=== PATIENT | female | born 1950 | race Caucasian/White ===

== ENCOUNTER → 2019-07-20 16:40 | Outpatient (CLI) | payer MEDICARE, SELFPAY ==
[2019-07-20 11:42] VITALS: BMI 35.4
[2019-07-20 17:29] LABS: Mucous, Urine 0 SEEN /hpf (<or=2+)
[2019-07-20 18:01] LABS: Color, Urine Yellow (Yellow); Glucose, Dipstick Normal (Normal); Ketone-Dipstick Negative (Negative); Leukocyte Esterase-Dipstick 500 /ul (Negative); Nitrite-Dipstick Negative (Negative); Occult Blood-Urine 250 /ul (Negative); Protein-Dipstick 30 mg/dl (Negative); Specific Gravity, Urine 1.015 (1.002-1.030); Urine Bilirubin Dipstick Negative (Negative); Urine Clarity Cloudy (Clear); Urine Urobilinogen 4 mg/dl (Normal)
[2019-07-20 18:08] LABS: Red Blood Cells-Urine 10-25 SEEN /hpf (0-5)
[2019-07-20 18:09] LABS: Bacteria 3+ /hpf (None Seen); Squamous Epithelial Cells - UA 0-5 SEEN /hpf (5-10); White Blood Cells 5-10 SEEN /hpf (0-5)
== END ==
PROVIDERS: Referring Provider Physician Assistant Surgical; Visit Provider Physician Assistant Surgical
DX: R35.0 Frequency of micturition (principal)
CPT/HCPCS: 81001; 87077; 87086; 87088; 87186

== ENCOUNTER → 2020-06-25 07:51 | Outpatient (CLI) | payer MEDICARE, SELFPAY ==
[2019-07-20 11:42] VITALS: BMI 35.4
[2020-06-25] VITALS (9 sets, daily range): BP systolic 101–170; BP diastolic 39–64; PULSE 47–70; RESP 13–25; TEMP 37.2; O2SAT 94–100; BMI 32.5
--- NOTE | 2020-06-25 | BMB_PTH ---
PATIENT: GIGI RDZ LOC: CT U#:[id number] AGE/SX: 74/F ROOM: RE06/25/[address]: Dr. Rock Sims DO : 1950 BED: DIS: SPEC #: [id number] RECD: 06/25/20 10:21 STATUS: TAHMINA NEEMA #: [id number] MYLES: 06/25/20 00:[address]: Rock Sims DEPT: BONE MARROW RECD BY: Loco Dunbar ENTERED: 06/25/20 10:22 SP TYPE: BMB OTHR DR: Dr. Santino Mcneill MD Tissues: A - Bone marrow, NOS B - Bone marrow, NOS C - Bone marrow, NOS Procedures: Bone Marrow Aspiration Bone Marrow Core Biopsy Iron Stain Bone Marrow HEADER OPERATION: Bone marrow biopsy and aspiration PRE-OP DIAGNOSIS: Pancytopenia TISSUE SUBMITTED: A - Core, B - Clot, C - Smears, and send outs (flow, cytogenetics and MDS FISH) BONE MARROW DIAGNOSIS Bone marrow clot and aspiration: Normocellular bone marrow with no evidence of myeloproliferative, lymphoproliferative of plasma cell dyscrasia. Peripheral smear with normocytic anemia and moderate thrombocytopenia. See comment. AM:linda 06/30/2020 COMMENT Flow cytometry analysis of aspirate material does not reveal evidence of acute leukemia or increased blasts. There is no evidence of abnormal myeloid maturation, B-cell or T-cell lymphoproliferative disorder or atypical monocytic proliferation. Cytogenetic studies are pending and will be reported as an addendum. The specimen labeled bone marrow core biopsy consists of fibrofatty tissue only. No bone/marrow elements are present. Clinical correlation is suggested. Immunohistochemistry ([id number]) supports the above diagnosis. Case has been reviewed in consultation with Dr. Reich who concurs with the above diagnosis. IDC:RENETTA BONE MARROW STUDY Slides are reviewed. CBC DATE: 06/25/20 WBC 1.6; RBC 3.65; HGB 10.3; HCT 34.8; MCV 95.3; RDW 29.6; PLTS 82,000 SEGS 54.1%; LYMPHS 32.9%; MONOS 8.1%; EOS 4.3%; BASOS 0.6% PERIPHERAL SMEAR: Submitted. RBC: Normocytic anemia WBC: Normomorphic PLTS: Moderate thrombocytopenia BONE MARROW ASPIRATE DIFFERENTIAL: 200 cell count. Markedly hemodilute with progressive trilineage hematopoiesis. ASPIRATE FINDINGS: Site: Not stated Paucispicular Hypocellular Markedly hemodilute and hypocellular. CORE BIOPSY FINDINGS: Site: Not stated Adequacy: Not adequate Cellularity %: Not applicable M/E ratio: Not applicable Benign fibrofatty tissue. No bone marrow present. ASPIRATE CLOT FINDINGS: Site: Not stated Marrow Particles: Few Cellularity %: 25-30% M/E ratio: Within normal limits Megakaryocytes: Adequate Granuloma(s): 0 Lymphoid aggregate(s): 0 Atypical infiltrate(s): 0 SPECIAL STAINS (with matched controls): Iron: Increased (2/4) without ring sideroblasts Reticulin: Within normal limits PAS: Highlights myeloid elements and megakaryocytes. BONE MARROW GROSS A - Received is a container labeled with the patient's name and designated bone marrow. The specimen consists of fragments of fibroadipose tissue measuring 2 x 2 x 0.1 cm. No obvious bone core is identified. The entire specimen is submitted in one cassette. B - Received labeled with the patient's name and designated bone marrow is a specimen that consists of approximately 8 cc of bloody fluid that on filtration yields multiple minute fragments of blood clots measuring in aggregate 3 x 2.5 x 0.3 cm. The specimen is totally submitted in one cassette. C - Also received are 29 unstained and 1 peripheral stained slides. The unstained slides are submitted for appropriate staining. Also received are two green top tubes which are sent to our reference lab for flow, cytogenetics and MDS FISH. / RENETTA:linda 06/25/20 TC:5 CPT: 58078, 77535, 86695 x2, 99449 x3 ADDENDUM ADDENDUM ADDENDUM ADDENDUM ADDENDUM ADDENDUM ADDENDUM ADDENDUM ADDENDUM ADDENDUM ADDENDUM ADDENDUM ADDENDUM ADDENDUM ADDENDUM 07/09/2020 10:43 ADDENDUM 07/09/2020 10:43 ADDENDUM 07/09/2020 10:43 ADDENDUM 07/09/2020 10:43 ADDENDUM 07/09/2020 10:43 FLUORESCENCE IN-SITU HYBRIDIZATION (FISH) MDS-RELATED DISEASE FROM [facility] INTERPRETATION: 1. No evidence of deletion of 5q or monosomy 5. 2. No evidence of monosomy 7 or deletion of 7q. 3. No evidence of trisomy 8 (+8). 4. No evidence of deletion of 20q12. CYTOGENETICS REPORT FROM [facility] INTERPRETATION: A normal female karyotype was observed in twenty metaphases analyzed. Karyotype: 46,XX[20] Please see complete report in e-chart or EMR
--- NOTE | 2020-06-25 | IMM_PTH ---
PATIENT: GIGI RDZ LOC: CT U#:[id number] AGE/SX: 74/F ROOM: RE06/25/[address]: Dr. Rock Sims DO : 1950 BED: DIS: SPEC #: [id number] RECD: 06/27/20 13:44 STATUS: SOURubi REQ #: [id number] MYLES: 06/25/20 00:[address]: Rock Sims DEPT: IMMUNOHISTOCHEMISTRY RECD BY: Astrid Fishman ENTERED: 06/27/20 13:47 SP TYPE: IMMUNO OTHR DR: Dr. Santino Mcneill MD Tissues: B - Bone marrow of iliac crest Procedures: BCL-2 (add) BCL-6 (add) CD10 (add) CD138 (add) CD15 (add) CD20 (add) CD23 (add) CD3 (add) CD30 (add) CD43 (add) CD45 (add) CD5 (add) CD79A (add) CYCLIN (add) KAPPA (add) KI-67 (add) LAMBDA (add) MPO (add) Vimentin (add) MUM1 (add) C-MYC (add) Pankeratin (initial) PHYSICIAN & INSTITUTION [place] [id number] SPECIMEN INFORMATION: Tissue Source: B - Bone marrow biopsy, clot Clinical Info: Pancytopenia Specimen Number: [id number] CPT code: 51835, 45657 x20 METHODOLOGY: Deparaffinized sections of prefer/formalin-fixed tissue or PAP/DQ stained slides are incubated with monoclonal/polyclonal antibodies/oligonucleotide probes. Localization is made via biotin free immunoperoxidase method. Appropriate controls are performed and reacted as expected. Results on target cell population are indicated in the following table: RESULTS: ANTIBODY / CLONE RESULT Block B AE1-3 (AE1/AE3/PCK26) negative CD3 (PS1) negative CD5 (SP10) negative CD10 (56C6) negative CD15 (MMA) negative CD20 (L26) negative CD23 (1B12) negative CD30 (Luis Manuel-H2) negative CD43 (L60) positive CD45 (RP2/18) negative CD79a (11E3) negative CD138 (B-A38) negative BCL-2 (bcl-2/100/D5) negative BCL-6 (CR237F/A8) negative Cyclin D1/BCL-1 (SP4) negative Weidman (polyclonal) negative Lambda (polyclonal) negative MUM1 (MRQ-43) negative C-MYC (Y69) negative MPO (polyclonal) positive Ki-67 (30-9) positive These tests were developed and their performance characteristics determined by [facility]. They may not have been cleared or approved by the U.S. Food and Drug Administration. The FDA has determined that such clearance or approval is not necessary. The above immunohistochemical/dualISH markers are ordered and reviewed by the Pathologist. INTERPRETATION: B. Bone marrow biopsy, clot: No evidence of lymphoproliferative disorder, plasma cell dyscrasia or increased blasts. AM:linda 06/30/2020 Comment: Clinical correlation necessary.
--- NOTE | 2020-06-25 08:15 | CT_ITS ---
PROCEDURE: CT GUIDED BONE marrow biopsy and aspirate of the left iliac bone. DATE: 06/25/2020. INDICATION: Female, 69 years old. Pancytopenia. PHYSICIAN: Jose Curtis M.D. RADIATION DOSAGE (If Supplied By Facility): CTDIvol = ( 18 ) mGy, DLP = ( 625.43 ) mGycm. Individualized dose optimization techniques were utilized. PROCEDURE: The risks, benefits, and alternatives to the procedure were explained to the patient. The specific risk of hemorrhage requiring further treatment or intervention was detailed and accepted. Follow-up instructions were discussed with the patient as well. Written informed consent was obtained. The patient was brought into the CT suite and placed in the prone position. . An appropriate entry site was identified. The overlying skin was prepped and draped in the usual sterile fashion. 1% lidocaine was administered subcutaneously for local anesthesia. Conscious sedation was performed. The patient received 3 mg of VERSED and 50 mcg of FENTANYL intravenously. Conscious sedation was started at 9:10 AM and terminated at 925. The patient was monitored independently by the department nurse. Under CT guidance, a bone marrow biopsy and bone marrow aspirates of the posterior aspect of the left iliac bone were performed utilizing an 11-gauge bone marrow core biopsy needle system. The specimens were then placed in the appropriate fluid and transported to the laboratory for analysis. Hemostasis was obtained. The patient tolerated the procedure well without immediate complications. CT/Biopsy/Inj or Needle Placement IMPRESSION: Successful CT guided bone marrow biopsy and aspirate of the posterior aspect of the left iliac bone, as described above. Conscious sedation protocol was followed. Electronically Signed: Jose Curtis MD at 9:49 EDT , Service support ,
[2020-06-25 08:18] LABS: Absolute Lymphocyte Count 0.53 X10^3/uL (0.83-4.51); Absolute Neutrophil Count 0.9 X10^3/uL (2.0-7.7); Basophil# 0.01 X10^3/uL; Basophil% 0.6 % (0-1); Eosinophil# 0.07 X10^3/uL; Eosinophils% 4.3 % (0-5); Hematocrit 34.8 % (37-47); Hemoglobin 10.3 g/dL (12.0-15.0); Lymphocyte # 0.53 X10^3/ul (4.0); Lymphocyte % 32.9 % (19-41); Mean Corp Hgb Conc 29.6 g/dL (32-36); Mean Corpuscular Hgb 28.2 pg (27.0-32.0); Mean Corpuscular Volume 95.3 fL (81-99); Mean Platelet Vol. 10.9 fl (6.2-12.0); Monocyte# 0.13 X10^3/uL; Monocyte% 8.1 % (0-10); NRBC Flagged by Analyzer 0 % (0-5); Neutrophil # 0.87 X10^3/uL (2.7-7.7); Neutrophil % 54.1 % (47-70); POSITIVE COUNT YES; POSITIVE DIFFERENTIAL YES; Platelet Count 82 K/mm3 (150-450); RBC Distribution Width CV 15.9 % (11.6-14.6); RBC Distribution Width SD 56.3 fl (35.1-43.9); Red Blood Count 3.65 M/mm3 (4.2-5.4); White Blood Count 1.6 K/mm3 (4.4-11.0)
[2020-06-25 08:24] LABS: Differential Indicated SCAN CRITERIA MET
[2020-06-25 08:48] LABS: Differential Comment SCANNED; Pathologist Review May foll
[2020-06-25] MEDS: fentaNYL 100 MCG/2 ML Ampul IV (09:10)
[2020-06-25] MEDS: Midazolam 2 MG/2 ML Syringe IV ×2 (09:10→09:25)
[2020-06-25] MEDS: Lidocaine 2% (20 ml mdv) 20 ML Vial INFILT (09:15)
== END ==
PROVIDERS: PCP Family Medicine; Referring Provider Internal Medicine Hematology & Oncology; Visit Provider Internal Medicine Hematology & Oncology
DX: D61.818 Other pancytopenia (principal)
CPT/HCPCS: 38221; 36415; 77012; 85025; 88305; 88311; 88313; 88341; 88342; 99155; 99156; J7040; A4216

== ENCOUNTER 2020-07-10 11:26 | Emergency (ER) | payer MEDICARE, SELFPAY ==
[2020-06-25 08:33] VITALS: BMI 32.5
[2020-07-10 11:27] VITALS: BP 144/59; PULSE 59; RESP 18; TEMP 36.6; O2SAT 98; BMI 36.4
--- NOTE | 2020-07-10 13:29 | EDS_ITS ---
HPI History of Present Illness Chief Complaint: Back Detail of Chief Complaint: Back pain and fatigue for 5 days Informant: patient Onset/Context/Timing Worsened by: Movement Narrative Narrative: Patient presents to the emergency department with complaint of not feeling well for the last 5 days. Patient states that she has had some lower back discomfort as well as fatigue and just no energy. Patient's had some intermittent abdominal discomfort and states that she has a gallbladder that is full of fluid and stones and also is scheduled to have a colonoscopy next week. Patient complains of dysuria and frequency. She denies fevers. She is had no nausea or vomiting. Patient does have history of coronary artery disease, diabetes, and hypertension. 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 Patient also tells me she had Covid in April and has been vaccinated as well. Patient has had recent Covid test that was negative. Prior similar symptoms: No PFSH [facility] Medical History (Updated 07/10/20 @ 15:[address] Erik Tang, ) Diabetes HTN (hypertension) Home Medications aspirin 81 mg tablet,delayed release 81 mg PO DAILY 07/20/19 [History Last Taken 06/18/20] citalopram 10 mg tablet 10 tab PO DAILY 07/20/19 [History Last Taken Unknown] ergocalciferol (vitamin D2) 1,250 mcg (50,000 unit) capsule 50,000 units PO QWEEK 07/20/19 [History Last Taken Unknown] lorazepam 1 mg tablet 1 mg PO DAILY tab 07/20/19 [History Last Taken Unknown] losartan 50 mg tablet 50 mg PO DAILY 07/20/19 [History Last Taken Unknown] lovastatin 40 mg tablet 40 mg PO DAILY 07/20/19 [History Last Taken Unknown] metformin 1,000 mg tablet 1,000 mg PO BID 07/20/19 [History Last Taken Unknown] pioglitazone 30 mg tablet 30 mg PO DAILY 07/20/19 [History Last Taken Unknown] cephalexin 500 mg PO TID 7 Days #21 cap 07/10/20 [Rx Last Taken Unknown] metoprolol succinate [Toprol XL] 25 mg PO DAILY 07/10/20 [History Last Taken Unknown] Allergy/AdvReac Type Severity Reaction Status Date / Time No Known Allergies Allergy Unverified 06/25/20 08:27 Surgical History H/O heart surgery Social History (Updated 07/20/19 @ 12:13 by Ulysses LR, PA) Smoking Status: Former smoker alcohol intake: never ROS ROS ED Constitutional Constitutional ED: Reports systems reviewed and no addt'l complaints, except as documented; Denies body ache(s), change in weight or chills Eyes Eyes: Denies acute decrease in peripheral vision, change in vision, double vision or loss of vision ENT ENT ED: Reports none; Denies ear pain, lip swelling, loss taste/smell, neck pain, otalgia or sore throat Cardiovascular Cardiovascular: Reports none; Denies abdominal pain, chest pain with activity, leg edema, lightheadedness, palpitations, rapid heart rate or syncope Respiratory/Chest Respiratory/Chest: Reports none; Denies change in mental status, dry cough, dyspnea, hemoptysis, shortness of breath at rest or shortness of breath with exertion Gastrointestinal Gastrointestinal: Reports none, abdominal pain and nausea; Denies change in stool character, constipation, diarrhea, hematemesis, hematochezia, melena, rectal bleeding or vomiting Genitourinary Genitourinary ED: Reports none, dysuria and urinary frequency; Denies abdominal discomfort, anuria, genital pain or polyuria Musculoskeletal Musculoskeletal: Reports none and back pain; Denies arthralgias, difficulty walking, extremity pain, muscle weakness or myalgias Integumentary Reports none; Denies abscess or rash Neurologic Neurologic: Reports none; Denies abnormal gait, confusion, focal weakness, frequent falls, headache(s), loss of vision, numbness, paresthesias, radicular pain, vertigo or weakness Psychiatric Psychiatric: Reports systems reviewed and no addt'l complaints, except as documented and none; Denies behavioral changes, confusion, difficulty concentrating, hallucinations, suicidal ideation, tactile hallucinations or visual hallucinations Endocrine Endocrinology: Denies none, cold intolerance, excessive sweating, fatigue or heat intolerance Hematologic/Lymphatic Hematologic/Lymphatic: Reports none; Denies anemia, easy bleeding or easy bruising Allergic/Immunologic Allergic/Immunologic ED: Denies as per HPI, none, lip swelling, mouth swelling, throat swelling, tongue swelling or hives EXAM Physical Exam Const Vital Signs: 07/10/20 11:27 07/10/20 14:25 Temperature 97.8 F Temperature Source Temporal Pulse Rate 59 L 78 Respiratory Rate 18 Blood Pressure 144/59 H 136/52 H Blood Pressure Mean 87 80 Pulse Ox 98 Oxygen Delivery Method Room Air Positive well nourished and well developed General Appearance ED: well developed and NAD HEENT Reports TM's clear and moist mucous membranes normocephalic and atraumatic; Negative for trauma or tenderness Tympanic Membrane ED: Yes TM's clear Eyes PERRL and EOMs intact bilaterally General Eye ED: Negative for pale conjunctiva or scleral icterus Neck no lymphadenopathy, supple and no JVD General: Negative for tenderness Chest Wall inspection of chest normal and palpation of chest normal Chest: Negative for tenderness Resp normal respiratory effort and clear to auscultation bilaterally Effort and Inspection: Negative for respiratory distress or pain with movement Auscultation: Negative for rhonchi, wheezes or diminished lung sounds Cardio regular rate, regular rhythm, S1 normal heart sound, S2 normal heart sound and no murmurs Peripheral Pulses: pulses 2+ throughout GI normal to inspection, nondistended, normoactive bowel sounds, soft to palpation, non-tender, non-distended and no masses Palpation: soft Back/Spine no CVA tenderness and no thoracic nor lumbar tenderness Back/Spine Narrative: Patient has some mild diffuse tenderness over lumbar paraspinal musculature that seems to reproduce some of her pain. Negative straight leg raises. Deep tendon reflexes are plus 2 out of 4 bilaterally at the patella Achilles. Patient has normal L5 extension bilaterally. General Back: other Extremity normal to inspection General Extremety ED: Negative for edema General Extremity: Negative for edema Neuro oriented x3, CN's II-XII intact bilaterally, no sensory deficits noted and gait normal Sensorium / Orientation: awake, alert, oriented to person, oriented to place and oriented to time Motor Exam: strength 5/5 throughout and strength abnormal Psych mental status grossly normal Skin no rashes or lesions noted and no wounds MDM MDM MDM Narrative Medical decision making narrative: Patient with evidence of UTI. She will receive Rocephin 1 g IV and will be written for prescription for Keflex. Patient to follow-up with primary care physician in 3 to 5 days. Urine culture was sent. Lab Data Attestation: I reviewed the patient's lab results. Labs: Laboratory Results - last 24 hr 07/10/20 07/10/20 07/10/20 13:10 13:10 13:10 WBC 1.7 L RBC 3.89 L Hgb 10.6 L Hct 36.6 L MCV 94.1 MCH 27.2 MCHC 29.0 L RDW Std Deviation 55.5 H RDW Coeff of Codey 16.0 H Plt Count 79 L MPV 10.7 Immature Gran % (Auto) 0.000 Neut % (Auto) 57.1 Lymph % (Auto) 29.4 Bacon % (Auto) 10.0 Eos % (Auto) 2.9 Baso % (Auto) 0.6 Absolute Neuts (auto) 1.0 L Absolute Lymphs (auto) 0.50 L Nucleated RBC % 0 Differential Comment SCANNED Diff Path Review May foll Platelet Estimate MKD DEC Hypochromasia 1+ Ovalocytes 1+ Sodium 144 Potassium 3.8 Chloride 110 H Carbon Dioxide 30.0 Anion Gap 4 L BUN 33 H Creatinine 1.00 Estim Creat Clear Calc 43.30 Est GFR (MDRD) Af Amer 70 Est GFR (MDRD) Non-Af 58 L BUN/Creatinine Ratio 33.0 H Glucose 89 Lactic Acid Calcium 9.7 Total Bilirubin 0.50 Direct Bilirubin 0.14 AST 22 ALT 24 Alkaline Phosphatase 80 Total Protein 7.1 Albumin 3.5 Globulin 3.6 Urine Color Yellow Urine Clarity Sl. Cloudy Urine pH 6.0 Ur Specific [place] 1.015 Urine Protein 30 H Urine Glucose (UA) Normal Urine Ketones Negative Urine Occult Blood 25 H Urine Nitrite Negative Urine Bilirubin Negative Urine Urobilinogen 4 H Ur Leukocyte Esterase 500 H Urine RBC 0 SEEN Urine WBC >100 SEEN Ur Squamous Epith Cells 0 SEEN Ur Transition Epith Cell 5-10 SEEN Urine Bacteria RARE Urine Mucus 0 SEEN 07/10/20 13:45 WBC RBC Hgb Hct MCV MCH MCHC RDW Std Deviation RDW Coeff of Codey Plt Count MPV Immature Gran % (Auto) Neut % (Auto) Lymph % (Auto) Bacon % (Auto) Eos % (Auto) Baso % (Auto) Absolute Neuts (auto) Absolute Lymphs (auto) Nucleated RBC % Differential Comment Diff Path Review Platelet Estimate Hypochromasia Ovalocytes Sodium Potassium Chloride Carbon Dioxide Anion Gap BUN Creatinine Estim Creat Clear Calc Est GFR (MDRD) Af Amer Est GFR (MDRD) Non-Af BUN/Creatinine Ratio Glucose Lactic Acid 2.0 Calcium Total Bilirubin Direct Bilirubin AST ALT Alkaline Phosphatase Total Protein Albumin Globulin Urine Color Urine Clarity Urine pH Ur Specific [place] Urine Protein Urine Glucose (UA) Urine Ketones Urine Occult Blood Urine Nitrite Urine Bilirubin Urine Urobilinogen Ur Leukocyte Esterase Urine RBC Urine WBC Ur Squamous Epith Cells Ur Transition Epith Cell Urine Bacteria Urine Mucus Discharge Plan Triage Chief Complaint: Back Other Complaint: Fatigue ED Provider: Erik Tang Dx/Rx/DC Orders Clinical Impression: Cystitis Instructions: ED Bladder Infection, Female (Adult) Prescriptions: New cephalexin 500 mg capsule 500 mg PO TID 7 Days Qty: 21 RF: 0 No Action citalopram 10 mg tablet 10 tab PO DAILY RF: 0 aspirin [Adult Low Dose Aspirin] 81 mg tablet,delayed release (DR/EC) 81 mg PO DAILY RF: 0 ergocalciferol (vitamin D2) 1,250 mcg (50,000 unit) capsule 50,000 units PO QWEEK RF: 0 lorazepam 1 mg tablet 1 mg PO DAILY RF: 0 losartan 50 mg tablet 50 mg PO DAILY RF: 0 lovastatin 40 mg tablet 40 mg PO DAILY RF: 0 metformin 1,000 mg tablet 1,000 mg PO BID RF: 0 pioglitazone 30 mg tablet 30 mg PO DAILY RF: 0 metoprolol succinate [Toprol XL] 25 mg tablet extended release 24 hr 25 mg PO DAILY RF: 0 Primary Care Provider: Santino Mcneill Referrals: Santino Mcneill MD [Primary Care Provider] - 3-5 Days Disposition Disposition: Home, self care
[2020-07-10 13:54] LABS: Basophil# 0.01 X10^3/uL; Basophil% 0.6 % (0-1); Eosinophil# 0.05 X10^3/uL; Eosinophils% 2.9 % (0-5); Hematocrit 36.6 % (37-47); Hemoglobin 10.6 g/dL (12.0-15.0); Lymphocyte % 29.4 % (19-41); Mean Corpuscular Hgb 27.2 pg (27.0-32.0); Mean Corpuscular Volume 94.1 fL (81-99); Mean Platelet Vol. 10.7 fl (6.2-12.0); Monocyte# 0.17 X10^3/uL; NRBC Flagged by Analyzer 0 % (0-5); Neutrophil # 0.97 X10^3/uL (2.7-7.7); Neutrophil % 57.1 % (47-70); POSITIVE COUNT YES; POSITIVE DIFFERENTIAL YES; Platelet Count 79 K/mm3 (150-450); RBC Distribution Width SD 55.5 fl (35.1-43.9); Red Blood Count 3.89 M/mm3 (4.2-5.4); White Blood Count 1.7 K/mm3 (4.4-11.0)
[2020-07-10 13:55] LABS: Differential Indicated SCAN CRITERIA MET
[2020-07-10 14:01] LABS: AST(SGOT) 22 U/L (15-37); Alanine Aminotransfer ALT/SGPT 24 U/L (13-56); Albumin, Serum 3.5 g/dL (3.2-5.0); Alkaline Phosphatase 80 U/L (45-117); Anion Gap 4 (5-15); BUN 33 mg/dL (7-18); Bilirubin, Direct 0.14 mg/dL (0.00-0.30); Calcium,Total 9.7 mg/dL (8.5-10.1); Chloride 110 mmol/L (98-107); EST Glomerular Filtration Rate 58 mL/min (>60); Est Glom Filt Rate - Afr Amer 70 mL/min (>60); Globulin 3.6 g/dL (2.2-4.2); Glucose 89 mg/dL (74-106); Potassium 3.8 mmol/L (3.5-5.1); Protein, Total 7.1 g/dL (6.4-8.2); Sodium Level 144 mmol/L (136-145)
[2020-07-10 14:12] LABS: Mucous, Urine 0 SEEN /hpf (<or=2+); Red Blood Cells-Urine 0 SEEN /hpf (0-5); Squamous Epithelial Cells - UA 0 SEEN /hpf (5-10)
[2020-07-10 14:13] LABS: Color, Urine Yellow (Yellow); Glucose, Dipstick Normal (Normal); Ketone-Dipstick Negative (Negative); Leukocyte Esterase-Dipstick 500 /ul (Negative); Nitrite-Dipstick Negative (Negative); Occult Blood-Urine 25 /ul (Negative); Protein-Dipstick 30 mg/dl (Negative); Specific Gravity, Urine 1.015 (1.002-1.030); Urine Bilirubin Dipstick Negative (Negative); Urine Clarity Sl. Cloudy (Clear); Urine Urobilinogen 4 mg/dl (Normal)
[2020-07-10 14:14] LABS: Differential Comment SCANNED; Hypochromasia 1+; Platelet Estimate MKD DEC (ADEQ)
[2020-07-10 14:15] LABS: Ovalocyte 1+
[2020-07-10 14:19] LABS: Bacteria RARE /hpf (None Seen); Transitional Epithelial - Ur 5-10 SEEN /hpf (0-5); White Blood Cells >100 SEEN /hpf (0-5)
[2020-07-10 14:25] VITALS: BP 136/52; PULSE 78
[2020-07-10] MEDS: Ceftriaxone 1 GM/50 ML BAG IV (15:13)
[2020-07-10] MEDS: 0.9% Normal Saline 1,000 ML 150 ML IV (15:13)
[2020-07-10 17:48] LABS: Reflex Lactate? Y
[2020-07-11 12:01] LABS: Pathologist Review Reviewed
== END 2020-07-10 15:56 | disposition home or self-care (01) ==
PROVIDERS: Emergency Provider Emergency Medicine; PCP Family Medicine
DX: N30.90 Cystitis, unspecified without hematuria (principal); Z87.891 Personal history of nicotine dependence; E11.9 Type 2 diabetes mellitus without complications; I10 Essential (primary) hypertension; I25.10 Atherosclerotic heart disease of native coronary artery without angina pectoris; Z95.1 Presence of aortocoronary bypass graft; Z79.82 Long term (current) use of aspirin; Z79.84 Long term (current) use of oral hypoglycemic drugs; Z79.899 Other long term (current) drug therapy
CPT/HCPCS: 80048; 80076; 81001; 83605; 85025; 87077; 87086; 87088; 87186; 99281; 99282; J7030; A4216

== ENCOUNTER → 2020-09-22 15:34 | Outpatient (CLI) | payer MEDICARE, SELFPAY ==
[2020-09-22 11:37] VITALS: BMI 36.4
[2020-09-22 16:07] LABS: Mucous, Urine 0 SEEN /hpf (<or=2+)
[2020-09-22 16:17] LABS: Color, Urine Yellow (Yellow); Glucose, Dipstick Normal (Normal); Ketone-Dipstick Negative (Negative); Leukocyte Esterase-Dipstick 500 /ul (Negative); Nitrite-Dipstick Positive (Negative); Occult Blood-Urine 250 /ul (Negative); Protein-Dipstick 30 mg/dl (Negative); Urine Clarity Clear (Clear); Urine Urobilinogen 1 mg/dl (Normal)
[2020-09-22 16:19] LABS: Urine Bilirubin Dipstick 1 mg/dL (Negative)
[2020-09-22 16:22] LABS: White Blood Cells 10-25 SEEN /hpf (0-5)
[2020-09-22 16:23] LABS: Bacteria RARE /hpf (None Seen); Red Blood Cells-Urine 5-10 SEEN /hpf (0-5); Squamous Epithelial Cells - UA 5-10 SEEN /hpf (5-10)
== END ==
PROVIDERS: PCP Family Medicine; Visit Provider Physician Assistant
DX: N39.0 Urinary tract infection, site not specified (principal); N30.90 Cystitis, unspecified without hematuria
CPT/HCPCS: 81001; 87077; 87086; 87088; 87186

== ENCOUNTER 2020-10-06 10:53 | Inpatient (IN) | payer MEDICARE, SELFPAY ==
[2020-09-22 11:37] VITALS: BMI 36.4
[2020-10-06] VITALS (10 sets, daily range): BP systolic 137–164; BP diastolic 58–88; PULSE 50–65; RESP 15–20; TEMP 36.5–37.1; O2SAT 94–98; BMI 35.7; BMI 35.6
--- NOTE | 2020-10-06 11:30 | RAD_ITS ---
STUDY: X-RAY CHEST REASON FOR EXAM: Female, 70 years old. Cough TECHNIQUE: Single AP portable view of the chest. COMPARISON: None. FINDINGS: EKG electrodes are seen. The lungs are clear and expanded. There is no demonstrated pleural abnormality. Sternal cerclage wires and vascular clips are present from a prior sternotomy and coronary artery bypass graft procedure (CABG). Moderate cardiomegaly. Normal mediastinum and farnaz. Normal visualized pulmonary arteries. There is atherosclerotic calcification of the aortic arch with tortuosity. Normal visualized thoracic spine. Normal visualized ribs, clavicles, and shoulders. There is no demonstrated abnormality of the visualized soft tissue structures of the upper abdomen. RAD/Chest 1 View (Portable) IMPRESSION: Prior CABG. Moderate cardiomegaly. Electronically Signed: Jose Curtis MD at 12:54 EDT , Service support ,
--- NOTE | 2020-10-06 11:30 | CT_ITS ---
STUDY: CT ABDOMEN AND PELVIS WITH CONTRAST REASON FOR EXAM: Female, 70 years old. Abd pain -- IV PO Contrast RADIATION DOSAGE (If Supplied By Facility): CTDIvol = ( 16.43 ) mGy, DLP = ( 1263.74 ) mGycm TECHNIQUE: Transaxial images were obtained from the dome of the diaphragm to the symphysis pubis with oral contrast. Oral and amp;amp; IV Gastrografin and amp;amp; 100mL Isovue-370 was administered. Sagittal and coronal images were reconstructed. Individualized dose optimization techniques were used for this CT. COMPARISON: None. FINDINGS: Mild degree of the right basilar scarring. Coronary artery calcification. Prior CABG. There is evidence of a thrombus within the main portal venous system extending into branches of the right lobe of the liver. Thrombus is also seen in the superior mesenteric vein. Normal gallbladder and extrahepatic biliary system. Normal spleen. Normal pancreas. There is evidence of perihepatic and perisplenic fluid in keeping with the ascites. There is evidence of increased markings in the peritoneal fat. There is evidence of a bilateral perinephric stranding. Normal bilateral adrenal glands. Normal right kidney. Normal left kidney. Normal visualized stomach. Normal small intestine. There is thickening of the right hemicolon suggestive of a edematous changes within the right hemicolon. There are surgical clips in the region of the appendix consistent with a prior appendectomy. There is diffuse atherosclerotic calcification of the abdominal aorta, without a demonstrated aneurysm. Normal inferior vena cava. Normal retroperitoneum. Normal urinary bladder. There is evidence of fluid congestion throughout the subcutaneous fat. There are degenerative changes of the visualized lumbar spine. CT/Abdomen/Pelvis WITH Contrast IMPRESSION: Portal venous thrombosis with the intraluminal thrombus in the main portal vein extending to the right portal branch. Thrombus within the superior mesenteric vein. Small amount of ascites. Increased markings in the peritoneal fat. Thickening of the right hemicolon. N.B. : The above Results were Read Back by Jose Curtis MD to Shaniqua Rose MD, and understanding confirmed on 10/06/2020 13:41:44 (ET). Electronically Signed: Jose Curtis MD at 13:42 EDT , Service support ,
--- NOTE | 2020-10-06 11:30 | EKG12_ITS ---
Test Reason : EDEMA Blood Pressure : / mmHG Vent. Rate : 060 BPM Atrial Rate : 060 BPM P-R Int : 178 ms QRS Dur : 152 ms QT Int : 508 ms P-R-T Axes : 145 -41 -02 degrees QTc Int : 508 ms Unusual P axis, possible ectopic atrial rhythm with frequent Premature ventricular complexes Left axis deviation Right bundle branch block Abnormal ECG Confirmed by NARDA REDDY, MAHNAZ ([id number]), editor producer JUNE MURRY ([id number]) on 10/09/2020 10:03:01 AM Referred By: FELISHA Confirmed By:MAHNAZ LABOY MD
--- NOTE | 2020-10-06 11:31 | EDS_ITS ---
HPI History of Present Illness Chief Complaint: Edema Informant: patient and family Onset/Context/Timing Onset: Days Current Severity: Mild Maximum Severity: Mild Narrative Narrative: Patient presents secondary to multiple complaints. She has had chronic fatigue for quite some time. She has been followed by Dr. Sims and been getting iron transfusions for anemia. She complains of abdominal pain that has been ongoing for quite some time, worsened over the last half hour or so. She states it is diffuse in nature. She has poor appetite but no vomiting or diarrhea. She has frequent UTIs and recently saw a urologist. She finished her last antibiotic approximate 1 week ago. Yesterday her feet were quite swollen. This improved with elevation and today she only has minimal edema. Patient was scheduled to have testing and CT scan performed at the [facility] this afternoon but because family was quite concerned about her oncologist recommended she come to the emergency room. [facility] Medical History (Updated 10/06/20 @ 14:[address] Shaniqua Rose MD) Anemia Diabetes History of recurrent UTIs HTN (hypertension) Home Medications aspirin 81 mg tablet,delayed release 81 mg PO DAILY 07/20/19 [History Last Taken 06/18/20] citalopram 10 mg tablet 10 tab PO DAILY 07/20/19 [History Last Taken Unknown] ergocalciferol (vitamin D2) 1,250 mcg (50,000 unit) capsule 50,000 units PO METZ 07/20/19 [History Last Taken Unknown] lorazepam 1 mg tablet 1 mg PO DAILY tab 07/20/19 [History Last Taken Unknown] losartan 50 mg tablet 50 mg PO DAILY 07/20/19 [History Last Taken Unknown] lovastatin 40 mg tablet 40 mg PO DAILY 07/20/19 [History Last Taken Unknown] metformin 1,000 mg tablet 1,000 mg PO BID 07/20/19 [History Last Taken Unknown] pioglitazone 30 mg tablet 30 mg PO DAILY 07/20/19 [History Last Taken Unknown] metoprolol succinate [Toprol XL] 25 mg PO DAILY 07/10/20 [History Last Taken Unknown] ascorbic acid (vitamin C) [Vitamin C] 500 mg PO DAILY 10/06/20 [History Last Taken Unknown] Allergy/AdvReac Type Severity Reaction Status Date / Time No Known Allergies Allergy Unverified 10/06/20 10:55 Surgical History (Updated 10/06/20 @ 12:14 by Glory Quintero) H/O heart surgery H/O hernia repair Hx of CABG Social History Smoking Status: Former smoker alcohol intake: never ROS ROS ED Constitutional Constitutional ED: Denies chills or fever(s) Eyes Eyes: Denies change in vision ENT ENT ED: Denies sore throat Cardiovascular Cardiovascular: Denies chest pain Respiratory/Chest Respiratory/Chest: Reports cough; Denies dyspnea Gastrointestinal Gastrointestinal: Reports abdominal pain; Denies diarrhea, nausea or vomiting Genitourinary Genitourinary ED: Denies dysuria Musculoskeletal Musculoskeletal: Denies back pain Integumentary Denies rash Neurologic Neurologic: Denies headache(s) or weakness Psychiatric Psychiatric: Denies anxiety or depression Endocrine Endocrinology: Denies polydipsia or polyuria Allergic/Immunologic Allergic/Immunologic ED: Denies urticaria EXAM Physical Exam Const Vital Signs: 10/06/20 10:54 10/06/20 12:11 10/06/20 12:12 Temperature 98.8 F Temperature Source Temporal Pulse Rate 60 59 L Respiratory Rate 15 20 H Respiratory Effort Normal Non-Labored Respiratory Pattern Normal Blood Pressure 164/68 H 137/88 H Blood Pressure Mean 100 104 Pulse Ox 94 95 Oxygen Delivery Method Room Air Room Air 10/06/20 14:20 Temperature 98.1 F Temperature Source Temporal Pulse Rate 50 L Respiratory Rate 16 Respiratory Effort Respiratory Pattern Blood Pressure 152/60 H Blood Pressure Mean 90 Pulse Ox 96 Oxygen Delivery Method Room Air Positive well nourished and well developed General Appearance ED: well developed HEENT Reports normocephalic and head/scalp atraumatic Eyes PERRL and EOMs intact bilaterally Neck supple Chest Wall inspection of chest normal and palpation of chest normal Resp normal respiratory effort and clear to auscultation bilaterally Cardio regular rhythm Rate: bradycardia Heart Sounds: murmur GI normal to inspection, nondistended, normoactive bowel sounds and non-tender Palpation: soft Extremity normal to inspection Extremity Narrative: 1+ bilateral lower extremity edema, symmetric. Strong pulses. No skin changes. Neuro oriented x3 Sensorium / Orientation: alert Psych mental status grossly normal Skin no rashes or lesions noted MDM MDM MDM Narrative Medical decision making narrative: Labs, EKG, CT scan abdomen pelvis, urinalysis obtained. Lab Data Attestation: I reviewed the patient's lab results. Labs: Laboratory Results - last 24 hr 10/06/20 10/06/20 10/06/20 11:40 11:40 12:43 WBC 1.9 L RBC 3.53 L Hgb 10.8 L Hct 35.5 L MCV 100.6 H MCH 30.6 MCHC 30.4 L RDW Std Deviation 69.8 H RDW Coeff of Codey 18.8 H Plt Count 69 L MPV 11.3 Immature Gran % (Auto) 0.500 Neut % (Auto) 64.0 Lymph % (Auto) 21.4 [place] % (Auto) 8.9 Eos % (Auto) 4.7 Baso % (Auto) 0.5 Absolute Neuts (auto) 1.2 L Absolute Lymphs (auto) 0.41 L Nucleated RBC % 0 Differential Comment SCANNED Diff Path Review July Sodium 144 Potassium 4.7 Chloride 113 H Carbon Dioxide 27.0 Anion Gap 4 L BUN 24 H Creatinine 0.81 Estim Creat Clear Calc 55.01 Est GFR (MDRD) Af Amer 89 Est GFR (MDRD) Non-Af 74 BUN/Creatinine Ratio 29.5 H Glucose 83 Calcium 9.3 Total Bilirubin 0.80 Direct Bilirubin 0.20 AST 31 ALT 27 Alkaline Phosphatase 106 Total Protein 6.5 Albumin 3.1 L Globulin 3.4 Urine Color Yellow Urine Clarity Sl. Cloudy Urine pH 5.0 Ur Specific [place] 1.020 Urine Protein Negative Urine Glucose (UA) Normal Urine Ketones Negative Urine Occult Blood 10 H Urine Nitrite Negative Urine Bilirubin Negative Urine Urobilinogen 1 H Ur Leukocyte Esterase 100 H Urine RBC 0-5 SEEN Urine WBC 10-25 SEEN Ur Squamous Epith Cells 0-5 SEEN Urine Bacteria 1+ Urine Mucus 0 SEEN Radiography Diagnostic Testing: Radiology Impression Abdomen/Pelvis CT 10/06/20 11:30 IMPRESSION: Portal venous thrombosis with the intraluminal thrombus in the main portal vein extending to the right portal branch. Thrombus within the superior mesenteric vein. Small amount of ascites. Increased markings in the peritoneal fat. Thickening of the right hemicolon. N.B. : The above Results were Read Back by Jose Curtis MD to Shaniqua Rose MD, and understanding confirmed on 10/06/2020 13:41:44 (ET). Electronically Signed: Jose Curtis MD at 13:42 EDT , Service support , ADDENDUM: 10/06/20 1349 IMPRESSION: Portal venous thrombosis with the intraluminal thrombus in the main portal vein extending to the right portal branch. Thrombus within the superior mesenteric vein. Small amount of ascites. Increased markings in the peritoneal fat. Thickening of the right hemicolon. N.B. : The above Results were Read Back by Jose Curtis MD to Shaniqua Rose MD, and understanding confirmed on 10/06/2020 13:41:44 (ET). Electronically Signed: Jose Curtis MD at 13:42 EDT , Service support , Chest X-Ray 10/06/20 11:30 IMPRESSION: Prior CABG. Moderate cardiomegaly. Electronically Signed: Jose Curtis MD at 12:54 EDT , Service support , EKG Initial EKG: Attestation: I personally reviewed and interpreted this EKG as follows: Interpretation: Sinus Rhythm (Sinus at 60 with frequent PVCs. No obvious ST change.) Treatment and Re-Evaluation Comments:: Test results reviewed with the patient. She does have evidence of UTI. Urine culture will be sent to be given a dose of Rocephin. I spoke with Dr. Sims, her oncologist. He would prefer the patient be started on a heparin drip for the first 24 hours and observed in treatment of her portal vein thrombosis. I spoke with Dr. Sanchez and patient be admitted to the PCU unit. Discharge Plan Triage Chief Complaint: Edema ED Provider: Shaniqua Rose Dx/Rx/DC Orders Clinical Impression: Portal vein thrombosis, Acute UTI Prescriptions: No Action citalopram 10 mg tablet 10 tab PO DAILY RF: 0 aspirin [Adult Low Dose Aspirin] 81 mg tablet,delayed release (DR/EC) 81 mg PO DAILY RF: 0 ergocalciferol (vitamin D2) 1,250 mcg (50,000 unit) capsule 50,000 units PO METZ RF: 0 lorazepam 1 mg tablet 1 mg PO DAILY RF: 0 losartan 50 mg tablet 50 mg PO DAILY RF: 0 lovastatin 40 mg tablet 40 mg PO DAILY RF: 0 metformin 1,000 mg tablet 1,000 mg PO BID RF: 0 pioglitazone 30 mg tablet 30 mg PO DAILY RF: 0 metoprolol succinate [Toprol XL] 25 mg tablet extended release 24 hr 25 mg PO DAILY RF: 0 Vitamin C 500 mg Wafer 500 mg PO DAILY RF: 0 Primary Care Provider: Santino Mcneill Referrals: Santino Mcneill MD [Primary Care Provider] - Disposition Disposition: Acute Care Hospital [facility]
--- NOTE | 2020-10-06 11:33 | NURSING ---
NO OLD EKGS
[2020-10-06 11:51] LABS: Absolute Lymphocyte Count 0.41 X10^3/uL (0.83-4.51); Absolute Neutrophil Count 1.2 X10^3/uL (2.0-7.7); Basophil# 0.01 X10^3/uL; Basophil% 0.5 % (0-1); Eosinophil# 0.09 X10^3/uL; Eosinophils% 4.7 % (0-5); Hematocrit 35.5 % (37-47); Hemoglobin 10.8 g/dL (12.0-15.0); Lymphocyte # 0.41 X10^3/ul (0.83-4.51); Lymphocyte % 21.4 % (19-41); Mean Corp Hgb Conc 30.4 g/dL (32-36); Mean Corpuscular Hgb 30.6 pg (27.0-32.0); Mean Corpuscular Volume 100.6 fL (81-99); Mean Platelet Vol. 11.3 fl (6.2-12.0); Monocyte# 0.17 X10^3/uL; Monocyte% 8.9 % (0-10); NRBC Flagged by Analyzer 0 % (0-5); Neutrophil # 1.23 X10^3/uL (2.7-7.7); POSITIVE COUNT YES; POSITIVE DIFFERENTIAL YES; POSITIVE MORPHOLOGY YES; Platelet Count 69 K/mm3 (150-450); RBC Distribution Width CV 18.8 % (11.6-14.6); RBC Distribution Width SD 69.8 fl (35.1-43.9); Red Blood Count 3.53 M/mm3 (4.2-5.4); White Blood Count 1.9 K/mm3 (4.4-11.0)
[2020-10-06 11:54] LABS: Differential Indicated SCAN CRITERIA MET
[2020-10-06 12:03] LABS: AST(SGOT) 31 U/L (15-37); Alanine Aminotransfer ALT/SGPT 27 U/L (13-56); Albumin, Serum 3.1 g/dL (3.2-5.0); Alkaline Phosphatase 106 U/L (45-117); Anion Gap 4 (5-15); BUN 24 mg/dL (7-18); BUN/Creat Ratio 29.5 RATIO (10-20); Calcium,Total 9.3 mg/dL (8.5-10.1); Chloride 113 mmol/L (98-107); Creatinine, Serum 0.81 mg/dL (0.55-1.02); EST Glomerular Filtration Rate 74 mL/min (>60); Est Glom Filt Rate - Afr Amer 89 mL/min (>60); Estimated Creatinine Clearance 55.01 ml/min; Globulin 3.4 g/dL (2.2-4.2); Glucose 83 mg/dL (74-106); Potassium 4.7 mmol/L (3.5-5.1); Protein, Total 6.5 g/dL (6.4-8.2); Sodium Level 144 mmol/L (136-145)
[2020-10-06 12:13] LABS: Differential Comment SCANNED
[2020-10-06 12:56] LABS: Mucous, Urine 0 SEEN /hpf (<or=2+)
[2020-10-06 12:59] LABS: Color, Urine Yellow (Yellow); Glucose, Dipstick Normal (Normal); Ketone-Dipstick Negative (Negative); Leukocyte Esterase-Dipstick 100 /ul (Negative); Nitrite-Dipstick Negative (Negative); Occult Blood-Urine 10 /ul (Negative); Protein-Dipstick Negative (Negative); Urine Bilirubin Dipstick Negative (Negative); Urine Clarity Sl. Cloudy (Clear); Urine Urobilinogen 1 mg/dl (Normal)
[2020-10-06 13:06] LABS: Bacteria 1+ /hpf (None Seen); Red Blood Cells-Urine 0-5 SEEN /hpf (0-5); Squamous Epithelial Cells - UA 0-5 SEEN /hpf (5-10); White Blood Cells 10-25 SEEN /hpf (0-5)
--- NOTE | 2020-10-06 14:21 | NURSING ---
DR MARK FOR DR VIDALES
[2020-10-06] MEDS: Heparin Injection (Vial) 5,000 UNIT/ML VIAL 7500 UNIT IV (14:29)
[2020-10-06] MEDS: HEPARIN/D5w 25,000 UNITS 25,000 UNITS/250 ML IV.SOLN. 14 UNITS IV (14:30)
--- NOTE | 2020-10-06 14:34 | NURSING ---
PCU TERELETSKY PORTAL VEIN THROMBOSIS
[2020-10-06 14:42] LABS: International Normalized Ratio 1.3; Partial Thromboplast Time 29.2 Seconds (24.1-36.2); Prothrombin Time (Protime)PT. 15.1 SECONDS (11.7-14.9)
[2020-10-06] MEDS: Ceftriaxone 1 GM/50 ML BAG IV (15:06)
--- NOTE | 2020-10-06 16:34 | CON.PCM.SX_ITS ---
Assessment & Plan Assessment/Plan (1) Mass of cecum: (2) Portal vein thrombosis: PLAN: My plan is to perform both an upper and lower endoscopy on the patient. In addition she will need to have platelets prior to her procedure. She will be off of her heparin approximately 6 hours prior to her procedure.We reviewed the pre-operative plans with the patient. Risks and benefits of the procedure were fully explained, including but not limited to infection, neurovascular injury, continued pain, arthritis, stiffness, need for further surgery, re-injury, DVT, PE, general risks of anesthesia, and loss of the limb or life. The patient understands all the risks and does wish to proceed with written consent. HPI Consult Data Date of Consult: 10/06/20 HPI Narrative HPI Narrative: GIGI RDZ, is a 70 F who presents secondary to multiple complaints. She has had chronic fatigue for quite some time. She has been followed by Dr. Sims and been getting iron transfusions for anemia. She complains of abdominal pain that has been ongoing for quite some time, worsened over the last half hour or so. She states it is diffuse in nature. She has poor appetite but no vomiting or diarrhea. She has frequent UTIs and recently saw a urologist. She finished her last antibiotic approximate 1 week ago. Yesterday her feet were quite swollen. This improved with elevation and today she only has minimal edema. Patient was scheduled to have testing and CT scan performed at the [facility] this afternoon but because family was quite concerned about her oncologist recommended she come to the emergency room. CT scan of the abdomen performed at [facility] showed portal vein thrombosis with a questionable mass located within the cecum itself. In ad dition it showed significant amount of ascites which was not present on the CT scan at the [facility]. I been in contact with Dr. Stanley who would like to have both an upper and lower endoscopy on the patient to rule out malignancy. Patient this past April did have an upper and lower endoscopy in [place] which showed some questionable findings in the cecum but biopsies at that time did not show any signs of malignancy. It is clear that the CAT scan has changed significantly from the one that was done at the [facility]. [facility] Medical History Anemia Diabetes History of recurrent UTIs HTN (hypertension) Home Medications aspirin 81 mg tablet,delayed release 81 mg PO DAILY 05/08/20 [History Last Taken 10/06/20] citalopram 10 mg tablet 10 tab PO DAILY 07/20/19 [History Last Taken 10/06/20] ergocalciferol (vitamin D2) 1,250 mcg (50,000 unit) capsule 50,000 units PO METZ 07/20/19 [History Last Taken 10/05/20] lorazepam 1 mg tablet 1 mg PO DAILY tab 07/20/19 [History Last Taken 10/05/20] losartan 50 mg tablet 50 mg PO DAILY 07/20/19 [History Last Taken 10/06/20] lovastatin 40 mg tablet 40 mg PO DAILY 07/20/19 [History Last Taken 10/05/20] metformin 1,000 mg tablet 1,000 mg PO BID 07/20/19 [History Last Taken 10/06/20] pioglitazone 30 mg tablet 30 mg PO DAILY 07/20/19 [History Last Taken 10/06/20] metoprolol succinate [Toprol XL] 25 mg PO DAILY 07/10/20 [History Last Taken 10/06/20] ascorbic acid (vitamin C) 500 mg PO DAILY 10/06/20 [History Last Taken 10/05/20] cranberry fruit concentrate [Azo Cranberry] 500 mg PO DAILY 10/06/20 [History Last Taken 10/05/20] Allergy/AdvReac Type Severity Reaction Status Date / Time No Known Allergies Allergy Unverified 10/06/20 10:55 Surgical History H/O heart surgery H/O hernia repair Hx of CABG Social History Smoking Status: Former smoker alcohol intake: never ROS Constitutional Constitutional: Denies chills or fever(s) Eyes Eyes: Denies blurry vision ENT HEENT: Denies dysphagia Cardiovascular Cardiovascular: Denies chest pain Respiratory/Chest Respiratory/Chest: Reports cough Gastrointestinal Gastrointestinal: Reports abdominal pain; Denies diarrhea, nausea or vomiting Genitourinary Genitourinary: Denies difficulty urinating Musculoskeletal Musculoskeletal: Denies back pain Integumentary Integumentary: Denies rash Neurologic Neurologic: Denies weakness Physical Exam Const alert and oriented x3 General Appearance: cooperative HEENT normocephalic and head/scalp atraumatic Eyes PERRL and EOMs intact bilaterally Neck no JVD Lymph Lymphatic: Negative for lymphadenopathy Resp clear to auscultation bilaterally Cardio Rate: regular rate Rhythm: regular rhythm GI soft to palpation Inspection: abdominal distention Palpation: ascites; Negative for guarding Lab / Micro Data Result Diagrams: 10/06/20 11:40 10/06/20 11:40 Labs: Laboratory Results - last 24 hr 10/06/20 11:40: WBC 1.9 L, RBC 3.53 L, Hgb 10.8 L, Hct 35.5 L, MCV 100.6 H, MCH 30.6, MCHC 30.4 L, RDW Std Deviation 69.8 H, RDW Coeff of Codey 18.8 H, Plt Count 69 L, MPV 11.3, Immature Gran % (Auto) 0.500, Neut % (Auto) 64.0, Lymph % (Auto) 21.4, [place] % (Auto) 8.9, Eos % (Auto) 4.7, Baso % (Auto) 0.5, Absolute Neuts (a uto) 1.2 L, Absolute Lymphs (auto) 0.41 L, Nucleated RBC % 0, Differential Comment SCANNED, Diff Path Review July10/06/20 11:40: Sodium 144, Potassium 4.7, Chloride 113 H, Carbon Dioxide 27.0, Anion Gap 4 L, BUN 24 H, Creatinine 0.81, Estim Creat Clear Calc 55.01, Est GFR (MDRD) Af Amer 89, Est GFR (MDRD) Non-Af 74, BUN/Creatinine Ratio 29.5 H, Glucose 83, Calcium 9.3, Total Bilirubin 0.80, Direct Bilirubin 0.20, AST 31, ALT 27, Alkaline Phosphatase 106, Total Protein 6.5, Albumin 3.1 L, Globulin 3.4 10/06/20 12:43: Urine Color Yellow, Urine Clarity Sl. Cloudy, Urine pH 5.0, Ur Specific [place] 1.020, Urine Protein Negative, Urine Glucose (UA) Normal, Urine Ketones Negative, Urine Occult Blood 10 H, Urine Nitrite Negative, Urine Bilirubin Negative, Urine Urobilinogen 1 H, Ur Leukocyte Esterase 100 H, Urine RBC 0-5 SEEN, Urine WBC 10-25 SEEN, Ur Squamous Epith Cells 0-5 SEEN, Urine Bacteria 1+, Urine Mucus 0 SEEN 10/06/20 14:25: PT 15.1 H, INR 1.3, APTT 29.2 Radiology Impression Abdomen/Pelvis CT 10/06/20 11:30 IMPRESSION: Portal venous thrombosis with the intraluminal thrombus in the main portal vein extending to the right portal branch. Thrombus within the superior mesenteric vein. Small amount of ascites. Increased markings in the peritoneal fat. Thickening of the right hemicolon. N.B. : The above Results were Read Back by Jose Curtis MD to Shaniqua Rose MD, and understanding confirmed on 10/06/2020 13:41:44 (ET). Electronically Signed: Jose Curtis MD at 13:42 EDT , Service support , ADDENDUM: 10/06/20 1349 IMPRESSION: Portal venous thrombosis with the intraluminal thrombus in the main portal vein extending to the right portal branch. Thrombus within the superior mesenteric vein. Small amount of ascites. Increased markings in the peritoneal fat. Thickening of the right hemicolon. N.B. : The above Results were Read Back by Jose Curtis MD to Shaniqua Rose MD, and understanding confirmed on 10/06/2020 13:41:44 (ET). Electronically Signed: Jose Curtis MD at 13:42 EDT , Service support , Chest X-Ray 10/06/20 11:30 IMPRESSION: Prior CABG. Moderate cardiomegaly. Electronically Signed: Jose Curtis MD at 12:54 EDT , Service support ,
[2020-10-06 16:36] LABS: Bedside Glucose 72 mg/dL (70-110)
[2020-10-06 19:01] LABS: Bedside Glucose 72 mg/dL (70-110)
--- NOTE | 2020-10-06 20:01 | PCM.HP.STD ---
HPI - General General Date of Admission: 10/06/20 Date of Service: 10/06/20 Chief Complaint: Generalized edema HPI Narrative GIGI RDZ, is a 70 F who presents to the emergency room at [facility] for evaluation of generalized edema and abdominal distention. Patient was due to have a work-up as an outpatient but decided to come to the emergency room today for a more expedited work-up. Work-up in the ER included a CT of the abdomen and pelvis which showed portal venous thrombosis with intraluminal thrombus in the main portal vein extending into the right pleural branch, there was also noted to be a thrombus within the superior mesenteric vein. In addition a small amount of ascites was noted to be present with also thickening of the right hemicolon. Patient's labs were remarkable for a white blood cell count of 1.9, hemoglobin was 10.8, platelet count was 69. Patient has a history of pancytopenia and has been worked up as an outpatient without an adequate explanation for her pancytopenia. Patient will be admitted for portal vein thrombosis and recurrent urinary tract infection, she was given IV Rocephin and placed on IV heparin. Patient was admitted to PCU, she was placed on a heparin drip, her oncologist was contacted and concurred with this treatment, her oncologist recommended general surgery consultation for endoscopy. Dr. Wyatt was contacted regarding this. [facility] Medical History (Updated 10/06/20 @ 20:[address] Yaya Sanchez, ) Anemia Diabetes History of recurrent UTIs HTN (hypertension) Pancytopenia Home Medications aspirin 81 mg tablet,delayed release 81 mg PO DAILY 07/20/19 [History Last Taken 10/06/20] citalopram 10 mg tablet 10 tab PO DAILY 07/20/19 [History Last Taken 10/06/20] ergocalciferol (vitamin D2) 1,250 mcg (50,000 unit) capsule 50,000 units PO METZ 07/20/19 [History Last Taken 10/05/20] lorazepam 1 mg tablet 1 mg PO DAILY tab 07/20/19 [History Last Taken 10/05/20] losartan 50 mg tablet 50 mg PO DAILY 07/20/19 [History Last Taken 10/06/20] lovastatin 40 mg tablet 40 mg PO DAILY 07/20/19 [History Last Taken 10/05/20] metformin 1,000 mg tablet 1,000 mg PO BID 07/20/19 [History Last Taken 10/06/20] pioglitazone 30 mg tablet 30 mg PO DAILY 07/20/19 [History Last Taken 10/06/20] metoprolol succinate [Toprol XL] 25 mg PO DAILY 07/10/20 [History Last Taken 10/06/20] ascorbic acid (vitamin C) 500 mg PO DAILY 10/06/20 [History Last Taken 10/05/20] cranberry fruit concentrate [Azo Cranberry] 500 mg PO DAILY 10/06/20 [History Last Taken 10/05/20] Allergy/AdvReac Type Severity Reaction Status Date / Time No Known Allergies Allergy Unverified 10/06/20 10:55 Surgical History H/O heart surgery H/O hernia repair Hx of CABG Social History Smoking Status: Former smoker alcohol intake: never ROS Constitutional Constitutional: Reports fatigue and weakness; Denies anorexia, change in weight, chills or night sweats Eyes Eyes: Denies blurry vision, eye pain or loss of vision ENT HEENT: Denies abnormal hearing, dysphagia, ear pain, headache(s) or hearing loss Cardiovascular Cardiovascular: Reports edema; Denies chest pain, claudication, dyspnea on exertion, lightheadedness or orthopnea Respiratory/Chest Respiratory/Chest: Denies cough, dyspnea, excessive phlegm production, hemoptysis, productive cough or shortness of breath at rest Gastrointestinal Gastrointestinal: Denies abdominal pain, coffee ground emesis, diarrhea, dyspepsia, hematemesis or vomiting Genitourinary Genitourinary: Denies burning urination, difficulty urinating, dysuria, hematuria, nocturia or urinary frequency Neurologic Neurologic: Denies abnormal gait, abnormal speech, confusion or disequilibrium Psychiatric Psychiatric: Denies anxiety or depression Endocrine Endocrinology: Denies cold intolerance, excessive sweating, heat intolerance or polydipsia Hematologic/Lymphatic Hematologic/Lymphatic: Denies anemia, easy bleeding or easy bruising Allergic/Immunologic Allergic/Immunologic: Denies hives, eczemia or asthma Vital Signs Vital Signs Vital Signs: 10/06/20 10:54 10/06/20 12:11 10/06/20 12:12 Temperature 98.8 F Temperature Source Temporal Pulse Rate 60 59 L Respiratory Rate 15 20 H Respiratory Effort Normal Non-Labored Respiratory Pattern Normal Blood Pressure 164/68 H 137/88 H Blood Pressure Mean 100 104 Blood Pressure Source Blood Pressure Position Blood Pressure Location Pulse Ox 94 95 Oxygen Delivery Method Room Air Room Air 10/06/20 14:20 10/06/20 15:06 10/06/20 15:22 Temperature 98.1 F 98.1 F Temperature Source Temporal Temporal Pulse Rate 50 L 50 L 50 L Respiratory Rate 16 16 Respiratory Effort Respiratory Pattern Blood Pressure 152/60 H 152/60 H Blood Pressure Mean 90 90 Blood Pressure Source Blood Pressure Position Blood Pressure Location Pulse Ox 96 96 Oxygen Delivery Method Room Air Room Air 10/06/20 15:44 10/06/20 16:04 10/06/20 19:00 Temperature 98.3 F Temperature Source Oral Pulse Rate 60 50 L 53 L Respiratory Rate 18 18 Respiratory Effort Normal Non-Labored Respiratory Pattern Blood Pressure 150/70 H Blood Pressure Mean 96 Blood Pressure Source Monitor Blood Pressure Position Semi-Fowlers Blood Pressure Location Right Arm Pulse Ox 98 Oxygen Delivery Method Room Air Weight Weight: 94.1 kg Body Mass Index (BMI) 35.6 Physical Exam Const alert, oriented x3, no apparent distress and healthy appearing General Appearance: cooperative, well kempt and well developed Orientation / Consciousness: awake, oriented to person, oriented to place and oriented to time HEENT normocephalic, head/scalp atraumatic, hearing grossly normal bilaterally and moist oral mucous membranes Eyes PERRL, EOMs intact bilaterally and conjunctivae normal Neck nuchal rigidity, supple, no JVD, thyroid normal and no carotid bruits General: trachea midline Resp normal respiratory effort, no retractions, no use of accessory muscles and clear to auscultation bilaterally Auscultation: Negative for rales, rhonchi or wheezes Cardio regular rate, regular rhythm, S1 normal heart sound, S2 normal heart sound, no murmurs, no rub and no gallops GI soft to palpation and non-tender GI Narrative: There is moderate abdominal distention noted on physical exam Extremity Extremity Narrative: +1 to +2 mm pitting edema is noted in the lower legs bilaterally Skin no rashes or lesions noted General Skin Exam: no breakdown Neuro oriented x3, CN's II-XII intact bilaterally, no focal motor deficits and no sensory deficits noted Sensorium / Orientation: awake and alert Speech: speech normal Psych thought process normal and affect normal Results Medical Records Data Medical Nutrition Assessment Dietitian: Nutrition Therapy Diagnosis Start: 10/06/20 16:44 Freq: Status: Active Protocol: Document 10/06/20 16:45 RMA (Rec: 10/06/20 16:46 RMA [id number]) Nutrition Malnutrition Evidence of Malnutrition Exists No Intake Problem Inadequate Oral Intake Etiology r/t acute illness and decreased appetite Signs/Symptoms as evidenced by pt report of consuming ~50% of meals x1 week and unintentional weight loss of 10#/5% x1 year. Status Active Problem Recommendation Dietitian Recommendations/Changes Continue clear liquid diet as ordered. Recommend advanced diet as tolerated to 1800kcal consistent carbohydrate cardiac diet as medically able . Will add ensure clear 120mL PO TID with meals only while on clear liquid diet. Provide nutrition education as needed prior to discharge. Lab / Micro Data Result Diagrams: 10/06/20 11:40 10/06/20 11:40 Labs: Laboratory Results - last 24 hr 10/06/20 11:40: WBC 1.9 L, RBC 3.53 L, Hgb 10.8 L, Hct 35.5 L, MCV 100.6 H, MCH 30.6, MCHC 30.4 L, RDW Std Deviation 69.8 H, RDW Coeff of [place] 18.8 H, Plt Count 69 L, MPV 11.3, Immature Gran % (Auto) 0.500, Neut % (Auto) 64.0, Lymph % (Auto) 21.4, [place] % (Auto) 8.9, Eos % (Auto) 4.7, Baso % (Auto) 0.5, Absolute Neuts (auto) 1.2 L, Absolute Lymphs (auto) 0.41 L, Nucleated RBC % 0, Differential Comment SCANNED, Diff Path Review July10/06/20 11:40: Sodium 144, Potassium 4.7, Chloride 113 H, Carbon Dioxide 27.0, Anion Gap 4 L, BUN 24 H, Creatinine 0.81, Estim Creat Clear Calc 55.01, Est GFR (MDRD) Af Amer 89, Est GFR (MDRD) Non-Af 74, BUN/Creatinine Ratio 29.5 H, Glucose 83, Calcium 9.3, Total Bilirubin 0.80, Direct Bilirubin 0.20, AST 31, ALT 27, Alkaline Phosphatase 106, Total Protein 6.5, Albumin 3.1 L, Globulin 3.4 10/06/20 12:43: Urine Color Yellow, Urine Clarity Sl. Cloudy, Urine pH 5.0, Ur Specific [place] 1.020, Urine Protein Negative, Urine Glucose (UA) Normal, Urine Ketones Negative, Urine Occult Blood 10 H, Urine Nitrite Negative, Urine Bilirubin Negative, Urine Urobilinogen 1 H, Ur Leukocyte Esterase 100 H, Urine RBC 0-5 SEEN, Urine WBC 10-25 SEEN, Ur Squamous Epith Cells 0-5 SEEN, Urine Bacteria 1+, Urine Mucus 0 SEEN 10/06/20 14:25: PT 15.1 H, INR 1.3, APTT 29.2 10/06/20 16:30: POC Glucose 72 10/06/20 18:57: POC Glucose 72 Radiology Impression Abdomen/Pelvis CT 10/06/20 11:30 IMPRESSION: Portal venous thrombosis with the intraluminal thrombus in the main portal vein extending to the right portal branch. Thrombus within the superior mesenteric vein. Small amount of ascites. Increased markings in the peritoneal fat. Thickening of the right hemicolon. N.B. : The above Results were Read Back by Jose Curtis MD to Shaniqua Rose MD, and understanding confirmed on 10/06/2020 13:41:44 (ET). Electronically Signed: Jose Curtis MD at 13:42 EDT , Service support , ADDENDUM: 10/06/20 1349 IMPRESSION: Portal venous thrombosis with the intraluminal thrombus in the main portal vein extending to the right portal branch. Thrombus within the superior mesenteric vein. Small amount of ascites. Increased markings in the peritoneal fat. Thickening of the right hemicolon. N.B. : The above Results were Read Back by Jose Curtis MD to Shaniqua Rose MD, and understanding confirmed on 10/06/2020 13:41:44 (ET). Electronically Signed: Jose Curtis MD at 13:42 EDT , Service support , Chest X-Ray 10/06/20 11:30 IMPRESSION: Prior CABG. Moderate cardiomegaly. Electronically Signed: Jose Curtis MD at 12:54 EDT , Service support , Assessment & Plan Assessment/Plan (1) Pancytopenia: PLAN: 1. Portal vein thrombosis/mesenteric thrombosis-patient was admitted to PCU, she will be treated with IV heparin #2 recurrent urinary tract infection/cystitis-patient will be treated with Rocephin #3 anasarca probably secondary to portal vein thrombosis-I will place the patient on Aldactone for diuresis #4 abnormality of the right hemicolon on her abdominal and pelvic CT-General surgery will carry out endoscopy #5 chronic pancytopenia-etiology unclear Charges/Coding Visit Charges Inpatient E&M: 82649 Init Hosp L3
[2020-10-06 21:29] LABS: Partial Thromboplast Time 246.6 Seconds (24.1-36.2)
[2020-10-06] MEDS: Spironolactone 25 MG Tablet PO (22:28)
[2020-10-06] MEDS: oxyCODONE 5 MG Tablet 10 MG PO (22:28)
[2020-10-06] MEDS: Atorvastatin Calcium 10 MG Tablet PO (22:28)
[2020-10-07] VITALS (9 sets, daily range): BP systolic 134–151; BP diastolic 51–71; PULSE 49–65; RESP 14–18; TEMP 36.4–37.2; O2SAT 93–95
[2020-10-07] LABS: Bedside Glucose 87 mg/dL (70-110)
[2020-10-07 03:48] LABS: Absolute Lymphocyte Count 0.57 X10^3/uL (0.83-4.51); Absolute Neutrophil Count 1.1 X10^3/uL (2.0-7.7); Basophil# 0.01 X10^3/uL; Basophil% 0.5 % (0-1); Eosinophil# 0.11 X10^3/uL; Eosinophils% 5.6 % (0-5); Hematocrit 32.7 % (37-47); Lymphocyte # 0.57 X10^3/ul (0.83-4.51); Lymphocyte % 28.8 % (19-41); Mean Corp Hgb Conc 30.6 g/dL (32-36); Mean Corpuscular Hgb 30.6 pg (27.0-32.0); Monocyte# 0.18 X10^3/uL; Monocyte% 9.1 % (0-10); NRBC Flagged by Analyzer 0 % (0-5); Neutrophil % 55.5 % (47-70); POSITIVE COUNT YES; POSITIVE DIFFERENTIAL YES; POSITIVE MORPHOLOGY YES; Platelet Count 66 K/mm3 (150-450); RBC Distribution Width CV 18.6 % (11.6-14.6); RBC Distribution Width SD 67.5 fl (35.1-43.9); Red Blood Count 3.27 M/mm3 (4.2-5.4)
[2020-10-07 03:50] LABS: Differential Indicated SCAN CRITERIA MET
[2020-10-07 04:56] LABS: Partial Thromboplast Time 92.6 Seconds (24.1-36.2)
[2020-10-07 06:41] LABS: Bedside Glucose 81 mg/dL (70-110)
--- NOTE | 2020-10-07 08:37 | ONC.CONSULT ---
Assessment & Plan Assessment/Plan (1) Pancytopenia: Status: Acute Code(s): D61.818 - Other pancytopenia Plan: Portal vein thrombosis. Assessment: -Patient has had previous work-up for mild pancytopenia. PNH panel negative. Etiology of this thrombosis unknown. Plan: -Continue anticoagulation of with IV unfractionated heparin. -Plan for EGD and repeat colonoscopy to rule out GI bleed. -Monitor CBC daily. -Okay to transfuse platelets if needed for endoscopy. -Recommend Lovenox as ongoing anticoagulation at the time of discharge. -She will need follow-up with hepatology and vascular medicine. HPI Consult Data Date of Service:: 10/07/20 PCP / Referring Provider: Dr. Santino Mcneill MD Attending: Dr. Yaya Sanchez DO Chief Complaint Chief Complaint: Portal vein thrombosis History of Present Illness History of Present Illness: The patient is a 70 yo female with PMH Hyperlipidemia, hypertension, coronary artery disease, obstructive sleep apnea, B12 deficiency, type 2 diabetes, psoriasis, osteoporosis, iron deficiency anemia secondary to bleeding GI ulcer status post parenteral iron replacement. She has mild persistent splenomegaly and mild pancytopenia for which she has been undergoing work-up. CT scan in April at the clinic demonstrated possible gallbladder disease. Work-up for that did not suggest that as a cause of her abdominal pain. She had ultrasound and HIDA scan. She is undergone 2 bone marrow biopsies. The first was suboptimal. Second [address] guidance at [facility]. Flow cytometry on the suboptimal specimen demonstrated no evidence of a leukemia or myelodysplastic syndrome. Previous PNH panel negative. Admitted for worsening abdominal pain lower extremity swelling and UTI. CT scan significant for portal vein thrombosis extending to inferior mesenteric vein. Colonic wall thickening of the ascending colon. Advanced Directives Power of Shipping Specialist: No Living Will: No PFSH Medical History (Updated 10/06/20 @ 20:[address] Yaya Sanchez DO) Anemia Diabetes History of recurrent UTIs HTN (hypertension) Pancytopenia Home Medications aspirin 81 mg tablet,delayed release 81 mg PO DAILY 07/20/19 [History Last Taken 10/06/20] citalopram 10 mg tablet 10 tab PO DAILY 07/20/19 [History Last Taken 10/06/20] ergocalciferol (vitamin D2) 1,250 mcg (50,000 unit) capsule 50,000 units PO METZ 07/20/19 [History Last Taken 10/05/20] lorazepam 1 mg tablet 1 mg PO DAILY tab 07/20/19 [History Last Taken 10/05/20] losartan 50 mg tablet 50 mg PO DAILY 07/20/19 [History Last Taken 10/06/20] lovastatin 40 mg tablet 40 mg PO DAILY 07/20/19 [History Last Taken 10/05/20] metformin 1,000 mg tablet 1,000 mg PO BID 07/20/19 [History Last Taken 10/06/20] pioglitazone 30 mg tablet 30 mg PO DAILY 07/20/19 [History Last Taken 10/06/20] metoprolol succinate [Toprol XL] 25 mg PO DAILY 07/10/20 [History Last Taken 10/06/20] ascorbic acid (vitamin C) 500 mg PO DAILY 10/06/20 [History Last Taken 10/05/20] cranberry fruit concentrate [Azo Cranberry] 500 mg PO DAILY 10/06/20 [History Last Taken 10/05/20] Allergy/AdvReac Type Severity Reaction Status Date / Time No Known Allergies Allergy Unverified 10/06/20 10:55 Surgical History H/O heart surgery H/O hernia repair Hx of CABG Social History Smoking Status: Former smoker alcohol intake: never Vital Signs Temperature 97.5 F L 10/07/20 04:16 Temperature Source Temporal 10/07/20 04:16 Pulse Rate 49 L 10/07/20 07:00 Pulse Strength Weak (1+) 10/06/20 22:28 Respiratory Rate 18 10/07/20 04:16 Respiratory Effort Non-Labored 10/07/20 04:23 Respiratory Depth Normal 10/07/20 04:23 Respiratory Pattern Normal 10/07/20 04:23 Blood Pressure 134/51 H 10/07/20 04:16 Blood Pressure Mean 78 10/07/20 04:16 Blood Pressure Source Monitor 10/07/20 04:16 Blood Pressure Position Sitting 10/07/20 04:16 Blood Pressure Location Right Arm 10/07/20 04:16 Pulse Ox 95 10/07/20 04:16 Oxygen Delivery Method Room Air 10/07/20 04:23 Laboratory Results - last 24 hr 10/06/20 11:40: WBC 1.9 L, RBC 3.53 L, Hgb 10.8 L, Hct 35.5 L, MCV 100.6 H, MCH 30.6, MCHC 30.4 L, RDW Std Deviation 69.8 H, RDW Coeff of Codey 18.8 H, Plt Count 69 L, MPV 11.3, Immature Gran % (Auto) 0.500, Neut % (Auto) 64.0, Lymph % (Auto) 21.4, [place] % (Auto) 8.9, Eos % (Auto) 4.7, Baso % (Auto) 0.5, Absolute Neuts (auto) 1.2 L, Absolute Lymphs (auto) 0.41 L, Nucleated RBC % 0, Differential Comment SCANNED, Diff Path Review July10/06/20 11:40: Sodium 144, Potassium 4.7, Chloride 113 H, Carbon Dioxide 27.0, Anion Gap 4 L, BUN 24 H, Creatinine 0.81, Estim Creat Clear Calc 55.01, Est GFR (MDRD) Af Amer 89, Est GFR (MDRD) Non-Af 74, BUN/Creatinine Ratio 29.5 H, Glucose 83, Calcium 9.3, Total Bilirubin 0.80, Direct Bilirubin 0.20, AST 31, ALT 27, Alkaline Phosphatase 106, Total Protein 6.5, Albumin 3.1 L, Globulin 3.4 10/06/20 12:43: Urine Color Yellow, Urine Clarity Sl. Cloudy, Urine pH 5.0, Ur Specific [place] 1.020, Urine Protein Negative, Urine Glucose (UA) Normal, Urine Ketones Negative, Urine Occult Blood 10 H, Urine Nitrite Negative, Urine Bilirubin Negative, Urine Urobilinogen 1 H, Ur Leukocyte Esterase 100 H, Urine RBC 0-5 SEEN, Urine WBC 10-25 SEEN, Ur Squamous Epith Cells 0-5 SEEN, Urine Bacteria 1+, Urine Mucus 0 SEEN 10/06/20 14:25: PT 15.1 H, INR 1.3, APTT 29.2 10/06/20 16:30: POC Glucose 72 10/06/20 18:57: POC Glucose 72 10/06/20 20:35: APTT 246.6 H* 10/06/20 22:25: POC Glucose 87 10/07/20 03:35: WBC 2.0 L, RBC 3.27 L, Hgb 10.0 L, Hct 32.7 L, MCV 100.0 H, MCH 30.6, MCHC 30.6 L, RDW Std Deviation 67.5 H, RDW Coeff of Codey 18.6 H, Plt Count 66 L, MPV 11.0, Immature Gran % (Auto) 0.500, Neut % (Auto) 55.5, Lymph % (Auto) 28.8, [place] % (Auto) 9.1, Eos % (Auto) 5.6 H, Baso % (Auto) 0.5, Absolute Neuts (auto) 1.1 L, Absolute Lymphs (auto) 0.57 L, Nucleated RBC % 0, Diff Path Review July10/07/20 03:35: APTT 92.6 H* 10/07/20 06:34: POC Glucose 81 Diagnostic Data Abdomen/Pelvis CT 10/06/20 11:30 IMPRESSION: Portal venous thrombosis with the intraluminal thrombus in the main portal vein extending to the right portal branch. Thrombus within the superior mesenteric vein. Small amount of ascites. Increased markings in the peritoneal fat. Thickening of the right hemicolon. N.B. : The above Results were Read Back by Jose Curtis MD to Shaniqua Rose MD, and understanding confirmed on 10/06/2020 13:41:44 (ET). Electronically Signed: Jose Curtis MD at 13:42 EDT , Service support , ADDENDUM: 10/06/20 1345 IMPRESSION: Portal venous thrombosis with the intraluminal thrombus in the main portal vein extending to the right portal branch. Thrombus within the superior mesenteric vein. Small amount of ascites. Increased markings in the peritoneal fat. Thickening of the right hemicolon. N.B. : The above Results were Read Back by Jose Curtis MD to Shaniqua Rose MD, and understanding confirmed on 10/06/2020 13:41:44 (ET). Electronically Signed: Jose Curtis MD at 13:42 EDT , Service support , Chest X-Ray 10/06/20 11:30 IMPRESSION: Prior CABG. Moderate cardiomegaly. Electronically Signed: Jose Curtis MD at 12:54 EDT , Service support ,
[2020-10-07] MEDS: Losartan Potassium 50 MG Tablet PO (08:45)
[2020-10-07] MEDS: metFORMIN HCl 1,000 MG Tablet 1000 MG PO (08:45)
[2020-10-07] MEDS: Spironolactone 25 MG Tablet PO ×2 (08:46→21:23)
[2020-10-07] MEDS: Pioglitazone Hydrochloride 30 MG Tablet PO (08:46)
[2020-10-07] MEDS: Aspirin E.C. 81 MG Tablet PO (08:46)
[2020-10-07] MEDS: Citalopram 10 MG Tablet PO (08:46)
[2020-10-07] MEDS: Acetaminophen 325 MG Tablet 650 MG PO (08:48)
[2020-10-07] MEDS: Ceftriaxone 1 GM/50 ML BAG IV (09:01)
--- NOTE | 2020-10-07 10:35 | CASEMGMT ---
RN CM Face to Face with patient for initial transition planning/care coordination assessment. RN CM introduced self and role at [facility]. Patient sitting in chair, alert and oriented. Patient willing to participate in assessment and is able to answer all questions appropriately. Care providers, pharmacy, and demographics verified. Patient wishes to discharge home, denies need for home health at this time. Patient states she has no further needs or concerns at this time. CM to follow for discharge planning needs that may arise. PCP: Charito Specialists: Bethany small order cutter Preferred Pharmacy: [facility] Insurance: [employer] [facility] Prescription Benefit: yes Living Will/HPOA: none LNOK: son, sister Living Arrangements: Patient lives with son and sister in a 2 story home with bedroom on second floor. Patient states she is able to ambulate stairs and is independent at home. Transportation: self/sister DME/HHC: Patient states she has BSC, raised toilet, and cpap at home. Patient denies previous SNF. Has had HHC previous but cannot recall name and has been several years. Disposition Plan: Patient to discharge home with family support and follow-up plans in place. Cristina MARROQUIN, RN, CM
[2020-10-07 11:25] LABS: Bedside Glucose 90 mg/dL (70-110)
[2020-10-07 11:33] LABS: Partial Thromboplast Time 75.3 Seconds (24.1-36.2)
[2020-10-07 12:04] LABS: Pathologist Review Reviewed
[2020-10-07 12:04] LABS: Pathologist Review Reviewed
[2020-10-07] MEDS: HEPARIN/D5w 25,000 UNITS 25,000 UNITS/250 ML IV.SOLN. 10 UNITS IV (12:18)
[2020-10-07 16:35] LABS: Bedside Glucose 67 mg/dL (70-110)
[2020-10-07 17:39] LABS: Partial Thromboplast Time 79.5 Seconds (24.1-36.2)
[2020-10-07] MEDS: Electrolyte Solution/Peg's 4000 ML PO (18:12)
--- NOTE | 2020-10-07 20:40 | PCM.PN.HOSP ---
Subjective Subjective Patient was seen and examined today, she is going to go for an upper and lower endoscopy tomorrow. I talked briefly with oncology about her care today. Objective Data Objective Data Vital Signs: Vital Signs Temp Pulse Resp BP Pulse Ox 98.2 F 53 L 14 140/62 H 93 10/07/20 14:31 10/07/20 19:11 10/07/20 14:31 10/07/20 14:31 10/07/20 14:31 Oxygen Delivery Method Room Air Weight: 94.1 kg Body Mass Index (BMI) 35.6 Intake & Output: Intake and Output for Last 24 Hours 10/05/20 10/06/20 10/07/20 23:59 23:59 23:59 Intake Total 738 / 738 482.48 / 482.48 Balance 738 / 738 482.48 / 482.48 Medical Nutrition Assessment Dietitian: Nutrition Therapy Diagnosis Start: 10/06/20 16:44 Freq: Status: Active Protocol: Document 10/06/20 16:45 RMA (Rec: 10/06/20 16:46 RMA [id number]) Nutrition Malnutrition Evidence of Malnutrition Exists No Intake Problem Inadequate Oral Intake Etiology r/t acute illness and decreased appetite Signs/Symptoms as evidenced by pt report of consuming ~50% of meals x1 week and unintentional weight loss of 10#/5% x1 year. Status Active Problem Recommendation Dietitian Recommendations/Changes Continue clear liquid diet as ordered. Recommend advanced diet as tolerated to 1800kcal consistent carbohydrate cardiac diet as medically able . Will add ensure clear 120mL PO TID with meals only while on clear liquid diet. Provide nutrition education as needed prior to discharge. Lab / Micro Data Result Diagrams: 10/07/20 03:35 10/06/20 11:40 Labs: Laboratory Results - last 24 hr 10/06/20 11:40: Diff Path Review Reviewed 10/06/20 20:35: APTT 246.6 H* 10/06/20 22:25: POC Glucose 87 10/07/20 03:35: WBC 2.0 L, RBC 3.27 L, Hgb 10.0 L, Hct 32.7 L, MCV 100.0 H, MCH 30.6, MCHC 30.6 L, RDW Std Deviation 67.5 H, RDW Coeff of Codey 18.6 H, Plt Count 66 L, MPV 11.0, Immature Gran % (Auto) 0.500, Neut % (Auto) 55.5, Lymph % (Auto) 28.8, [place] % (Auto) 9.1, Eos % (Auto) 5.6 H, Baso % (Auto) 0.5, Absolute Neuts (auto) 1.1 L, Absolute Lymphs (auto) 0.57 L, Nucleated RBC % 0, Diff Path Review Reviewed 10/07/20 03:35: APTT 92.6 H* 10/07/20 06:34: POC Glucose 81 10/07/20 11:07: APTT 75.3 H 10/07/20 11:19: POC Glucose 90 10/07/20 16:31: POC Glucose 67 L 10/07/20 17:00: APTT 79.5 H Physical Exam Narrative Physical Exam Const alert, oriented x3, no apparent distress and healthy appearing General Appearance: cooperative, well kempt and well developed Orientation / Consciousness: awake, oriented to person, oriented to place and oriented to time HEENT normocephalic, head/scalp atraumatic, hearing grossly normal bilaterally and moist oral mucous membranes Eyes PERRL, EOMs intact bilaterally and conjunctivae normal Neck nuchal rigidity, supple, no JVD, thyroid normal and no carotid bruits General: trachea midline Resp normal respiratory effort, no retractions, no use of accessory muscles and clear to auscultation bilaterally Auscultation: Negative for rales, rhonchi or wheezes Cardio regular rate, regular rhythm, S1 normal heart sound, S2 normal heart sound, no murmurs, no rub and no gallops GI soft to palpation and non-tender GI Narrative: There is moderate abdominal distention noted on physical exam Extremity Extremity Narrative: +1 to +2 mm pitting edema is noted in the lower legs bilaterally Skin no rashes or lesions noted General Skin Exam: no breakdown Neuro oriented x3, CN's II-XII intact bilaterally, no focal motor deficits and no sensory deficits noted Sensorium / Orientation: awake and alert Speech: speech normal Psych thought process normal and affect normal Assessment & Plan Assessment/Plan (1) Portal vein thrombosis: PLAN: 1. Portal vein thrombosis/mesenteric thrombosis-continue IV heparin #2 recurrent urinary tract infection/cystitis-patient is on Rocephin #3 anasarca probably secondary to portal vein thrombosis-patient will remain on Aldactone #4 abnormality of the right hemicolon on her abdominal and pelvic CT-General surgery will carry out endoscopy tomorrow #5 chronic pancytopenia-etiology unclear Charges/Coding Visit Charges Inpatient E&M: 14074 Subs Hosp L2
[2020-10-07] MEDS: Atorvastatin Calcium 10 MG Tablet PO (21:23)
[2020-10-07] MEDS: LORazepam 1 MG Tablet PO (21:23)
[2020-10-07 21:35] LABS: Bedside Glucose 78 mg/dL (70-110)
[2020-10-08] VITALS (11 sets, daily range): BP systolic 104–162; BP diastolic 43–70; PULSE 38–73; RESP 16–18; TEMP 36.6–37.6; O2SAT 93–98; BMI 35.6
[2020-10-08 00:10] LABS: Partial Thromboplast Time 61.1 Seconds (24.1-36.2)
--- NOTE | 2020-10-08 00:43 | NURSING ---
Aptt came back at 61.1 normal range so per instructions keep dose the same since with in range stay on 9ml/hr.
[2020-10-08 06:36] LABS: Bedside Glucose 91 mg/dL (70-110)
[2020-10-08 06:55] LABS: Partial Thromboplast Time 60.5 Seconds (24.1-36.2)
[2020-10-08] MEDS: Ceftriaxone 1 GM/50 ML BAG IV (09:35)
[2020-10-08 11:10] LABS: Bedside Glucose 80 mg/dL (70-110)
[2020-10-08] MEDS: Lactated Ringers 1,000 ML 100 ML IV (14:05)
--- NOTE | 2020-10-08 14:46 | OP.EGD_ITS ---
Patient Name: Irina Archer Procedure Date: 10/08/2020 12:55 PM Date of : 1950 Age: 70 Procedure: Upper GI endoscopy Indications: Abnormal CT of the GI tract, d61.818, pancytopenia Providers: Kieran Wyatt MD Medicines: See the Anesthesia note for documentation of the administered medications Patient Profile: This is a 70 year old female. Refer to note in patient chart for documentation of history and physical. Complications: No immediate complications. Procedure: Pre-Anesthesia Assessment: - Prior to the procedure, a History and Physical was performed, and patient medications and allergies were reviewed. The patient's tolerance of previous anesthesia was also reviewed. The risks and benefits of the procedure and the sedation options and risks were discussed with the patient. All questions were answered, and informed consent was obtained. Prior Anticoagulants: The patient has taken heparin, last dose was day of procedure. ASA Grade Assessment: III - A patient with severe systemic disease. After reviewing the risks and benefits, the patient was deemed in satisfactory condition to undergo the procedure. After obtaining informed consent, the endoscope was passed under direct vision. Throughout the procedure, the patient's blood pressure, pulse, and oxygen saturations were monitored continuously. The gastroscope was introduced through the mouth, and advanced to the second part of duodenum. The upper GI endoscopy was accomplished without difficulty. The patient tolerated the procedure well. Scope In: 2:16:29 PM Scope Out: 2:18:31 PM Total Procedure Duration Time 0 hours 2 minutes 2 seconds Findings: The examined esophagus was normal. Localized mild inflammation characterized by erythema was found in the prepyloric region of the stomach. No biopsies or other specimens were collected for this exam. The examined duodenum was normal. No biopsies or other specimens were collected for this exam. Impression: - Normal esophagus. - Gastritis. No specimens collected. - Normal examined duodenum. No specimens collected. Recommendation: - Return patient to [facility]. - Advance diet as tolerated. - Continue present medications. - Repeat upper endoscopy PRN for screening purposes. - Return to referring physician (date not yet determined). Procedure Code(s): --- Professional --- 50067, Esophagogastroduodenoscopy, flexible, transoral; diagnostic, including collection of specimen(s) by brushing or washing, when performed (separate procedure) Diagnosis Code(s): --- Professional --- K29.70, Gastritis, unspecified, without bleeding D61.818, Other pancytopenia D64.9, Anemia, unspecified R93.3, Abnormal findings on diagnostic imaging of other parts of digestive tract CPT copyright 2017 [employer]. All rights reserved. The codes documented in this report are preliminary and upon insurance account representative review may be revised to meet current compliance requirements. MD Kieran Lo MD 10/08/2020 2:46:19 PM This report has been signed electronically. Number of Addenda: 0 Note Initiated On: 10/08/2020 12:55 PM
--- NOTE | 2020-10-08 14:47 | OP.CCLET_ITS ---
10/08/2020 Santino Mcneill MD Re : Upper GI endoscopy procedure for Irina Archer Dear Dr. Mcneill This procedure was performed on Thursday, October 08, 2020. My impressions and recommendations are as follows: Impressions : - Normal esophagus. - Gastritis. No specimens collected. - Normal examined duodenum. No specimens collected. Recommendations : - Return patient to [facility] care. - Advance diet as tolerated. - Continue present medications. - Repeat upper endoscopy PRN for screening purposes. - Return to referring physician (date not yet determined). My findings are described in the full procedure note, which is enclosed. If I can be of further assistance, please feel free to contact me at Doctor phone number(s): , Fax: [phone], Work: . Sincerely, MD Kieran Lo MD 10/08/2020 2:46:19 PM This report has been signed electronically.
--- NOTE | 2020-10-08 14:52 | OP.COLON_ITS ---
Patient Name: Irina Archer Procedure Date: 10/08/2020 2:20 PM Date of : 1950 Age: 70 Procedure: Colonoscopy Indications: Abnormal CT of the GI tract, d61.818 Providers: Kieran Wyatt MD Medicines: See the Anesthesia note for documentation of the administered medications Patient Profile: This is a 70 year old female. Refer to note in patient chart for documentation of history and physical. Last Colonoscopy: within the past 6 months. Complications: No immediate complications. Procedure: Pre-Anesthesia Assessment: - Prior to the procedure, a History and Physical was performed, and patient medications and allergies were reviewed. The patient's tolerance of previous anesthesia was also reviewed. The risks and benefits of the procedure and the sedation options and risks were discussed with the patient. All questions were answered, and informed consent was obtained. Prior Anticoagulants: The patient has taken heparin, last dose was day of procedure. ASA Grade Assessment: III - A patient with severe systemic disease. After reviewing the risks and benefits, the patient was deemed in satisfactory condition to undergo the procedure. After I obtained informed consent, the scope was passed under direct vision. Throughout the procedure, the patient's blood pressure, pulse, and oxygen saturations were monitored continuously. The adult colonoscope was introduced through the anus and advanced to the cecum, identified by appendiceal orifice and ileocecal valve. Scope In: 2:21:35 PM Scope Withdrawal Time 0 hours 11 minutes 14 seconds Scope Out: 2:39:47 PM Total Procedure Duration Time 0 hours 18 minutes 12 seconds Findings: Multiple small and large-mouthed diverticula were found in the sigmoid colon and descending colon. No biopsies or other specimens were collected for this exam. The colon (entire examined portion) appeared normal. No biopsies or other specimens were collected for this exam. The exam was otherwise without abnormality. Impression: - Diverticulosis in the sigmoid colon and in the descending colon. No specimens collected. - The entire examined colon is normal. No specimens collected. - The examination was otherwise normal. Recommendation: - Return patient to [facility] for [facility] care. - Advance diet as tolerated. - Continue present medications. - Repeat colonoscopy in 10 years for screening purposes. - Return to referring physician (date not yet determined). Procedure Code(s): --- Professional --- 07083, Colonoscopy, flexible; diagnostic, including collection of specimen(s) by brushing or washing, when performed (separate procedure) Diagnosis Code(s): --- Professional --- D61.818, Other pancytopenia D64.9, Anemia, unspecified K57.30, Diverticulosis of large intestine without perforation or abscess without bleeding R93.3, Abnormal findings on diagnostic imaging of other parts of digestive tract CPT copyright 2017 [employer]. All rights reserved. The codes documented in this report are preliminary and upon hcc coders review may be revised to meet current compliance requirements. MD Kieran Lo MD 10/08/2020 2:52:47 PM This report has been signed electronically. Number of Addenda: 0 Note Initiated On: 10/08/2020 2:20 PM
--- NOTE | 2020-10-08 14:53 | OP.CCLET_ITS ---
10/08/2020 Santino Mcneill MD Re : Colonoscopy procedure for Irina Archer Dear Dr. Mcneill This procedure was performed on Thursday, October 08, 2020. My impressions and recommendations are as follows: Impressions : - Diverticulosis in the sigmoid colon and in the descending colon. No specimens collected. - The entire examined colon is normal. No specimens collected. - The examination was otherwise normal. Recommendations : - Return patient to [facility] care. - Advance diet as tolerated. - Continue present medications. - Repeat colonoscopy in 10 years for screening purposes. - Return to referring physician (date not yet determined). My findings are described in the full procedure note, which is enclosed. If I can be of further assistance, please feel free to contact me at Doctor phone number(s): , Fax: [phone], Work: . Sincerely, MD Kieran Lo MD 10/08/2020 2:52:47 PM This report has been signed electronically.
--- NOTE | 2020-10-08 17:15 | PCM.DC ---
Discharge Instructions Diet Discharge Diet: 1800 Calorie Control Diet Activity Discharge Activity: Return to Normal Activity Weight Bearing Status: Full weight bearing Follow Up Care Test Results: Test results from this visit will be discussed in further detail at your follow-up appointment, if applicable. Discharge Plan Admission Admit Date/Time: 10/06/20 14:48 Primary Reason for Your Visit: Portal venous thrombosis Attending Provider: Yaya Sanchez Primary Care Provider: Santino Mcneill Consulting Providers: Kieran Wyatt ; Jamar Castillo ; Josefina Kingsley ; Lorena Lawson ; Zeb Chacon ; Rock Sims Discharge Orders/Prescriptions Prescriptions: New spironolactone 25 mg Tablet 25 mg PO BID Qty: 60 RF: 0 cephalexin 500 mg capsule 500 mg PO Q8H Qty: 15 RF: 0 Eliquis 5 mg tablet 5 mg PO BID Qty: 49 RF: 0 Continued citalopram 10 mg tablet 10 tab PO DAILY RF: 0 aspirin [Adult Low Dose Aspirin] 81 mg tablet,delayed release (DR/EC) 81 mg PO DAILY RF: 0 ergocalciferol (vitamin D2) 1,250 mcg (50,000 unit) capsule 50,000 units PO METZ RF: 0 lorazepam 1 mg tablet 1 mg PO DAILY RF: 0 losartan 50 mg tablet 50 mg PO DAILY RF: 0 lovastatin 40 mg tablet 40 mg PO DAILY RF: 0 metformin 1,000 mg tablet 1,000 mg PO BID RF: 0 pioglitazone 30 mg tablet 30 mg PO DAILY RF: 0 metoprolol succinate [Toprol XL] 25 mg tablet extended release 24 hr 25 mg PO DAILY RF: 0 ascorbic acid (vitamin C) 500 mg Tablet 500 mg PO DAILY RF: 0 Azo Cranberry 250 mg Tablet,Chewable 500 mg PO DAILY RF: 0 Referrals / Follow Up: Santino Mcneill MD [Primary Care Provider] - Within 1 Week Rock Sims DO [STAFF PHYSICIAN] - See Referral Note ( call the office to arrange appointment) Disposition Disposition (needs filled in before D/C Order can be placed): Home, Self Care
[2020-10-08] MEDS: Enoxaparin 100 MG/ML Syringe SC (17:52)
[2020-10-08] MEDS: Losartan Potassium 50 MG Tablet PO (17:54)
[2020-10-08] MEDS: Citalopram 10 MG Tablet PO (17:55)
[2020-10-08 18:10] LABS: Bedside Glucose 76 mg/dL (70-110)
--- NOTE | 2020-10-11 08:16 | DS.PCM_ITS ---
Providers Date of Admission: 10/06/20 Date of Discharge: 10/08/20 Primary Care Physician: Dr. Santino Mcneill MD Consultations 10/06/20 15:46 Consult: General Surgery Routine Consulting Provider: Kieran Wyatt Reason for Consult: ABNORMAL ct EMERGENT Consult: No Notified: Yes Date Notified: 10/06/20 Time Notified: 14:45 Method of Notification: Verbal 10/07/20 10:20 Consult: Oncology/Hematology Routine Consulting Provider: DEVIN Hem/[facility] Reason for Consult: patient known to you EMERGENT Consult: No Notified: Yes Date Notified: 10/06/20 Time Notified: 07:00 Method of Notification: Verbal Reason For Visit: PORTAL VEIN THROMBOSIS Diagnosis Discharge Diagnosis (1) Portal vein thrombosis: Status: Acute Code(s): I81 - Portal vein thrombosis Plan: 1. Portal vein thrombosis/mesenteric thrombosis #2 recurrent urinary tract infection/cystitis #3 anasarca probably secondary to portal vein thrombosis #4 chronic pancytopenia-etiology unclear #5 mild gastritis #6 diverticulosis of the sigmoid and descending colon Medications at Discharge Home Medications aspirin 81 mg tablet,delayed release 81 mg PO DAILY 07/20/19 citalopram 10 mg tablet 10 tab PO DAILY 07/20/19 ergocalciferol (vitamin D2) 1,250 mcg (50,000 unit) capsule 50,000 units PO METZ 07/20/19 lorazepam 1 mg tablet 1 mg PO DAILY tab 07/20/19 losartan 50 mg tablet 50 mg PO DAILY 07/20/19 lovastatin 40 mg tablet 40 mg PO DAILY 07/20/19 metformin 1,000 mg tablet 1,000 mg PO BID 07/20/19 pioglitazone 30 mg tablet 30 mg PO DAILY 07/20/19 metoprolol succinate [Toprol XL] 25 mg PO DAILY 07/10/20 Azo Cranberry 500 mg PO DAILY 10/06/20 ascorbic acid (vitamin C) 500 mg PO DAILY 10/06/20 apixaban [Eliquis] 5 mg PO BID #49 tab 10/08/20 cephalexin 500 mg PO Q8H #15 cap 10/08/20 spironolactone 25 mg PO BID #60 tab 10/08/20 Hospital Course Operations None Procedures Colonoscopy and EGD Summary of Care Provided Minutes Spent on Discharge: 33 Hospital Course: This 70-year-old white female presented to the emergency room at [facility] for evaluation generalized edema and abdominal distention, patient was did have a work-up as an outpatient but decided to come to the emergency room for an expedited work-up. Work-up in ER included a CT of the abdomen pelvis which showed pleural venous thrombosis with intraluminal thrombus in the main portal vein extending into the right pleural branch, there was also noted to be a thrombus within the superior mesenteric vein. Small amount of ascites was present and there was also some thickening of the right hemicolon. Labs were remarkable for a white blood cell count of 1.9, hemoglobin of 10.8, and platelet count of 69,000. Patient had a history of pancytopenia and was being worked up as an outpatient by oncology. Urinalysis collected indicated patient had a urinary tract infection. Patient was admitted to PCU and placed on a heparin drip, she received IV antibiotics, she was placed on Aldactone for generalized edema, she was seen in consultation by general surgery who performed an EGD and a colonoscopy, colonoscopy showed only diverticulosis, EGD showed mild gastritis. On 10/08/2020, patient was seen and examined: Physical Exam Const alert, oriented x3, no apparent distress and healthy appearing General Appearance: cooperative, well kempt and well developed Orientation / Consciousness: awake, oriented to person, oriented to place and oriented to time HEENT normocephalic, head/scalp atraumatic, hearing grossly normal bilaterally and moist oral mucous membranes Eyes PERRL, EOMs intact bilaterally and conjunctivae normal Neck nuchal rigidity, supple, no JVD, thyroid normal and no carotid bruits General: trachea midline Resp normal respiratory effort, no retractions, no use of accessory muscles and clear to auscultation bilaterally Auscultation: Negative for rales, rhonchi or wheezes Cardio regular rate, regular rhythm, S1 normal heart sound, S2 normal heart sound, no murmurs, no rub and no gallops GI soft to palpation and non-tender GI Narrative: There is moderate abdominal distention noted on physical exam Extremity Extremity Narrative: +1 to +2 mm pitting edema is noted in the lower legs bilaterally Skin no rashes or lesions noted General Skin Exam: no breakdown Neuro oriented x3, CN's II-XII intact bilaterally, no focal motor deficits and no sensory deficits noted Sensorium / Orientation: awake and alert Speech: speech normal Psych-patient does not appear anxious or depressed On 10/08/2020, patient was seen and examined and felt to be in stable condition for discharge home Weight / BMI Weight Weight: 94.1 kg Body Mass Index (BMI) 35.6 ABG / Lab / Microbiology Data Result Diagrams: 10/07/20 03:35 10/06/20 11:40 Microbiology: Microbiology 10/06/20 20:15 Urine, Midstream Urine Culture - Final Mixed Gram Pos & Gram Neg Org D/C Instructions Discharge Diet: 1800 Calorie Control Diet Weight Bearing Status: Full weight bearing Meaningful Use Info Meaningful Use Diagnoses (Choose all that apply): None applicable Discharge Plan Admission Admit Date/Time: 10/06/20 14:48 Primary Reason for Your Visit: Portal venous thrombosis Attending Provider: Yaya Sanchez Primary Care Provider: Santino Mcneill Consulting Providers: Kieran Wyatt ; Jamar Castillo ; Josefina Kingsley ; Lorena Lawson ; Zeb Chacon ; Rock Sims Discharge Orders/Prescriptions Prescriptions: New spironolactone 25 mg Tablet 25 mg PO BID Qty: 60 RF: 0 cephalexin 500 mg capsule 500 mg PO Q8H Qty: 15 RF: 0 Eliquis 5 mg tablet 5 mg PO BID Qty: 49 RF: 0 Continued citalopram 10 mg tablet 10 tab PO DAILY RF: 0 aspirin [Adult Low Dose Aspirin] 81 mg tablet,delayed release (DR/EC) 81 mg PO DAILY RF: 0 ergocalciferol (vitamin D2) 1,250 mcg (50,000 unit) capsule 50,000 units PO METZ RF: 0 lorazepam 1 mg tablet 1 mg PO DAILY RF: 0 losartan 50 mg tablet 50 mg PO DAILY RF: 0 lovastatin 40 mg tablet 40 mg PO DAILY RF: 0 metformin 1,000 mg tablet 1,000 mg PO BID RF: 0 pioglitazone 30 mg tablet 30 mg PO DAILY RF: 0 metoprolol succinate [Toprol XL] 25 mg tablet extended release 24 hr 25 mg PO DAILY RF: 0 ascorbic acid (vitamin C) 500 mg Tablet 500 mg PO DAILY RF: 0 Azo Cranberry 250 mg Tablet,Chewable 500 mg PO DAILY RF: 0 Referrals / Follow Up: Santino Mcneill MD [Primary Care Provider] - Within 1 Week Rock Sims DO [STAFF PHYSICIAN] - See Referral Note ( call the office to arrange appointment) Disposition Disposition (needs filled in before D/C Order can be placed): Home, Self Care Charges/Coding Visit Charges Inpatient E&M: 65965 Disch Hosp
[2020-10-15 13:51] LABS: Antithrombin 3 Function 65 % (75-135); Protein C Antigen 76 % (60-150); Protein C, Functional 88 % (73-180)
[2020-10-15 13:57] LABS: Anti-Cardiolipin Ab, IgG, Qn < 9 GPL U/mL (0-14); Anti-Cardiolipin Ab, IgM, Qn 9 MPL U/mL (0-12); Anti-Thrombin 3 AG, Immunol 75 % (72-124); Beta-2-Glycoprotein I IgA <9 (0-25); Beta-2-Glycoprotein I IgG <9 (0-20); Beta-2-Glycoprotein I IgM <9 (0-32)
== END 2020-10-08 18:20 | disposition home or self-care (01) | DRG 441 ==
LOC: ED 14:31 → PCU 14:51
PROVIDERS: Hospitalist; Surgery; Admitting Provider Internal Medicine; Emergency Provider Emergency Medicine; PCP Family Medicine; Visit Provider Internal Medicine
PROC: 0DJD8ZZ Inspection of Lower Intestinal Tract, Via Natural or Artificial Opening Endoscopic (ICD-10-PCS; CPT 45378; principal; 2020-10-08 14:55)
DX: I81 Portal vein thrombosis (principal); K55.069 Acute infarction of intestine, part and extent unspecified; N39.0 Urinary tract infection, site not specified; D61.818 Other pancytopenia; R18.8 Other ascites; K29.70 Gastritis, unspecified, without bleeding; K57.30 Diverticulosis of large intestine without perforation or abscess without bleeding; D64.9 Anemia, unspecified; E11.9 Type 2 diabetes mellitus without complications; I11.9 Hypertensive heart disease without heart failure; Z87.440 Personal history of urinary (tract) infections; Z95.1 Presence of aortocoronary bypass graft; Z87.891 Personal history of nicotine dependence; G47.33 Obstructive sleep apnea (adult) (pediatric); E78.5 Hyperlipidemia, unspecified; I25.10 Atherosclerotic heart disease of native coronary artery without angina pectoris; M81.0 Age-related osteoporosis without current pathological fracture; Z79.82 Long term (current) use of aspirin; Z79.84 Long term (current) use of oral hypoglycemic drugs; Z79.899 Other long term (current) drug therapy; Z87.11 Personal history of peptic ulcer disease
CPT/HCPCS: 36415; 71045; 74177; 80048; 80076; 81001; 81240; 81241; 82962; 85025; 85300; 85301; 85302; 85303; 85610; 85730; 86146; 86147; 87086; 87088; 93005; 97802; 99285; J7120; Q9967; A4216; J2405

== ENCOUNTER 2020-11-11 13:23 | Emergency (ER) | payer MEDICARE, SELFPAY ==
[2020-11-11 13:23] VITALS: BP 158/54; PULSE 47; RESP 16; TEMP 36.4; O2SAT 96; BMI 33.8
[2020-11-11 14:16] LABS: Color, Urine Brown (Yellow); Glucose, Dipstick Normal (Normal); Ketone-Dipstick 15 mg/dl (Negative); Leukocyte Esterase-Dipstick 25 /ul (Negative); Nitrite-Dipstick Negative (Negative); Occult Blood-Urine 250 /ul (Negative); Protein-Dipstick 500 mg/dl (Negative); Urine Clarity Cloudy (Clear); Urine Urobilinogen Normal (Normal); Urine pH 6.5 (5.0 - 8.0)
[2020-11-11 14:20] LABS: Urine Bilirubin Dipstick 1 mg/dL (Negative)
[2020-11-11 14:25] LABS: Red Blood Cells-Urine > 100 SEEN /hpf (0-5)
[2020-11-11 14:26] LABS: Bacteria 1+ /hpf (None Seen); Mucous, Urine RARE /hpf (<or=2+); Squamous Epithelial Cells - UA 0-5 SEEN /hpf (5-10); White Blood Cells 0-5 SEEN /hpf (0-5)
--- NOTE | 2020-11-11 14:30 | ED.VIS.FEGU ---
HPI HPI - Female History of Present Illness Chief Complaint: Complaint Informant: patient Narrative Narrative: Patient is a 70-year-old female with a past medical history of liver cirrhosis, portal vein thrombosis on Eliquis who presents to the emergency department for unable to urinate. She states that the last time she was able to urinate was 4 AM this morning. She does have a history of many UTIs before in the past. She was not having any urinary symptoms prior to this. She was having some right lower quadrant pain which has been resolving throughout the day. She did take Tylenol for this. She was able to urinate here in the emergency department and it was grossly bloody. She is never had this before. She did have nausea and dry heaves earlier today but this since resolved. She denies any change in bowel movements. No fevers or chills. [facility] Medical History (Updated 11/11/20 @ 16:[address] Clovis Younger, ) Anemia Diabetes History of recurrent UTIs HTN (hypertension) Pancytopenia Home Medications aspirin 81 mg tablet,delayed release 81 mg PO DAILY 07/20/19 [History Last Taken 10/06/20] citalopram 10 mg tablet 10 tab PO DAILY 07/20/19 [History Last Taken 10/06/20] ergocalciferol (vitamin D2) 1,250 mcg (50,000 unit) capsule 50,000 units PO METZ 07/20/19 [History Last Taken 10/05/20] lorazepam 1 mg tablet 1 mg PO DAILY tab 07/20/19 [History Last Taken 10/05/20] losartan 50 mg tablet 50 mg PO DAILY 07/20/19 [History Last Taken 10/06/20] lovastatin 40 mg tablet 40 mg PO DAILY 07/20/19 [History Last Taken 10/05/20] metformin 1,000 mg tablet 1,000 mg PO BID 07/20/19 [History Last Taken 10/06/20] pioglitazone 30 mg tablet 30 mg PO DAILY 07/20/19 [History Last Taken 10/06/20] metoprolol succinate [Toprol XL] 25 mg PO DAILY 07/10/20 [History Last Taken 10/06/20] Azo Cranberry 500 mg PO DAILY 10/06/20 [History Last Taken 10/05/20] ascorbic acid (vitamin C) 500 mg PO DAILY 10/06/20 [History Last Taken 10/05/20] apixaban [Eliquis] 5 mg PO BID #49 tab 10/08/20 [Rx Last Taken Unknown] cephalexin 500 mg PO Q8H #15 cap 10/08/20 [Rx Last Taken Unknown] spironolactone 25 mg PO BID #60 tab 10/08/20 [Rx Last Taken Unknown] cephalexin 500 mg PO BID 7 Days #14 cap 11/11/20 [Rx Last Taken Unknown] Allergy/AdvReac Type Severity Reaction Status Date / Time furosemide [From Lasix] Allergy Rash Verified 11/11/20 13:25 Surgical History H/O heart surgery H/O hernia repair Hx of CABG Social History Smoking Status: Former smoker alcohol intake: never ROS ROS ED Constitutional Constitutional ED: Denies chills or fever(s) Eyes Eyes: Denies change in vision ENT ENT ED: Denies epistaxis or rhinorrhea Cardiovascular Cardiovascular: Denies chest pain or palpitations Respiratory/Chest Respiratory/Chest: Denies cough or dyspnea Gastrointestinal Gastrointestinal: Reports abdominal pain and nausea; Denies diarrhea or vomiting Genitourinary Genitourinary ED: Reports hematuria and other Details: Inability to urinate Musculoskeletal Musculoskeletal: Denies back pain or neck pain Integumentary Denies rash Neurologic Neurologic: Denies dizziness, headache(s) or weakness EXAM Physical Exam Const Vital Signs: 11/11/20 13:23 11/11/20 16:20 Temperature 97.5 F L Temperature Source Temporal Pulse Rate 47 L 81 Respiratory Rate 16 16 Blood Pressure 158/54 H 141/76 H Blood Pressure Mean 88 97 Pulse Ox 96 97 Oxygen Delivery Method Room Air Room Air Positive well nourished and well developed General Appearance ED: well developed and NAD HEENT Reports normocephalic and head/scalp atraumatic Eyes PERRL and EOMs intact bilaterally Neck supple Chest Wall inspection of chest normal Resp normal respiratory effort and clear to auscultation bilaterally Auscultation: Negative for rales, rhonchi or wheezes Cardio regular rate, regular rhythm and no murmurs GI GI Narrative: Distended abdomen with ascites Back/Spine no CVA tenderness Extremity normal to inspection General Extremety ED: Negative for edema or tenderness General Extremity: Negative for edema Neuro Sensorium / Orientation: alert Motor Exam: strength 5/5 throughout Psych mental status grossly normal Skin no rashes or lesions noted MDM MDM MDM Narrative Medical decision making narrative: Patient presents to the emergency department for urinary urge and unable to void. She was having right lower quadrant pain but this has been improving. She currently rates the pain as a 4 out of 10. On arrival to the ED vital signs within normal limits except for asymptomatic bradycardia. She has benign physical exam except for the abdominal distention which is chronic for her with cirrhosis and ascites. Urinalysis is being obtained along with basic lab work. Patient's urine showed significant amount of blood but no obvious infection. There was 1+ bacteriuria. No white blood cells or nitrites. Given the fact she has had many UTIs before in the past. Will cover with antibiotics. Her blood work did not reveal a significant acute abnormality. She does have chronic pancytopenia which actually is appearing better on today's work-up. Her kidney function is not elevated. Patient is able to urinate without difficulty in the emergency department. She states it is clearing up significantly as well. This time I do not feel she will require bladder irrigation. I did offer CT imaging of her abdomen/pelvis to evaluate for kidney stone with the right-sided abdominal pain but she states that this has improved and is gone at this point. She is to follow-up with her urologist tomorrow. If she devlopes any repeat or worsening symptoms she needs to return back to the emergency department. Lab Data Labs: Laboratory Results - last 24 hr 11/11/20 11/11/20 11/11/20 14:01 14:13 14:13 WBC 2.6 L RBC 3.45 L Hgb 11.2 L Hct 35.6 L MCV 103.2 H MCH 32.5 H MCHC 31.5 L RDW Std Deviation 60.6 H RDW Coeff of Codey 15.9 H Plt Count 91 L MPV 11.2 Immature Gran % (Auto) 0.400 Neut % (Auto) 74.3 H Lymph % (Auto) 15.6 L Kershaw % (Auto) 6.6 Eos % (Auto) 2.3 Baso % (Auto) 0.8 Absolute Neuts (auto) 1.9 L Absolute Lymphs (auto) 0.40 L Nucleated RBC % 0 Differential Comment SCANNED Diff Path Review May foll Platelet Estimate MOD DEC Sodium 143 Potassium 4.0 Chloride 110 H Carbon Dioxide 26.0 Anion Gap 7 BUN 22 H Creatinine 0.90 Estim Creat Clear Calc 45.35 Est GFR (MDRD) Af Amer 79 Est GFR (MDRD) Non-Af 66 BUN/Creatinine Ratio 24.5 H Glucose 86 Calcium 9.4 Total Bilirubin 0.80 AST 31 ALT 28 Alkaline Phosphatase 113 Total Protein 6.7 Albumin 3.3 Globulin 3.4 Albumin/Globulin Ratio 1.0 Urine Color Brown Urine Clarity Cloudy Urine pH 6.5 Ur Specific [place] 1.020 Urine Protein 500 H Urine Glucose (UA) Normal Urine Ketones 15 H Urine Occult Blood 250 H Urine Nitrite Negative Urine Bilirubin 1 H Urine Urobilinogen Normal Ur Leukocyte Esterase 25 H Urine RBC > 100 SEEN Urine WBC 0-5 SEEN Ur Squamous Epith Cells 0-5 SEEN Urine Bacteria 1+ Urine Mucus RARE Discharge Plan Triage Chief Complaint: Complaint ED Provider: Clovis Younger Dx/Rx/DC Orders Clinical Impression: Hematuria, Urinary retention Instructions: ED Hematuria Prescriptions: New cephalexin 500 mg capsule 500 mg PO BID 7 Days Qty: 14 RF: 0 No Action citalopram 10 mg tablet 10 tab PO DAILY RF: 0 aspirin [Adult Low Dose Aspirin] 81 mg tablet,delayed release (DR/EC) 81 mg PO DAILY RF: 0 ergocalciferol (vitamin D2) 1,250 mcg (50,000 unit) capsule 50,000 units PO METZ RF: 0 lorazepam 1 mg tablet 1 mg PO DAILY RF: 0 losartan 50 mg tablet 50 mg PO DAILY RF: 0 lovastatin 40 mg tablet 40 mg PO DAILY RF: 0 metformin 1,000 mg tablet 1,000 mg PO BID RF: 0 pioglitazone 30 mg tablet 30 mg PO DAILY RF: 0 metoprolol succinate [Toprol XL] 25 mg tablet extended release 24 hr 25 mg PO DAILY RF: 0 ascorbic acid (vitamin C) 500 mg Tablet 500 mg PO DAILY RF: 0 Azo Cranberry 250 mg Tablet,Chewable 500 mg PO DAILY RF: 0 spironolactone 25 mg Tablet 25 mg PO BID Qty: 60 RF: 0 cephalexin 500 mg capsule 500 mg PO Q8H Qty: 15 RF: 0 Eliquis 5 mg tablet 5 mg PO BID Qty: 49 RF: 0 Primary Care Provider: Santino Mcneill Referrals: Yu Moreno MD [STAFF PHYSICIAN] - 1 Day Santino Mcneill MD [Primary Care Provider] - Disposition Disposition: Home, Self Care Discharge Date/Time: 11/11/20 16:30
[2020-11-11 15:00] LABS: Absolute Neutrophil Count 1.9 X10^3/uL (2.0-7.7); Basophil# 0.02 X10^3/uL; Basophil% 0.8 % (0-1); Eosinophil# 0.06 X10^3/uL; Eosinophils% 2.3 % (0-5); Hematocrit 35.6 % (37-47); Hemoglobin 11.2 g/dL (12.0-15.0); Lymphocyte % 15.6 % (19-41); Mean Corp Hgb Conc 31.5 g/dL (32-36); Mean Corpuscular Hgb 32.5 pg (27.0-32.0); Mean Corpuscular Volume 103.2 fL (81-99); Mean Platelet Vol. 11.2 fl (6.2-12.0); Monocyte# 0.17 X10^3/uL; Monocyte% 6.6 % (0-10); NRBC Flagged by Analyzer 0 % (0-5); Neutrophil # 1.91 X10^3/uL (2.7-7.7); Neutrophil % 74.3 % (47-70); POSITIVE COUNT YES; POSITIVE DIFFERENTIAL YES; Platelet Count 91 K/mm3 (150-450); RBC Distribution Width CV 15.9 % (11.6-14.6); RBC Distribution Width SD 60.6 fl (35.1-43.9); Red Blood Count 3.45 M/mm3 (4.2-5.4); White Blood Count 2.6 K/mm3 (4.4-11.0)
[2020-11-11 15:04] LABS: AST(SGOT) 31 U/L (15-37); Alanine Aminotransfer ALT/SGPT 28 U/L (13-56); Albumin, Serum 3.3 g/dL (3.2-5.0); Alkaline Phosphatase 113 U/L (45-117); Anion Gap 7 (5-15); BUN 22 mg/dL (7-18); BUN/Creat Ratio 24.5 RATIO (10-20); Calcium,Total 9.4 mg/dL (8.5-10.1); Chloride 110 mmol/L (98-107); Differential Indicated SCAN CRITERIA MET; EST Glomerular Filtration Rate 66 mL/min (>60); Est Glom Filt Rate - Afr Amer 79 mL/min (>60); Estimated Creatinine Clearance 45.35 ml/min; Globulin 3.4 g/dL (2.2-4.2); Glucose 86 mg/dL (74-106); Protein, Total 6.7 g/dL (6.4-8.2); Sodium Level 143 mmol/L (136-145)
[2020-11-11 15:32] LABS: Differential Comment SCANNED
[2020-11-11 15:33] LABS: Platelet Estimate MOD DEC (ADEQ)
[2020-11-11 16:20] VITALS: BP 141/76; PULSE 81; RESP 16; O2SAT 97
[2020-11-13 09:00] LABS: Pathologist Review Reviewed
== END 2020-11-11 16:30 | disposition home or self-care (01) ==
PROVIDERS: Emergency Provider Emergency Medicine; PCP Family Medicine
DX: R31.9 Hematuria, unspecified (principal); R33.9 Retention of urine, unspecified; R10.31 Right lower quadrant pain; Z87.891 Personal history of nicotine dependence; K74.60 Unspecified cirrhosis of liver; E11.9 Type 2 diabetes mellitus without complications; I10 Essential (primary) hypertension; Z95.1 Presence of aortocoronary bypass graft; Z87.440 Personal history of urinary (tract) infections; Z79.01 Long term (current) use of anticoagulants; Z79.82 Long term (current) use of aspirin; Z79.84 Long term (current) use of oral hypoglycemic drugs; Z79.899 Other long term (current) drug therapy
CPT/HCPCS: 80053; 81001; 85025; 87077; 87086; 87088; 87186; 99283; A4216

== ENCOUNTER → 2020-11-12 18:18 | Outpatient (CLI) | payer MEDICARE, SELFPAY ==
--- NOTE | 2020-11-12 16:00 | CYSPIN_PTH ---
PATIENT: GIGI RDZ LOC: [facility] U#:[id number] AGE/SX: 74/F ROOM: RE11/12/[address]: Dr. Yu Moreno MD : 1950 BED: DIS: SPEC #: [id number] RECD: 11/13/20 09:44 STATUS: TAHMINA NEEMA #: [id number] MYLES: 11/12/20 16:[address]: Yu Moreno DEPT: CYTOLOGY RECD BY: Loco Dunbar ENTERED: 11/13/20 09:47 SP TYPE: CYSPIN FL OTHR DR: Dr. Santino Mcneill MD Tissues: Urine Procedures: Pap Stain (control) Special Stain Group II Cytospin Fluid HEADER OPERATION: Not noted PRE-OP DIAGNOSIS: Gross hematuria TISSUE SUBMITTED: Urine for cytology DIAGNOSIS CYTOLOGY Urine for cytology (cytospin): Negative for malignant cells. Mild acute inflammation. See comment. RENETTA:linda 11/14/2020 COMMENT Numerous red blood cells are noted consistent with clinical history of gross hematuria. Fungal organisms consistent with Rosy (yeast and pseudohyphae) are also noted. Clinical correlation and appropriate follow up are necessary. CYTOLOGY STUDY Slides are reviewed. CYTOLOGY GROSS Received is 25 ml of brown cloudy fluid labeled with the patient's name and and designated per the requisition as urine. Submitted for cytology preparation. / linda 11/13/2020 TC:2 CPT: 15666
[2020-11-12 18:21] LABS: Cytology, Body Fluid / CSF SEE PATHOLOGY REPORT
== END ==
PROVIDERS: PCP Family Medicine; Visit Provider Urology
DX: R31.0 Gross hematuria (principal)
CPT/HCPCS: 88108; 88313

== ENCOUNTER → 2020-11-21 12:43 | Outpatient (CLI) | payer MEDICARE, SELFPAY ==
--- NOTE | 2020-11-21 12:55 | CT_ITS ---
STUDY: CT ABDOMEN AND PELVIS WITH AND WITHOUT CONTRAST REASON FOR EXAM: Female, 70 years old. GROSS HEMATURIA RADIATION DOSAGE (If Supplied By Facility): CTDIvol = ( 26.36 ) mGy, DLP = ( 5013.27 ) mGycm TECHNIQUE: Transaxial images were obtained from the dome of the diaphragm to the symphysis pubis without oral contrast. IV 100mL Isovue-370 was administered. Sagittal and coronal images were reconstructed. Individualized dose optimization techniques were used for this CT. COMPARISON: Comparison is made with prior examination of 10/06/2020. FINDINGS: The visualized lung bases are unremarkable. Coronary artery calcification. Prior CABG. Diffuse ascites in the abdomen and pelvis. There is decreased attenuation of the liver consistent with steatosis. The previously seen portal venous thrombus is not seen at this time. Normal gallbladder and extrahepatic biliary system. There is mild splenomegaly. There is evidence of varicosities in the region of the splenic hilum. Normal pancreas. Normal bilateral adrenal glands. Normal right kidney. Normal left kidney. Normal visualized stomach. Normal small intestine. Normal colon. There are surgical clips in the region of the appendix consistent with a prior appendectomy. There is diffuse atherosclerotic calcification of the abdominal aorta, without a demonstrated aneurysm. Normal inferior vena cava. Normal retroperitoneum. There is evidence of a cystocele. Increased markings in the subcutaneous fat suggestive of a mild degree of congestion. There are degenerative changes of the visualized lumbar spine. CT/CT Abd/Pelvis W/WO Contrast IMPRESSION: Ascites. Findings suggestive of cirrhosis of the liver. Mild splenomegaly. The previously seen thrombosis of the portal venous system is not seen at this time. Cystocele. Electronically Signed: Jose Curtis MD at 13:48 EDT , Service support ,
== END ==
PROVIDERS: PCP Family Medicine; Referring Provider Urology; Visit Provider Urology
DX: R31.0 Gross hematuria (principal)
CPT/HCPCS: 74178; Q9967

== ENCOUNTER → 2020-11-28 14:20 | Outpatient (CLI) | payer MEDICARE, SELFPAY ==
--- NOTE | 2020-11-28 14:24 | US_ITS ---
STUDY: ULTRASOUND OF THE FEMALE PELVIS - COMPLETE REASON FOR EXAM: Female, 70 years old. UTERINE BLEEDING LMP: Menopause TECHNIQUE: Transabdominal and Transvaginal TECHNICAL QUALITY: Adequate. COMPARISON: None. FINDINGS: The uterus is anteverted and is in a midline position. The uterus measures 6.2 x 3.6 x 3.2 cm cm. Normal uterine cervix. The endometrium measures 3 mm in thickness, and is hyperechoic. There is no demonstrated endometrial mass. There is no demonstrated myometrial mass. I.U.D. - The patient does not have an I.U.D. The ovaries are not visualized. There is a moderate amount of fluid in the cul-de-sac. The pre void volume of the bladder was ml. The post void volume of the bladder was ml. Polycystic ovary disease: No. US/Pelvic (Non ) IMPRESSION: Normal female pelvis. Moderate amount of ascites. Electronically Signed: Phoenix Leblanc MD at 11:30 EDT Tel , Service support ,
--- NOTE | 2020-11-28 14:45 | US_ITS ---
STUDY: ULTRASOUND OF THE FEMALE PELVIS - COMPLETE REASON FOR EXAM: Female, 70 years old. UTERINE BLEEDING LMP: Menopause TECHNIQUE: Transabdominal and Transvaginal TECHNICAL QUALITY: Adequate. COMPARISON: None. FINDINGS: The uterus is anteverted and is in a midline position. The uterus measures 6.2 x 3.6 x 3.2 cm cm. Normal uterine cervix. The endometrium measures 3 mm in thickness, and is hyperechoic. There is no demonstrated endometrial mass. There is no demonstrated myometrial mass. I.U.D. - The patient does not have an I.U.D. The ovaries are not visualized. There is a moderate amount of fluid in the cul-de-sac. The pre void volume of the bladder was ml. The post void volume of the bladder was ml. Polycystic ovary disease: No. US/Transvaginal Non- IMPRESSION: Normal female pelvis. Moderate amount of ascites. Electronically Signed: Phoenix Leblanc MD at 11:30 EDT Tel , Service support ,
== END ==
PROVIDERS: PCP Family Medicine; Referring Provider Urology; Visit Provider Urology
DX: N93.9 Abnormal uterine and vaginal bleeding, unspecified (principal)
CPT/HCPCS: 76830; 76856

== ENCOUNTER → 2020-12-05 07:54 | Outpatient (CLI) | payer MEDICARE, SELFPAY ==
--- NOTE | 2020-12-05 07:57 | US_ITS ---
STUDY: ABDOMINAL ULTRASOUND - 4 quadrants for ascites. REASON FOR VISIT: Female, 70 years old ASCITES TECHNIQUE: Ultrasound evaluation of the right upper quadrant was performed with real-time and static freedman-scale imaging. TECHNICAL QUALITY: Adequate. COMPARISON: None. FINDINGS: The 4 quadrants were examined for ascites. Only a small pocket of fluid is seen in the left lower quadrant. The paracentesis was not performed. US/Abdomen Limited IMPRESSION: Only a small pocket of fluid is seen in the left lower quadrant. A paracentesis was not performed. Electronically Signed: Jose Curtis MD at 12:46 EDT , Service support ,
[2020-12-05 08:20] VITALS: BP 139/60; PULSE 74; RESP 18; O2SAT 100
== END ==
PROVIDERS: PCP Family Medicine; Referring Provider Physician Assistant; Visit Provider Physician Assistant
DX: K74.60 Unspecified cirrhosis of liver (principal); K75.81 Nonalcoholic steatohepatitis (NASH); R18.8 Other ascites
CPT/HCPCS: 76705

== ENCOUNTER 2021-04-22 08:19 | Outpatient (CLI) | payer MEDICARE, MEDICAID, SELFPAY ==
[2021-04-22] VITALS (7 sets, daily range): BP systolic 112–140; BP diastolic 34–47; PULSE 45–81; RESP 16; TEMP 36.7–37.1; O2SAT 95–100
[2021-04-22] MEDS: 0.9% NaCl Peripheral Flush Adult/Peds IV (08:39)
== END 2021-04-22 23:59 | disposition home or self-care (01) ==
LOC: MEDOUTP 08:21
PROVIDERS: PCP Family Medicine; Referring Provider Internal Medicine Hematology & Oncology; Visit Provider Internal Medicine Hematology & Oncology
DX: D64.9 Anemia, unspecified (principal)
CPT/HCPCS: 36430; 86850; 86900; 86901; 86920; 86922; J7040; P9016; A4216

== ENCOUNTER → 2022-02-22 | Outpatient (CLI) | payer MEDICARE, MEDICAID, SELFPAY ==
--- NOTE | 2022-02-22 13:18 | US_ITS ---
STUDY: ABDOMINAL ULTRASOUND - 4 quadrants. REASON FOR VISIT: Female, 71 years old . Ascites survey. TECHNIQUE: Ultrasound evaluation of the 4 quadrants was performed with real-time and static freedman-scale imaging. TECHNICAL QUALITY: Adequate. COMPARISON: None. FINDINGS: Ascites assessment was performed. Only a small amount of right perihepatic fluid is seen. US/Abdomen Limited IMPRESSION: Small amount of fluid surrounding the liver. Not enough fluid for safe paracentesis. Electronically Signed: Jose Curtis MD at 15:46 EST ,
== END | disposition home or self-care (01) ==
PROVIDERS: PCP Family Medicine
DX: R18.8 Other ascites (principal)
CPT/HCPCS: 76705

== ENCOUNTER 2022-10-20 10:42 | Inpatient (IN) | payer MEDICARE, MEDICAID, SELFPAY ==
[2022-10-20] VITALS (7 sets, daily range): BP systolic 130–153; BP diastolic 51–72; PULSE 54–96; RESP 14–18; TEMP 36.2–36.9; O2SAT 93–99; BMI 26.4; BMI 24.7
--- NOTE | 2022-10-20 11:09 | EDS_ITS ---
HPI HPI - GI History of Present Illness Chief Complaint: Abd Pain Informant: patient and family Narrative Narrative: Presents here with sister for evaluation. Last couple days reports abdominal pain back pain dysuria. No fevers or chills. More difficulty with gait due to the pain and discomfort. Abdominal surgeries for ventral hernia repair. No nausea or vomiting. Normal bowel movement yesterday morning. History of nonalcoholic cirrhosis had a previous portal vein thrombosis not currently on anticoagulants. History of pancytopenia followed by Dr. Sims. Per sister seen GI Dr. Nicholson [facility] 2 weeks ago was put on potassium replacement. She is on a diuretic of Lasix. Reviewing her medication list on paper no current lactulose or rifaximin. Denies cough or chest pains. Sister states they called PCP office to let them know they are coming to emergency department. 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) Obstructive sleep apnea Pancytopenia Portal hypertensive gastropathy Primary insomnia Secondary esophageal varices without bleeding Home Medications citalopram 10 mg tablet 10 tab PO DAILY DEPRESSION 07/20/19 [History Last Taken 10/06/20] ergocalciferol (vitamin D2) 1,250 mcg (50,000 unit) capsule 50,000 units PO METZ SUPPLEMETNT 07/20/19 [History Last Taken 10/05/20] lorazepam 1 mg tablet 1 mg PO DAILY ANXIETY 07/20/19 [History Last Taken 10/19/22] losartan 50 mg tablet 50 mg PO DAILY BP 07/20/19 [History Last Taken 10/06/20] lovastatin 40 mg tablet 40 mg PO DAILY CHOLESTEROL 07/20/19 [History Last Taken 10/19/22] metformin 1,000 mg tablet 1,000 mg PO BID DM 07/20/19 [History Last Taken 10/20/22] pioglitazone 30 mg tablet 30 mg PO DAILY DM 07/20/19 [History Last Taken 10/20/22] metoprolol succinate 25 mg tablet,extended release 24 hr (Toprol XL) 25 mg PO DAILY HEART 07/10/20 [History Last Taken 10/20/22] allopurinol 300 mg tablet 300 mg PO DAILY Gout 10/20/22 [History Last Taken 10/20/22] folic acid 1 mg tablet 1 mg PO DAILY supplement 10/20/22 [History Last Taken 10/20/22] furosemide 20 mg tablet 20 mg PO DAILY Water pill 10/20/22 [History Last Taken 10/20/22] pantoprazole 40 mg tablet,delayed release 40 mg PO BID Stomach pill 10/20/22 [History Last Taken 10/20/22] potassium chloride 10 mEq tablet,extended release 10 meq PO DAILY supplement 10/20/22 [History Last Taken 10/20/22] spironolactone 25 mg tablet 50 mg PO DAILY Diuretic 10/20/22 [History Last Taken 10/20/22] spironolactone 50 mg tablet 50 mg PO DAILY Water Pill 10/20/22 [History Last Taken 10/20/22] sucralfate 1 gram tablet 1 g PO TID Stomach pill 10/20/22 [History Last Taken 10/20/22] Allergy/AdvReac Type Severity Reaction Status Date / Time amlodipine [From Norvasc] Allergy Unknown Swelling Verified 10/20/22 14:51 in LE nitrofurantoin Allergy Unknown Hives/Itchi Verified 10/20/22 14:51 [From Macrobid] ng codeine AdvReac Unknown Excessively Verified 10/20/22 14:51 tired Surgical History H/O heart surgery H/O hernia repair Hx of CABG Social History Smoking Status: Former smoker alcohol intake: never ROS ROS ED Constitutional Constitutional ED: Denies chills, fever(s) or sweats Eyes Eyes: Denies change in vision ENT ENT ED: Denies dysphagia or sore throat Cardiovascular Cardiovascular: Denies chest pain, leg edema, palpitations or racing heartbeat Respiratory/Chest Respiratory/Chest: Denies cough, dyspnea or dyspnea on exertion Gastrointestinal Gastrointestinal: Reports abdominal pain; Denies diarrhea, nausea or vomiting Genitourinary Genitourinary ED: Reports dysuria; Denies hematuria or urinary frequency Musculoskeletal Musculoskeletal: Reports back pain; Denies extremity pain or neck pain Integumentary Denies rash or wounds Neurologic Neurologic: Denies headache(s), paresthesias or weakness EXAM Physical Exam Const Vital Signs: 10/20/22 10:43 10/20/22 12:42 10/20/22 13:47 Temperature 97.2 F L 97.5 F L Temperature Source Temporal Temporal Pulse Rate 96 54 L Respiratory Rate 14 16 16 Blood Pressure 153/72 H 143/65 H Blood Pressure Mean 99 91 Blood Pressure Source Blood Pressure Position Blood Pressure Location Pulse Ox 97 94 Oxygen Delivery Method Room Air Room Air 10/20/22 14:33 Temperature 97.7 F L Temperature Source Oral Pulse Rate 93 Respiratory Rate 18 Blood Pressure 141/52 H Blood Pressure Mean 81 Blood Pressure Source Monitor Blood Pressure Position Semi-Fowlers Blood Pressure Location Right Arm Pulse Ox 99 Oxygen Delivery Method Room Air Positive well nourished and well developed General Appearance ED: well developed and NAD HEENT HEENT Narrative: Dry mucosal membrane normocephalic and atraumatic Eyes PERRL, EOMs intact bilaterally and conjunctivae normal General Eye ED: Yes normal appearance of both eyes Neck no lymphadenopathy and supple General: Negative for tenderness Chest Wall Chest: Negative for tenderness Resp normal respiratory effort and normal air movement Effort and Inspection: symmetric chest movement; Negative for respiratory distress Cardio regular rate, regular rhythm and no murmurs Peripheral Pulses: pulses 2+ throughout GI non-distended GI Narrative: Tenderness epigastric slight right lower quadrant no guarding or rebound. Negative Bernard's. This midline abdominal incision. Palpation: Negative for guarding or rebound tenderness present Back/Spine no CVA tenderness and no thoracic nor lumbar tenderness Extremity normal to inspection General Extremety ED: Negative for edema or tenderness General Extremity: Negative for edema Neuro oriented x3 and no sensory deficits noted Sensorium / Orientation: awake and alert Skin no rashes or lesions noted and no wounds Sepsis Attestation Sepsis Attestation: Agree w/Sepsis Date exam was performed: 10/20/22 Possible Source of Sepsis: GI tract/intra-abdominal and Genitourinary Sepsis Organ Dysfunction Criteria Present: Lactic Acid > 2 mmol/L MDM MDM MDM Narrative Medical decision making narrative: Interventions / MDM: Differential diagnosis: UTI, gastritis, colitis, electrolyte abnormalities Diagnosis considered but do not suspect: Ischemic colitis, no pain out of proportion. My EKG interpretation: N/A Imaging independently reviewed and interpreted by myself: CT scan abdomen pelvis: Thickening of ascending colon to transverse colon. External documents reviewed: N/A Test considered but not ordered:N/A ED course: Patient vital stable for nonspecific complaints of her pain epigastric right lower quadrant. Workup initiated labs urine and CT scan. Morphine Zofran fluids given due to clinical dehydration signs. Labs white count 3.6 hemoglobin 14.2 platelets of 61. She follows Dr. Sims. Urine did note positive UTI findings. Culture sent. I added lactic acid and blood cultures due to her neutropenia. Rocephin IV was started. Results of CT scan noting additional colitis concerns, Flagyl IV was added. Lactic acid returned at 3.1. Blood pressure remained stable. I spoke with hospitalist Dr. Sanchez for admission to the medical floor. No patient does meet severe sepsis, however clinically not septic. Vague pain symptoms, no pain on proportion concern for ischemic colitis. Re-evaluation: stable Disposition discussed with patient/family/significant other: patient and sister Case discussed with consulting clinician: hospitalist This note was generated with [employer] dictation software. It may contain incorrect words, spelling, and punctuation that were not noted in checking the note before signing. Lab Data Attestation: I reviewed the patient's lab results. Labs: Laboratory Results - last 24 hr 10/20/22 10/20/22 10/20/22 10:54 11:15 11:49 WBC 3.6 L RBC 4.09 L Hgb 14.2 Hct 40.7 MCV 99.5 H MCH 34.7 H MCHC 34.9 RDW Std Deviation 65.9 H RDW Coeff of Codey 18.0 H Plt Count 61 L MPV 11.1 Immature Gran % (Auto) 0.300 Neut % (Auto) 74.0 H Lymph % (Auto) 16.3 L [place] % (Auto) 8.2 Eos % (Auto) 0.6 Baso % (Auto) 0.6 Absolute Neuts (auto) 2.6 Absolute Lymphs (auto) 0.58 L Nucleated RBC % 0 Diff Path Review May foll Platelet Estimate MKD DEC Sodium 139 Potassium 3.1 L Chloride 99 Carbon Dioxide 31.0 Anion Gap 9 BUN 31 H Creatinine 1.74 H Est GFR (MDRD) Af Amer 37 L Est GFR (MDRD) Non-Af 31 L BUN/Creatinine Ratio 17.8 Glucose 122 H Lactic Acid 3.1 H* Calcium 11.9 H Total Bilirubin 2.60 H AST 29 ALT 22 Alkaline Phosphatase 82 Total Protein 6.5 Albumin 3.5 Globulin 3.0 Albumin/Globulin Ratio 1.2 Lipase 110 H Urine Color Yellow Urine Clarity Cloudy Urine pH 6.0 Ur Specific [place] 1.020 Urine Protein 30 H Urine Glucose (UA) Normal Urine Ketones 5 H Urine Occult Blood 25 H Urine Nitrite Positive H Urine Bilirubin 1 H Urine Urobilinogen 1 H Ur Leukocyte Esterase 500 H Urine RBC 0 SEEN Urine WBC 25-50 SEEN Ur Squamous Epith Cells 0-5 SEEN Calcium Oxalate Crystal 1+ Urine Bacteria 0 SEEN Urine Mucus 0 SEEN Radiography Diagnostic Testing: Clinical Impression(s) from Imaging Studies Abdomen/Pelvis CT 10/20/22 11:48 IMPRESSION: Findings suggestive of a colitis of the ascending colon and hepatic flexure. Electronically Signed: Jose Curtis MD at 12:29 EDT , Critical Care Time Critical Care Time: Yes Critical care time (excluding procedures): 30-74 minutes, Discussing w/Patient &/or Family/Felt Carbonizer, Discussing w/Consultants, Arranging Admission or Transfer, Performing Direct Patient Care at Bedside and - (35 minutes) Discharge Plan Dx/Rx/DC Orders Clinical Impression: Colitis, Pancytopenia, Severe sepsis, Thrombocytopenia, Acute UTI, Abdominal pain Disposition Disposition: Acute Care [facility] Discharge Date/Time: 10/20/22 13:54
[2022-10-20] MEDS: 0.9% Normal Saline 1,000 ML 1000 ML IV (11:16)
[2022-10-20 11:18] LABS: Bacteria 0 SEEN /hpf (None Seen); Mucous, Urine 0 SEEN /hpf (<or=2+); Red Blood Cells-Urine 0 SEEN /hpf (0-5)
[2022-10-20] MEDS: Morphine 2 MG/ML Syringe IV ×2 (11:19→13:02)
[2022-10-20] MEDS: Ondansetron 4 MG/2 ML Vial IV (11:19)
[2022-10-20 11:22] LABS: Color, Urine Yellow (Yellow); Glucose, Dipstick Normal (Normal); Ketone-Dipstick 5 mg/dl (Negative); Leukocyte Esterase-Dipstick 500 /ul (Negative); Nitrite-Dipstick Positive (Negative); Occult Blood-Urine 25 /ul (Negative); Protein-Dipstick 30 mg/dl (Negative); Urine Bilirubin Dipstick 1 mg/dL (Negative); Urine Clarity Cloudy (Clear); Urine Urobilinogen 1 mg/dl (Normal)
[2022-10-20 11:25] LABS: Absolute Lymphocyte Count 0.58 X10^3/uL (0.83-4.51); Absolute Neutrophil Count 2.6 X10^3/uL (2.0-7.7); Basophil# 0.02 X10^3/uL; Basophil% 0.6 % (0-1); Eosinophil# 0.02 X10^3/uL; Eosinophils% 0.6 % (0-5); Hematocrit 40.7 % (37-47); Hemoglobin 14.2 g/dL (12.0-15.0); Lymphocyte # 0.58 X10^3/ul (0.83-4.51); Lymphocyte % 16.3 % (19-41); Mean Corp Hgb Conc 34.9 g/dL (32-36); Mean Corpuscular Hgb 34.7 pg (27.0-32.0); Mean Corpuscular Volume 99.5 fL (81-99); Mean Platelet Vol. 11.1 fl (6.2-12.0); Monocyte# 0.29 X10^3/uL; Monocyte% 8.2 % (0-10); NRBC Flagged by Analyzer 0 % (0-5); Neutrophil # 2.63 X10^3/uL (2.7-7.7); POSITIVE COUNT YES; POSITIVE DIFFERENTIAL YES; POSITIVE MORPHOLOGY YES; Platelet Count 61 K/mm3 (150-450); RBC Distribution Width SD 65.9 fl (35.1-43.9); Red Blood Count 4.09 M/mm3 (4.2-5.4); White Blood Count 3.6 K/mm3 (4.4-11.0)
[2022-10-20 11:27] LABS: Differential Indicated SCAN CRITERIA MET
[2022-10-20 11:29] LABS: White Blood Cells 25-50 SEEN /hpf (0-5)
[2022-10-20 11:30] LABS: Calcium Oxalate Crystals Ur 1+ /hpf (<or=2+); Squamous Epithelial Cells - UA 0-5 SEEN /hpf (5-10)
[2022-10-20 11:38] LABS: ALB/GLOB Ratio 1.2 RATIO (0.9-2.4); AST(SGOT) 29 U/L (15-37); Alanine Aminotransfer ALT/SGPT 22 U/L (13-56); Albumin, Serum 3.5 g/dL (3.2-5.0); Alkaline Phosphatase 82 U/L (45-117); Anion Gap 9 (5-15); BUN 31 mg/dL (7-18); BUN/Creat Ratio 17.8 RATIO (10-20); Calcium,Total 11.9 mg/dL (8.5-10.1); Chloride 99 mmol/L (98-107); Creatinine, Serum 1.74 mg/dL (0.55-1.02); EST Glomerular Filtration Rate 31 mL/min (>60); Est Glom Filt Rate - Afr Amer 37 mL/min (>60); Glucose 122 mg/dL (74-106); Lipase 110 U/L (13-75); Potassium 3.1 mmol/L (3.5-5.1); Protein, Total 6.5 g/dL (6.4-8.2); Sodium Level 139 mmol/L (136-145)
--- NOTE | 2022-10-20 11:48 | CT_ITS ---
STUDY: CT ABDOMEN AND PELVIS WITHOUT CONTRAST REASON FOR EXAM: Female, 72 years old. Abdominal pain RADIATION DOSAGE (If Supplied By Facility): CTDIvol = ( 8.98 ) mGy, DLP = ( 433.19 ) mGycm TECHNIQUE: Transaxial images were obtained from the dome of the diaphragm to the symphysis pubis without oral contrast, and without intravenous contrast. Sagittal and coronal images were reconstructed. Individualized dose optimization techniques were used for this CT. COMPARISON: Comparison is made with prior study dated November 21, 2020. FINDINGS: The visualized lung bases are unremarkable. Coronary artery calcification. Prior CABG. Normal liver. Sludge or small gallstones are seen in the gallbladder lumen. There is moderate splenomegaly. Varicosities are seen in the splenic hilum. There is diffuse atrophy of the pancreas. Normal bilateral adrenal glands. Normal right kidney. Normal left kidney. Normal visualized stomach. Normal small intestine. Mural thickening of the descending colon up to the region of the hepatic flexure with increased markings in the surrounding peritoneal fat. Colitis should be ruled out. Surgical anastomosis seen in the rectosigmoid colon. There are surgical clips in the region of the appendix consistent with a prior appendectomy. There is diffuse atherosclerotic calcification of the abdominal aorta and its major visceral branches. Mildly dilated infrarenal abdominal aorta with a transverse dimension of 2.7 cm. Normal inferior vena cava. Normal retroperitoneum. A cystocele is once again seen. Normal abdominal wall. There are mild degenerative changes of the visualized lumbar spine. CT/Abdomen/Pelvis without Cont IMPRESSION: Findings suggestive of a colitis of the ascending colon and hepatic flexure. Electronically Signed: Jose Curtis MD at 12:29 EDT ,
[2022-10-20 11:51] LABS: Platelet Estimate MKD DEC (ADEQ)
[2022-10-20] MEDS: Ceftriaxone 1 GM/50 ML BAG IV (12:20)
[2022-10-20 12:52] LABS: Lactic Acid 3.1 mmol/L (0.4-1.9)
[2022-10-20] MEDS: 0.9% Normal Saline 1,000 ML 150 ML IV (13:01)
[2022-10-20] MEDS: metroNIDAZOLE 500 MG/100 ML BAG 100 MG IV (13:10)
--- NOTE | 2022-10-20 13:23 | NURSING ---
MED SURG TERELETSKY COLITIS, UTI
[2022-10-20 15:58] LABS: Reflex Lactate? Y
[2022-10-20] MEDS: KCL 20MEQ in 0.9% NS 20 MEQ/1,000 ML IV.SOLN. 125 MEQ IV (16:20)
[2022-10-20 17:25] LABS: Lactic Acid 3.8 mmol/L (0.4-1.9)
--- NOTE | 2022-10-20 17:31 | NURSING ---
Physician notified of lactic 3.8
[2022-10-20 17:33] LABS: Bedside Glucose 126 mg/dL (74-106)
--- NOTE | 2022-10-20 17:47 | HP.PCM.HOS_ITS ---
HPI - General General Date of Admission: 10/20/22 Date of Service: 10/20/22 Chief Complaint: Lower abdominal pain x 48 hours HPI Narrative GIGI RDZ, is a 72 F who presents to the emergency room at [facility] with complaints of lower abdominal pain, patient denies any nausea and vomiting, she also denies any karne diarrhea, she states her stools have been loose for several months. In triage, patient complained of dysuria, she denied it to this examiner however. Patient is not a good informant. Workup in the emergency room included labs which showed a decreased white blood cell count of 3.6, hemoglobin was normal, platelet count was 61,000. Patient's chemistry profile was remarkable for a potassium of 3.1, creatinine was elevated at 1.74 and BUN was 31. Patient's lactic acid was 3.1, glucose was 122. B ilirubin was elevated at 2.6, patient's urinalysis was positive for nitrites, there were 25-50 WBCs and [address] scan of the abdomen and pelvis revealed findings suggestive of colitis of the ascending colon and hepatic flexure-in the body of the report, it mentions colitis in the descending colon but this was a mistake, I verified this with radiology. The abnormal findings are in the ascending colon and hepatic flexure. Patient will be admitted to [facility] for colitis and UTI, she was placed on Unasyn by myself, she received Rocephin and Flagyl in the emergency room. Labs will be monitored. Patient has a history of pancytopenia and follows with an oncologist as an outpa tient, her hemoglobin was normal today but her white count was slightly low and her platelet count was slightly low. 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) Obstructive sleep apnea Pancytopenia Portal hypertensive gastropathy Primary insomnia Secondary esophageal varices without bleeding Home Medications citalopram 10 mg tablet 10 tab PO DAILY DEPRESSION 07/20/19 [History Last Taken 10/06/20] ergocalciferol (vitamin D2) 1,250 mcg (50,000 unit) capsule 50,000 units PO METZ SUPPLEMETNT 07/20/19 [History Last Taken 10/05/20] lorazepam 1 mg tablet 1 mg PO DAILY ANXIETY 07/20/19 [History Last Taken 10/19/22] losartan 50 mg tablet 50 mg PO DAILY BP 07/20/19 [History Last Taken 10/06/20] lovastatin 40 mg tablet 40 mg PO DAILY CHOLESTEROL 07/20/19 [History Last Taken 10/19/22] metformin 1,000 mg tablet 1,000 mg PO BID DM 07/20/19 [History Last Taken 10/20/22] pioglitazone 30 mg tablet 30 mg PO DAILY DM 07/20/19 [History Last Taken 10/20/22] metoprolol succinate 25 mg tablet,extended release 24 hr (Toprol XL) 25 mg PO DAILY HEART 07/10/20 [History Last Taken 10/20/22] allopurinol 300 mg tablet 300 mg PO DAILY Gout 10/20/22 [History Last Taken 10/20/22] folic acid 1 mg tablet 1 mg PO DAILY supplement 10/20/22 [History Last Taken 10/20/22] furosemide 20 mg tablet 20 mg PO DAILY Water pill 10/20/22 [History Last Taken 10/20/22] pantoprazole 40 mg tablet,delayed release 40 mg PO BID Stomach pill 10/20/22 [History Last Taken 10/20/22] potassium chloride 10 mEq tablet,extended release 10 meq PO DAILY supplement 10/20/22 [History Last Taken 10/20/22] spironolactone 25 mg tablet 50 mg PO DAILY Diuretic 10/20/22 [History Last Taken 10/20/22] spironolactone 50 mg tablet 50 mg PO DAILY Water Pill 10/20/22 [History Last Taken 10/20/22] sucralfate 1 gram tablet 1 g PO TID Stomach pill 10/20/22 [History Last Taken 10/20/22] Allergy/AdvReac Type Severity Reaction Status Date / Time amlodipine [From Norvasc] Allergy Unknown Swelling Verified 10/20/22 14:51 in LE nitrofurantoin Allergy Unknown Hives/Itchi Verified 10/20/22 14:51 [From Macrobid] ng codeine AdvReac Unknown Excessively Verified 10/20/22 14:51 tired Surgical History H/O heart surgery H/O hernia repair Hx of CABG Social History Smoking Status: Former smoker alcohol intake: never ROS Constitutional Constitutional: Denies anorexia, change in weight, chills, fatigue, fever(s), malaise, night sweats or weakness Eyes Eyes: Denies blurry vision, change in vision, discharge from eye(s) or eye pain Cardiovascular Cardiovascular: Denies chest pain, claudication, edema or palpitations Respiratory/Chest Respiratory/Chest: Denies cough, hemoptysis, shortness of breath at rest or shortness of breath with exertion Gastrointestinal Gastrointestinal: Reports abdominal pain; Denies constipation, diarrhea, hematemesis, hematochezia, melena, nausea or vomiting Genitourinary Genitourinary: Denies dysuria, hematuria, nocturia, urinary frequency, urinary hesitancy, urinary incontinence or urinary urgency Musculoskeletal Musculoskeletal: Denies back pain, joint pain, joint stiffness, joint swelling, myalgias or neck pain Neurologic Neurologic: Denies abnormal gait, abnormal speech, confusion, disequilibrium, dizziness, focal weakness, headache(s), loss of vision, numbness, other visual disturbances, paresthesias, syncope or tingling Psychiatric Psychiatric: Denies anxiety, cognitive impairment, depression, irritability, mood swings or suicidal ideation Endocrine Endocrinology: Denies change in body appearance, cold intolerance, excessive sweating, heat intolerance, polydipsia or polyuria Hematologic/Lymphatic Hematologic/Lymphatic: Denies none, anemia, easy bleeding, easy bruising or lymphadenopathy Allergic/Immunologic Allergic/Immunologic: Denies rhinitis, urticaria, eczemia or asthma Vital Signs Vital Signs Vital Signs: 10/20/22 10:43 10/20/22 12:42 10/20/22 13:47 Temperature 97.2 F L 97.5 F L Temperature Source Temporal Temporal Pulse Rate 96 54 L Respiratory Rate 14 16 16 Respiratory Effort Respiratory Depth Respiratory Pattern Blood Pressure 153/72 H 143/65 H Blood Pressure Mean 99 91 Blood Pressure Source Blood Pressure Position Blood Pressure Location Pulse Ox 97 94 Oxygen Delivery Method Room Air Room Air 10/20/22 14:33 10/20/22 16:20 10/20/22 14:33 Temperature 97.7 F L 97.7 F L Temperature Source Oral Oral Pulse Rate 93 93 Respiratory Rate 18 18 Respiratory Effort Normal Non-Labored Respiratory Depth Normal Respiratory Pattern Normal Blood Pressure 141/52 H 141/52 H Blood Pressure Mean 81 81 Blood Pressure Source Monitor Blood Pressure Position Semi-Fowlers Blood Pressure Location Right Arm Pulse Ox 99 99 99 Oxygen Delivery Method Room Air Room Air Room Air 10/20/22 17:15 Temperature 98.3 F Temperature Source Oral Pulse Rate 94 Respiratory Rate 16 Respiratory Effort Respiratory Depth Respiratory Pattern Blood Pressure 130/71 H Blood Pressure Mean 90 Blood Pressure Source Monitor Blood Pressure Position Semi-Fowlers Blood Pressure Location Right Arm Pulse Ox 98 Oxygen Delivery Method Room Air Weight Weight: 61.4 kg Body Mass Index (BMI) 24.7 Physical Exam Const alert, oriented x3, no apparent distress, average body habitus and healthy appearing General Appearance: cooperative, well kempt and well developed Orientation / Consciousness: awake, oriented to person, oriented to place and oriented to time HEENT normocephalic, head/scalp atraumatic, hearing grossly normal bilaterally and moist oral mucous membranes Eyes PERRL, EOMs intact bilaterally and conjunctivae normal Neck supple, no JVD, thyroid normal and no carotid bruits General: trachea midline Resp normal respiratory effort, no retractions, no use of accessory muscles and clear to auscultation bilaterally Auscultation: Negative for rales, rhonchi or wheezes Cardio regular rate, regular rhythm, S1 normal heart sound, S2 normal heart sound, no murmurs, no rub and no gallops GI normal to inspection, nondistended, normoactive bowel sounds, soft to palpation and non-distended GI Narrative: Patient has mild lower mid abdominal tenderness to palpation, no rebound abdominal tenderness was noted Extremity no clubbing, cyanosis or edema Skin no rashes or lesions noted General Skin Exam: no breakdown Neuro oriented x3, CN's II-XII intact bilaterally, moves all extremities, no focal motor deficits and no sensory deficits noted Sensorium / Orientation: awake, alert, oriented to person, oriented to place and oriented to time Speech: speech normal Psych affect normal Results Lab / Micro Data 10/20/22 11:15 10/20/22 11:15 Labs: Laboratory Results - last 24 hr 10/20/22 10:54: Urine Color Yellow, Urine Clarity Cloudy, Urine pH 6.0, Ur Specific [place] 1.020, Urine Protein 30 H, Urine Glucose (UA) Normal, Urine Ketones 5 H, Urine Occult Blood 25 H, Urine Nitrite Positive H, Urine Bilirubin 1 H, Urine Urobilinogen 1 H, Ur Leukocyte Esterase 500 H, Urine RBC 0 SEEN, Urine WBC 25-50 SEEN, Ur Squamous Epith Cells 0-5 SEEN, Calcium Oxalate Crystal 1+, Urine Bacteria 0 SEEN, Urine Mucus 0 SEEN 10/20/22 11:15: WBC 3.6 L, RBC 4.09 L, Hgb 14.2, Hct 40.7, MCV 99.5 H, MCH 34.7 H, MCHC 34.9, RDW Std Deviation 65.9 H, RDW Coeff of Codey 18.0 H, Plt Count 61 L, MPV 11.1, Immature Gran % (Auto) 0.300, Neut % (Auto) 74.0 H, Lymph % (Auto) 16.3 L, [place] % (Auto) 8.2, Eos % (Auto) 0.6, Baso % (Auto) 0.6, Absolute Neuts (auto) 2.6, Absolute Lymphs (auto) 0.58 L, Nucleated RBC % 0, Diff Path Review July, Platelet Estimate MKD DEC, Sodium 139, Potassium 3.1 L, Chloride 99, C arbon Dioxide 31.0, Anion Gap 9, BUN 31 H, Creatinine 1.74 H, Est GFR (MDRD) Af Amer 37 L, Est GFR (MDRD) Non-Af 31 L, BUN/Creatinine Ratio 17.8, Glucose 122 H, Calcium 11.9 H, Total Bilirubin 2.60 H, AST 29, ALT 22, Alkaline Phosphatase 82, Total Protein 6.5, Albumin 3.5, Globulin 3.0, Albumin/Globulin Ratio 1.2, Lipase 110 H 10/20/22 11:49: Lactic Acid 3.1 H* 10/20/22 16:22: Lactic Acid 3.8 H* 10/20/22 17:13: POC Glucose 126 H Radiology Impression Abdomen/Pelvis CT 10/20/22 11:48 IMPRESSION: Findings suggestive of a colitis of the ascending colon and hepatic flexure. Electronically Signed: Jose Curtis MD at 12:29 EDT , Assessment & Plan Assessment/Plan (1) Abdominal pain: PLAN: Plan 1. Colitis of the ascending colon-etiology unclear at this point, patient will be admitted to [facility], stool was ordered for enteric pathogens, patient will be placed on Unasyn, labs will be monitored. #2 acute cystitis-again patient was placed on Unasyn, urine will be cultured #3 thrombocytopenia/neutropenia-this appears to be chronic in nature, monitor CBC #4 chronic depression-patient is on Lexapro #5 chronic anxiety-patient is on Ativan #6 essential hypertension-patient may be taking losartan, she is not sure, her sister is bringing in her med list to verify this. #7 type 2 diabetes-patient is on pioglitazone and metformin, I will keep her off the metformin for now and keep her on pioglitazone #8 history of cirrhosis from BARAKAT-complicates care, medical course, recovery, and prognosis Total clinical time spent by myself addressing the patient's medical issues, reviewing all of her data, and collaborating with patient's care team: 55 minutes Charges/Coding Visit Charges Inpatient E&M: 19070 Init Hosp L2
[2022-10-20] MEDS: Acetaminophen 325 MG Tablet 650 MG PO (20:07)
[2022-10-20] MEDS: Pantoprazole Sodium 40 MG Tablet PO (22:43)
[2022-10-20] MEDS: 0.9% Saline Lock 10 ML Syringe IV (22:51)
[2022-10-21] VITALS (8 sets, daily range): BP systolic 111–143; BP diastolic 48–57; PULSE 62–91; RESP 16–18; TEMP 36.4–36.6; O2SAT 93–97
[2022-10-21] MEDS: KCL 20MEQ in 0.9% NS 20 MEQ/1,000 ML IV.SOLN. 125 MEQ IV ×3 (00:04→17:03)
[2022-10-21 00:35] LABS: Bedside Glucose 103 mg/dL (74-106)
[2022-10-21 06:00] LABS: Bedside Glucose 99 mg/dL (74-106)
[2022-10-21 06:06] LABS: Absolute Lymphocyte Count 0.36 X10^3/uL (0.83-4.51); Basophil# 0.01 X10^3/uL; Basophil% 0.4 % (0-1); Eosinophil# 0.08 X10^3/uL; Hematocrit 34.4 % (37-47); Hemoglobin 11.7 g/dL (12.0-15.0); Lymphocyte # 0.36 X10^3/ul (0.83-4.51); Lymphocyte % 13.3 % (19-41); Mean Corpuscular Hgb 34.4 pg (27.0-32.0); Mean Corpuscular Volume 101.2 fL (81-99); Mean Platelet Vol. 10.9 fl (6.2-12.0); Monocyte# 0.22 X10^3/uL; Monocyte% 8.1 % (0-10); NRBC Flagged by Analyzer 0 % (0-5); Neutrophil # 2.02 X10^3/uL (2.7-7.7); Neutrophil % 74.5 % (47-70); POSITIVE COUNT YES; POSITIVE DIFFERENTIAL YES; POSITIVE MORPHOLOGY YES; Platelet Count 49 K/mm3 (150-450); RBC Distribution Width CV 17.9 % (11.6-14.6); White Blood Count 2.7 K/mm3 (4.4-11.0)
[2022-10-21 06:18] LABS: Differential Indicated SCAN CRITERIA MET
[2022-10-21 06:59] LABS: Anion Gap 4 (5-15); BUN 24 mg/dL (7-18); BUN/Creat Ratio 20.3 RATIO (10-20); Calcium,Total 10.2 mg/dL (8.5-10.1); Chloride 105 mmol/L (98-107); Creatinine, Serum 1.18 mg/dL (0.55-1.02); EST Glomerular Filtration Rate 48 mL/min (>60); Est Glom Filt Rate - Afr Amer 58 mL/min (>60); Estimated Creatinine Clearance 33.58 ml/min; Glucose 102 mg/dL (74-106); Potassium 3.2 mmol/L (3.5-5.1); Sodium Level 139 mmol/L (136-145)
[2022-10-21 07:04] LABS: Anisocytosis 1+; Macrocytosis 1+; Platelet Estimate MKD DEC (ADEQ)
[2022-10-21] MEDS: Folic Acid 1 MG Tablet PO (09:04)
[2022-10-21] MEDS: Pioglitazone Hydrochloride 30 MG Tablet PO (09:04)
[2022-10-21] MEDS: Citalopram 10 MG Tablet PO (09:04)
[2022-10-21] MEDS: Metoprolol(XL)Succ 25 MG Tablet PO (09:04)
[2022-10-21] MEDS: Pantoprazole Sodium 40 MG Tablet PO ×2 (09:04→20:35)
[2022-10-21] MEDS: Spironolactone 25 MG Tablet 50 MG PO (09:05)
[2022-10-21] MEDS: Glucerna Shake 120 ML LIQUID PO ×3 (09:22→17:04)
[2022-10-21 10:23] LABS: Pathologist Review Reviewed
--- NOTE | 2022-10-21 10:52 | PCM.PN.HOSP ---
Reason for Visit Reason for Visit: Diagnoses Unspecified abdominal pain (10/20/22) Objective Data Objective Data Vital Signs: Vital Signs Temp Pulse Resp BP Pulse Ox O2 Del Method 97.9 F 88 18 138/56 H 97 Room Air 10/21/22 09:00 10/21/22 09:04 10/21/22 09:00 10/21/22 09:00 10/21/22 09:00 10/21/22 09:00 Oxygen Delivery Method Room Air Weight: 135 lb 5.821 oz Body Mass Index (BMI) 24.7 Intake & Output: Intake and Output for Last 24 Hours 10/19/22 10/20/22 10/21/22 23:59 23:59 23:59 Intake Total 2202.83 / 2202.83 1758.33 / 1758.33 Balance 2202.83 / 2202.83 1758.33 / 1758.33 Lab / Micro Data 10/21/22 05:48 10/21/22 05:48 Labs: Laboratory Results - last 24 hr 10/20/22 10:54: Urine Color Yellow, Urine Clarity Cloudy, Urine pH 6.0, Ur Specific Randall 1.020, Urine Protein 30 H, Urine Glucose (UA) Normal, Urine Ketones 5 H, Urine Occult Blood 25 H, Urine Nitrite Positive H, Urine Bilirubin 1 H, Urine Urobilinogen 1 H, Ur Leukocyte Esterase 500 H, Urine RBC 0 SEEN, Urine WBC 25-50 SEEN, Ur Squamous Epith Cells 0-5 SEEN, Calcium Oxalate Crystal 1+, Urine Bacteria 0 SEEN, Urine Mucus 0 SEEN 10/20/22 11:15: WBC 3.6 L, RBC 4.09 L, Hgb 14.2, Hct 40.7, MCV 99.5 H, MCH 34.7 H, MCHC 34.9, RDW Std Deviation 65.9 H, RDW Coeff of Codey 18.0 H, Plt Count 61 L, MPV 11.1, Immature Gran % (Auto) 0.300, Neut % (Auto) 74.0 H, Lymph % (Auto) 16.3 L, [place] % (Auto) 8.2, Eos % (Auto) 0.6, Baso % (Auto) 0.6, Absolute Neuts (auto) 2.6, Absolute Lymphs (auto) 0.58 L, Nucleated RBC % 0, Diff Path Review Reviewed, Platelet Estimate MKD DEC, Sodium 139, Potassium 3.1 L, Chloride 99, Carbon Dioxide 31.0, Anion Gap 9, BUN 31 H, Creatinine 1.74 H, Est GFR (MDRD) Af Amer 37 L, Est GFR (MDRD) Non-Af 31 L, BUN/Creatinine Ratio 17.8, Glucose 122 H, Calcium 11.9 H, Total Bilirubin 2.60 H, AST 29, ALT 22, Alkaline Phosphatase 82, Total Protein 6.5, Albumin 3.5, Globulin 3.0, Albumin/Globulin Ratio 1.2, Lipase 110 H 10/20/22 11:49: Lactic Acid 3.1 H* 10/20/22 16:22: Lactic Acid 3.8 H* 10/20/22 17:13: POC Glucose 126 H 10/21/22 00:02: POC Glucose 103 10/21/22 05:38: POC Glucose 99 10/21/22 05:48: WBC 2.7 L, RBC 3.40 L, Hgb 11.7 L, Hct 34.4 L, MCV 101.2 H, MCH 34.4 H, MCHC 34.0, RDW Std Deviation 66.0 H, RDW Coeff of Codey 17.9 H, Plt Count 49 L*, MPV 10.9, Immature Gran % (Auto) 0.700, Neut % (Auto) 74.5 H, Lymph % (Auto) 13.3 L, [place] % (Auto) 8.1, Eos % (Auto) 3.0, Baso % (Auto) 0.4, Absolute Neuts (auto) 2.0, Absolute Lymphs (auto) 0.36 L, Nucleated RBC % 0, Diff Path Review May foll, Platelet Estimate MKD DEC, Anisocytosis 1+, Macrocytosis 1+, Sodium 139, Potassium 3.2 L, Chloride 105, Carbon Dioxide 30.0, Anion Gap 4 L, BUN 24 H, Creatinine 1.18 H, Estim Creat Clear Calc 33.58, Est GFR (MDRD) Af Amer 58 L, Est GFR (MDRD) Non-Af 48 L, BUN/Creatinine Ratio 20.3 H, Glucose 102, Calcium 10.2 H Micro: Microbiology 10/20/22 23:54 Stool Enteric Bacteriology - Final Radiography Diagnostic Testing: Radiology Impression Abdomen/Pelvis CT 10/20/22 11:48 IMPRESSION: Findings suggestive of a colitis of the ascending colon and hepatic flexure. Electronically Signed: Jose Curtis MD at 12:29 EDT , Physical Exam Narrative Seen and examined. Patient denies any antibiotic intake in the last 6 months. Abdominal pain has resolved. Overall feeling good. No fever. No nausea or vomiting. On IV Unasyn for colitis Physical exam General: Alert, Oriented x3, Cooperative HEENT: Atraumatic, PERRLA, EOMI, Normocephalic Oral: Oral mucosa moist. No Gingival or Mucosal Lesions/ Ulcerations Neck: Supple, No JVD, Negative Carotid Bruits Lungs: Air entry diminished in bilateral lung bases. No crepitation/rhonchi Cardiovascular: Regular rate, Regular Rhythm, Normal S1, Normal S2, systolic murmur LLSB Abdomen: Bowel Sounds Present, Soft, Non Tender, Non-Distended : No renal angle tenderness. No suprapubic tenderness. Extremities: No edema, Capillary Refill Less than 3 Seconds Skin: No rashes, No breakdown Musculoskeletal: No Tenderness to Palpation of Joints or Extremities. ROM full. Neurological: Cranial nerves II-XII grossly intact, DTR 2+/4. No acute focal neurological deficit. Psych/Mental Status: Normal Affect, Appropriate. Assessment & Plan Assessment/Plan (1) Abdominal pain: QUALIFIERS: Abdominal location: right lower quadrant Qualified Code(s): R10.31 - Right lower quadrant pain PLAN: Plan This 72-year-old female admitted for abdominal pain back pain and dysuria with no fever or chills vomiting. Ventral hernia repair in the past. 1. Colitis of the ascending colon and hepatic flexure: Patient is being admitted in PCU. On IV Unasyn. Stool for enteric bacteriology panel negative. I have low suspicion for C. difficile as patient did not have any antibiotic intake and has diarrhea as almost resolved. #2 acute cystitis due to E. coli:-Urine culture E. coli more than 100,000 colonies. #3 thrombocytopenia/neutropenia-this appears to be chronic in nature, She has neutropenia from June 2020 from her first blood work in our system #4 chronic depression-patient is on Lexapro #5 chronic anxiety-patient is on Ativan #6 essential hypertension-BP is normal. Patient may be taking losartan, she is not sure, her sister is bringing in her med list to verify this. I do not think patient needs losartan at present but continue to monitor BP. 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 ANN: On admission creatinine was 1.74 improved to 1.18. Patient has mild hypokalemia but on IV potassium supplement. Continue to hold losartan and metformin. Patient also has lactic acidosis and improvement. Microbiology Past 72 Hours 10/20/22 23:54 Stool Enteric Bacteriology - Final Laboratory Results 10/20/22 10:54: Urine Color Yellow, Urine Clarity Cloudy, Urine pH 6.0, Ur Specific Randall 1.020, Urine Protein 30 H, Urine Glucose (UA) Normal, Urine Ketones 5 H, Urine Occult Blood 25 H, Urine Nitrite Positive H, Urine Bilirubin 1 H, Urine Urobilinogen 1 H, Ur Leukocyte Esterase 500 H, Urine RBC 0 SEEN, Urine WBC 25-50 SEEN, Ur Squamous Epith Cells 0-5 SEEN, Calcium Oxalate Crystal 1+, Urine Bacteria 0 SEEN, Urine Mucus 0 SEEN 10/20/22 11:15: WBC 3.6 L, RBC 4.09 L, Hgb 14.2, Hct 40.7, MCV 99.5 H, MCH 34.7 H, MCHC 34.9, RDW Std Deviation 65.9 H, RDW Coeff of Codey 18.0 H, Plt Count 61 L, MPV 11.1, Immature Gran % (Auto) 0.300, Neut % (Auto) 74.0 H, Lymph % (Auto) 16.3 L, [place] % (Auto) 8.2, Eos % (Auto) 0.6, Baso % (Auto) 0.6, Absolute Neuts (auto) 2.6, Absolute Lymphs (auto) 0.58 L, Nucleated RBC % 0, Diff Path Review Reviewed, Platelet Estimate MKD DEC, Sodium 139, Potassium 3.1 L, Chloride 99, Carbon Dioxide 31.0, Anion Gap 9, BUN 31 H, Creatinine 1.74 H, Est GFR (MDRD) Af Amer 37 L, Est GFR (MDRD) Non-Af 31 L, BUN/Creatinine Ratio 17.8, Glucose 122 H, Calcium 11.9 H, Total Bilirubin 2.60 H, AST 29, ALT 22, Alkaline Phosphatase 82, Total Protein 6.5, Albumin 3.5, Globulin 3.0, Albumin/Globulin Ratio 1.2, Lipase 110 H 10/20/22 11:49: Lactic Acid 3.1 H* 10/20/22 16:22: Lactic Acid 3.8 H* 10/20/22 17:13: POC Glucose 126 H 10/21/22 00:02: POC Glucose 103 10/21/22 05:38: POC Glucose 99 10/21/22 05:48: WBC 2.7 L, RBC 3.40 L, Hgb 11.7 L, Hct 34.4 L, MCV 101.2 H, MCH 34.4 H, MCHC 34.0, RDW Std Deviation 66.0 H, RDW Coeff of Codey 17.9 H, Plt Count 49 L*, MPV 10.9, Immature Gran % (Auto) 0.700, Neut % (Auto) 74.5 H, Lymph % (Auto) 13.3 L, [place] % (Auto) 8.1, Eos % (Auto) 3.0, Baso % (Auto) 0.4, Absolute Neuts (auto) 2.0, Absolute Lymphs (auto) 0.36 L, Nucleated RBC % 0, Diff Path Review May , Platelet Estimate MKD DEC, Anisocytosis 1+, Macrocytosis 1+, Sodium 139, Potassium 3.2 L, Chloride 105, Carbon Dioxide 30.0, Anion Gap 4 L, BUN 24 H, Creatinine 1.18 H, Estim Creat Clear Calc 33.58, Est GFR (MDRD) Af Amer 58 L, Est GFR (MDRD) Non-Af 48 L, BUN/Creatinine Ratio 20.3 H, Glucose 102, Calcium 10.2 H Charges/Coding Visit Charges Inpatient E&M: 69612 Subs Hosp L2
--- NOTE | 2022-10-21 11:45 | CASEMGMT ---
RN CM Face to Face with patient for initial transition planning/care coordination assessment. RN CM introduced self and role at [facility]. Patient sitting in chair, alert and oriented. Patient willing to participate in assessment and is able to answer all questions appropriately. Care providers, pharmacy, and demographics verified. Patient wishes to discharge home, denies need for home health at this time. Patient states he has no further needs or concerns at this time. CM to follow for discharge planning needs that may arise. PCP: Charito Specialists: Bethany, oncologist [facility]erred [facility]acy: [facility] Insurance: [employer] [place] Prescription Benefit: yes Living Will/HPOA: none LNOK: son, sister Living Arrangements: Patient lives with son and sister in 2 story home with bed and bath on first floor, 2 steps and railing to enter the home. Patient states she is independent at home. Transportation: self, sister DME/HHC: Patient has raised toilet and grab bars at home. No previous HHC or SNF. Patient may benefit from walker at discharge, patient prefers [employer] Disposition Plan: Patient to discharge home with family support and follow-up plans in place. Cristina MARROQUIN, RN, CM
[2022-10-21 12:41] LABS: Bedside Glucose 142 mg/dL (74-106)
[2022-10-21 12:57] LABS: Pathologist Review Reviewed
[2022-10-21] MEDS: Potassium Chloride Oral Tablet 20 MEQ 40 MEQ PO (15:58)
[2022-10-21 16:41] LABS: Bedside Glucose 165 mg/dL (74-106)
[2022-10-21] MEDS: Insulin Lispro 100 UNIT/ML INSULN.PEN SC (17:09)
[2022-10-21] MEDS: LORazepam 1 MG Tablet PO (20:35)
[2022-10-21 22:28] LABS: Bedside Glucose 95 mg/dL (74-106)
[2022-10-22 01:14] VITALS: BP 131/54; PULSE 68; RESP 16; TEMP 35.4; O2SAT 94
[2022-10-22] MEDS: KCL 20MEQ in 0.9% NS 20 MEQ/1,000 ML IV.SOLN. 125 MEQ IV ×2 (03:17→11:13)
[2022-10-22 03:54] VITALS: BP 131/54; PULSE 16; RESP 16; TEMP 35.4; O2SAT 94
[2022-10-22 06:52] LABS: Bedside Glucose 83 mg/dL (74-106)
[2022-10-22 08:52] VITALS: BP 121/67; PULSE 70; RESP 16; TEMP 36.5; O2SAT 94
[2022-10-22 09:08] VITALS: BP 121/67; PULSE 70
[2022-10-22] MEDS: Metoprolol(XL)Succ 25 MG Tablet PO (09:08)
[2022-10-22] MEDS: Glucerna Shake 120 ML LIQUID PO ×2 (09:08→13:43)
[2022-10-22] MEDS: Pantoprazole Sodium 40 MG Tablet PO ×2 (09:08→21:15)
[2022-10-22] MEDS: Folic Acid 1 MG Tablet PO (09:09)
[2022-10-22] MEDS: Citalopram 10 MG Tablet PO (09:09)
[2022-10-22] MEDS: Pioglitazone Hydrochloride 30 MG Tablet PO (09:09)
[2022-10-22] MEDS: Spironolactone 25 MG Tablet 50 MG PO (09:09)
--- NOTE | 2022-10-22 09:23 | PCM.PN.HOSP ---
Reason for Visit Reason for Visit: Diagnoses Right lower quadrant pain (10/20/22) Unspecified abdominal pain (10/20/22) Subjective Subjective Follow-up for right-sided colitis. Objective Data Objective Data Vital Signs: Vital Signs Temp Pulse Resp BP Pulse Ox O2 Del Method 97.7 F L 70 16 121/67 H 94 Room Air 10/22/22 08:52 10/22/22 09:08 10/22/22 08:52 10/22/22 09:08 10/22/22 08:52 10/22/22 08:52 Oxygen Delivery Method Room Air Weight: 135 lb 5.821 oz Body Mass Index (BMI) 24.7 Intake & Output: Intake and Output for Last 24 Hours 10/20/22 10/21/22 10/22/22 23:59 23:59 23:59 Intake Total 2202.83 / 2202.83 3102.33 / 3102.33 1000 / 1000 Balance 2202.83 / 2202.83 3102.33 / 3102.33 1000 / 1000 Lab / Micro Data 10/22/22 10:17 10/22/22 10:17 Labs: Laboratory Results - last 24 hr 10/20/22 11:15: Diff Path Review Reviewed 10/21/22 05:48: Diff Path Review Reviewed 10/21/22 12:22: POC Glucose 142 H 10/21/22 16:23: POC Glucose 165 H 10/21/22 21:45: POC Glucose 95 10/22/22 06:26: POC Glucose 83 Micro: Microbiology 10/20/22 10:54 Urine, Clean Catch Urine Culture - Final Presumptive E. coli 10/20/22 11:49 Blood Culture (Wb) - Anticubital Right Blood Culture - Preliminary No growth in 48 hours. 10/20/22 11:49 Blood Culture (Wb) - Anticubital Left Blood Culture - Preliminary No growth in 48 hours. 10/20/22 23:54 Stool Enteric Bacteriology - Final Physical Exam Narrative Seen and examined. Patient denies any antibiotic intake in the last 6 months. Abdominal pain has resolved. Overall feeling good. No fever. No nausea or vomiting. Did not had loose bowel movement today. On IV Unasyn for colitis Physical exam General: Alert, Oriented x3, Cooperative HEENT: Atraumatic, PERRLA, EOMI, Normocephalic Oral: Oral mucosa moist. No Gingival or Mucosal Lesions/ Ulcerations Neck: Supple, No JVD, Negative Carotid Bruits Lungs: Air entry diminished in bilateral lung bases. No crepitation/rhonchi Cardiovascular: Regular rate, Regular Rhythm, Normal S1, Normal S2, systolic murmur LLSB Abdomen: Bowel Sounds Present, Soft, Non Tender, Non-Distended. No palpable mass. : No renal angle tenderness. No suprapubic tenderness. Extremities: No edema, Capillary Refill Less than 3 Seconds Skin: No rashes, No breakdown Musculoskeletal: No Tenderness to Palpation of Joints or Extremities. ROM full. Neurological: Cranial nerves II-XII grossly intact, DTR 2+/4. No acute focal neurological deficit. Psych/Mental Status: Normal Affect, Appropriate. Assessment & Plan Assessment/Plan (1) Abdominal pain: QUALIFIERS: Abdominal location: right lower quadrant Qualified Code(s): R10.31 - Right lower quadrant pain PLAN: Plan This 72-year-old female admitted for abdominal pain back pain and dysuria with no fever or chills vomiting. Ventral hernia repair in the past. 1. Colitis of the ascending colon and hepatic flexure: Patient is being admitted in PCU. On IV Unasyn. Stool for enteric bacteriology panel negative. I have low suspicion for C. difficile as patient did not have any antibiotic intake and has diarrhea as almost resolved. 10/22: Patient feels fatigue and weak. Diet advanced to soft diet. Blood cultures x 2 negative for 48 hours. Hypomagnesemia, serum magnesium 1.1. Hypophosphatemia serum phosphorus 0.7. Electrolyte replacement ordered. Patient still sometimes feels abdominal discomfort but otherwise no pain or abdominal distention. Check electrolytes including magnesium and phosphorus tomorrow a.m. which is ordered. Anticipate discharge tomorrow. #2 acute cystitis due to E. coli:-Urine culture E. coli more than 100,000 colonies. 10/18: Urine culture final shows E. coli more than 100,000 colonies ESBL negative. Pansensitive. #3 thrombocytopenia/neutropenia-this appears to be chronic in nature, She has neutropenia from June 2020 from her first blood work in our system #4 chronic depression-patient is on Lexapro #5 chronic anxiety-patient is on Ativan #6 essential hypertension-BP is normal. Patient may be taking losartan, she is not sure, her sister is bringing in her med list to verify this. I do not think patient needs losartan at present but continue to monitor BP. 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 ANN: On admission creatinine was 1.74 improved to 1.18. Patient has mild hypokalemia but on IV potassium supplement. Continue to hold losartan and metformin. Patient also has lactic acidosis and impr Microbiology Past 72 Hours 10/20/22 10:54 Urine, Clean Catch Urine Culture - Final Presumptive E. coli 10/20/22 11:49 Blood Culture (Wb) - Anticubital Right Blood Culture - Preliminary No growth in 48 hours. 10/20/22 11:49 Blood Culture (Wb) - Anticubital Left Blood Culture - Preliminary No growth in 48 hours. 10/20/22 23:54 Stool Enteric Bacteriology - Final Laboratory Results 10/21/22 05:48: Diff Path Review Reviewed 10/21/22 12:22: POC Glucose 142 H 10/21/22 16:23: POC Glucose 165 H 10/21/22 21:45: POC Glucose 95 10/22/22 06:26: POC Glucose 83 10/22/22 10:17: WBC 2.6 L, RBC 3.50 L, Hgb 11.9 L, Hct 36.4 L, MCV 104.0 H, MCH 34.0 H, MCHC 32.7, RDW Std Deviation 71.6 H, RDW Coeff of Codey 18.9 H, Plt Count 50 L*, MPV 11.4, Immature Gran % (Auto) 0.400, Neut % (Auto) 75.7 H, Lymph % (Auto) 15.2 L, Carbon % (Auto) 5.3, Eos % (Auto) 3.0, Baso % (Auto) 0.4, Absolute Neuts (auto) 2.0, Absolute Lymphs (auto) 0.40 L, Nucleated RBC % 0, Diff Path Review May foll, Platelet Estimate MKD DEC, Anisocytosis 1+ Sodium 143, Potassium 3.9, Chloride 113 H, Carbon Dioxide 29.0, Anion Gap 1 L, BUN 16, Creatinine 0.97, Estim Creat Clear Calc 40.85, Est GFR (MDRD) Af Amer 72, Est GFR (MDRD) Non-Af 60, BUN/Creatinine Ratio 16.5, Glucose 109 H, Calcium 10.1, Phosphorus 0.7 L*, Magnesium 1.1 L 10/22/22 11:18: POC Glucose 95 ovement. Charges/Coding Visit Charges Inpatient E&M: 76806 Subs Hosp L2
[2022-10-22 10:31] LABS: Basophil# 0.01 X10^3/uL; Basophil% 0.4 % (0-1); Eosinophil# 0.08 X10^3/uL; Hematocrit 36.4 % (37-47); Hemoglobin 11.9 g/dL (12.0-15.0); Lymphocyte % 15.2 % (19-41); Mean Corp Hgb Conc 32.7 g/dL (32-36); Mean Platelet Vol. 11.4 fl (6.2-12.0); Monocyte# 0.14 X10^3/uL; Monocyte% 5.3 % (0-10); NRBC Flagged by Analyzer 0 % (0-5); Neutrophil % 75.7 % (47-70); POSITIVE COUNT YES; POSITIVE DIFFERENTIAL YES; POSITIVE MORPHOLOGY YES; Platelet Count 50 K/mm3 (150-450); RBC Distribution Width CV 18.9 % (11.6-14.6); RBC Distribution Width SD 71.6 fl (35.1-43.9); White Blood Count 2.6 K/mm3 (4.4-11.0)
[2022-10-22 10:34] LABS: Differential Indicated SCAN CRITERIA MET
[2022-10-22 10:52] LABS: Anion Gap 1 (5-15); BUN 16 mg/dL (7-18); BUN/Creat Ratio 16.5 RATIO (10-20); Calcium,Total 10.1 mg/dL (8.5-10.1); Chloride 113 mmol/L (98-107); Creatinine, Serum 0.97 mg/dL (0.55-1.02); EST Glomerular Filtration Rate 60 mL/min (>60); Est Glom Filt Rate - Afr Amer 72 mL/min (>60); Estimated Creatinine Clearance 40.85 ml/min; Glucose 109 mg/dL (74-106); Magnesium 1.1 mg/dL (1.6-2.6); Phosphorus 0.7 mg/dL (2.5-4.9); Potassium 3.9 mmol/L (3.5-5.1); Sodium Level 143 mmol/L (136-145)
[2022-10-22 11:16] LABS: Anisocytosis 1+; Platelet Estimate MKD DEC (ADEQ)
[2022-10-22 12:11] LABS: Bedside Glucose 95 mg/dL (74-106)
[2022-10-22] MEDS: Magnesium Sulfate 4gm/100mL 4 GM/100 ML IV.SOLN. IV (13:35)
--- NOTE | 2022-10-22 14:22 | CASEMGMT ---
RN CM in to discuss discharge needs with patient. Patient would like FWW at discharge. Script received and sent to [facility]. FWW provided from [facility]. Patient denies HHC at discharge. Patient had no further questions or concerns at this time.
[2022-10-22 15:00] VITALS: BP 113/51; PULSE 64; RESP 16; TEMP 36.6; O2SAT 94
[2022-10-22 17:51] LABS: Bedside Glucose 96 mg/dL (74-106)
[2022-10-22] MEDS: LORazepam 1 MG Tablet PO (21:15)
[2022-10-22 22:00] VITALS: BP 118/58; PULSE 73; RESP 16; TEMP 36.4; O2SAT 99
[2022-10-22 22:00] LABS: Bedside Glucose 115 mg/dL (74-106)
[2022-10-23 04:00] VITALS: BP 101/49; PULSE 60; RESP 16; TEMP 36.1; O2SAT 93
[2022-10-23 06:14] LABS: Bedside Glucose 73 mg/dL (74-106)
[2022-10-23 06:48] LABS: Absolute Lymphocyte Count 0.41 X10^3/uL (0.83-4.51); Absolute Neutrophil Count 1.5 X10^3/uL (2.0-7.7); Basophil# 0.01 X10^3/uL; Basophil% 0.5 % (0-1); Eosinophil# 0.09 X10^3/uL; Eosinophils% 4.1 % (0-5); Hematocrit 33.7 % (37-47); Hemoglobin 11.1 g/dL (12.0-15.0); Lymphocyte # 0.41 X10^3/ul (0.83-4.51); Lymphocyte % 18.6 % (19-41); Mean Corp Hgb Conc 32.9 g/dL (32-36); Mean Corpuscular Hgb 34.4 pg (27.0-32.0); Mean Corpuscular Volume 104.3 fL (81-99); Mean Platelet Vol. 10.4 fl (6.2-12.0); Monocyte# 0.17 X10^3/uL; Monocyte% 7.7 % (0-10); NRBC Flagged by Analyzer 0.9 % (0-5); Neutrophil # 1.51 X10^3/uL (2.7-7.7); Neutrophil % 68.6 % (47-70); POSITIVE COUNT YES; POSITIVE DIFFERENTIAL YES; POSITIVE MORPHOLOGY YES; RBC Distribution Width CV 18.9 % (11.6-14.6); RBC Distribution Width SD 72.4 fl (35.1-43.9); Red Blood Count 3.23 M/mm3 (4.2-5.4); White Blood Count 2.2 K/mm3 (4.4-11.0)
[2022-10-23 06:54] LABS: Differential Indicated SCAN CRITERIA MET; Platelet Count 41 K/mm3 (150-450)
[2022-10-23 07:24] LABS: Anion Gap 3 (5-15); BUN 15 mg/dL (7-18); BUN/Creat Ratio 17.4 RATIO (10-20); Calcium,Total 9.7 mg/dL (8.5-10.1); Chloride 111 mmol/L (98-107); Creatinine, Serum 0.86 mg/dL (0.55-1.02); EST Glomerular Filtration Rate 69 mL/min (>60); Est Glom Filt Rate - Afr Amer 83 mL/min (>60); Estimated Creatinine Clearance 46.08 ml/min; Glucose 85 mg/dL (74-106); Magnesium 1.9 mg/dL (1.6-2.6); Potassium 3.4 mmol/L (3.5-5.1); Sodium Level 141 mmol/L (136-145)
[2022-10-23 07:41] LABS: Phosphorus 2.8 mg/dL (2.5-4.9)
[2022-10-23 08:29] LABS: Anisocytosis 2+; Platelet Estimate MKD DEC (ADEQ)
[2022-10-23 09:50] VITALS: BP 117/56; PULSE 63; RESP 20; TEMP 36.5; O2SAT 98
[2022-10-23] MEDS: Pioglitazone Hydrochloride 30 MG Tablet PO (09:57)
[2022-10-23] MEDS: Folic Acid 1 MG Tablet PO (09:57)
[2022-10-23] MEDS: Citalopram 10 MG Tablet PO (09:58)
[2022-10-23 09:59] VITALS: BP 117/56; PULSE 63
[2022-10-23] MEDS: Pantoprazole Sodium 40 MG Tablet PO (09:59)
[2022-10-23] MEDS: Metoprolol(XL)Succ 25 MG Tablet PO (09:59)
[2022-10-23 10:00] VITALS: BP 117/56; PULSE 63; RESP 20; TEMP 36.5; O2SAT 98
[2022-10-23] MEDS: Glucerna Shake 120 ML LIQUID PO ×2 (10:06→14:14)
[2022-10-23] MEDS: 0.9% Saline Lock 10 ML Syringe IV (10:08)
--- NOTE | 2022-10-23 13:46 | PN.HOSP_ITS ---
Reason for Visit Reason for Visit: Diagnoses Right lower quadrant pain (10/20/22) Unspecified abdominal pain (10/20/22) Subjective Subjective Patient seen at bedside. Sitting comfortably in bedside chair, no acute distress. She reports significant improvement of her abdominal pain. She is having 2-3 soft but somewhat formed bowel movements daily. She has been getting up to go to the bathroom without any issues. She uses her walker for ambulation without issue. She denies any fevers or chills. She feels ready to go home. No other acute concerns. Objective Data Objective Data Vital Signs: Vital Signs Temp Pulse Resp BP Pulse Ox O2 Del Method 97.7 F L 63 20 H 117/56 L 98 Room Air 10/23/22 10:00 10/23/22 10:00 10/23/22 10:00 10/23/22 10:00 10/23/22 10:00 10/23/22 10:00 Oxygen Delivery Method Room Air Weight: 61.4 kg Body Mass Index (BMI) 24.7 Intake & Output: Intake and Output for Last 24 Hours 10/21/22 10/22/22 10/23/22 23:59 23:59 23:59 Intake Total 3102.33 / 3102.33 2887.25 / 2887.25 Balance 3102.33 / 3102.33 2887.25 / 2887.25 Lab / Micro Data Attestation: I reviewed the patient's lab results. 10/23/22 06:22 10/23/22 06:22 Labs: Laboratory Results - last 24 hr 10/22/22 17:20: POC Glucose 96 10/22/22 21:07: POC Glucose 115 H 10/23/22 05:44: POC Glucose 73 L 10/23/22 06:22: WBC 2.2 L, RBC 3.23 L, Hgb 11.1 L, Hct 33.7 L, MCV 104.3 H, MCH 34.4 H, MCHC 32.9, RDW Std Deviation 72.4 H, RDW Coeff of Codey 18.9 H, Plt Count 41 L*, MPV 10.4, Immature Gran % (Auto) 0.500, Neut % (Auto) 68.6, Lymph % (Auto) 18.6 L, [place] % (Auto) 7.7, Eos % (Auto) 4.1, Baso % (Auto) 0.5, Absolute Neuts (auto) 1.5 L, Absolute Lymphs (auto) 0.41 L, Nucleated RBC % 0.9, Differential Comment COMMENT, Diff Path Review May foll, Platelet Estimate MKD DEC, Anisocytosis 2+, Sodium 141, Potassium 3.4 L, Chloride 111 H, Carbon Dioxide 27.0, Anion Gap 3 L, BUN 15, Creatinine 0.86, Estim Creat Clear Calc 46.08, Est GFR (MDRD) Af Amer 83, Est GFR (MDRD) Non-Af 69, BUN/Creatinine Ratio 17.4, Glucose 85, Calcium 9.7, Phosphorus 2.8, Magnesium 1.9 Micro: Microbiology 10/20/22 10:54 Urine, Clean Catch Urine Culture - Final Presumptive E. coli 10/20/22 11:49 Blood Culture (Wb) - Anticubital Right Blood Culture - Preliminary No growth in 48 hours. 10/20/22 11:49 Blood Culture (Wb) - Anticubital Left Blood Culture - Preliminary No growth in 48 hours. 10/20/22 23:54 Stool Enteric Bacteriology - Final Physical Exam Const alert, oriented x3, no apparent distress and average body habitus Constitutional Narrative: Pleasant elderly female, sitting comfortably in bedside chair, conversing normally, no acute distress. General Appearance: cooperative and comfortable HEENT normocephalic, head/scalp atraumatic, hearing grossly normal bilaterally, nasal mucous membranes and turbinates normal and moist oral mucous membranes Eyes PERRL, EOMs intact bilaterally and conjunctivae normal Neck full ROM and supple Chest inspection of chest normal Resp normal respiratory effort, normal air movement, no use of accessory muscles and clear to auscultation bilaterally Cardio regular rate, regular rhythm, no murmurs and peripheral pulses 2+ throughout GI normal to inspection, nondistended, normoactive bowel sounds, soft to palpation, non-tender and non-distended Back/Spine normal ROM Extremity normal to inspection, full ROM and no pedal edema Skin no rashes or lesions noted Psych mental status grossly normal Assessment & Plan Assessment/Plan (1) Abdominal pain: QUALIFIERS: Abdominal location: right lower quadrant Qualified Code(s): R10.31 - Right lower quadrant pain PLAN: Plan Patient is a 72-year-old female with past medical history significant for BARAKAT cirrhosis, [id number] type 2 diabetes, anxiety/depression, hyper tension, thrombocytopenia, and neutropenia who presented to [facility] on 10/20 with abdominal pain. Was found to have colitis of the ascending colon and hepatic flexure, as well as a UTI and was admitted for further management. 1. Colitis of the ascending colon and hepatic flexure -CT abdomen pelvis on admit showed lightest of the ascending colon up to the hepatic flexure. Stool panel negative. C. difficile negative. Improved on IV Unasyn. Tolerating diet well and diarrhea has largely resolved. Blood cultures negative. Stable for discharge home. Will discharge on p.o. Levaquin to complete 5-day course of antibiotics, stop date 10/25. 2. Acute cystitis due to E. coli -Urine culture grew E. coli more than 100,000 colonies. Pansensitive. #2 acute cystitis due to E. coli:-Urine culture E. coli more than 100,000 colonies. 10/18: Urine culture final shows E. coli more than 100,000 colonies ESBL negative. Pansensitive. Completing 5-day course of Levaquin as noted above. 3. Thrombocytopenia/neutropenia ?Appears to be chronic in nature. Monitor. 4. Depression/anxiety ?Continue home citalopram and Ativan as needed 5. Essential hypertension ?Continue home Toprol 6. Type 2 diabetes ?Home medications: Metformin and pioglitazone. Sliding scale insulin while inpatient, okay for home medications on discharge. 7. BARAKAT cirrhosis ?Unclear on degree of cirrhosis. Notably on CT abdomen pelvis on admission, read was that her liver was normal. Recommend further outpatient follow-up for this problem. Charges/Coding Visit Charges Inpatient E&M: 83155 Subs Hosp L2
[2022-10-23 14:00] VITALS: BP 118/62; PULSE 64; RESP 20; TEMP 36.8; O2SAT 96
--- NOTE | 2022-10-23 14:06 | DCINST_ITS ---
Discharge Instructions Diet Discharge Diet: No restrictions Activity Discharge Activity: Return to Normal Activity Weight Bearing Status: Full weight bearing Follow Up Care Please Follow Up With: Santino Mcneill MD When: 1 to 2 weeks Test Results: Test results from this visit will be discussed in further detail at your follow- up appointment, if applicable. Pending Tests Upon Discharge: None Discharge Plan Admission Admit Date/Time: 10/20/22 14:38 Primary Reason for Your Visit: Abdominal pain Attending Provider: Florin Bowens Primary Care Provider: Santino Mcneill Consulting Providers: Yaya Sanchez; Yo Patton Instructions Additional Instructions / Restrictions: Please complete your course of antibiotics as instructed. Follow-up with your primary care provider in 1 to 2 weeks. Discharge Orders/Prescriptions Prescriptions: New levofloxacin 750 mg tablet 750 mg PO DAILY 2 Days Qty: 2 0RF Continued citalopram 10 mg tablet 10 tab PO DAILY ergocalciferol (vitamin D2) 1,250 mcg (50,000 unit) capsule 50,000 units PO METZ Patient Comments: TAKE 1 CAPSULE BY MOUTH ONCE A WEEK lorazepam 1 mg tablet 1 mg PO DAILY lovastatin 40 mg tablet 40 mg PO DAILY metformin 1,000 mg tablet 1,000 mg PO BID pioglitazone 30 mg tablet 30 mg PO DAILY metoprolol succinate [Toprol XL] 25 mg tablet extended release 24 hr 25 mg PO DAILY Patient Comments: TAKE 1 TABLET BY MOUTH ONCE DAILY furosemide 20 mg tablet 20 mg PO DAILY allopurinol 300 mg tablet 300 mg PO DAILY folic acid 1 mg tablet 1 mg PO DAILY Patient Comments: TAKE 1 TABLET BY MOUTH ONCE DAILY sucralfate 1 gram tablet 1 g PO TID Patient Comments: TAKE 1 TABLET BY MOUTH THREE TIMES DAILY BEFORE MEAL(S) potassium chloride 10 mEq tablet extended release 10 meq PO DAILY pantoprazole 40 mg tablet,delayed release (DR/EC) 40 mg PO BID Patient Comments: TAKE 1 TABLET BY MOUTH ONCE DAILY IN THE AFTERNOON, TAKE ONE HOUR BEFORE EVENING MEAL spironolactone 25 mg Tablet 50 mg PO DAILY Discontinued spironolactone 50 mg tablet 50 mg PO DAILY Patient Comments: TAKE 1 TABLET BY MOUTH ONCE DAILY Referrals / Follow Up: Santino Mcneill MD [Primary Care Provider] - Disposition Disposition (needs filled in before D/C Order can be placed): Home, Self Care
[2022-10-23] MEDS: Potassium Chloride Oral Tablet 20 MEQ 60 MEQ PO (14:10)
--- NOTE | 2022-10-23 14:12 | PCM.DC.SUM ---
Providers Date of Admission: 10/20/22 Date of Discharge: 10/23/22 Primary Care Physician: Dr. Santino Mcneill MD Reason For Visit: COLITIS, UTI Diagnosis Discharge Diagnosis (1) Abdominal pain: Status: Acute Code(s): R10.9 - Unspecified abdominal pain Qualifiers: Abdominal location: right lower quadrant Qualified Code(s): R10.31 - Right lower quadrant pain Plan 1. Colitis of the ascending colon and hepatic flexure -CT abdomen pelvis on admit showed lightest of the ascending colon up to the hepatic flexure. Stool panel negative. C. difficile negative. Improved on IV Unasyn. Tolerating diet well and diarrhea has largely resolved. Blood cultures negative. Stable for discharge home. Will discharge on p.o. Levaquin to complete 5-day course of antibiotics, stop date 10/25. 2. Acute cystitis due to E. coli -Urine culture grew E. coli more than 100,000 colonies. Pansensitive. #2 acute cystitis due to E. coli:-Urine culture E. coli more than 100,000 colonies. 10/18: Urine culture final shows E. coli more than 100,000 colonies ESBL negative. Pansensitive. Completing 5-day course of Levaquin as noted above. 3. Thrombocytopenia/neutropenia ?Appears to be chronic in nature. Monitor. 4. Depression/anxiety ?Continue home citalopram and Ativan as needed 5. Essential hypertension ?Continue home Toprol 6. Type 2 diabetes ?Home medications: Metformin and pioglitazone. Sliding scale insulin while inpatient, okay for home medications on discharge. 7. BARAKAT cirrhosis ?Unclear on degree of cirrhosis. Notably on CT abdomen pelvis on admission, read was that her liver was normal. Recommend further outpatient follow-up for this problem. Medications at Discharge Home Medications citalopram 10 mg tablet 10 tab PO DAILY DEPRESSION 07/20/19 ergocalciferol (vitamin D2) 1,250 mcg (50,000 unit) capsule 50,000 units PO METZ SUPPLEMETNT 07/20/19 lorazepam 1 mg tablet 1 mg PO DAILY ANXIETY 07/20/19 lovastatin 40 mg tablet 40 mg PO DAILY CHOLESTEROL 07/20/19 metformin 1,000 mg tablet 1,000 mg PO BID DM 07/20/19 pioglitazone 30 mg tablet 30 mg PO DAILY DM 07/20/19 metoprolol succinate 25 mg tablet,extended release 24 hr (Toprol XL) 25 mg PO DAILY HEART 07/10/20 allopurinol 300 mg tablet 300 mg PO DAILY Gout 10/20/22 folic acid 1 mg tablet 1 mg PO DAILY supplement 10/20/22 furosemide 20 mg tablet 20 mg PO DAILY Water pill 10/20/22 pantoprazole 40 mg tablet,delayed release 40 mg PO BID Stomach pill 10/20/22 potassium chloride 10 mEq tablet,extended release 10 meq PO DAILY supplement 10/20/22 spironolactone 25 mg tablet 50 mg PO DAILY Diuretic 10/20/22 sucralfate 1 gram tablet 1 g PO TID Stomach pill 10/20/22 levofloxacin 750 mg tablet 750 mg PO DAILY 2 days #2 tabs 10/23/22 Hospital Course Summary of Care Provided Minutes Spent on Discharge: 35 Hospital Course: Patient is a 72-year-old female with past medical history significant for BARAKAT cirrhosis, aen-xytyhld-tjnbtthab type 2 diabetes, anxiety/depression, hypertension, thrombocytopenia, and neutropenia who presented to [facility] on 10/20 with abdominal pain. Was found to have colitis of the ascending colon and hepatic flexure, as well as a UTI. She improved with IV antibiotics and IV fluid resuscitation. Discharged on p.o. Levaquin to complete 5-day course of antibiotics with stop date of 10/25. Discharged home in stable condition. Physical Exam Const alert, oriented x3, no apparent distress and average body habitus Constitutional Narrative: Pleasant elderly female, sitting comfortably in bedside chair, conversing normally, no acute distress. General Appearance: cooperative and comfortable HEENT normocephalic, head/scalp atraumatic, hearing grossly normal bilaterally, nasal mucous membranes and turbinates normal and moist oral mucous membranes Eyes PERRL, EOMs intact bilaterally and conjunctivae normal Neck full ROM and supple Chest inspection of chest normal Resp normal respiratory effort, normal air movement, no use of accessory muscles and clear to auscultation bilaterally Cardio regular rate, regular rhythm, no murmurs and peripheral pulses 2+ throughout GI normal to inspection, nondistended, normoactive bowel sounds, soft to palpation, non-tender and non-distended Back/Spine normal ROM Extremity normal to inspection, full ROM and no pedal edema Skin no rashes or lesions noted Psych mental status grossly normal Weight / BMI Weight Weight: 61.4 kg Body Mass Index (BMI) 24.7 ABG / Lab / Microbiology Data 10/23/22 06:22 10/23/22 06:22 Laboratory: Laboratory Results - last 24 hr 10/22/22 17:20: POC Glucose 96 10/22/22 21:07: POC Glucose 115 H 10/23/22 05:44: POC Glucose 73 L 10/23/22 06:22: WBC 2.2 L, RBC 3.23 L, Hgb 11.1 L, Hct 33.7 L, MCV 104.3 H, MCH 34.4 H, MCHC 32.9, RDW Std Deviation 72.4 H, RDW Coeff of Codey 18.9 H, Plt Count 41 L*, MPV 10.4, Immature Gran % (Auto) 0.500, Neut % (Auto) 68.6, Lymph % (Auto) 18.6 L, [place] % (Auto) 7.7, Eos % (Auto) 4.1, Baso % (Auto) 0.5, Absolute Neuts (auto) 1.5 L, Absolute Lymphs (auto) 0.41 L, Nucleated RBC % 0.9, Differential Comment COMMENT, Diff Path Review May foll, Platelet Estimate MKD DEC, Anisocytosis 2+, Sodium 141, Potassium 3.4 L, Chloride 111 H, Carbon Dioxide 27.0, Anion Gap 3 L, BUN 15, Creatinine 0.86, Estim Creat Clear Calc 46.08, Est GFR (MDRD) Af Amer 83, Est GFR (MDRD) Non-Af 69, BUN/Creatinine Ratio 17.4, Glucose 85, Calcium 9.7, Phosphorus 2.8, Magnesium 1.9 Microbiology: Microbiology 10/20/22 10:54 Urine, Clean Catch Urine Culture - Final Presumptive E. coli 10/20/22 11:49 Blood Culture (Wb) - Anticubital Right Blood Culture - Preliminary No growth in 48 hours. 10/20/22 11:49 Blood Culture (Wb) - Anticubital Left Blood Culture - Preliminary No growth in 48 hours. 10/20/22 23:54 Stool Enteric Bacteriology - Final D/C Instructions Discharge Diet: No restrictions Weight Bearing Status: Full weight bearing Pending Tests Upon Discharge: None Please Follow Up With: Santino Mcneill MD When: 1 to 2 weeks Meaningful Use Info Meaningful Use Diagnoses (Choose all that apply): None applicable Discharge Plan Admission Admit Date/Time: 10/20/22 14:38 Primary Reason for Your Visit: Abdominal pain Attending Provider: Florin Bowens Primary Care Provider: Santino Mcneill Consulting Providers: Yaya Sanchez; Yo Patton Instructions Additional Instructions / Restrictions: Please complete your course of antibiotics as instructed. Follow-up with your primary care provider in 1 to 2 weeks. Discharge Orders/Prescriptions Prescriptions: New levofloxacin 750 mg tablet 750 mg PO DAILY 2 Days Qty: 2 0RF Continued citalopram 10 mg tablet 10 tab PO DAILY ergocalciferol (vitamin D2) 1,250 mcg (50,000 unit) capsule 50,000 units PO METZ Patient Comments: TAKE 1 CAPSULE BY MOUTH ONCE A WEEK lorazepam 1 mg tablet 1 mg PO DAILY lovastatin 40 mg tablet 40 mg PO DAILY metformin 1,000 mg tablet 1,000 mg PO BID pioglitazone 30 mg tablet 30 mg PO DAILY metoprolol succinate [Toprol XL] 25 mg tablet extended release 24 hr 25 mg PO DAILY Patient Comments: TAKE 1 TABLET BY MOUTH ONCE DAILY furosemide 20 mg tablet 20 mg PO DAILY allopurinol 300 mg tablet 300 mg PO DAILY folic acid 1 mg tablet 1 mg PO DAILY Patient Comments: TAKE 1 TABLET BY MOUTH ONCE DAILY sucralfate 1 gram tablet 1 g PO TID Patient Comments: TAKE 1 TABLET BY MOUTH THREE TIMES DAILY BEFORE MEAL(S) potassium chloride 10 mEq tablet extended release 10 meq PO DAILY pantoprazole 40 mg tablet,delayed release (DR/EC) 40 mg PO BID Patient Comments: TAKE 1 TABLET BY MOUTH ONCE DAILY IN THE AFTERNOON, TAKE ONE HOUR BEFORE EVENING MEAL spironolactone 25 mg Tablet 50 mg PO DAILY Discontinued spironolactone 50 mg tablet 50 mg PO DAILY Patient Comments: TAKE 1 TABLET BY MOUTH ONCE DAILY Referrals / Follow Up: Santino Mcneill MD [Primary Care Provider] - Disposition Disposition (needs filled in before D/C Order can be placed): Home, Self Care Charges/Coding Visit Charges Inpatient E&M: 84792 Disch Hosp >30min
[2022-10-23 15:19] VITALS: BP 118/62; PULSE 64; RESP 20; TEMP 36.8; O2SAT 96
[2022-10-25 12:17] LABS: Pathologist Review Reviewed
[2022-10-25 12:28] LABS: Pathologist Review Reviewed
== END 2022-10-23 17:05 | disposition home or self-care (01) | DRG 392 ==
LOC: ED 11:10 → PCU 14:56
PROVIDERS: Internal Medicine; Admitting Provider Internal Medicine; Emergency Provider Emergency Medicine; PCP Family Medicine; Visit Provider Hospitalist
DX: K52.9 Noninfective gastroenteritis and colitis, unspecified (principal); N17.9 Acute kidney failure, unspecified; N30.00 Acute cystitis without hematuria; D70.8 Other neutropenia; D69.6 Thrombocytopenia, unspecified; E11.9 Type 2 diabetes mellitus without complications; E78.2 Mixed hyperlipidemia; E87.6 Hypokalemia; B96.20 Unspecified Escherichia coli [E. coli] as the cause of diseases classified elsewhere; K74.60 Unspecified cirrhosis of liver; I10 Essential (primary) hypertension; F32.A Depression, unspecified; I25.10 Atherosclerotic heart disease of native coronary artery without angina pectoris; K43.9 Ventral hernia without obstruction or gangrene; K75.81 Nonalcoholic steatohepatitis (NASH); F41.9 Anxiety disorder, unspecified; Z87.891 Personal history of nicotine dependence; Z79.84 Long term (current) use of oral hypoglycemic drugs; Z79.2 Long term (current) use of antibiotics
CPT/HCPCS: 36415; 74176; 80048; 80053; 81001; 82962; 83605; 83690; 83735; 84100; 85025; 87040; 87086; 87088; 87186; 87506; 93005; 97802; 99284; J7030; J7050; A4216; J0295; J2405

== ENCOUNTER 2022-10-25 19:20 | Observation (INO) | payer MEDICARE, MEDICAID, SELFPAY ==
[2022-10-25] VITALS (9 sets, daily range): BP systolic 115–137; BP diastolic 55–68; PULSE 54–88; RESP 16–23; TEMP 36.3–36.7; O2SAT 95–100; BMI 26.8; BMI 25.7
--- NOTE | 2022-10-25 19:42 | CT_ITS ---
INDICATION: mental status change EXAMINATION: CT BRAIN - CT Head or Brain W/O Contrast Injection TECHNIQUE: Multiple axial images were obtained of the head without intravenous contrast. A radiation dose optimization technique was used for this scan. IV Contrast dosage and agent: None. RADIATION DOSAGE (If Supplied By Facility): CTDIvol = ( 47.6 ) mGy, DLP = ( 907.97 ) mGycm COMPARISON: No relevant prior examinations for comparison FINDINGS: HEMISPHERES: 1. The cerebral parenchyma, ventricular system, subarachnoid spaces have normal configuration and density. There is a normal gyral pattern. There is normal freedman/white differentiation. No midline shift.. 2. Mild chronic microvascular deep white matter changes. 3. No intraparenchymal mass, hemorrhage, or acute territorial infarct. CEREBELLUM - BRAINSTEM: The cerebellum, brainstem, basilar and suprasellar cisterns have normal appearance. No Chiari malformation. PITUITARY: Partial empty sella noted. No sellar or suprasellar masses.. CSF SPACES: Appropriate for age. No hydrocephalus. Basal cisterns are patent. VESSELS: 1. No significant vascular calcifications in the cavernous carotid vessels. 2. No hyperdense vascular signs noted.. ORBITS AND PARANASAL SINUSES: 1. Normal appearance of the bony orbits. Normal appearance of the globes and retrobulbar soft tissues.. 2. Paranasal sinuses are clear. BONY ELEMENTS: Bony elements of the cranial vault, facial skeleton and skull base have normal appearance. SCALP AND SOFT TISSUES: Normal appearance of the soft tissues of the scalp and the visualized face OTHER: None ASPECTS Score for Acute Strokes: 10 CT/Brain/Head without Contrast IMPRESSION: 1. Mild involutional changes, moderate chronic microvascular deep white matter changes. 2. No intracranial mass, hemorrhage or acute territorial infarct. 3. No radiographically significant sinus disease.. Electronically Signed: Phoenix Jeffries MD at 21:04 EDT ,
--- NOTE | 2022-10-25 19:43 | EKG12_ITS ---
Test Reason : CONFUSION Blood Pressure : / mmHG Vent. Rate : 063 BPM Atrial Rate : 078 BPM P-R Int : 152 ms QRS Dur : 162 ms QT Int : 468 ms P-R-T Axes : 061 -31 -28 degrees QTc Int : 478 ms Sinus rhythm with marked sinus arrhythmia with Premature atrial complexes Left axis deviation Right bundle branch block Minimal voltage criteria for LVH, may be normal variant ( R in aVL ) Abnormal ECG Confirmed by UMBERTO WALDROP ([id number]), production editor JUJU MOORE ([id number]) on 10/30/2022 9:37:09 AM Referred By: Confirmed By:UMBERTO WALDROP
--- NOTE | 2022-10-25 19:44 | EX.ED.DYSGE1 ---
HPI History of Present Illness Chief Complaint: General Illness Detail of Chief Complaint: Mental status change Informant: patient and family Narrative Narrative: Patient presents to the emergency department brought in by her sister with complaint of of confusion and mental status change. Patient was just discharged from the hospital 2 days ago after being admitted for sepsis related to a UTI and colitis. Patient was sent home with 2 days of antibiotics which she accidentally took all at once. In the middle of the night last night she was arranging washcloths on the bathtub and then going through drawers and was confused and disoriented. Today she needed help with instructions on activities of daily living such as using the restroom and pulling down her pants. She has been fidgeting and just twirling her fingers. Patient denies any falls or head injuries. She does complain of a headache. She denies chest pain or abdominal pain. She still describes dysuria. She has not had a fever or chills or sweats. 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) Obstructive sleep apnea Pancytopenia Portal hypertensive gastropathy Primary insomnia Secondary esophageal varices without bleeding Home Medications citalopram 10 mg tablet 10 tab PO DAILY DEPRESSION 07/20/19 [History Last Taken 10/06/20] ergocalciferol (vitamin D2) 1,250 mcg (50,000 unit) capsule 50,000 units PO METZ SUPPLEMETNT 07/20/19 [History Last Taken 10/05/20] lorazepam 1 mg tablet 1 mg PO DAILY ANXIETY 07/20/19 [History Last Taken 10/19/22] lovastatin 40 mg tablet 40 mg PO DAILY CHOLESTEROL 07/20/19 [History Last Taken 10/19/22] metformin 1,000 mg tablet 1,000 mg PO BID DM 07/20/19 [History Last Taken 10/20/22] pioglitazone 30 mg tablet 30 mg PO DAILY DM 07/20/19 [History Last Taken 10/20/22] metoprolol succinate 25 mg tablet,extended release 24 hr (Toprol XL) 25 mg PO DAILY HEART 07/10/20 [History Last Taken 10/20/22] allopurinol 300 mg tablet 300 mg PO DAILY Gout 10/20/22 [History Last Taken 10/20/22] folic acid 1 mg tablet 1 mg PO DAILY supplement 10/20/22 [History Last Taken 10/20/22] furosemide 20 mg tablet 20 mg PO DAILY Water pill 10/20/22 [History Last Taken 10/20/22] pantoprazole 40 mg tablet,delayed release 40 mg PO BID Stomach pill 10/20/22 [History Last Taken 10/20/22] potassium chloride 10 mEq tablet,extended release 10 meq PO DAILY supplement 10/20/22 [History Last Taken 10/20/22] spironolactone 25 mg tablet 50 mg PO DAILY Diuretic 10/20/22 [History Last Taken 10/20/22] sucralfate 1 gram tablet 1 g PO TID Stomach pill 10/20/22 [History Last Taken 10/20/22] levofloxacin 750 mg tablet 750 mg PO DAILY 2 days #2 tabs 10/23/22 [Rx Last Taken Unknown] Allergy/AdvReac Type Severity Reaction Status Date / Time amlodipine [From Norvasc] Allergy Unknown Swelling Verified 10/25/22 19:32 in LE nitrofurantoin Allergy Unknown Hives/Itchi Verified 10/25/22 19:32 [From Macrobid] ng codeine AdvReac Unknown Excessively Verified 10/25/22 19:32 tired Surgical History H/O heart surgery H/O hernia repair Hx of CABG Social History Smoking Status: Former smoker alcohol intake: never ROS ROS ED Review of Systems ROS Unobtainable: other Constitutional Constitutional ED: Reports lethargy; Denies chills, fever(s), sweats or weight loss Eyes Eyes: Denies blurry vision, change in vision or diplopia ENT ENT ED: Denies rhinorrhea or sore throat Cardiovascular Cardiovascular: Denies chest pain, orthopnea or racing heartbeat Respiratory/Chest Respiratory/Chest: Denies cough, dyspnea, dyspnea on exertion, orthopnea or sputum Gastrointestinal Gastrointestinal: Denies abdominal pain, diarrhea, nausea or vomiting Genitourinary Genitourinary ED: Reports dysuria; Denies hematuria or urinary frequency Musculoskeletal Musculoskeletal: Denies arthralgias, back pain, myalgias or neck pain Integumentary Denies abscess, Abrasions or rash Neurologic Neurologic: Reports headache(s); Denies weakness Psychiatric Psychiatric: Denies anxiety, depression or suicidal thoughts Endocrine Endocrinology: Denies polydipsia, polyphagia or polyuria Hematologic/Lymphatic Hematologic/Lymphatic: Denies easy bleeding, easy bruising or lymphadenopathy Allergic/Immunologic Allergic/Immunologic ED: Denies mouth swelling, tongue swelling or urticaria EXAM Physical Exam Const Vital Signs: 10/25/22 19:23 10/25/22 19:33 10/25/22 19:48 Temperature 97.3 F L 98.0 F Temperature Source Temporal Oral Pulse Rate 54 L 80 Respiratory Rate 16 23 H Respiratory Effort Short of Breath Respiratory Pattern Normal Blood Pressure 137/68 H 115/55 L Blood Pressure Mean 91 75 Pulse Ox 100 96 Oxygen Delivery Method Room Air 10/25/22 21:41 10/25/22 21:41 10/25/22 21:43 Temperature 97.7 F L 97.7 F L Temperature Source Oral Oral Pulse Rate 82 88 83 Respiratory Rate 22 H 22 H 21 H Respiratory Effort Respiratory Pattern Blood Pressure 116/58 L 116/58 L 116/58 L Blood Pressure Mean 77 77 77 Pulse Ox 97 95 99 Oxygen Delivery Method Room Air Room Air Room Air Positive well nourished and well developed General Appearance ED: well developed and NAD HEENT Reports TM's clear and moist mucous membranes normocephalic and atraumatic; Negative for trauma or tenderness Tympanic Membrane ED: Yes TM's clear Eyes PERRL and EOMs intact bilaterally General Eye ED: Negative for pale conjunctiva or scleral icterus Neck no lymphadenopathy, supple and no JVD General: Negative for tenderness Chest Wall inspection of chest normal and palpation of chest normal Chest: Negative for tenderness Resp normal respiratory effort and clear to auscultation bilaterally Effort and Inspection: Negative for respiratory distress or pain with movement Auscultation: Negative for rhonchi, wheezes or diminished lung sounds Cardio regular rate, regular rhythm, S1 normal heart sound, S2 normal heart sound and no murmurs Peripheral Pulses: pulses 2+ throughout GI normal to inspection, nondistended, normoactive bowel sounds, soft to palpation, non-tender, non-distended and no masses Back/Spine no CVA tenderness and no thoracic nor lumbar tenderness Extremity normal to inspection General Extremety ED: Negative for edema General Extremity: Negative for edema Neuro oriented x3, CN's II-XII intact bilaterally, no sensory deficits noted and gait normal Neuro Narrative: Alert to person and place but not time. No focal deficits Sensorium / Orientation: awake, alert, oriented to person, oriented to place and oriented to time Motor Exam: strength 5/5 throughout and strength abnormal Psych mental status grossly normal Skin no rashes or lesions noted and no wounds MDM MDM MDM Narrative Medical decision making narrative: Patient presents with mental status change and delirium like illness. Etiology unclear. She did complain of a headache therefore CT of the brain was obtained that was unremarkable. Patient had a CBC with differential that showed a pancytopenia which seems to be chronic. Chemistries unremarkable other than a slight elevated creatinine of 1.27. Ammonia was normal at 20. Troponin normal at 23. Urinalysis unremarkable. Case discussed with hospitalist to evaluate patient for admission. Etiology of delirium unclear if this is medication related potentially. Lab Data Attestation: I reviewed the patient's lab results. Labs: Laboratory Results - last 24 hr 10/25/22 10/25/22 10/25/22 20:04 20:21 20:37 WBC 2.6 L RBC 3.45 L Hgb 11.8 L Hct 35.4 L MCV 102.6 H MCH 34.2 H MCHC 33.3 RDW Std Deviation 71.7 H RDW Coeff of Codey 19.2 H Plt Count 43 L* MPV 11.1 Immature Gran % (Auto) 0.800 Neut % (Auto) 69.6 Lymph % (Auto) 17.3 L [place] % (Auto) 10.0 Eos % (Auto) 1.5 Baso % (Auto) 0.8 Absolute Neuts (auto) 1.8 L Absolute Lymphs (auto) 0.45 L Nucleated RBC % 0 Differential Comment SCANNED Diff Path Review July foll Sodium 140 Potassium 3.7 Chloride 107 Carbon Dioxide 27.0 Anion Gap 6 BUN 15 Creatinine 1.27 H Estim Creat Clear Calc 31.20 Est GFR (MDRD) Af Amer 53 L Est GFR (MDRD) Non-Af 44 L BUN/Creatinine Ratio 11.8 Glucose 90 Lactic Acid 1.8 Calcium 10.5 H Total Bilirubin 1.20 H AST 33 ALT 32 Alkaline Phosphatase 74 Ammonia Cancelled 20.0 Troponin I High Sens 23 Total Protein 5.6 L Albumin 2.8 L Globulin 2.8 Albumin/Globulin Ratio 1.0 Urine Color Urine Clarity Urine pH Ur Specific [place] Urine Protein Urine Glucose (UA) Urine Ketones Urine Occult Blood Urine Nitrite Urine Bilirubin Urine Urobilinogen Ur Leukocyte Esterase Urine RBC Urine WBC Ur Squamous Epith Cells Urine Bacteria Urine Mucus 10/25/22 20:55 WBC RBC Hgb Hct MCV MCH MCHC RDW Std Deviation RDW Coeff of Codey Plt Count MPV Immature Gran % (Auto) Neut % (Auto) Lymph % (Auto) [place] % (Auto) Eos % (Auto) Baso % (Auto) Absolute Neuts (auto) Absolute Lymphs (auto) Nucleated RBC % Differential Comment Diff Path Review Sodium Potassium Chloride Carbon Dioxide Anion Gap BUN Creatinine Estim Creat Clear Calc Est GFR (MDRD) Af Amer Est GFR (MDRD) Non-Af BUN/Creatinine Ratio Glucose Lactic Acid Calcium Total Bilirubin AST ALT Alkaline Phosphatase Ammonia Troponin I High Sens Total Protein Albumin Globulin Albumin/Globulin Ratio Urine Color Straw Urine Clarity Clear Urine pH 6.0 Ur Specific [place] 1.010 Urine Protein Negative Urine Glucose (UA) Normal Urine Ketones Negative Urine Occult Blood Negative Urine Nitrite Negative Urine Bilirubin Negative Urine Urobilinogen Normal Ur Leukocyte Esterase Negative Urine RBC 0 SEEN Urine WBC 0 SEEN Ur Squamous Epith Cells 0 SEEN Urine Bacteria 0 SEEN Urine Mucus 0 SEEN Radiography Diagnostic Testing: Clinical Impression(s) from Imaging Studies Brain CT 10/25/22 19:42 IMPRESSION: 1. Mild involutional changes, moderate chronic microvascular deep white matter changes. 2. No intracranial mass, hemorrhage or acute territorial infarct. 3. No radiographically significant sinus disease.. Electronically Signed: Phoenix Jeffries MD at 21:04 EDT , EKG Initial EKG: Comments: Sinus rhythm with a rate of 63 bpm with PACs and a right bundle branch block Discharge Plan Triage Chief Complaint: General Illness ED Provider: Erik Tang Dx/Rx/DC Orders Clinical Impression: ANN (acute kidney injury), Delirium, Altered mental status Prescriptions: No Action citalopram 10 mg tablet 10 tab PO DAILY ergocalciferol (vitamin D2) 1,250 mcg (50,000 unit) capsule 50,000 units PO METZ Patient Comments: TAKE 1 CAPSULE BY MOUTH ONCE A WEEK lorazepam 1 mg tablet 1 mg PO DAILY lovastatin 40 mg tablet 40 mg PO DAILY metformin 1,000 mg tablet 1,000 mg PO BID pioglitazone 30 mg tablet 30 mg PO DAILY metoprolol succinate [Toprol XL] 25 mg tablet extended release 24 hr 25 mg PO DAILY Hold Instructions: Pt has been DC'd Patient Comments: TAKE 1 TABLET BY MOUTH ONCE DAILY furosemide 20 mg tablet 20 mg PO DAILY allopurinol 300 mg tablet 300 mg PO DAILY folic acid 1 mg tablet 1 mg PO DAILY Patient Comments: TAKE 1 TABLET BY MOUTH ONCE DAILY sucralfate 1 gram tablet 1 g PO TID Patient Comments: TAKE 1 TABLET BY MOUTH THREE TIMES DAILY BEFORE MEAL(S) potassium chloride 10 mEq tablet extended release 10 meq PO DAILY pantoprazole 40 mg tablet,delayed release (DR/EC) 40 mg PO BID Patient Comments: TAKE 1 TABLET BY MOUTH ONCE DAILY IN THE AFTERNOON, TAKE ONE HOUR BEFORE EVENING MEAL spironolactone 25 mg Tablet 50 mg PO DAILY Hold Instructions: Pt has been DC'd levofloxacin 750 mg tablet 750 mg PO DAILY 2 Days Qty: 2 0RF Primary Care Provider: Santino Mcneill Referrals: Santino Mcneill MD [Primary Care Provider] - Disposition Disposition: Acute Care [facility]
[2022-10-25] MEDS: 0.9% Normal Saline 1,000 ML 150 ML IV (20:04)
[2022-10-25 20:23] LABS: Absolute Lymphocyte Count 0.45 X10^3/uL (0.83-4.51); Absolute Neutrophil Count 1.8 X10^3/uL (2.0-7.7); Basophil# 0.02 X10^3/uL; Basophil% 0.8 % (0-1); Eosinophil# 0.04 X10^3/uL; Eosinophils% 1.5 % (0-5); Hematocrit 35.4 % (37-47); Hemoglobin 11.8 g/dL (12.0-15.0); Lymphocyte # 0.45 X10^3/ul (0.83-4.51); Lymphocyte % 17.3 % (19-41); Mean Corp Hgb Conc 33.3 g/dL (32-36); Mean Corpuscular Hgb 34.2 pg (27.0-32.0); Mean Corpuscular Volume 102.6 fL (81-99); Mean Platelet Vol. 11.1 fl (6.2-12.0); Monocyte# 0.26 X10^3/uL; NRBC Flagged by Analyzer 0 % (0-5); Neutrophil # 1.81 X10^3/uL (2.7-7.7); Neutrophil % 69.6 % (47-70); POSITIVE COUNT YES; POSITIVE DIFFERENTIAL YES; POSITIVE MORPHOLOGY YES; RBC Distribution Width CV 19.2 % (11.6-14.6); RBC Distribution Width SD 71.7 fl (35.1-43.9); Red Blood Count 3.45 M/mm3 (4.2-5.4); White Blood Count 2.6 K/mm3 (4.4-11.0)
[2022-10-25 20:26] LABS: Differential Indicated SCAN CRITERIA MET
[2022-10-25 20:47] LABS: AST(SGOT) 33 U/L (15-37); Alanine Aminotransfer ALT/SGPT 32 U/L (13-56); Albumin, Serum 2.8 g/dL (3.2-5.0); Alkaline Phosphatase 74 U/L (45-117); Anion Gap 6 (5-15); BUN 15 mg/dL (7-18); BUN/Creat Ratio 11.8 RATIO (10-20); Calcium,Total 10.5 mg/dL (8.5-10.1); Chloride 107 mmol/L (98-107); Creatinine, Serum 1.27 mg/dL (0.55-1.02); EST Glomerular Filtration Rate 44 mL/min (>60); Est Glom Filt Rate - Afr Amer 53 mL/min (>60); Globulin 2.8 g/dL (2.2-4.2); Glucose 90 mg/dL (74-106); Potassium 3.7 mmol/L (3.5-5.1); Protein, Total 5.6 g/dL (6.4-8.2); Sodium Level 140 mmol/L (136-145); Troponin-I HS 23 pg/mL (3.0-54.0)
[2022-10-25 20:51] LABS: Lactic Acid 1.8 mmol/L (0.4-1.9)
[2022-10-25 20:53] LABS: Differential Comment SCANNED
[2022-10-25 20:54] LABS: Platelet Count 43 K/mm3 (150-450)
[2022-10-25 21:01] LABS: Bacteria 0 SEEN /hpf (None Seen); Mucous, Urine 0 SEEN /hpf (<or=2+); Red Blood Cells-Urine 0 SEEN /hpf (0-5); Squamous Epithelial Cells - UA 0 SEEN /hpf (5-10); White Blood Cells 0 SEEN /hpf (0-5)
[2022-10-25 21:02] LABS: Color, Urine Straw (Yellow); Glucose, Dipstick Normal (Normal); Ketone-Dipstick Negative (Negative); Leukocyte Esterase-Dipstick Negative /ul (Negative); Nitrite-Dipstick Negative (Negative); Occult Blood-Urine Negative /ul (Negative); Protein-Dipstick Negative (Negative); Urine Bilirubin Dipstick Negative (Negative); Urine Clarity Clear (Clear); Urine Urobilinogen Normal (Normal)
--- NOTE | 2022-10-25 22:38 | PCM.HP.STD ---
HPI - General General Date of Admission: 10/25/22 Date of Service: 10/25/22 Chief Complaint: Mental status change HPI Narrative GIGI RDZ, is a 72 F who presents to the emergency room with chief complaint of mental status change. Patient was discharged from the hospital 2 days ago following urinary sepsis and colitis. She was discharged with 2 more days of antibiotics to complete her 5-day course of levofloxacin. She lives with her sister who noticed her behaving erratically and confused this evening. The patient was confused and not oriented to time which is not normal for her. CT scan is unremarkable and laboratory studies show general pancytopenia that seems to be her baseline when compared to previous labs. Her urine was negative for infection today. She still remains confused and is unable to take care of herself at present time. She will be admitted for mental status change with suspected delirium to the general medical floor. 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) Obstructive sleep apnea Pancytopenia Portal hypertensive gastropathy Primary insomnia Secondary esophageal varices without bleeding Home Medications citalopram 10 mg tablet 10 tab PO DAILY DEPRESSION 07/20/19 [History Last Taken 10/06/20] ergocalciferol (vitamin D2) 1,250 mcg (50,000 unit) capsule 50,000 units PO METZ SUPPLEMETNT 07/20/19 [History Last Taken 10/05/20] lorazepam 1 mg tablet 1 mg PO DAILY ANXIETY 07/20/19 [History Last Taken 10/19/22] lovastatin 40 mg tablet 40 mg PO DAILY CHOLESTEROL 07/20/19 [History Last Taken 10/19/22] metformin 1,000 mg tablet 1,000 mg PO BID DM 07/20/19 [History Last Taken 10/20/22] pioglitazone 30 mg tablet 30 mg PO DAILY DM 07/20/19 [History Last Taken 10/20/22] metoprolol succinate 25 mg tablet,extended release 24 hr (Toprol XL) 25 mg PO DAILY HEART 07/10/20 [History Last Taken 10/20/22] allopurinol 300 mg tablet 300 mg PO DAILY Gout 10/20/22 [History Last Taken 10/20/22] folic acid 1 mg tablet 1 mg PO DAILY supplement 10/20/22 [History Last Taken 10/20/22] furosemide 20 mg tablet 20 mg PO DAILY Water pill 10/20/22 [History Last Taken 10/20/22] pantoprazole 40 mg tablet,delayed release 40 mg PO BID Stomach pill 10/20/22 [History Last Taken 10/20/22] potassium chloride 10 mEq tablet,extended release 10 meq PO DAILY supplement 10/20/22 [History Last Taken 10/20/22] spironolactone 25 mg tablet 50 mg PO DAILY Diuretic 10/20/22 [History Last Taken 10/20/22] sucralfate 1 gram tablet 1 g PO TID Stomach pill 10/20/22 [History Last Taken 10/20/22] levofloxacin 750 mg tablet 750 mg PO DAILY 2 days #2 tabs 10/23/22 [Rx Last Taken Unknown] Allergy/AdvReac Type Severity Reaction Status Date / Time amlodipine [From Norvasc] Allergy Unknown Swelling Verified 10/25/22 19:32 in LE nitrofurantoin Allergy Unknown Hives/Itchi Verified 10/25/22 19:32 [From Macrobid] ng codeine AdvReac Unknown Excessively Verified 10/25/22 19:32 tired Surgical History H/O heart surgery H/O hernia repair Hx of CABG Social History Smoking Status: Former smoker alcohol intake: never ROS Constitutional Constitutional: Denies chills or fever(s) Eyes Eyes: Denies blurry vision ENT HEENT: Denies abnormal hearing Cardiovascular Cardiovascular: Denies chest pain Respiratory/Chest Respiratory/Chest: Denies shortness of breath at rest Gastrointestinal Gastrointestinal: Denies abdominal pain Genitourinary Genitourinary: Denies dysuria Musculoskeletal Musculoskeletal: Denies back pain Neurologic Neurologic: Reports confusion Psychiatric Psychiatric: Reports anxiety Vital Signs Vital Signs Vital Signs: 10/25/22 19:23 10/25/22 19:33 10/25/22 19:48 Temperature 97.3 F L 98.0 F Temperature Source Temporal Oral Pulse Rate 54 L 80 Respiratory Rate 16 23 H Respiratory Effort Short of Breath Respiratory Pattern Normal Blood Pressure 137/68 H 115/55 L Blood Pressure Mean 91 75 Pulse Ox 100 96 Oxygen Delivery Method Room Air 10/25/22 21:41 10/25/22 21:41 10/25/22 21:43 Temperature 97.7 F L 97.7 F L Temperature Source Oral Oral Pulse Rate 82 88 83 Respiratory Rate 22 H 22 H 21 H Respiratory Effort Respiratory Pattern Blood Pressure 116/58 L 116/58 L 116/58 L Blood Pressure Mean 77 77 77 Pulse Ox 97 95 99 Oxygen Delivery Method Room Air Room Air Room Air 10/25/22 22:07 Temperature 97.7 F L Temperature Source Oral Pulse Rate 82 Respiratory Rate 22 H Respiratory Effort Respiratory Pattern Blood Pressure 120/67 Blood Pressure Mean 84 Pulse Ox 97 Oxygen Delivery Method Room Air Weight Weight: 146 lb 11.2 oz Body Mass Index (BMI) 26.8 Physical Exam Const alert Orientation / Consciousness: confused and lethargic HEENT normocephalic and head/scalp atraumatic Eyes PERRL Neck no lymphadenopathy Lymph Lymphatic: no lymphadenopathy noted Resp normal respiratory effort, normal air movement and clear to auscultation bilaterally Cardio regular rate, regular rhythm, S1 normal heart sound and S2 normal heart sound GI soft to palpation and non-tender Extremity no clubbing, cyanosis or edema Skin Skin Narrative: Irritation present in perineum Neuro no focal motor deficits and no sensory deficits noted Neuro Narrative: A xO x2 Psych Mood & Affect: anxious Results Lab / Micro Data 10/25/22 20:04 10/25/22 20:04 Labs: Laboratory Results - last 24 hr 10/25/22 20:04: WBC 2.6 L, RBC 3.45 L, Hgb 11.8 L, Hct 35.4 L, MCV 102.6 H, MCH 34.2 H, MCHC 33.3, RDW Std Deviation 71.7 H, RDW Coeff of Codey 19.2 H, Plt Count 43 L*, MPV 11.1, Immature Gran % (Auto) 0.800, Neut % (Auto) 69.6, Lymph % (Auto) 17.3 L, [place] % (Auto) 10.0, Eos % (Auto) 1.5, Baso % (Auto) 0.8, Absolute Neuts (auto) 1.8 L, Absolute Lymphs (auto) 0.45 L, Nucleated RBC % 0, Differential Comment SCANNED, Diff Path Review May foll, Sodium 140, Potassium 3.7, Chloride 107, Carbon Dioxide 27.0, Anion Gap 6, BUN 15, Creatinine 1.27 H, Estim Creat Clear Calc 31.20, Est GFR (MDRD) Af Amer 53 L, Est GFR (MDRD) Non-Af 44 L, BUN/Creatinine Ratio 11.8, Glucose 90, Lactic Acid 1.8, Calcium 10.5 H, Total Bilirubin 1.20 H, AST 33, ALT 32, Alkaline Phosphatase 74, Troponin I High Sens 23, Total Protein 5.6 L, Albumin 2.8 L, Globulin 2.8, Albumin/Globulin Ratio 1.0 10/25/22 20:21: Ammonia Cancelled 10/25/22 20:37: Ammonia 20.0 10/25/22 20:55: Urine Color Straw, Urine Clarity Clear, Urine pH 6.0, Ur Specific [place] 1.010, Urine Protein Negative, Urine Glucose (UA) Normal, Urine Ketones Negative, Urine Occult Blood Negative, Urine Nitrite Negative, Urine Bilirubin Negative, Urine Urobilinogen Normal, Ur Leukocyte Esterase Negative, Urine RBC 0 SEEN, Urine WBC 0 SEEN, Ur Squamous Epith Cells 0 SEEN, Urine Bacteria 0 SEEN, Urine Mucus 0 SEEN Radiology Impression Brain CT 10/25/22 19:42 IMPRESSION: 1. Mild involutional changes, moderate chronic microvascular deep white matter changes. 2. No intracranial mass, hemorrhage or acute territorial infarct. 3. No radiographically significant sinus disease.. Electronically Signed: Phoenix Jeffries MD at 21:04 EDT , Assessment & Plan Assessment/Plan (1) Altered mental status: (2) Delirium: (3) Thrombocytopenia: PLAN: Plan 1 altered mental status/delirium likely secondary to recent infection and change in medications that have been restarted. We will admit patient to progressive care unit with neurologic checks per routine. We will repeat CBC, CMP, ammonia level in the morning due to history of nonalcoholic steatohepatitis 2. Thrombocytopenia stable at current we will repeat CBC 3. DVT prophylaxis?low molecular weight heparin?patient may need case management to assist with discharge planning. 4. Perineum irritation?add Calmoseptine cream Charges/Coding Visit Charges Inpatient E&M: 39889 Init Hosp L2
[2022-10-25] MEDS: 0.9% Normal Saline 1,000 ML 100 ML IV (23:45)
[2022-10-26 05:30] VITALS: BP 141/77; PULSE 82; RESP 16; TEMP 36.1; O2SAT 97
[2022-10-26 06:47] LABS: Absolute Lymphocyte Count 0.43 X10^3/uL (0.83-4.51); Absolute Neutrophil Count 1.6 X10^3/uL (2.0-7.7); Basophil# 0.01 X10^3/uL; Basophil% 0.4 % (0-1); Eosinophil# 0.07 X10^3/uL; Hematocrit 35.3 % (37-47); Hemoglobin 11.6 g/dL (12.0-15.0); Lymphocyte # 0.43 X10^3/ul (0.83-4.51); Lymphocyte % 18.1 % (19-41); Mean Corp Hgb Conc 32.9 g/dL (32-36); Mean Corpuscular Hgb 34.2 pg (27.0-32.0); Mean Corpuscular Volume 104.1 fL (81-99); Mean Platelet Vol. 10.9 fl (6.2-12.0); Monocyte# 0.23 X10^3/uL; Monocyte% 9.7 % (0-10); NRBC Flagged by Analyzer 0 % (0-5); Neutrophil # 1.62 X10^3/uL (2.7-7.7); Neutrophil % 68.4 % (47-70); POSITIVE COUNT YES; POSITIVE DIFFERENTIAL YES; POSITIVE MORPHOLOGY YES; RBC Distribution Width CV 18.9 % (11.6-14.6); RBC Distribution Width SD 73.3 fl (35.1-43.9); Red Blood Count 3.39 M/mm3 (4.2-5.4); White Blood Count 2.4 K/mm3 (4.4-11.0)
[2022-10-26 06:52] LABS: Differential Indicated SCAN CRITERIA MET; Platelet Count 42 K/mm3 (150-450)
[2022-10-26 07:12] VITALS: O2SAT 97
[2022-10-26 07:15] LABS: Anisocytosis 1+; Differential Comment SCANNED; Macrocytosis RARE; Microcytosis RARE; Platelet Estimate MKD DEC (ADEQ)
[2022-10-26 07:16] LABS: AST(SGOT) 32 U/L (15-37); Alanine Aminotransfer ALT/SGPT 32 U/L (13-56); Albumin, Serum 2.8 g/dL (3.2-5.0); Alkaline Phosphatase 73 U/L (45-117); Anion Gap 6 (5-15); BUN 14 mg/dL (7-18); BUN/Creat Ratio 12.1 RATIO (10-20); Calcium,Total 9.8 mg/dL (8.5-10.1); Chloride 108 mmol/L (98-107); Creatinine, Serum 1.16 mg/dL (0.55-1.02); EST Glomerular Filtration Rate 49 mL/min (>60); Est Glom Filt Rate - Afr Amer 59 mL/min (>60); Estimated Creatinine Clearance 35.73 ml/min; Globulin 2.8 g/dL (2.2-4.2); Glucose 96 mg/dL (74-106); Potassium 3.6 mmol/L (3.5-5.1); Protein, Total 5.6 g/dL (6.4-8.2); Sodium Level 140 mmol/L (136-145)
[2022-10-26] MEDS: Folic Acid 1 MG Tablet PO (08:55)
[2022-10-26] MEDS: Citalopram 10 MG Tablet PO (08:55)
[2022-10-26] MEDS: Pioglitazone Hydrochloride 30 MG Tablet PO (08:55)
[2022-10-26] MEDS: metFORMIN HCl 1,000 MG Tablet 1000 MG PO (08:55)
[2022-10-26 08:56] VITALS: PULSE 88
[2022-10-26] MEDS: Potassium Chloride Oral Tablet 10 MEQ PO (08:56)
[2022-10-26] MEDS: Pantoprazole Sodium 40 MG Tablet PO (08:56)
[2022-10-26] MEDS: Metoprolol(XL)Succ 25 MG Tablet PO (08:56)
[2022-10-26] MEDS: Furosemide 20 MG Tablet PO (08:56)
[2022-10-26] MEDS: Allopurinol 300 MG Tablet PO (08:56)
[2022-10-26] MEDS: 0.9% Normal Saline 1,000 ML 100 ML IV (09:24)
[2022-10-26 10:08] VITALS: BP 131/76; PULSE 88; RESP 16; TEMP 36.9; O2SAT 98
[2022-10-26 13:22] LABS: Pathologist Review Reviewed
[2022-10-26 13:24] LABS: Pathologist Review Reviewed
--- NOTE | 2022-10-26 14:04 | DCINST_ITS ---
Discharge Instructions Diet Discharge Diet: No restrictions Activity Discharge Activity: Return to Normal Activity Weight Bearing Status: Full weight bearing Follow Up Care Please Follow Up With: Santino Mcneill MD When: As needed Test Results: Test results from this visit will be discussed in further detail at your follow- up appointment, if applicable. Pending Tests Upon Discharge: None Discharge Plan Admission Admit Date/Time: 10/25/22 22:44 Primary Reason for Your Visit: Altered mental status Attending Provider: Florin Bowens Primary Care Provider: Santino Mcneill Consulting Providers: Rock Gonzalez; Sandra Dawson Instructions Additional Instructions / Restrictions: Please continue all home medications as prescribed. We have added Levaquin to your allergy list so that you will not receive that medication again at any time. Follow-up with your primary care provider as needed. Discharge Orders/Prescriptions Prescriptions: Continued citalopram 10 mg tablet 10 tab PO DAILY ergocalciferol (vitamin D2) 1,250 mcg (50,000 unit) capsule 50,000 units PO METZ Patient Comments: TAKE 1 CAPSULE BY MOUTH ONCE A WEEK lorazepam 1 mg tablet 1 mg PO DAILY lovastatin 40 mg tablet 40 mg PO DAILY metformin 1,000 mg tablet 1,000 mg PO BID pioglitazone 30 mg tablet 30 mg PO DAILY furosemide 20 mg tablet 20 mg PO DAILY allopurinol 300 mg tablet 300 mg PO DAILY folic acid 1 mg tablet 1 mg PO DAILY Patient Comments: TAKE 1 TABLET BY MOUTH ONCE DAILY sucralfate 1 gram tablet 1 g PO TID Patient Comments: TAKE 1 TABLET BY MOUTH THREE TIMES DAILY BEFORE MEAL(S) potassium chloride 10 mEq tablet extended release 10 meq PO DAILY pantoprazole 40 mg tablet,delayed release (DR/EC) 40 mg PO BID Patient Comments: TAKE 1 TABLET BY MOUTH ONCE DAILY IN THE AFTERNOON, TAKE ONE HOUR BEFORE EVENING MEAL Discontinued metoprolol succinate [Toprol XL] 25 mg tablet extended release 24 hr 25 mg PO DAILY Hold Instructions: Pt has been DC'd Patient Comments: TAKE 1 TABLET BY MOUTH ONCE DAILY spironolactone 25 mg Tablet 50 mg PO DAILY Hold Instructions: Pt has been DC'd levofloxacin 750 mg tablet 750 mg PO DAILY 2 Days Qty: 2 0RF Referrals / Follow Up: Santino Mcneill MD [Primary Care Provider] - Disposition Disposition (needs filled in before D/C Order can be placed): Home, Self Care
--- NOTE | 2022-10-26 14:08 | DS.PCM_ITS ---
Providers Date of Admission: 10/25/22 Date of Discharge: 10/26/22 Primary Care Physician: Dr. Santino Mcneill MD Reason For Visit: ACUTE MENTAL STATUS CHANGE Diagnosis Discharge Diagnosis (1) Altered mental status: Status: Acute Code(s): R41.82 - Altered mental status, unspecified (2) Delirium: Status: Acute Code(s): R41.0 - Disorientation, unspecified (3) Thrombocytopenia: Status: Acute Code(s): D69.6 - Thrombocytopenia, unspecified Medications at Discharge Home Medications citalopram 10 mg tablet 10 tab PO DAILY DEPRESSION 07/20/19 ergocalciferol (vitamin D2) 1,250 mcg (50,000 unit) capsule 50,000 units PO METZ SUPPLEMETNT 07/20/19 lorazepam 1 mg tablet 1 mg PO DAILY ANXIETY 07/20/19 lovastatin 40 mg tablet 40 mg PO DAILY CHOLESTEROL 07/20/19 metformin 1,000 mg tablet 1,000 mg PO BID DM 07/20/19 pioglitazone 30 mg tablet 30 mg PO DAILY DM 07/20/19 allopurinol 300 mg tablet 300 mg PO DAILY Gout 10/20/22 folic acid 1 mg tablet 1 mg PO DAILY supplement 10/20/22 furosemide 20 mg tablet 20 mg PO DAILY Water pill 10/20/22 pantoprazole 40 mg tablet,delayed release 40 mg PO BID Stomach pill 10/20/22 potassium chloride 10 mEq tablet,extended release 10 meq PO DAILY supplement 10/20/22 sucralfate 1 gram tablet 1 g PO TID Stomach pill 10/20/22 Hospital Course Operations None Procedures - (CT head without contrast) Summary of Care Provided Minutes Spent on Discharge: 25 Hospital Course: Patient is a 72-year-old female with history significant for BARAKAT cirrhosis, tpc-[id number] type 2 diabetes, anxiety/depression, hypertension, thrombocytopenia, and neutropenia who presented to [facility] on 10/25 with altered mental status. Patient was recently hospitalized at [facility] from 10/20 through 10/23. She presented at that time with abdominal pain was found to have colitis of the ascending colon, along with acute cystitis due to E. coli. During that hospitalization, patient improved on IV Unasyn and then was discharged home on p.o. Levaquin to complete a 5-day course of antibiotics with a stop date of 10/25. Per patient and her sister, patient became much more confused on 10/25 and sister brought her in for further evaluation. CT head without contrast in the ED was nonacute, and patient's labs were fairly unremarkable. Patient's altered mental status resolved fairly quickly after admission. Was felt that Levaquin was the most likely cause for her confusion. Levaquin was added to her allergy list. Patient was stable for discharge home on 10/26. Discharge diagnoses: Altered mental status, resolved Thrombocytopenia, stable Perineal irritation BARAKAT Type 2 diabetes mellitus Anxiety/depression Hypertension Total clinical time spent by myself addressing the patient's discharge needs: 22 minutes. Physical Exam Const alert, oriented x3, no apparent distress, average body habitus, healthy appearing and well nourished Constitutional Narrative: Pleasant elderly female, sitting comfortably in bedside chair, conversing normally, no acute distress. General Appearance: cooperative and comfortable HEENT normocephalic, head/scalp atraumatic, hearing grossly normal bilaterally, nasal mucous membranes and turbinates normal and moist oral mucous membranes Eyes PERRL, EOMs intact bilaterally and conjunctivae normal Neck full ROM, no lymphadenopathy and supple Lymph Lymphatic: no lymphadenopathy noted Chest inspection of chest normal Resp normal respiratory effort, normal air movement, no use of accessory muscles and clear to auscultation bilaterally Cardio regular rate, regular rhythm, no murmurs and peripheral pulses 2+ throughout GI normal to inspection, nondistended, normoactive bowel sounds, soft to palpation, non-tender and non-distended Back/Spine normal ROM Extremity normal to inspection, full ROM and no pedal edema Skin no rashes or lesions noted Psych mental status grossly normal Weight / BMI Weight Weight: 65.8 kg Body Mass Index (BMI) 25.7 ABG / Lab / Microbiology Data 10/26/22 06:32 10/26/22 06:32 Laboratory: Laboratory Results - last 24 hr 10/25/22 20:04: WBC 2.6 L, RBC 3.45 L, Hgb 11.8 L, Hct 35.4 L, MCV 102.6 H, MCH 34.2 H, MCHC 33.3, RDW Std Deviation 71.7 H, RDW Coeff of Codey 19.2 H, Plt Count 43 L*, MPV 11.1, Immature Gran % (Auto) 0.800, Neut % (Auto) 69.6, Lymph % (Auto) 17.3 L, [place] % (Auto) 10.0, Eos % (Auto) 1.5, Baso % (Auto) 0.8, Absolute Neuts (auto) 1.8 L, Absolute Lymphs (auto) 0.45 L, Nucleated RBC % 0, Differential Comment SCANNED, Diff Path Review Reviewed, Sodium 140, Potassium 3.7, Chloride 107, Carbon Dioxide 27.0, Anion Gap 6, BUN 15, Creatinine 1.27 H, Estim Creat Clear Calc 31.20, Est GFR (MDRD) Af Amer 53 L, Est GFR (MDRD) Non-Af 44 L, BUN/Creatinine Ratio 11.8, Glucose 90, Lactic Acid 1.8, Calcium 10.5 H, Total Bilirubin 1.20 H, AST 33, ALT 32, Alkaline Phosphatase 74, Troponin I High Sens 23, Total Protein 5.6 L, Albumin 2.8 L, Globulin 2.8, Albumin/Globulin Ratio 1.0 10/25/22 20:21: Ammonia Cancelled 10/25/22 20:37: Ammonia 20.0 10/25/22 20:55: Urine Color Straw, Urine Clarity Clear, Urine pH 6.0, Ur Specific [place] 1.010, Urine Protein Negative, Urine Glucose (UA) Normal, Urine Ketones Negative, Urine Occult Blood Negative, Urine Nitrite Negative, Urine Bilirubin Negative, Urine Urobilinogen Normal, Ur Leukocyte Esterase Negative, Urine RBC 0 SEEN, Urine WBC 0 SEEN, Ur Squamous Epith Cells 0 SEEN, Urine Bacteria 0 SEEN, Urine Mucus 0 SEEN 10/26/22 06:32: WBC 2.4 L, RBC 3.39 L, Hgb 11.6 L, Hct 35.3 L, MCV 104.1 H, MCH 34.2 H, MCHC 32.9, RDW Std Deviation 73.3 H, RDW Coeff of [place] 18.9 H, Plt Count 42 L*, MPV 10.9, Immature Gran % (Auto) 0.400, Neut % (Auto) 68.4, Lymph % (Auto) 18.1 L, [place] % (Auto) 9.7, Eos % (Auto) 3.0, Baso % (Auto) 0.4, Absolute Neuts (auto) 1.6 L, Absolute Lymphs (auto) 0.43 L, Nucleated RBC % 0, Differential Comment SCANNED, Diff Path Review Reviewed, Platelet Estimate MKD DEC, Anisocytosis 1+, Microcytosis RARE, Macrocytosis RARE, Sodium 140, Potassium 3.6, Chloride 108 H, Carbon Dioxide 26.0, Anion Gap 6, BUN 14, Crea tinine 1.16 H, Estim Creat Clear Calc 35.73, Est GFR (MDRD) Af Amer 59 L, Est GFR (MDRD) Non-Af 49 L, BUN/Creatinine Ratio 12.1, Glucose 96, Calcium 9.8, Total Bilirubin 1.30 H, AST 32, ALT 32, Alkaline Phosphatase 73, Ammonia 28.0, Total Protein 5.6 L, Albumin 2.8 L, Globulin 2.8, Albumin/Globulin Ratio 1.0 Radiography Diagnostic Testing: Radiology Impression Brain CT 10/25/22 19:42 IMPRESSION: 1. Mild involutional changes, moderate chronic microvascular deep white matter changes. 2. No intracranial mass, hemorrhage or acute territorial infarct. 3. No radiographically significant sinus disease.. Electronically Signed: Phoenix Jeffries MD at 21:04 EDT , D/C Instructions Discharge Diet: No restrictions Weight Bearing Status: Full weight bearing Pending Tests Upon Discharge: None Please Follow Up With: Santino Mcneill MD When: As needed Meaningful Use Info Meaningful Use Diagnoses (Choose all that apply): None applicable Discharge Plan Admission Admit Date/Time: 10/25/22 22:44 Primary Reason for Your Visit: Altered mental status Attending Provider: Florin Bowens Primary Care Provider: Santino Mcneill Consulting Providers: Rock Gonzalez; Sandra Dawson Instructions Additional Instructions / Restrictions: Please continue all home medications as prescribed. We have added Levaquin to your allergy list so that you will not receive that medication again at any time. Follow-up with your primary care provider as needed. Discharge Orders/Prescriptions Prescriptions: Continued citalopram 10 mg tablet 10 tab PO DAILY ergocalciferol (vitamin D2) 1,250 mcg (50,000 unit) capsule 50,000 units PO METZ Patient Comments: TAKE 1 CAPSULE BY MOUTH ONCE A WEEK lorazepam 1 mg tablet 1 mg PO DAILY lovastatin 40 mg tablet 40 mg PO DAILY metformin 1,000 mg tablet 1,000 mg PO BID pioglitazone 30 mg tablet 30 mg PO DAILY furosemide 20 mg tablet 20 mg PO DAILY allopurinol 300 mg tablet 300 mg PO DAILY folic acid 1 mg tablet 1 mg PO DAILY Patient Comments: TAKE 1 TABLET BY MOUTH ONCE DAILY sucralfate 1 gram tablet 1 g PO TID Patient Comments: TAKE 1 TABLET BY MOUTH THREE TIMES DAILY BEFORE MEAL(S) potassium chloride 10 mEq tablet extended release 10 meq PO DAILY pantoprazole 40 mg tablet,delayed release (DR/EC) 40 mg PO BID Patient Comments: TAKE 1 TABLET BY MOUTH ONCE DAILY IN THE AFTERNOON, TAKE ONE HOUR BEFORE EVENING MEAL Discontinued metoprolol succinate [Toprol XL] 25 mg tablet extended release 24 hr 25 mg PO DAILY Hold Instructions: Pt has been DC'd Patient Comments: TAKE 1 TABLET BY MOUTH ONCE DAILY spironolactone 25 mg Tablet 50 mg PO DAILY Hold Instructions: Pt has been DC'd levofloxacin 750 mg tablet 750 mg PO DAILY 2 Days Qty: 2 0RF Referrals / Follow Up: Santino Mcneill MD [Primary Care Provider] - Disposition Disposition (needs filled in before D/C Order can be placed): Home, Self Care Charges/Coding Visit Charges Inpatient E&M: 10075 Disch Hosp
--- NOTE | 2022-10-26 14:26 | PHA.DC.MR.R ---
Pharmacy [place] Med Reconciliation Pharmacy Service has performed discharge medication reconciliation for this patient. The patient's discharge medication list was reviewed for discrepancies and discrepancies were resolved. Medications at Discharge Home Medications citalopram 10 mg tablet 10 tab PO DAILY DEPRESSION 07/20/19 ergocalciferol (vitamin D2) 1,250 mcg (50,000 unit) capsule 50,000 units PO METZ SUPPLEMETNT 07/20/19 lorazepam 1 mg tablet 1 mg PO DAILY ANXIETY 07/20/19 lovastatin 40 mg tablet 40 mg PO DAILY CHOLESTEROL 07/20/19 metformin 1,000 mg tablet 1,000 mg PO BID DM 07/20/19 pioglitazone 30 mg tablet 30 mg PO DAILY DM 07/20/19 allopurinol 300 mg tablet 300 mg PO DAILY Gout 10/20/22 folic acid 1 mg tablet 1 mg PO DAILY supplement 10/20/22 furosemide 20 mg tablet 20 mg PO DAILY Water pill 10/20/22 pantoprazole 40 mg tablet,delayed release 40 mg PO BID Stomach pill 10/20/22 potassium chloride 10 mEq tablet,extended release 10 meq PO DAILY supplement 10/20/22 sucralfate 1 gram tablet 1 g PO TID Stomach pill 10/20/22
--- NOTE | 2022-10-26 16:38 | CASEMGMT ---
RONAK LOVE Chart review: Patient was admitted 10/20-10/23/22 for sepsis UTI. See RONAK LOVE assessment from 10/21/22. Patient was discharge to home with sister and son with FWW and follow-up plans in place. Patient was discharged on levofloxacin 750 mg tablet for 2 doses. Patient returned on 10/25/22 for increased confusion. Sister states that patient had accidental taken both doses of ATB which caused confusion. Patient is alert and oriented and has order for discharge home today. RONAK LOVE in to discuss needs with patient. Patient states she has follow-up with PCP in November but will attempt to reschedule appt sooner. Patient states she is using her new walker at home. Patient denies further needs at this time. Patient lives with son and sister and sister assists patient with medications and help around the home. Patient had no further questions or concerns. RONAK LOVE advised patient to follow-up with PCP should she have further concerns. Patient voiced understanding.
== END 2022-10-26 17:06 | disposition home or self-care (01) | DRG 948 ==
LOC: ED 21:52 → PCU 23:11
PROVIDERS: Admitting Provider Family Medicine; Emergency Provider Emergency Medicine; PCP Family Medicine; Visit Provider Hospitalist
DX: R41.82 Altered mental status, unspecified (principal); N17.9 Acute kidney failure, unspecified; D69.6 Thrombocytopenia, unspecified; E11.9 Type 2 diabetes mellitus without complications; K75.81 Nonalcoholic steatohepatitis (NASH); F32.A Depression, unspecified; I10 Essential (primary) hypertension; E78.2 Mixed hyperlipidemia; I25.10 Atherosclerotic heart disease of native coronary artery without angina pectoris; F41.9 Anxiety disorder, unspecified; L29.3 Anogenital pruritus, unspecified; Z87.891 Personal history of nicotine dependence; Z79.84 Long term (current) use of oral hypoglycemic drugs; Z87.440 Personal history of urinary (tract) infections; Z79.899 Other long term (current) drug therapy
CPT/HCPCS: 36415; 70450; 80053; 81001; 82140; 83605; 84484; 85025; 93005; 96360; 96361; 99221; 99285; J7030; G0378

== ENCOUNTER 2022-11-23 09:59 | Inpatient (IN) | payer MEDICARE, MEDICAID, SELFPAY ==
[2022-11-23 10:00] VITALS: BP 146/72; PULSE 96; RESP 14; TEMP 36.4; O2SAT 98; BMI 22.4
--- NOTE | 2022-11-23 10:17 | EKG12_ITS ---
Test Reason : ABN EKG Blood Pressure : / mmHG Vent. Rate : 094 BPM Atrial Rate : 094 BPM P-R Int : 182 ms QRS Dur : 148 ms QT Int : 444 ms P-R-T Axes : 088 -55 010 degrees QTc Int : 555 ms Normal sinus rhythm Right bundle branch block Left anterior fascicular block Bifascicular block Minimal voltage criteria for LVH, may be normal variant ( R in aVL ) Septal infarct , age undetermined Abnormal ECG Confirmed by ANDREW REDDY, JASON ([id number]), purchasing expeditor JUJU MOORE ([id number]) on 11/25/2022 1:33:45 PM Referred By: ES/RU Confirmed By:JASON MORALES MD
--- NOTE | 2022-11-23 10:18 | EDS_ITS ---
HPI History of Present Illness Chief Complaint: General Illness Detail of Chief Complaint: Generalized weakness and not feeling well Informant: patient and family Narrative Narrative: Patient presents to the emergency department with her sister whom she lives with from her primary care physician's office. Patient was being seen for failure to thrive and generalized weakness. EKG was performed in the office and it was noted that she had A-fib with a rate in the 90s and her PCP wanted patient evaluated in the emergency department. Patient does not have history of A-fib. She does have history of coronary artery disease with prior CABG. She denies chest pain. She does describe some exertional dyspnea. Patient had recent admission to hospital for urosepsis. Patient has been describing some lower back pain off-and-on but denies dysuria or urgency or frequency. She has had no fevers. Her sister states that she is really weak and having a hard time walking now even with a walker. She had decreased p.o. intake. [facility] Medical History Anemia Anxiety Cirrhosis of liver with ascites Coronary artery disease due to lipid rich plaque Diabetes Essential hypertension History of recurrent UTIs HTN (hypertension) Hyperlipidemia, mixed Iron deficiency anemia Iron malabsorption Liver cirrhosis secondary to nonalcoholic steatohepatitis (BARAKAT) Obstructive sleep apnea Pancytopenia Portal hypertensive gastropathy Primary insomnia Secondary esophageal varices without bleeding Home Medications citalopram 10 mg tablet 10 tab PO DAILY DEPRESSION 07/20/19 [History Last Taken 10/06/20] ergocalciferol (vitamin D2) 1,250 mcg (50,000 unit) capsule 50,000 units PO METZ SUPPLEMETNT 07/20/19 [History Last Taken 10/05/20] lorazepam 1 mg tablet 1 mg PO DAILY ANXIETY 07/20/19 [History Last Taken 10/19/22] lovastatin 40 mg tablet 40 mg PO DAILY CHOLESTEROL 07/20/19 [History Last Taken 10/19/22] metformin 1,000 mg tablet 1,000 mg PO BID DM 07/20/19 [History Last Taken 10/20/22] pioglitazone 30 mg tablet 30 mg PO DAILY DM 07/20/19 [History Last Taken ] allopurinol 300 mg tablet 300 mg PO DAILY Gout 10/20/22 [History Last Taken 10/20/22] folic acid 1 mg tablet 1 mg PO DAILY supplement 10/20/22 [History Last Taken 10/20/22] furosemide 20 mg tablet 20 mg PO DAILY Water pill 10/20/22 [History Last Taken 10/20/22] pantoprazole 40 mg tablet,delayed release 40 mg PO BID Stomach pill 10/20/22 [History Last Taken 10/20/22] potassium chloride 10 mEq tablet,extended release 10 meq PO DAILY supplement 10/20/22 [History Last Taken 10/20/22] sucralfate 1 gram tablet 1 g PO TID Stomach pill 10/20/22 [History Last Taken 10/20/22] Allergy/AdvReac Type Severity Reaction Status Date / Time amlodipine [From Norvasc] Allergy Unknown Swelling Verified 10/25/22 19:32 in LE nitrofurantoin Allergy Unknown Hives/Itchi Verified 10/25/22 19:32 [From Macrobid] ng codeine AdvReac Unknown Excessively Verified 10/25/22 19:32 tired Surgical History H/O heart surgery H/O hernia repair Hx of CABG Social History Smoking Status: Former smoker alcohol intake: never ROS ROS ED Review of Systems ROS Unobtainable: other Constitutional Constitutional ED: Reports lethargy; Denies chills, fever(s), sweats or weight l oss Eyes Eyes: Denies blurry vision, change in vision or diplopia ENT ENT ED: Denies rhinorrhea or sore throat Cardiovascular Cardiovascular: Denies chest pain, orthopnea or racing heartbeat Respiratory/Chest Respiratory/Chest: Reports dyspnea and dyspnea on exertion; Denies cough, orthopnea or sputum Gastrointestinal Gastrointestinal: Denies abdominal pain, diarrhea, nausea or vomiting Genitourinary Genitourinary ED: Denies dysuria, hematuria or urinary frequency Musculoskeletal Musculoskeletal: Reports back pain; Denies arthralgias, myalgias or neck pain Integumentary Denies abscess, Abrasions or rash Neurologic Neurologic: Reports weakness; Denies headache(s) Psychiatric Psychiatric: Denies anxiety, depression or suicidal thoughts Endocrine Endocrinology: Denies polydipsia, polyphagia or polyuria Hematologic/Lymphatic Hematologic/Lymphatic: Denies easy bleeding, easy bruising or lymphadenopathy Allergic/Immunologic Allergic/Immunologic ED: Denies mouth swelling, tongue swelling or urticaria EXAM Physical Exam Const Vital Signs: 11/23/22 10:00 11/23/22 09:59 11/23/22 11:59 Temperature 97.6 F L Temperature Source Temporal Pulse Rate 96 64 Respiratory Rate 14 16 Respiratory Effort Non-Labored Respiratory Pattern Normal Blood Pressure 146/72 H 134/78 H Blood Pressure Mean 96 96 Pulse Ox 98 99 Oxygen Delivery Method Room Air Room Air Positive well nourished and well developed General Appearance ED: well developed and NAD HEENT Reports TM's clear and moist mucous membranes normocephalic and atraumatic; Negative for trauma or tenderness Tympanic Membrane ED: Yes TM's clear Eyes PERRL and EOMs intact bilaterally General Eye ED: Negative for pale conjunctiva or scleral icterus Neck no lymphadenopathy, supple and no JVD General: Negative for tenderness Chest Wall inspection of chest normal and palpation of chest normal Chest: Negative for tenderness Resp normal respiratory effort and clear to auscultation bilaterally Effort and Inspection: Negative for respiratory distress or pain with movement Auscultation: Negative for rhonchi, wheezes or diminished lung sounds Cardio regular rate, regular rhythm, S1 normal heart sound, S2 normal heart sound and no murmurs Peripheral Pulses: pulses 2+ throughout GI normal to inspection, nondistended, normoactive bowel sounds, soft to palpation, non-tender, non-distended and no masses Back/Spine no CVA tenderness and no thoracic nor lumbar tenderness Extremity normal to inspection General Extremety ED: Negative for edema General Extremity: Negative for edema Neuro oriented x3, CN's II-XII intact bilaterally, no sensory deficits noted and gait normal Sensorium / Orientation: awake, alert, oriented to person, oriented to place and oriented to time Motor Exam: strength 5/5 throughout and strength abnormal Psych mental status grossly normal Skin no rashes or lesions noted and no wounds MDM MDM MDM Narrative Medical decision making narrative: Presents with generalized weakness and weight loss and decreased p.o. intake. PCP was concerned she may be in A-fib which she does not have a history of. IV line established. Patient placed on a court recorder. EKG obtained showed a sinus rhythm here with a rate of 94 bpm with left anterior fascicular block. CBC with differential showed a white count of 5.3 with hemoglobin 13.6 and platelet count of 74. Chemistries showed a depressed potassium of 2.8 as well as an elevated calcium of 12.8. LFTs unremarkable total bili was elevated 2.8. Urinalysis positive for nitrites and +4 bacteria but only 0-5 WBCs. Did send off a urine culture. Patient received 40 mEq of potassium chloride p.o. Patient was given IV fluids. Case will be discussed with hospitalist to evaluate patient for admission for failure to thrive and hypokalemia as well as hyper calcium Fariba. Patient apparently has early satiety and has been unable to eat due to this and cannot get into see GI for a scope until January from what the sister tells me. Lab Data Attestation: I reviewed the patient's lab results. Labs: Laboratory Results - last 24 hr 11/23/22 11/23/22 10:30 12:12 WBC 5.3 RBC 3.87 L Hgb 13.6 Hct 40.7 MCV 105.2 H MCH 35.1 H MCHC 33.4 RDW Std Deviation 62.3 H RDW Coeff of Codey 16.1 H Plt Count 74 L MPV 11.3 Immature Gran % (Auto) 0.600 Neut % (Auto) 80.2 H Lymph % (Auto) 10.5 L [place] % (Auto) 6.2 Eos % (Auto) 2.1 Baso % (Auto) 0.4 Absolute Neuts (auto) 4.3 Absolute Lymphs (auto) 0.56 L Nucleated RBC % 0 Sodium 138 Potassium 2.8 L Chloride 97 L Carbon Dioxide 35.0 H Anion Gap 6 BUN 27 H Creatinine 1.77 H Estim Creat Clear Calc 23.42 Est GFR (MDRD) Af Amer 36 L Est GFR (MDRD) Non-Af 30 L BUN/Creatinine Ratio 15.3 Glucose 102 Lactic Acid 3.2 H* Calcium 12.8 H* Total Bilirubin 2.80 H AST 29 ALT 25 Alkaline Phosphatase 106 Ammonia 28.0 Troponin I High Sens 48 Total Protein 6.5 Albumin 3.2 Globulin 3.3 Albumin/Globulin Ratio 1.0 Urine Color Yellow Urine Clarity Cloudy Urine pH 6.0 Ur Specific [place] 1.025 Urine Protein 30 H Urine Glucose (UA) Normal Urine Ketones 5 H Urine Occult Blood 25 H Urine Nitrite Positive H Urine Bilirubin 1 H Urine Urobilinogen 1 H Ur Leukocyte Esterase 100 H Urine RBC 0-5 SEEN Urine WBC 0-5 SEEN Ur Squamous Epith Cells 0-5 SEEN Calcium Oxalate Crystal 1+ Urine Bacteria 4+ Hyaline Casts 0-5 SEEN Urine Mucus 1+ Radiography Diagnostic Testing: Clinical Impression(s) from Imaging Studies Chest X-Ray 11/23/22 10:50 IMPRESSION: Cardiomegaly. No acute abnormality is seen. Electronically Signed: Jose Curtis MD at 11:03 EDT , 1 view chest x-ray obtained interpreted by myself as no acute disease process. No evidence of infiltrate or pneumothorax. Radiology in agreement. EKG Initial EKG: Attestation: I personally reviewed and interpreted this EKG as follows: Comments: Sinus rhythm with a rate of 94 bpm with right bundle branch block and left anterior fascicular block. Prior EKG tracings: available for review Prior: Unchanged Discharge Plan Triage Chief Complaint: General Illness ED Provider: Erik Tang Dx/Rx/DC Orders Clinical Impression: ANN (acute kidney injury), Acute hypokalemia, Hypercalcemia, AF (paroxysmal atrial fibrillation), Adult failure to thrive Prescriptions: No Action citalopram 10 mg tablet 10 tab PO DAILY ergocalciferol (vitamin D2) 1,250 mcg (50,000 unit) capsule 50,000 units PO METZ Patient Comments: TAKE 1 CAPSULE BY MOUTH ONCE A WEEK lorazepam 1 mg tablet 1 mg PO DAILY lovastatin 40 mg tablet 40 mg PO DAILY metformin 1,000 mg tablet 1,000 mg PO BID pioglitazone 30 mg tablet 30 mg PO DAILY furosemide 20 mg tablet 20 mg PO DAILY allopurinol 300 mg tablet 300 mg PO DAILY folic acid 1 mg tablet 1 mg PO DAILY Patient Comments: TAKE 1 TABLET BY MOUTH ONCE DAILY sucralfate 1 gram tablet 1 g PO TID Patient Comments: TAKE 1 TABLET BY MOUTH THREE TIMES DAILY BEFORE MEAL(S) potassium chloride 10 mEq tablet extended release 10 meq PO DAILY pantoprazole 40 mg tablet,delayed release (DR/EC) 40 mg PO BID Patient Comments: TAKE 1 TABLET BY MOUTH ONCE DAILY IN THE AFTERNOON, TAKE ONE HOUR BEFORE EVENING MEAL Primary Care Provider: Santino Mcneill Referrals: Santino Mcneill MD [Primary Care Provider] - Disposition Disposition: Acute Care Hospital [facility]
[2022-11-23 10:48] LABS: Absolute Lymphocyte Count 0.56 X10^3/uL (0.83-4.51); Absolute Neutrophil Count 4.3 X10^3/uL (2.0-7.7); Basophil# 0.02 X10^3/uL; Basophil% 0.4 % (0-1); Differential Indicated SCAN CRITERIA MET; Eosinophil# 0.11 X10^3/uL; Eosinophils% 2.1 % (0-5); Hematocrit 40.7 % (37-47); Hemoglobin 13.6 g/dL (12.0-15.0); Lymphocyte # 0.56 X10^3/ul (0.83-4.51); Lymphocyte % 10.5 % (19-41); Mean Corp Hgb Conc 33.4 g/dL (32-36); Mean Corpuscular Hgb 35.1 pg (27.0-32.0); Mean Corpuscular Volume 105.2 fL (81-99); Mean Platelet Vol. 11.3 fl (6.2-12.0); Monocyte# 0.33 X10^3/uL; Monocyte% 6.2 % (0-10); NRBC Flagged by Analyzer 0 % (0-5); Neutrophil # 4.27 X10^3/uL (2.7-7.7); Neutrophil % 80.2 % (47-70); POSITIVE COUNT YES; POSITIVE DIFFERENTIAL YES; Platelet Count 74 K/mm3 (150-450); RBC Distribution Width CV 16.1 % (11.6-14.6); RBC Distribution Width SD 62.3 fl (35.1-43.9); Red Blood Count 3.87 M/mm3 (4.2-5.4); White Blood Count 5.3 K/mm3 (4.4-11.0)
--- NOTE | 2022-11-23 10:50 | RAD_ITS ---
STUDY: X-RAY CHEST REASON FOR EXAM: Female, 72 years old. Dyspnea TECHNIQUE: Single AP portable view of the chest. COMPARISON: Comparison is made with prior study dated October 06, 2020. FINDINGS: EKG electrodes are seen. The lungs are clear and expanded. There is no demonstrated pleural abnormality. Sternal cerclage wires and vascular clips are present from a prior sternotomy and coronary artery bypass graft procedure (CABG). Cardiomegaly. Normal mediastinum and farnaz. Normal visualized pulmonary arteries. There is atherosclerotic calcification of the aortic arch with tortuosity. Normal visualized thoracic spine. Normal visualized ribs, clavicles, and shoulders. Hiatal hernia. RAD/Chest 1 View (Portable) IMPRESSION: Cardiomegaly. No acute abnormality is seen. Electronically Signed: Jose Curtis MD at 11:03 EDT ,
[2022-11-23] MEDS: 0.9% Normal Saline (1000mL) 1,000 ML 150 ML IV (11:02)
[2022-11-23 11:33] LABS: AST(SGOT) 29 U/L (15-37); Alanine Aminotransfer ALT/SGPT 25 U/L (13-56); Albumin, Serum 3.2 g/dL (3.2-5.0); Alkaline Phosphatase 106 U/L (45-117); Anion Gap 6 (5-15); BUN 27 mg/dL (7-18); BUN/Creat Ratio 15.3 RATIO (10-20); Calcium,Total 12.8 mg/dL (8.5-10.1); Chloride 97 mmol/L (98-107); Creatinine, Serum 1.77 mg/dL (0.55-1.02); EST Glomerular Filtration Rate 30 mL/min (>60); Est Glom Filt Rate - Afr Amer 36 mL/min (>60); Estimated Creatinine Clearance 23.42 ml/min; Globulin 3.3 g/dL (2.2-4.2); Glucose 102 mg/dL (74-106); Potassium 2.8 mmol/L (3.5-5.1); Protein, Total 6.5 g/dL (6.4-8.2); Sodium Level 138 mmol/L (136-145); Troponin-I HS 48 pg/mL (3.0-54.0)
[2022-11-23 11:36] LABS: Lactic Acid 3.2 mmol/L (0.4-1.9)
[2022-11-23] MEDS: Potassium Chloride Oral Tablet 20 MEQ 40 MEQ PO (11:47)
[2022-11-23] MEDS: 0.9% Normal Saline (1000mL) 1,000 ML 999 ML IV (11:47)
[2022-11-23 11:59] VITALS: BP 134/78; PULSE 64; RESP 16; O2SAT 99
[2022-11-23 12:31] LABS: Color, Urine Yellow (Yellow); Glucose, Dipstick Normal (Normal); Ketone-Dipstick 5 mg/dl (Negative); Leukocyte Esterase-Dipstick 100 /ul (Negative); Nitrite-Dipstick Positive (Negative); Occult Blood-Urine 25 /ul (Negative); Protein-Dipstick 30 mg/dl (Negative); Specific Gravity, Urine 1.025 (1.002-1.030); Urine Clarity Cloudy (Clear); Urine Urobilinogen 1 mg/dl (Normal)
[2022-11-23 12:34] LABS: Urine Bilirubin Dipstick 1 mg/dL (Negative)
[2022-11-23 12:50] LABS: Bacteria 4+ /hpf (None Seen); Calcium Oxalate Crystals Ur 1+ /hpf (<or=2+); Hyaline Cast 0-5 SEEN /lpf (0-5); Mucous, Urine 1+ /hpf (<or=2+); Red Blood Cells-Urine 0-5 SEEN /hpf (0-5); Squamous Epithelial Cells - UA 0-5 SEEN /hpf (5-10); White Blood Cells 0-5 SEEN /hpf (0-5)
[2022-11-23 13:51] VITALS: BP 147/69; PULSE 81; RESP 18; TEMP 36.3; O2SAT 97
[2022-11-23 14:40] LABS: Reflex Lactate? Y
[2022-11-23 14:55] VITALS: BP 137/70; PULSE 82; RESP 20; TEMP 36.4; O2SAT 98
[2022-11-23 15:14] VITALS: BMI 23.2
[2022-11-23 16:32] LABS: Lactic Acid 2.7 mmol/L (0.4-1.9)
[2022-11-23] MEDS: 0.9% Normal Saline (1000mL) 1,000 ML 100 ML IV (16:44)
[2022-11-23] MEDS: Ondansetron 4 MG/2 ML Vial IV (16:46)
[2022-11-23] MEDS: Potassium Chloride 10mEq/100mL 10 MEQ/100 ML IV.SOLN. 100 MEQ IV BOLUS ×4 (16:52→23:22)
[2022-11-23] MEDS: Sucralfate 1 GM Tablet PO (18:26)
[2022-11-23 18:37] LABS: Bedside Glucose 107 mg/dL (74-106)
--- NOTE | 2022-11-23 19:01 | CON.PCM.GI_ITS ---
HPI Consult Data Date of Consult: 11/23/22 HPI Narrative Reason for Consultation: Cirrhosis HPI Narrative: GIGI RDZ, is a 72 F past medical history significant for DAVIS cirrhosis, [id number] type 2 diabetes, anxiety/depression, hypertension, thrombocytopenia, and neutropenia who presents to the emergency department with her sister whom she lives with from her primary care physician's office. Patient was being seen for failure to thrive and generalized weakness. EKG was performed in the office and it was noted that she had A-fib with a rate in the 90s and her PCP wanted patient evaluated in the emergency department. Patient does not have history of A-fib. She does have history of coronary artery disease with prior CABG. She denies chest pain. She does describe some exertional dyspnea. Patient had recent admission to hospital for urosepsis. Patient has been describing some lower back pain off-and-on but denies dysuria or urgency or frequency. She has had no fevers. Her sister states that she is really weak and having a hard time walking now even with a walker. She had decreased p.o. intake. She has lost 30lbs as per the sister. Her abdomen has become larger with ascites as per her sister. Her last paracentesis was in 2021. [facility] Medical History (Updated 11/23/22 @ 19:[address] 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 steatohepatitis (DAVIS) Myocardial infarct Obstructive sleep apnea Pancytopenia Portal hypertensive gastropathy Primary insomnia Secondary esophageal varices without bleeding Thrombocytopenia Home Medications citalopram 10 mg tablet 10 tab PO DAILY DEPRESSION 07/20/19 [History Last Taken 11/23/22] ergocalciferol (vitamin D2) 1,250 mcg (50,000 unit) capsule 50,000 units PO METZ SUPPLEMETNT 07/20/19 [History Last Taken 10/05/20] lorazepam 1 mg tablet 1 mg PO DAILY ANXIETY 07/20/19 [History Last Taken 11/22/22] lovastatin 40 mg tablet 40 mg PO DAILY CHOLESTEROL 07/20/19 [History Last Taken 11/22/22] metformin 1,000 mg tablet 1,000 mg PO BID DM 07/20/19 [History Last Taken 11/23/22] pioglitazone 30 mg tablet 30 mg PO DAILY DM 07/20/19 [History Last Taken 11/23/22] allopurinol 300 mg tablet 300 mg PO DAILY Gout 10/20/22 [History Last Taken 11/23/22] folic acid 1 mg tablet 1 mg PO DAILY supplement 10/20/22 [History Last Taken 11/23/22] furosemide 20 mg tablet 20 mg PO DAILY Water pill 10/20/22 [History Last Taken 11/23/22] pantoprazole 40 mg tablet,delayed release 40 mg PO BID Stomach pill 10/20/22 [History Last Taken 11/23/22] potassium chloride 10 mEq tablet,extended release 10 meq PO DAILY supplement 10/20/22 [History Last Taken 11/23/22] sucralfate 1 gram tablet 1 g PO TID Stomach pill 10/20/22 [History Last Taken 11/23/22] spironolactone 25 mg tablet (Aldactone) 50 mg PO DAILY FLUID 11/23/22 [History Last Taken 11/23/22] Allergy/AdvReac Type Severity Reaction Status Date / Time levofloxacin [From Levaquin] Allergy Intermediate hallunated Verified 11/23/22 14:11 amlodipine [From Norvasc] Allergy Unknown Swelling Verified 11/23/22 14:11 in LE nitrofurantoin Allergy Unknown Hives/Itchi Verified 11/23/22 14:11 [From Macrobid] ng codeine AdvReac Unknown Excessively Verified 11/23/22 14:11 tired Surgical History (Updated 11/23/22 @ 15:21 by Ping Rapp) H/O heart surgery H/O hernia repair History of cholecystectomy Hx of CABG Social History Smoking Status: Former smoker alcohol intake: never ROS Constitutional Constitutional: Denies chills or fever(s) Eyes Eyes: Denies blurry vision ENT HEENT: Denies abnormal hearing Cardiovascular Cardiovascular: Denies chest pain Respiratory/Chest Respiratory/Chest: Denies shortness of breath at rest Gastrointestinal Gastrointestinal: Denies abdominal pain Genitourinary Genitourinary: Denies dysuria Musculoskeletal Musculoskeletal: Denies back pain Neurologic Neurologic: Reports confusion Psychiatric Psychiatric: Reports anxiety Physical Exam Const alert, oriented x3, no apparent distress, average body habitus, healthy appea ring and well nourished Constitutional Narrative: Pleasant elderly female, sitting comfortably in bedside chair, conversing normally, no acute distress. General Appearance: cooperative and comfortable HEENT normocephalic, head/scalp atraumatic, hearing grossly normal bilaterally, nasal mucous membranes and turbinates normal and moist oral mucous membranes Eyes PERRL, EOMs intact bilaterally and conjunctivae normal Neck full ROM, no lymphadenopathy and supple Lymph Lymphatic: no lymphadenopathy noted Chest inspection of chest normal Resp normal respiratory effort, normal air movement, no use of accessory muscles and clear to auscultation bilaterally Cardio regular rate, regular rhythm, no murmurs and peripheral pulses 2+ throughout GI normal to inspection, nondistended, normoactive bowel sounds, soft to palpation, non-tender and non-distended Back/Spine normal ROM Extremity normal to inspection, full ROM and no pedal edema Skin no rashes or lesions noted Psych mental status grossly normal Lab / Micro Data 11/23/22 10:30 11/23/22 10:30 Labs: Laboratory Results - last 24 hr 11/23/22 10:30: WBC 5.3, RBC 3.87 L, Hgb 13.6, Hct 40.7, MCV 105.2 H, MCH 35.1 H , MCHC 33.4, RDW Std Deviation 62.3 H, RDW Coeff of Codey 16.1 H, Plt Count 74 L, MPV 11.3, Immature Gran % (Auto) 0.600, Neut % (Auto) 80.2 H, Lymph % (Auto) 10.5 L, [place] % (Auto) 6.2, Eos % (Auto) 2.1, Baso % (Auto) 0.4, Absolute Neuts (auto) 4.3, Absolute Lymphs (auto) 0.56 L, Nucleated RBC % 0, Sodium 138, Potassium 2.8 L, Chloride 97 L, Carbon Dioxide 35.0 H, Anion Gap 6, BUN 27 H, Creatinine 1.77 H, Estim Creat Clear Calc 23.42, Est GFR (MDRD) Af Amer 36 L, Est GFR (MDRD) Non-Af 30 L, BUN/Creatinine Ratio 15.3, Glucose 102, Lactic Acid 3.2 H*, Calcium 12.8 H*, Total Bilirubin 2.80 H, AST 29, ALT 25, Alkaline Phosphatase 106, Ammonia 28.0, Troponin I High Sens 48, Total Protein 6.5, Albumin 3.2, Globulin 3.3, Albumin/Globulin Ratio 1.0 11/23/22 12:12: Urine Color Yellow, Urine Clarity Cloudy, Urine pH 6.0, Ur Specific [place] 1.025, Urine Protein 30 H, Urine Glucose (UA) Normal, Urine Ket ones 5 H, Urine Occult Blood 25 H, Urine Nitrite Positive H, Urine Bilirubin 1 H , Urine Urobilinogen 1 H, Ur Leukocyte Esterase 100 H, Urine RBC 0-5 SEEN, Urine WBC 0-5 SEEN, Ur Squamous Epith Cells 0-5 SEEN, Calcium Oxalate Crystal 1+, Urine Bacteria 4+, Hyaline Casts 0-5 SEEN, Urine Mucus 1+ 11/23/22 14:50: Lactic Acid 2.7 H* 11/23/22 18:18: POC Glucose 107 H Radiology Impression Chest X-Ray 11/23/22 10:50 IMPRESSION: Cardiomegaly. No acute abnormality is seen. Electronically Signed: Jose Curtis MD at 11:03 EDT , Assessment & Plan Assessment/Plan (1) Portal vein thrombosis: (2) Pancytopenia: PLAN: Plan 72-year-old with past medical history of Davis cirrhosis current MELD-Na of 18 and she is a child Cali class B. That carries a 90-day mortality of 65%. Her cirrhosis is complicated by complicated by mild encephalopathy, ascites, pancytopenia, varices, recent diagnosis of colitis secondary to hypoalbuminemia presents with 30 pound weight loss and worsening ascites. Differential diagnosis does include hepatocellular carcinoma, worsening sarcopenia secondary to cirrhosis, underlying malignancy and ascites fluid such as ovarian malignancy, pancreatic, lymphoma. Also in the differential diagnosis would include spontaneous bacterial peritonitis. Recommendations: Paracentesis with cytology, cell count with differential, AFP, protein electrophoresis, CA125, CA 19-9. She should undergo an upper endoscopy to evaluate upper GI tract for varices. At time and we can put her on on prophylaxis for varices with nadolol or she can undergo banding program. Charges/Coding Visit Charges Inpatient E&M: 77799 Init Hosp L3
[2022-11-23 19:59] LABS: LDH 198 U/L (84-246)
--- NOTE | 2022-11-23 20:51 | HP.PCM.HOS_ITS ---
HPI - General General Date of Admission: 11/23/22 Date of Service: 11/23/22 Chief Complaint: Declining functional status, overall weakness, weight loss HPI Narrative GIGI RDZ, is a 72 F who presents to the emergency room at [facility] after being directed there by her PCP, according to the patient's sister, she has had decreased appetite with significant weight loss over the last 2 months, there was a question whether the patient had atrial fibrillation on an EKG that was done in her PCPs office, I reviewed the EKG and it appears that the patient is in normal sinus with some PACs and PVCs with a right bundle branch block pattern, patient's EKG today in the emergency room showed a normal sinus rhythm at 94 with a right bundle branch block. Patient has a history of nonalcoholic cirrhosis of the liver and she follows with an outside hr internship according to the patient's sister who was there at the time my examination. Majority of the patient's history was obtained from the patient's sister, patient appeared weak and lethargic during my examination. Patient lives with her sister and her son, her sister states that she does not feel that she is able to take care of her sister she states both she and her sisters son work and are not there during the day. Work-up in the emergency room included an EKG which showed a normal sinus rhythm, patient's CBC revealed a normal white blood cell count, hemoglobin was 13.6, patient's platelet count was low at 74,000, chemistry profile was abnormal for potassium of 2.8, creatinine of 1.77, patient's lactic acid was 3.2 and calcium was 12.8. Patient's bilirubin was 2.8. Patient had +4 bacteria in the urine but no red cells or white cells, she had positive nitrites. Imaging studies included a chest x-ray which showed cardiomegaly with no acute abnormality. Patient will be placed into observation status for hypokalemia, hypercalcemia, and dehydration-labs will be monitored, patient will be given IV potassium, she was given oral potassium in the emergency room. I will hold the patient's diuretics at this time and provide her with IV fluids. Gastroenterology will see the patient due to the patient's complaints of weight loss over the last several weeks and inability to eat due to a feeling of fullness. She will need an EGD. I have elected to place the patient on oral antibiotics for a possible UTI-patient tells me she has no symptoms of dysuria or urinary frequency however. She will be seen by PT and OT, she will most likely need at least temporary placement in a [facility] facility for short-term rehab services. Aurora wang's overall functional status is poor. Patient will be monitored for any arrhythmias. [facility] Medical History (Updated 11/23/22 @ 19:[address] 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) Myocardial infarct Obstructive sleep apnea Pancytopenia Portal hypertensive gastropathy Primary insomnia Secondary esophageal varices without bleeding Thrombocytopenia Home Medications citalopram 10 mg tablet 10 tab PO DAILY DEPRESSION 07/20/19 [History Last Taken 11/23/22] ergocalciferol (vitamin D2) 1,250 mcg (50,000 unit) capsule 50,000 units PO METZ SUPPLEMETNT 07/20/19 [History Last Taken 10/05/20] lorazepam 1 mg tablet 1 mg PO DAILY ANXIETY 07/20/19 [History Last Taken 11/22/22] lovastatin 40 mg tablet 40 mg PO DAILY CHOLESTEROL 07/20/19 [History Last Taken 11/22/22] metformin 1,000 mg tablet 1,000 mg PO BID DM 07/20/19 [History Last Taken 0 11/23/22] pioglitazone 30 mg tablet 30 mg PO DAILY DM 07/20/19 [History Last Taken 11/23/22] allopurinol 300 mg tablet 300 mg PO DAILY Gout 10/20/22 [History Last Taken 11/23/22] folic acid 1 mg tablet 1 mg PO DAILY supplement 10/20/22 [History Last Taken 11/23/22] furosemide 20 mg tablet 20 mg PO DAILY Water pill 10/20/22 [History Last Taken 11/23/22] pantoprazole 40 mg tablet,delayed release 40 mg PO BID Stomach pill 10/20/22 [History Last Taken 11/23/22] potassium chloride 10 mEq tablet,extended release 10 meq PO DAILY supplement 10/20/22 [History Last Taken 11/23/22] sucralfate 1 gram tablet 1 g PO TID Stomach pill 10/20/22 [History Last Taken 11/23/22] spironolactone 25 mg tablet (Aldactone) 50 mg PO DAILY FLUID 11/23/22 [History Last Taken 11/23/22] Allergy/AdvReac Type Severity Reaction Status Date / Time levofloxacin [From Levaquin] Allergy Intermediate hallunated Verified 11/23/22 14:11 amlodipine [From Norvasc] Allergy Unknown Swelling Verified 11/23/22 14:11 in LE nitrofurantoin Allergy Unknown Hives/Itchi Verified 11/23/22 14:11 [From Macrobid] ng codeine AdvReac Unknown Excessively Verified 11/23/22 14:11 tired Surgical History (Updated 11/23/22 @ 15:21 by Ping Rapp) H/O heart surgery H/O hernia repair History of cholecystectomy Hx of CABG Social History Smoking Status: Former smoker alcohol intake: never ROS ROS Narrative Review of systems was unable to be obtained from the patient due to lethargy and fatigue, she was able to answer some simple questions appropriately, majority of the patient's history was obtained from the patient's sister who was present at the time of my examination Review of Systems ROS Unobtainable: due to mental condition Vital Signs Vital Signs Vital Signs: 11/23/22 10:00 11/23/22 09:59 11/23/22 11:59 Temperature 97.6 F L Temperature Source Temporal Pulse Rate 96 64 Respiratory Rate 14 16 Respiratory Effort Non-Labored Respiratory Depth Respiratory Pattern Normal Blood Pressure 146/72 H 134/78 H Blood Pressure Mean 96 96 Blood Pressure Source Blood Pressure Position Blood Pressure Location Pulse Ox 98 99 Oxygen Delivery Method Room Air Room Air 11/23/22 13:51 11/23/22 14:55 11/23/22 18:00 Temperature 97.4 F L 97.5 F L Temperature Source Oral Oral Pulse Rate 81 82 Respiratory Rate 18 20 H Respiratory Effort Normal Respiratory Depth Normal Respiratory Pattern Normal Blood Pressure 147/69 H 137/70 H Blood Pressure Mean 95 92 Blood Pressure Source Monitor Blood Pressure Position Semi-Fowlers Blood Pressure Location Right Arm Pulse Ox 97 98 Oxygen Delivery Method Room Air Room Air Room Air Weight Weight: 59.449 kg Body Mass Index (BMI) 23.2 Physical Exam Const Constitutional Narrative: Patient appears to be older than her stated age, she appears to be frail and cachectic, she appears lethargic and sleepy but does answer simple questions appropriately, she is oriented as to person and place, she is aware of the year General Appearance: cooperative, well kempt and well developed Orientation / Consciousness: awake, oriented to person, oriented to place, oriented to time and lethargic HEENT normocephalic, head/scalp atraumatic, hearing grossly normal bilaterally and moist oral mucous membranes Eyes PERRL, EOMs intact bilaterally and conjunctivae normal Neck supple, no JVD, thyroid normal and no carotid bruits General: trachea midline Resp normal respiratory effort, no retractions, no use of accessory muscles and clear to auscultation bilaterally Auscultation: Negative for rales, rhonchi or wheezes Cardio regular rate, regular rhythm, S1 normal heart sound, S2 normal heart sound, no murmurs, no rub and no gallops GI GI Narrative: Abdomen is distended, it is nontender to palpation, bowel sounds are present in all 4 quadrants, no rebound abdominal tenderness was noted Skin no rashes or lesions noted General Skin Exam: no breakdown Neuro CN's II-XII intact bilaterally, moves all extremities, no focal motor deficits and no sensory deficits noted Neuro Narrative: Patient is lethargic, she appears sleepy at time, she does respond to simple questions appropriately Speech: speech normal Psych Psych Narrative: Patient has flat affect Results Lab / Micro Data 11/23/22 10:30 11/23/22 10:30 Labs: Laboratory Results - last 24 hr 11/23/22 10:30: WBC 5.3, RBC 3.87 L, Hgb 13.6, Hct 40.7, MCV 105.2 H, MCH 35.1 H , MCHC 33.4, RDW Std Deviation 62.3 H, RDW Coeff of Codey 16.1 H, Plt Count 74 L, MPV 11.3, Immature Gran % (Auto) 0.600, Neut % (Auto) 80.2 H, Lymph % (Auto) 10.5 L, [place] % (Auto) 6.2, Eos % (Auto) 2.1, Baso % (Auto) 0.4, Absolute Neuts (auto) 4.3, Absolute Lymphs (auto) 0.56 L, Nucleated RBC % 0, Sodium 138, Potassium 2.8 L, Chloride 97 L, Carbon Dioxide 35.0 H, Anion Gap 6, BUN 27 H, Creatinine 1.77 H, Estim Creat Clear Calc 23.42, Est GFR (MDRD) Af Amer 36 L, Est GFR (MDRD) Non-Af 30 L, BUN/Creatinine Ratio 15.3, Glucose 102, Lactic Acid 3.2 H*, Calcium 12.8 H*, Total Bilirubin 2.80 H, AST 29, ALT 25, Alkaline Phosphatase 106, Ammonia 28.0, Lactate Dehydrogenase 198, Troponin I High Sens 48, Total Protein 6.5, Albumin 3.2, Globulin 3.3, Albumin/Globulin Ratio 1.0 11/23/22 12:12: Urine Color Yellow, Urine Clarity Cloudy, Urine pH 6.0, Ur Specific [place] 1.025, Urine Protein 30 H, Urine Glucose (UA) Normal, Urine Ketones 5 H, Urine Occult Blood 25 H, Urine Nitrite Positive H, Urine Bilirubin 1 H, Urine Urobilinogen 1 H, Ur Leukocyte Esterase 100 H, Urine RBC 0-5 SEEN, Urine WBC 0-5 SEEN, Ur Squamous Epith Cells 0-5 SEEN, Calcium Oxalate Crystal 1+, Urine Bacteria 4+, Hyaline Casts 0-5 SEEN, Urine Mucus 1+ 11/23/22 14:50: Lactic Acid 2.7 H* 11/23/22 18:18: POC Glucose 107 H Radiology Impression Chest X-Ray 11/23/22 10:50 IMPRESSION: Cardiomegaly. No acute abnormality is seen. Electronically Signed: Jose Curtis MD at 11:03 EDT , Assessment & Plan Assessment/Plan (1) Adult failure to thrive: PLAN: Plan 1. Hypokalemia-patient will be placed in observation status on PCU, she will receive IV potassium supplementation, she received oral potassium supplementation in the ER. She will be monitored on telemetry and repeat labs will be obtained #2 hypercalcemia-exact etiology unclear at this time, I have elected not to order any diagnostic testing for this hypercalcemia, labs will be rechecked tomorrow #3 dehydration-patient's creatinine is elevated, she appears to be dry, I will administer IV fluids and hold the patient's home diuretics #4 severe weight loss over the last several weeks-etiology unclear, rule out occult malignancy, patient will need an EGD tomorrow, gastroenterology will see the patient in consultation #5 acute on chronic deconditioning due to multiple medical issues-PT and OT will see the patient, she will most likely need at least temporary placement in an extended care facility #6 chronic cirrhosis-stage unclear at this point, she will be seen in consultation by gastroenterology, according to the medical records here, patient has had a paracentesis in the past carried out. #7 thrombocytopenia-secondary to cirrhosis, platelet count will be monitored, patient does not have any signs of active bleeding at this time #8 chronic protein and caloric malnutrition-patient will be seen by nutritional services #9 past history of portal vein thrombosis-patient's sister states that the patient was diagnosed in the past with a portal vein thrombosis, her current GI doctor is aware of this and did not recommend anticoagulation, perhaps the patient has a chronic thrombosis, gastroenterology will see the patient in consultation #10 cystitis-patient will be placed on Keflex, again patient has no symptoms of dysuria or urinary frequency but her UA is suspicious for cystitis #11 chronic depression-patient is on Lexapro, this will be continued, monitor, evaluate, assess, and treat #12 type 2 diabetes-patient is currently on metformin and pioglitazone, fingerstick blood sugars will be monitored, sliding scale insulin will be used if needed Total clinical time spent by myself addressing the patient's medical issues, reviewing all of her data, and collaborating with patient's care team: 75 minutes Charges/Coding Visit Charges Inpatient E&M: 99445 Init Hosp L3
[2022-11-23 21:00] VITALS: BP 131/92; PULSE 88; RESP 16; TEMP 36.6; O2SAT 100
[2022-11-23 22:00] VITALS: PULSE 88; O2SAT 100
[2022-11-23] MEDS: Cephalexin 500 MG Capsule PO (23:23)
[2022-11-23] MEDS: Pantoprazole Sodium 40 MG Tablet PO (23:25)
[2022-11-23] MEDS: metFORMIN HCl 1,000 MG Tablet 1000 MG PO (23:25)
[2022-11-24] VITALS (10 sets, daily range): BP systolic 120–160; BP diastolic 66–81; PULSE 87–104; RESP 16; TEMP 36.4–36.8; O2SAT 92–98; BMI 23.2
[2022-11-24] LABS: Bedside Glucose 114 mg/dL (74-106)
--- NOTE | 2022-11-24 | FLU_PTH ---
PATIENT: GIGI RDZ LOC: [facility] U#:[id number] AGE/SX: 72/F ROOM: [facility] RE11/29/[address]: Dr. Maria E Hairston MD : 1950 BED: 1 DIS: 11/30/2022 SPEC #: [id number] RECD: 11/24/22 10:55 STATUS: TAHMINA BETHEA #: [id number] MYLES: 11/24/22 00:[address]: Chris Mccord DEPT: CYTOLOGY RECD BY: Tash Winslow ENTERED: 11/24/22 11:48 SP TYPE: Fluid OTHR DR: MD Dr. Yaya Reddy, DO Tissues: PARACENTESIS FLUID Procedures: Special Stain Group II Surgery Specimen Level IV Cytospin Fluid HEADER OPERATION: Ultrasound-guided paracentesis right PRE-OP DIAGNOSIS: Ascites TISSUE SUBMITTED: Paracentesis fluid for cytology DIAGNOSIS CYTOLOGY Paracentesis fluid for cytology (cytospin and cell block): Negative for malignant cells. See comment. RENETTA:linda 11/25/2022 COMMENT Clinical correlation and appropriate follow up are necessary. CYTOLOGY STUDY Slides are reviewed. CYTOLOGY GROSS Received is 95 ml of yellow hazy fluid labeled with the patient's name and and designated per the requisition as paracentesis. Submitted for cytology preparation including cell block. / linda 11/24/2022 TC:5 CPT: 89111, 43848
[2022-11-24] MEDS: 0.9% Normal Saline (1000mL) 1,000 ML 100 ML IV ×3 (02:56→22:34)
[2022-11-24] MEDS: Sucralfate 1 GM Tablet PO (06:09)
[2022-11-24 07:24] LABS: Bedside Glucose 84 mg/dL (74-106)
[2022-11-24 07:43] LABS: AST(SGOT) 27 U/L (15-37); Alanine Aminotransfer ALT/SGPT 22 U/L (13-56); Albumin, Serum 2.8 g/dL (3.2-5.0); Alkaline Phosphatase 89 U/L (45-117); Anion Gap 6 (5-15); BUN 28 mg/dL (7-18); BUN/Creat Ratio 17.3 RATIO (10-20); Calcium,Total 11.3 mg/dL (8.5-10.1); Chloride 106 mmol/L (98-107); Creatinine, Serum 1.62 mg/dL (0.55-1.02); EST Glomerular Filtration Rate 33 mL/min (>60); Est Glom Filt Rate - Afr Amer 40 mL/min (>60); Estimated Creatinine Clearance 25.58 ml/min; Globulin 2.9 g/dL (2.2-4.2); Glucose 84 mg/dL (74-106); Potassium 3.8 mmol/L (3.5-5.1); Protein, Total 5.7 g/dL (6.4-8.2); Sodium Level 139 mmol/L (136-145)
[2022-11-24] MEDS: Pantoprazole Sodium 40 MG Tablet PO ×2 (09:10→22:36)
[2022-11-24] MEDS: Cephalexin 500 MG Capsule PO ×2 (09:10→22:36)
[2022-11-24] MEDS: Electrolyte Solution/Peg's 4000 ML PO (11:00)
[2022-11-24 11:37] LABS: Bedside Glucose 87 mg/dL (74-106)
--- NOTE | 2022-11-24 15:51 | CASEMGMT ---
Discharge Planning A list of SNF providers including quality and resource use data and consistent with the patient?s preferred geographic region, medical needs, and insurance network was created in [employer] Guide. This list was provided to the SW. Ila Powell Discharge Planning Asst.
--- NOTE | 2022-11-24 16:10 | COLBX_PTH ---
PATIENT: GIGI RDZ LOC: [facility] U#:[id number] AGE/SX: 72/F ROOM: [facility] RE11/29/[address]: Dr. Maria E Hairston MD : 1950 BED: 1 DIS: 11/30/2022 SPEC #: [id number] RECD: 11/25/22 07:56 STATUS: TAHMINA NEEMA #: [id number] MYLES: 11/24/22 16:[address]: Patrick Hawk DEPT: SURGICAL PATHOLOGY RECD BY: Alana Hernandez ENTERED: 11/25/22 09:10 SP TYPE: COLON BX OT DR: MD Dr. Yaya Reddy DO Dr. Nicholas F Kotsonis, MD Tissues: A - COLON BIOPSY B - COLON BIOPSY Procedures: Surgery Specimen Level IV HEADER OPERATION: Colonoscopy, polypectomy PRE-OP DIAGNOSIS: Declining functional status, overall weakness, weight loss TISSUE SUBMITTED: A - Splenic flexure polyp, B - Hepatic flexure polyp MICROSCOPIC DIAGNOSIS A. Colonic polyp at splenic flexure, biopsy: Fragments of benign colonic mucosa. Mild vascular ectasia. See comment. B. Colonic polyp at hepatic flexure, biopsy: Tubular adenoma. AM:linda 11/26/2022 COMMENT A. Neither hyperplastic nor adenomatous change is identified. Clinical correlation is suggested. MICROSCOPIC DESCRIPTION Slides are reviewed. GROSS DESCRIPTION A - Received in fixative is one container labeled with the patient's name and designated splenic flexure polyp. The specimen consists of two irregular fragments of light de [place] torre soft tissue that in aggregate measure 0.4 x 0.2 x 0.1 cm. The specimen is totally submitted in one cassette. B - Received in fixative is one container labeled with the patient's name and designated hepatic flexure polyp. The specimen consists of two irregular fragments of light de [place] torre soft tissue that in aggregate measure 0.4 x 0.2 x 0.1 cm. The specimen is totally submitted in one cassette. / SJ:linda 11/25/2022 TC:5 CPT: 19494 x2
--- NOTE | 2022-11-24 16:11 | CASEMGMT ---
RN CM in to discuss discharge planning with patient. A list of SNF providers including quality and resource use data and consistent with the patient?s preferred geographical region, medical needs, and insurance network were provided from the [employer] Guide. Patient prefers [facility] as her first choice, and then [facility] as her second choice. SW updated. Roseanna PEREZN, RN, CM
--- NOTE | 2022-11-24 16:20 | CASEMGMT ---
MALI was informed patient was interested in [facility] or [facility]. MALI asked Ila odell/gonsalo business planning director to please send a referral to [facility]. Jessenia ZAVALA
--- NOTE | 2022-11-24 16:27 | CASEMGMT ---
Discharge Planning Referral sent to [facility] via [facility]. Ila Powell, Discharge Planning Asst.
--- NOTE | 2022-11-24 17:05 | CASEMGMT ---
Met with patient to complete MOYER form. MOYER form explained to patient who voiced understanding and signed form. Original form placed in pt?s chart and copy provided to patient. Ila Powell, Discharge Planning Asst.
[2022-11-24 17:10] LABS: Bedside Glucose 91 mg/dL (74-106)
--- NOTE | 2022-11-24 17:11 | PN.HOSP_ITS ---
Subjective Subjective Doing well, no issues overnight. She has some abdominal distention planning for paracentesis today Objective Data Objective Data Vital Signs: Vital Signs Temp Pulse Resp BP Pulse Ox O2 Del Method 97.6 F L 93 16 156/76 H 97 Room Air 11/24/22 15:00 11/24/22 15:00 11/24/22 15:00 11/24/22 15:00 11/24/22 15:00 11/24/22 15:00 Oxygen Delivery Method [2] Room Air Oxygen Delivery Method [1 ( Room Air Initial Baseline)] Oxygen Delivery Method Room Air Weight: 131 lb 1 oz Body Mass Index (BMI) 23.2 Intake & Output: Intake and Output for Last 24 Hours 11/23/22 11/24/22 11/25/22 03:59 03:59 03:59 Intake Total 3300 / 3300 1900.00 / 1900.00 Output Total 600 / 600 Balance 3300 / 3300 1300.00 / 1300.00 Medical Nutrition Assessment Dietitian: Malnutrition Criteria Met Start: 11/24/22 15:53 Freq: Status: Active Protocol: Document 11/24/22 15:53 AG (Rec: 11/24/22 15:53 [id number]) Nutrition Malnutrition Evidence of Malnutrition Exists Yes Malnutrition (severe): Chronic Evidenced By Suboptimal Energy Intake ( Severe),Weight Loss (Severe) Clinical Problem Chronic Disease or Condition Related Malnutrition Etiology severe, chronic malnutrition r /t GI dysfunction, poor appetite Signs/Symptoms as evidenced by unintentional wt loss of ~69#/34% wt loss x 1 year, estimated PO intake meeting <75% of estimated energy needs > 3 months Status Active Problem Recommendation Dietitian Recommendations/Changes Recommend advance diet as tolerated to regular/sodium restricted; will monitor PO intake as established and adjust diet/add ONS as indicated Lab / Micro Data 11/25/22 06:15 11/25/22 06:15 Labs: Laboratory Results - last 24 hr 11/23/22 10:30: Lactate Dehydrogenase 198 11/23/22 18:18: POC Glucose 107 H 11/23/22 23:35: POC Glucose 114 H 11/24/22 06:39: Sodium 139, Potassium 3.8, Chloride 106, Carbon Dioxide 27.0, Anion Gap 6, BUN 28 H, Creatinine 1.62 H, Estim Creat Clear Calc 25.58, Est GFR (MDRD) Af Amer 40 L, Est GFR (MDRD) Non-Af 33 L, BUN/Creatinine Ratio 17.3, Glucose 84, Calcium 11.3 H, Total Bilirubin 2.40 H, AST 27, ALT 22, Alkaline Phosphatase 89, Total Protein 5.7 L, Albumin 2.8 L, Globulin 2.9, Albumin/Globulin Ratio 1.0 11/24/22 07:02: POC Glucose 84 11/24/22 11:02: POC Glucose 87 11/24/22 16:51: POC Glucose 91 Micro: Microbiology 11/23/22 13:58 Urine, Clean Catch Urine Culture - Preliminary GNR lactose voucher examiner Radiography Diagnostic Testing: Radiology Impression Paracentesis Ultrasound 11/24/22 19:15 IMPRESSION: Ultrasound guided paracentesis. Electronically Signed: Jose Curtis MD at 11:11 EDT , Physical Exam Narrative General: Alert, Oriented x2, Cooperative, No apparent distress HEENT: Atraumatic, PERRLA, EOMI, Normocephalic Oral: Moist Mucosa Neck: Supple, No JVD Lungs: Diminished, Normal air movement, No rhonchi, No wheeze, No rales Cardiovascular: Regular rate, Regular Rhythm, Normal S1, Normal S2, No murmurs Abdomen: Soft, Non Tender, distended, unable to assess for hepato-splenomegaly Extremities: No edema, Capillary Refill Less than 3 Seconds Skin: No rashes, No breakdown Musculoskeletal: No Tenderness to Palpation of Joints or Extremities Neurological: Cranial nerves II-XII grossly intact, Motor Exam 5/5 strength throughout, Sensory exam intact to light touch and pain Psych/Mental Status: Flat Assessment & Plan Assessment/Plan (1) Adult failure to thrive: PLAN: Plan 1. Unintentional weight loss with hypercalcemia ? Rule out malignancy she had a CT scan of her abdomen and pelvis in October which showed an ascending colitis may benefit from a CT scan of her chest ? We will obtain a PTH and a vitamin D ? Tumor markers are pending per gastroenterology ? Continue with IV fluids, her calcium is improving ? Planning for EGD today ? PT/OT evaluation given to chronic deconditioning and weight loss possible placement 2. 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 Appreciate gastroenterology's assistance much of the work-up and evaluation is also being performed to problem 1 ? Paracentesis pending for with lab work ? We will trend her chronic thrombocytopenia ? We will have to consult nutritional services for her protein calorie malnutrition 3. UTI ? Cultures pending with gram-negative jewel ? Continue with Keflex 4. DM2 ? We will hold her metformin and Actos ? Accu-Cheks ACHS ? Sliding scale insulin ? We will monitor make adjustments as necessary DVT: SCD Charges/Coding Visit Charges Inpatient E&M: 52335 Subs Hosp L2
--- NOTE | 2022-11-24 18:16 | OP.CCLET_ITS ---
11/24/2022 Santino Mcneill MD Re : Colonoscopy procedure for Irina Archer Dear Dr. Mcneill This procedure was performed on Thursday, November 24, 2022. My impressions and recommendations are as follows: Impressions : - Decreased sphincter tone found on digital rectal exam. - Congested mucosa in the entire examined colon. Biopsied. - Patchy moderate inflammation was found at the splenic flexure and at the hepatic flexure secondary to colitis. Biopsied. - One 5 mm polyp at the splenic flexure, removed with a cold snare. Resected and retrieved. Recommendations : - Repeat colonoscopy in 5 years for surveillance. - Continue present medications. My findings are described in the full procedure note, which is enclosed. If I can be of further assistance, please feel free to contact me at . Sincerely, Patrick Hawk, 11/24/2022 6:15:08 PM This report has been signed electronically.
--- NOTE | 2022-11-24 18:16 | OP.COLON_ITS ---
Patient Name: Irina Archer Procedure Date: 11/24/2022 5:30 PM Date of : 1950 Age: 72 Procedure: Colonoscopy Indications: Hematochezia Providers: Patrick Hawk DO Medicines: Monitored Anesthesia Care Patient Profile: This is a 72 year old female. Refer to note in patient chart for documentation of history and physical. Last Colonoscopy: 5 years ago. Complications: No immediate complications. Procedure: Pre-Anesthesia Assessment: - Prior to the procedure, a History and Physical was performed, and patient medications and allergies were reviewed. The patient is competent. The risks and benefits of the procedure and the sedation options and risks were discussed with the patient. All questions were answered and informed consent was obtained. Patient identification and proposed procedure were verified by the physician. Mental Status Examination: normal. Prophylactic Antibiotics: The patient does not require prophylactic antibiotics. Prior Anticoagulants: The patient has taken no anticoagulant or antiplatelet agents. After reviewing the risks and benefits, the patient was deemed in satisfactory condition to undergo the procedure. The anesthesia plan was to use monitored anesthesia care (MAC). Immediately prior to administration of medications, the patient was re-assessed for adequacy to receive sedatives. The heart rate, respiratory rate, oxygen saturations, blood pressure, adequacy of pulmonary ventilation, and response to care were monitored throughout the procedure. The physical status of the patient was re-assessed after the procedure. After I obtained informed consent, the scope was passed under direct vision. Throughout the procedure, the patient's blood pressure, pulse, and oxygen saturations were monitored continuously. The colonoscope was introduced through the anus and advanced to the cecum, identified by appendiceal orifice and ileocecal valve. The colonoscopy was performed without difficulty. The patient tolerated the procedure well. The quality of the bowel preparation was adequate. The ileocecal valve, appendiceal orifice, and rectum were photographed. Scope In: 5:50:34 PM Scope Withdrawal Time 0 hours 4 minutes 22 seconds Scope Out: 6:04:05 PM Total Procedure Duration Time 0 hours 13 minutes 31 seconds Findings: The digital rectal exam findings include decreased sphincter tone. An area of significantly congested mucosa was found in the entire colon. Biopsies were taken with a cold forceps for histology. Verification of patient identification for the specimen was done. Estimated blood loss was minimal. Patchy moderate inflammation characterized by congestion (edema), friability and granularity was found at the splenic flexure and at the hepatic flexure. Biopsies were taken with a cold forceps for histology. Verification of patient identification for the specimen was done. Estimated blood loss was minimal. A 5 mm polyp was found in the splenic flexure. The polyp was sessile. The polyp was removed with a cold snare. Resection and retrieval were complete. Verification of patient identification for the specimen was done. Estimated blood loss was minimal. 5 mm, non-bleeding left-sided colonic varices were found. Impression: - Decreased sphincter tone found on digital rectal exam. - Congested mucosa in the entire examined colon. Biopsied. - Patchy moderate inflammation was found at the splenic flexure and at the hepatic flexure secondary to colitis. Biopsied. - One 5 mm polyp at the splenic flexure, removed with a cold snare. Resected and retrieved. Recommendation: - Repeat colonoscopy in 5 years for surveillance. - Continue present medications. Procedure Code(s): --- Professional --- 59538, Colonoscopy, flexible; with removal of tumor(s), polyp(s), or other lesion(s) by snare technique 18241, 59, Colonoscopy, flexible; with biopsy, single or multiple CPT copyright 2021 [employer]. All rights reserved. The codes documented in this report are preliminary and upon counseling psychologist review may be revised to meet current compliance requirements. Patrick Hawk DO 11/24/2022 6:15:08 PM This report has been signed electronically. Number of Addenda: 0 Note Initiated On: 11/24/2022 5:30 PM
--- NOTE | 2022-11-24 19:15 | US_ITS ---
PROCEDURE: Ultrasound guided paracentesis. DATE OF EXAMINATION: November 24, 2022. INDICATION: Female, 72 years old. Ascites. PHYSICIAN: Jose Curtis M.D. TECHNIQUE: The risks, benefits, and alternatives to the procedure were explained to the patient. The specific risks of bleeding, infection, and damage to bowel were detailed and accepted. Witnessed informed consent was obtained. The abdomen was ultrasonographically surveyed. An appropriate pocket of fluid was identified at the right lower quadrant. The skin were cleaned and prepped in the usual sterile fashion. Using ultrasound guidance, the peritoneal cavity was accessed with a 5-Tajik paracentesis needle/catheter system. The trocar was removed. A total of 300 ml of sylvester-colored fluid were removed from the peritoneal cavity. A 100 mL sample was sent to the laboratory for testing. The catheter was removed and a sterile dressing was applied. The procedure was well tolerated. US/Paracentesis with US IMPRESSION: Ultrasound guided paracentesis. Electronically Signed: Jose Curtis MD at 11:11 EDT ,
[2022-11-24] MEDS: metFORMIN HCl 1,000 MG Tablet 1000 MG PO (22:35)
[2022-11-24 23:04] LABS: Bedside Glucose 89 mg/dL (74-106)
[2022-11-25] VITALS (9 sets, daily range): BP systolic 135–149; BP diastolic 62–76; PULSE 68–107; RESP 16–18; TEMP 36.4–36.8; O2SAT 92–96
--- NOTE | 2022-11-25 | FLU_PTH ---
PATIENT: GIGI RDZ LOC: [facility] U#:[id number] AGE/SX: 72/F ROOM: [facility] RE11/29/[address]: Dr. Maria E Hairston MD : 1950 BED: 1 DIS: 11/30/2022 SPEC #: [id number] RECD: 11/26/22 08:45 STATUS: TAHMINA BETHEA #: [id number] MYLES: 11/25/22 00:[address]: Chris Mccord DEPT: CYTOLOGY RECD BY: Loco Dunbar ENTERED: 11/26/22 08:46 SP TYPE: Fluid OTHR DR: MD Dr. Yaya Reddy, DO Tissues: PARACENTESIS FLUID Procedures: Special Stain Group II Surgery Specimen Level IV Cytospin Fluid HEADER OPERATION: Paracentesis PRE-OP DIAGNOSIS: Ascites TISSUE SUBMITTED: Paracentesis fluid for cytology DIAGNOSIS CYTOLOGY Paracentesis fluid for cytology (cytospin and cell block): Negative for malignant cells. See comment. SJ:linda 11/29/2022 COMMENT Clinical correlation and appropriate follow up are necessary. CYTOLOGY STUDY Slides are reviewed. CYTOLOGY GROSS Received is 1 ml of light yellow cloudy fluid labeled with the patient's name and and designated per the requisition as paracentesis. Submitted for cytology preparation including cell block. / linda 11/26/2022 TC:5 CPT: 56828, 82152
[2022-11-25] MEDS: Sucralfate 1 GM Tablet PO ×3 (06:40→16:11)
[2022-11-25 07:13] LABS: Bedside Glucose 71 mg/dL (74-106)
[2022-11-25 08:07] LABS: AST(SGOT) 27 U/L (15-37); Alanine Aminotransfer ALT/SGPT 21 U/L (13-56); Albumin, Serum 2.7 g/dL (3.2-5.0); Alkaline Phosphatase 79 U/L (45-117); Anion Gap 9 (5-15); BUN 32 mg/dL (7-18); BUN/Creat Ratio 18.9 RATIO (10-20); Calcium,Total 11.1 mg/dL (8.5-10.1); Chloride 109 mmol/L (98-107); Creatinine, Serum 1.69 mg/dL (0.55-1.02); EST Glomerular Filtration Rate 32 mL/min (>60); Est Glom Filt Rate - Afr Amer 38 mL/min (>60); Estimated Creatinine Clearance 24.52 ml/min; Globulin 2.7 g/dL (2.2-4.2); Glucose 74 mg/dL (74-106); Potassium 3.4 mmol/L (3.5-5.1); Protein, Total 5.4 g/dL (6.4-8.2); Sodium Level 141 mmol/L (136-145)
[2022-11-25 08:12] LABS: Absolute Lymphocyte Count 0.48 X10^3/uL (0.83-4.51); Absolute Neutrophil Count 5.2 X10^3/uL (2.0-7.7); Basophil# 0.02 X10^3/uL; Basophil% 0.3 % (0-1); Differential Indicated SCAN CRITERIA MET; Eosinophil# 0.06 X10^3/uL; Hematocrit 35.1 % (37-47); Hemoglobin 11.7 g/dL (12.0-15.0); Lymphocyte # 0.48 X10^3/ul (0.83-4.51); Lymphocyte % 7.8 % (19-41); Mean Corp Hgb Conc 33.3 g/dL (32-36); Mean Corpuscular Hgb 35.9 pg (27.0-32.0); Mean Corpuscular Volume 107.7 fL (81-99); Mean Platelet Vol. 10.5 fl (6.2-12.0); Monocyte# 0.35 X10^3/uL; Monocyte% 5.7 % (0-10); NRBC Flagged by Analyzer 0 % (0-5); Neutrophil % 84.1 % (47-70); POSITIVE COUNT YES; POSITIVE DIFFERENTIAL YES; Platelet Count 67 K/mm3 (150-450); Red Blood Count 3.26 M/mm3 (4.2-5.4); White Blood Count 6.2 K/mm3 (4.4-11.0)
[2022-11-25 08:21] LABS: PTHIN 44.4 pg/mL (18.4-80.1)
[2022-11-25] MEDS: Allopurinol 300 MG Tablet PO (08:36)
[2022-11-25] MEDS: Pantoprazole Sodium 40 MG Tablet PO ×2 (08:36→21:41)
[2022-11-25] MEDS: Atorvastatin Calcium 10 MG Tablet PO (08:36)
[2022-11-25] MEDS: Folic Acid 1 MG Tablet PO (08:36)
[2022-11-25] MEDS: Cephalexin 500 MG Capsule PO (08:37)
[2022-11-25] MEDS: metFORMIN HCl 1,000 MG Tablet 1000 MG PO (08:38)
[2022-11-25] MEDS: Pioglitazone Hydrochloride 30 MG Tablet PO (08:38)
[2022-11-25] MEDS: Citalopram 10 MG Tablet PO (08:38)
[2022-11-25] MEDS: 0.9% Normal Saline (1000mL) 1,000 ML 100 ML IV ×2 (08:41→21:37)
[2022-11-25 09:11] LABS: Platelet Estimate MOD DEC (ADEQ)
[2022-11-25 12:00] LABS: Bedside Glucose 87 mg/dL (74-106)
--- NOTE | 2022-11-25 15:19 | CASEMGMT ---
Discharge Planning Patient has been accepted by [facility] and auth has been obtained. WH updated that patient is anticipated to dc tomorrow. SW aware. Ila Powell, Discharge Planning Asst.
[2022-11-25 16:09] LABS: AFP, Tumor Marker < 1.8 ng/mL (0.0-9.2); Albumin 2.8 g/dL (2.9-4.4); Alpha-1-Globulins 0.3 g/dL (0.0-0.4); Alpha-2-Globulins 0.5 g/dL (0.4-1.0); Carbohydrate AG 19-9 33 U/mL (0-35); Carcinoembryonic Antigen 5.4 ng/mL (0.0-4.7); Deamidated Gliadin IgA 5 units (0-19); Deamidated Gliadin IgG 2 units (0-19); Endomysial Antibody IgA Negative (Negative); Immunoglobulin A 238 mg/dL (64-422); Immunoglobulin G 1072 mg/dL (586-1602); Immunoglobulin M 58 mg/dL (26-217); PROEL- TOTAL PROTEIN 5.4 g/dL (6.0-8.5); t-Transglutaminase IgA <2 U/mL (0-3)
[2022-11-25 16:39] LABS: Bedside Glucose 100 mg/dL (74-106)
--- NOTE | 2022-11-25 16:55 | PN.HOSP_ITS ---
Subjective Subjective Doing well, no issues overnight Objective Data Objective Data Vital Signs: Vital Signs Temp Pulse Resp BP Pulse Ox O2 Del Method 97.9 F 101 H 18 149/72 H 92 Room Air 11/25/22 16:10 11/25/22 16:10 11/25/22 16:10 11/25/22 16:10 11/25/22 16:10 11/25/22 16:10 Oxygen Delivery Method [2] Room Air Oxygen Delivery Method [1 ( Room Air Initial Baseline)] Oxygen Delivery Method Room Air Weight: 131 lb 1 oz Body Mass Index (BMI) 23.2 Intake & Output: Intake and Output for Last 24 Hours 11/24/22 11/25/22 11/26/22 03:59 03:59 03:59 Intake Total 3300 / 3300 4383.33 / 4383.33 1240 / 1240 Output Total 600 / 600 Balance 3300 / 3300 3783.33 / 3783.33 1240 / 1240 Medical Nutrition Assessment Dietitian: Malnutrition Criteria Met Start: 11/24/22 15:53 Freq: Status: Active Protocol: Document 11/24/22 15:53 AG (Rec: 11/24/22 15:53 [id number]) Nutrition Malnutrition Evidence of Malnutrition Exists Yes Malnutrition (severe): Chronic Evidenced By Suboptimal Energy Intake ( Severe),Weight Loss (Severe) Clinical Problem Chronic Disease or Condition Related Malnutrition Etiology severe, chronic malnutrition r /t GI dysfunction, poor appetite Signs/Symptoms as evidenced by unintentional wt loss of ~69#/34% wt loss x 1 year, estimated PO intake meeting <75% of estimated energy needs > 3 months Status Active Problem Recommendation Dietitian Recommendations/Changes Recommend advance diet as tolerated to regular/sodium restricted; will monitor PO intake as established and adjust diet/add ONS as indicated Lab / Micro Data 11/25/22 06:15 11/25/22 06:15 Labs: Laboratory Results - last 24 hr 11/24/22 06:39: Total Protein (PEP) 5.4 L, Globulin 2.6, Tumor Marker AFP < 1.8, Carcinoembryonic Ag 5.4 H, CA 19-9 Antigen 33, CA 125 Antigen 217.0 H, PTH Intact 44.4, IgG 1072, IgA 238, IgM 58, Immunofixation Screen Comment, Albumin (MEDARDO) 2.8 L, Albumin/Globulin (MEDARDO) 1.1, Dauxe-6-Keljrkdan MEDARDO 0.3, Uxrfi-5-Utpgeifcu MEDARDO 0.5, Beta-Globulins (MEDARDO) 0.7, Gamma Globulins (MEDARDO) 1.0, MEDARDO Comments Comment, Endomysial IgA Ab Negative, Tiss Transglutamin IgG <2, Tiss Transglutamin IgA <2, Anti-Gliadin IgG Ab 2, Anti-Gliadin IgA Ab 5 11/24/22 16:51: POC Glucose 91 11/24/22 22:39: POC Glucose 89 11/25/22 06:15: WBC 6.2, RBC 3.26 L, Hgb 11.7 L, Hct 35.1 L, MCV 107.7 H, MCH 35.9 H, MCHC 33.3, RDW Std Deviation 64.0 H, RDW Coeff of Codey 16.0 H, Plt Count 67 L, MPV 10.5, Immature Gran % (Auto) 1.100 H, Neut % (Auto) 84.1 H, Lymph % (Auto) 7.8 L, [place] % (Auto) 5.7, Eos % (Auto) 1.0, Baso % (Auto) 0.3, Absolute N euts (auto) 5.2, Absolute Lymphs (auto) 0.48 L, Nucleated RBC % 0, Differential Comment COMMENT, Platelet Estimate MOD DEC, Sodium 141, Potassium 3.4 L, Chloride 109 H, Carbon Dioxide 23.0, Anion Gap 9, BUN 32 H, Creatinine 1.69 H, Estim Creat Clear Calc 24.52, Est GFR (MDRD) Af Amer 38 L, Est GFR (MDRD) Non-Af 32 L, BUN/Creatinine Ratio 18.9, Glucose 74, Calcium 11.1 H, Total Bilirubin 2.00 H, AST 27, ALT 21, Alkaline Phosphatase 79, Total Protein 5.4 L, Albumin 2.7 L, Globulin 2.7, Albumin/Globulin Ratio 1.0 11/25/22 06:38: POC Glucose 71 L 11/25/22 11:04: POC Glucose 87 11/25/22 16:07: POC Glucose 100 Micro: Microbiology 11/23/22 13:58 Urine, Clean Catch Urine Culture - Preliminary Escherichia coli 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 11/23/22 10:30 Blood Culture (Wb) - Anticubital Right Blood Culture - Preliminary No growth in 48 hours. Physical Exam Narrative General: Alert, Oriented x2, Cooperative, No apparent distress HEENT: Atraumatic, PERRLA, EOMI, Normocephalic Oral: Moist Mucosa Neck: Supple, No JVD Lungs: Diminished, Normal air movement, No rhonchi, No wheeze, No rales Cardiovascular: Regular rate, Regular Rhythm, Normal S1, Normal S2, No murmurs Abdomen: Soft, Non Tender, distended, unable to assess for hepato-splenomegaly Extremities: No edema, Capillary Refill Less than 3 Seconds Skin: No rashes, No breakdown Musculoskeletal: No Tenderness to Palpation of Joints or Extremities Neurological: Cranial nerves II-XII grossly intact, Motor Exam 5/5 strength throughout, Sensory exam intact to light touch and pain Psych/Mental Status: Flat Assessment & Plan Assessment/Plan (1) Adult failure to thrive: PLAN: Plan 1. Unintentional weight loss with hypercalcemia ? Rule out malignancy she had a CT scan of her abdomen and pelvis in October which showed an ascending colitis may benefit from a CT scan of her chest ?PTH was normal vitamin D is pending ? Tumor markers are pending per gastroenterology ? Continue with IV fluids, her calcium is improving ?She did have an EGD but she did have a colonoscopy which demonstrated some patchy inflammation and congested mucosa which has been biopsied. ? PT/OT evaluation given to chronic deconditioning and weight loss possible placement 2. 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 Appreciate gastroenterology's assistance much of the work-up and evaluation is also being performed to problem 1 ? Paracentesis pending for with lab work ? We will trend her chronic thrombocytopenia ? We will have to consult nutritional services for her protein calorie malnutrition 3. UTI ?Culture with a pansensitive E. coli ? We will transition to IV Rocephin to cover both her cirrhosis with ascites and her UTI 4. DM2 ? We will hold her metformin and Actos ? Accu-Cheks ACHS ? Sliding scale insulin ? We will monitor make adjustments as necessary DVT: SCD Charges/Coding Visit Charges Inpatient E&M: 19600 Subs Hosp L2
[2022-11-25 17:33] LABS: Cytology, Body Fluid / CSF SEE PATHOLOGY REPORT
[2022-11-25] MEDS: Ceftriaxone 1 GM/50 ML BAG IV (18:17)
[2022-11-25 19:08] LABS: Glucose, Body Fluid 91 mg/dL (40-70); Protein, Body Fluid 0.4 g/dL (Not Establ.)
[2022-11-25 19:35] LABS: Appearance/Body Fluid CLEAR; Auto B Fluid Analyzer BKGD Ct COUNTS W/IN LIMITS (W/IN LIMITS); Color/Body Fluid YELLOW; Source- Body Fluid OTHER
[2022-11-25 19:36] LABS: Body Fluid Total Cells Counted 0.092 10^3/ul
[2022-11-25 19:37] LABS: Body Fluid Mononuclear WBC % 67.8 %; Body Fluid Polynuclear WBC % 32.2 %; Red Cell Count/Body Fluid 30 /mm3; White Blood Count/Body Fluid 0.084 10^3/uL
[2022-11-25 19:38] LABS: Body Fluid Polynuclear WBC # 0.027 10^3/uL
[2022-11-25 19:39] LABS: Body Fluid Mononuclear WBC # 0.057 10^3/uL; Body Fluid QC Type(s) BF2Q; Lymphocytes 30 %; Monocytes 45 %; Neutrophil (Segs) 25 %
[2022-11-25 22:13] LABS: Bedside Glucose 101 mg/dL (74-106)
[2022-11-26] MEDS: Acetaminophen 325 MG Tablet 650 MG PO ×2 (03:24→13:29)
[2022-11-26 03:31] VITALS: BP 152/78; PULSE 99; RESP 16; TEMP 36.1; O2SAT 93
[2022-11-26 03:32] VITALS: O2SAT 93
[2022-11-26] MEDS: 0.9% Normal Saline (1000mL) 1,000 ML 100 ML IV ×2 (06:29→16:21)
[2022-11-26] MEDS: Sucralfate 1 GM Tablet PO ×3 (06:33→16:21)
[2022-11-26 06:53] LABS: Bedside Glucose 102 mg/dL (74-106)
[2022-11-26 06:55] LABS: Absolute Lymphocyte Count 0.61 X10^3/uL (0.83-4.51); Absolute Neutrophil Count 7.4 X10^3/uL (2.0-7.7); Basophil# 0.03 X10^3/uL; Basophil% 0.3 % (0-1); Eosinophil# 0.09 X10^3/uL; Hematocrit 35.7 % (37-47); Hemoglobin 12.3 g/dL (12.0-15.0); Lymphocyte # 0.61 X10^3/ul (0.83-4.51); Mean Corp Hgb Conc 34.5 g/dL (32-36); Mean Corpuscular Hgb 36.5 pg (27.0-32.0); Mean Corpuscular Volume 105.9 fL (81-99); Mean Platelet Vol. 10.6 fl (6.2-12.0); Monocyte# 0.48 X10^3/uL; Monocyte% 5.5 % (0-10); NRBC Flagged by Analyzer 0 % (0-5); Neutrophil # 7.37 X10^3/uL (2.7-7.7); Neutrophil % 85.2 % (47-70); POSITIVE COUNT YES; Platelet Count 83 K/mm3 (150-450); RBC Distribution Width CV 16.2 % (11.6-14.6); RBC Distribution Width SD 63.7 fl (35.1-43.9); Red Blood Count 3.37 M/mm3 (4.2-5.4); White Blood Count 8.7 K/mm3 (4.4-11.0)
[2022-11-26 07:19] LABS: AST(SGOT) 29 U/L (15-37); Alanine Aminotransfer ALT/SGPT 20 U/L (13-56); Albumin, Serum 2.7 g/dL (3.2-5.0); Alkaline Phosphatase 80 U/L (45-117); Anion Gap 8 (5-15); BUN 35 mg/dL (7-18); BUN/Creat Ratio 17.9 RATIO (10-20); Calcium,Total 11.3 mg/dL (8.5-10.1); Chloride 110 mmol/L (98-107); Creatinine, Serum 1.95 mg/dL (0.55-1.02); EST Glomerular Filtration Rate 27 mL/min (>60); Est Glom Filt Rate - Afr Amer 32 mL/min (>60); Estimated Creatinine Clearance 21.25 ml/min; Globulin 2.8 g/dL (2.2-4.2); Glucose 87 mg/dL (74-106); Potassium 3.3 mmol/L (3.5-5.1); Protein, Total 5.5 g/dL (6.4-8.2); Sodium Level 140 mmol/L (136-145)
[2022-11-26 09:08] VITALS: BP 150/90; PULSE 100; RESP 16; TEMP 36.4; O2SAT 95
[2022-11-26 09:11] VITALS: BP 150/90; PULSE 100; RESP 16; TEMP 36.4; O2SAT 95
[2022-11-26] MEDS: Atorvastatin Calcium 10 MG Tablet PO (09:38)
[2022-11-26] MEDS: Pantoprazole Sodium 40 MG Tablet PO ×2 (09:38→21:45)
[2022-11-26] MEDS: Folic Acid 1 MG Tablet PO (09:39)
[2022-11-26] MEDS: Allopurinol 300 MG Tablet PO (09:39)
[2022-11-26] MEDS: Citalopram 10 MG Tablet PO (09:39)
[2022-11-26] MEDS: Ceftriaxone 1 GM/50 ML BAG IV (09:39)
[2022-11-26 11:42] LABS: Bedside Glucose 129 mg/dL (74-106)
--- NOTE | 2022-11-26 12:53 | CASEMGMT ---
Addendum entered by Jessenia Smith 11/26/22 15:56: Patient's pre-cert is good until Tuesday the . Physician is going to talk with patient's sister about possible Hospice. SW called Maryana at [facility] and left her a voice mail letting her know Hospice is a possibility. MALI let SW's number requesting a call back to make sure this would be okay. Jessenia ZAVALA Original Note: Physician said he is likely not going to send patient to [facility] today. SW spoke with Maryana at [facility] and let her know. SW asked Maryana how long patient's pre-cert is good and a fax number in case patient is ready over the weekend. MALI also completed a PASRR in [facility] system due to patient being observation status. Jessenia ZAVALA
[2022-11-26 15:00] VITALS: BP 150/74; PULSE 101; RESP 16; TEMP 36.7; O2SAT 95
--- NOTE | 2022-11-26 15:45 | PN.HOSP_ITS ---
Subjective Subjective Did not sleep very well overnight. Otherwise no issues Objective Data Objective Data Vital Signs: Vital Signs Temp Pulse Resp BP Pulse Ox O2 Del Method 97.6 F L 100 16 150/90 H 95 Room Air 11/26/22 09:11 11/26/22 09:11 11/26/22 09:11 11/26/22 09:11 11/26/22 09:11 11/26/22 14:31 Oxygen Delivery Method [2] Room Air Oxygen Delivery Method [1 ( Room Air Initial Baseline)] Oxygen Delivery Method Room Air Weight: 131 lb 1 oz Body Mass Index (BMI) 23.2 Intake & Output: Intake and Output for Last 24 Hours 11/25/22 11/26/22 11/27/22 03:59 03:59 03:59 Intake Total 4383.33 / 4383.33 2731.67 / 2731.67 1356.67 / 1356.67 Output Total 600 / 600 Balance 3783.33 / 3783.33 2731.67 / 2731.67 1356.67 / 1356.67 Medical Nutrition Assessment Dietitian: Malnutrition Criteria Met Start: 11/24/22 15:53 Freq: Status: Active Protocol: Document 11/24/22 15:53 AG (Rec: 11/24/22 15:53 AG [id number]) Nutrition Malnutrition Evidence of Malnutrition Exists Yes Malnutrition (severe): Chronic Evidenced By Suboptimal Energy Intake ( Severe),Weight Loss (Severe) Clinical Problem Chronic Disease or Condition Related Malnutrition Etiology severe, chronic malnutrition r /t GI dysfunction, poor appetite Signs/Symptoms as evidenced by unintentional wt loss of ~69#/34% wt loss x 1 year, estimated PO intake meeting <75% of estimated energy needs > 3 months Status Active Problem Recommendation Dietitian Recommendations/Changes Recommend advance diet as tolerated to regular/sodium restricted; will monitor PO intake as established and adjust diet/add ONS as indicated Lab / Micro Data 11/26/22 06:04 11/27/22 01:25 Labs: Laboratory Results - last 24 hr 11/24/22 06:39: Total Protein (PEP) 5.4 L, Globulin 2.6, Tumor Marker AFP < 1.8, Carcinoembryonic Ag 5.4 H, CA 19-9 Antigen 33, CA 125 Antigen 217.0 H, IgG 1072, IgA 238, IgM 58, Immunofixation Screen Comment, Albumin (MEDARDO) 2.8 L, Albumin/Globulin (MEDARDO) 1.1, Fhghv-7-Yxfhklzbg MEDARDO 0.3, Suasa-8-Rmcxsfkqf MEDARDO 0.5, Beta-Globulins (MEDARDO) 0.7, Gamma Globulins (MEDARDO) 1.0, MEDARDO M-Antonio , MEDARDO Comments Comment, Endomysial IgA Ab Negative, Tiss Transglutamin IgG <2, Tiss Transglutamin IgA <2, Anti-Gliadin IgG Ab 2, Anti-Gliadin IgA Ab 5 11/24/22 : Fluid Source OTHER, Fluid Color YELLOW, Fluid Appearance CLEAR, Fluid WBC 0.084, Fluid RBC 30, Fluid Tot Cell Count 0.092 H, Fld Polynuclear WBCs # 0.027, Fld Polynuclear WBCs % 32.2, Fluid Mononuclear WBCs 0.057, Fld Mononuclear WBCs % 67.8, Fluid Neutrophils 25, Fluid Lymphocytes 30, Fluid Monoc ytes 45, Fl Pathologist Comment May follow, Fluid Glucose 91 H, Fluid Total P rotein 0.4, Fluid Comment 2 SEE COMMENT 11/25/22 16:07: POC Glucose 100 11/25/22 21:39: POC Glucose 101 11/26/22 06:04: WBC 8.7, RBC 3.37 L, Hgb 12.3, Hct 35.7 L, MCV 105.9 H, MCH 36.5 H, MCHC 34.5, RDW Std Deviation 63.7 H, RDW Coeff of Codey 16.2 H, Plt Count 83 L, MPV 10.6, Immature Gran % (Auto) 1.000 H, Neut % (Auto) 85.2 H, Lymph % (Auto) 7.0 L, [place] % (Auto) 5.5, Eos % (Auto) 1.0, Baso % (Auto) 0.3, Absolute Neuts (auto) 7.4, Absolute Lymphs (auto) 0.61 L, Nucleated RBC % 0, Sodium 140, Potassium 3.3 L, Chloride 110 H, Carbon Dioxide 22.0, Anion Gap 8, BUN 35 H, Creatinine 1.95 H, Estim Creat Clear Calc 21.25, Est GFR (MDRD) Af Amer 32 L, Est GFR (MDRD) Non-Af 27 L, BUN/Creatinine Ratio 17.9, Glucose 87, Calcium 11.3 H, Total Bilirubin 2.00 H, AST 29, ALT 20, Alkaline Phosphatase 80, Total Protein 5.5 L, Albumin 2.7 L, Globulin 2.8, Albumin/Globulin Ratio 1.0 11/26/22 06:32: POC Glucose 102 11/26/22 11:22: POC Glucose 129 H Micro: Microbiology 11/23/22 13:58 Urine, Clean Catch Urine Culture - Final Escherichia coli Klebsiella pneumoniae sp pneum#2 11/23/22 10:30 Blood Culture (Wb) - Left Hand Blood Culture - Preliminary No growth in 48 hours. 11/23/22 10:30 Blood Culture (Wb) - Anticubital Right Blood Culture - Preliminary No growth in 48 hours. Physical Exam Narrative General: Alert, Oriented x2, Cooperative, No apparent distress HEENT: Atraumatic, PERRLA, EOMI, Normocephalic Oral: Moist Mucosa Neck: Supple, No JVD Lungs: Diminished, Normal air movement, No rhonchi, No wheeze, No rales Cardiovascular: Regular rate, Regular Rhythm, Normal S1, Normal S2, No murmurs Abdomen: Soft, Non Tender, distended, unable to assess for hepato-splenomegaly Extremities: No edema, Capillary Refill Less than 3 Seconds Skin: No rashes, No breakdown Musculoskeletal: No Tenderness to Palpation of Joints or Extremities Neurological: Cranial nerves II-XII grossly intact, Motor Exam 5/5 strength th roughout, Sensory exam intact to light touch and pain Psych/Mental Status: Flat Assessment & Plan Assessment/Plan (1) Adult failure to thrive: PLAN: Plan 1. Unintentional weight loss with hypercalcemia ? Rule out malignancy she had a CT scan of her abdomen and pelvis in October which showed an ascending colitis may benefit from a CT scan of her chest ?PTH was normal vitamin D is pending ? Tumor markers are pending per gastroenterology ? Continue with IV fluids, her calcium is improving ?She did have an EGD but she did have a colonoscopy which demonstrated some patchy inflammation and congested mucosa which has been biopsied. ? PT/OT evaluation given to chronic deconditioning and weight loss possible placement 2. Nonalcoholic cirrhosis with thrombocytopenic and chronic severe protein c alorie malnutrition with a history of portal vein thrombosis ? Appreciate gastroenterology's assistance much of the work-up and evaluation is also being performed to problem 1 ? Paracentesis pending for with lab work ? We will trend her chronic thrombocytopenia ? We will have to consult nutritional services for her protein calorie malnutrition 3. UTI ?Culture with a pansensitive E. coli ? We will transition to IV Rocephin to cover both her cirrhosis with ascites and her UTI 4. DM2 ? We will hold her metformin and Actos ? Accu-Cheks ACHS ? Sliding scale insulin ? We will monitor make adjustments as necessary DVT: SCD Charges/Coding Visit Charges Inpatient E&M: 68954 Subs Hosp L2
[2022-11-26 17:08] LABS: Bedside Glucose 133 mg/dL (74-106)
[2022-11-26 21:40] VITALS: BP 142/63; PULSE 83; RESP 18; TEMP 36.8; O2SAT 94
[2022-11-26] MEDS: 0.9% Saline Lock 10 ML Syringe IV (21:48)
[2022-11-26 23:43] LABS: Bedside Glucose 114 mg/dL (74-106)
[2022-11-27] MEDS: Potassium Chloride Oral Tablet 20 MEQ PO (00:47)
[2022-11-27] MEDS: 0.9% Normal Saline (1000mL) 1,000 ML 100 ML IV ×3 (00:48→20:30)
[2022-11-27 02:00] LABS: Anion Gap 6 (5-15); BUN 33 mg/dL (7-18); BUN/Creat Ratio 19.5 RATIO (10-20); Calcium,Total 10.8 mg/dL (8.5-10.1); Chloride 111 mmol/L (98-107); Creatinine, Serum 1.69 mg/dL (0.55-1.02); EST Glomerular Filtration Rate 32 mL/min (>60); Est Glom Filt Rate - Afr Amer 38 mL/min (>60); Estimated Creatinine Clearance 24.52 ml/min; Glucose 114 mg/dL (74-106); Magnesium 1.2 mg/dL (1.6-2.6); Potassium 2.9 mmol/L (3.5-5.1); Sodium Level 137 mmol/L (136-145)
[2022-11-27] MEDS: Magnesium Sulfate 4gm/100mL 4 GM/100 ML IV.SOLN. IV (03:12)
[2022-11-27] MEDS: Potassium Chloride 10mEq/100mL 10 MEQ/100 ML IV.SOLN. 100 MEQ IV BOLUS ×4 (03:15→06:30)
[2022-11-27 03:17] VITALS: BP 140/87; PULSE 97; RESP 18; TEMP 36.7; O2SAT 93
[2022-11-27] MEDS: Potassium Chloride Oral Tablet 20 MEQ 40 MEQ PO (03:23)
[2022-11-27] MEDS: Sucralfate 1 GM Tablet PO ×3 (06:25→16:30)
[2022-11-27 06:48] LABS: Bedside Glucose 105 mg/dL (74-106)
[2022-11-27] MEDS: 0.9% Saline Lock 10 ML Syringe IV (06:54)
[2022-11-27 08:01] VITALS: BP 137/68; PULSE 87; RESP 18; TEMP 36.7; O2SAT 94
[2022-11-27] MEDS: Citalopram 10 MG Tablet PO (08:06)
[2022-11-27] MEDS: Folic Acid 1 MG Tablet PO (08:06)
[2022-11-27] MEDS: Pantoprazole Sodium 40 MG Tablet PO ×2 (08:06→20:29)
[2022-11-27] MEDS: Allopurinol 300 MG Tablet PO (08:06)
[2022-11-27] MEDS: Atorvastatin Calcium 10 MG Tablet PO (08:06)
--- NOTE | 2022-11-27 08:28 | US_ITS ---
STUDY: ULTRASOUND OF THE FEMALE PELVIS - COMPLETE REASON FOR EXAM: Female, 72 years old. elevated CA125 -- Significant concern for cancer, weightloss/ascites LMP: Menopause TECHNIQUE: Transabdominal and Transvaginal TECHNICAL QUALITY: Adequate. COMPARISON: 11/28/2020 FINDINGS: The uterus is anteverted and is in a midline position. The uterus measures 5.9 x 4.4 x 2.8 cm. 1 cm hypoechoic mass within the cervix. The endometrium measures 3 mm in thickness, and is hyperechoic. There is no demonstrated endometrial mass. There is no demonstrated myometrial mass. I.U.D. - The patient does not have an I.U.D. The ovaries are not visualized.. Moderate amount of ascites. The pre void volume of the bladder was ml. The post void volume of the bladder was ml. Polycystic ovary disease: No. US/Pelvic w/ Transvaginal IMPRESSION: Moderate amount of ascites. 1 cm mass of the uterine cervix. Nonvisualization ovaries. Electronically Signed: Phoenix Leblanc MD at 20:38 EDT ,
--- NOTE | 2022-11-27 08:30 | PCM.PN.HOSP ---
Subjective Subjective Well, no issues overnight. Seems to be little bit of a better mood today seems to be more rested Objective Data Objective Data Vital Signs: Vital Signs Temp Pulse Resp BP Pulse Ox O2 Del Method 98.0 F 87 18 137/68 H 94 Room Air 11/27/22 08:01 11/27/22 08:01 11/27/22 08:01 11/27/22 08:01 11/27/22 08:01 11/27/22 08:01 Oxygen Delivery Method [2] Room Air Oxygen Delivery Method [1 ( Room Air Initial Baseline)] Oxygen Delivery Method Room Air Weight: 131 lb 1 oz Body Mass Index (BMI) 23.2 Intake & Output: Intake and Output for Last 24 Hours 11/26/22 11/27/22 11/28/22 03:59 03:59 03:59 Intake Total 2731.67 / 2731.67 3856.67 / 3856.67 706.67 / 706.67 Balance 2731.67 / 2731.67 3856.67 / 3856.67 706.67 / 706.67 Medical Nutrition Assessment Dietitian: Malnutrition Criteria Met Start: 11/24/22 15:53 Freq: Status: Active Protocol: Document 11/24/22 15:53 AG (Rec: 11/24/22 15:53 [id number]) Nutrition Malnutrition Evidence of Malnutrition Exists Yes Malnutrition (severe): Chronic Evidenced By Suboptimal Energy Intake ( Severe),Weight Loss (Severe) Clinical Problem Chronic Disease or Condition Related Malnutrition Etiology severe, chronic malnutrition r /t GI dysfunction, poor appetite Signs/Symptoms as evidenced by unintentional wt loss of ~69#/34% wt loss x 1 year, estimated PO intake meeting <75% of estimated energy needs > 3 months Status Active Problem Recommendation Dietitian Recommendations/Changes Recommend advance diet as tolerated to regular/sodium restricted; will monitor PO intake as established and adjust diet/add ONS as indicated Lab / Micro Data 11/26/22 06:04 11/27/22 01:25 Labs: Laboratory Results - last 24 hr 11/26/22 11:22: POC Glucose 129 H 11/26/22 16:24: POC Glucose 133 H 11/26/22 21:44: POC Glucose 114 H 11/27/22 01:25: Sodium 137, Potassium 2.9 L, Chloride 111 H, Carbon Dioxide 20.0 L, Anion Gap 6, BUN 33 H, Creatinine 1.69 H, Estim Creat Clear Calc 24.52, Est GFR (MDRD) Af Amer 38 L, Est GFR (MDRD) Non-Af 32 L, BUN/Creatinine Ratio 19.5, Glucose 114 H, Calcium 10.8 H, Magnesium 1.2 L 11/27/22 06:27: POC Glucose 105 Micro: Microbiology 11/23/22 13:58 Urine, Clean Catch Urine Culture - Final Escherichia coli Klebsiella pneumoniae sp pneum#2 11/23/22 10:30 Blood Culture (Wb) - Left Hand Blood Culture - Preliminary No growth in 48 hours. 11/23/22 10:30 Blood Culture (Wb) - Anticubital Right Blood Culture - Preliminary No growth in 48 hours. Physical Exam Narrative General: Alert, Oriented x2, Cooperative, No apparent distress HEENT: Atraumatic, PERRLA, EOMI, Normocephalic Oral: Moist Mucosa Neck: Supple, No JVD Lungs: Diminished, Normal air movement, No rhonchi, No wheeze, No rales Cardiovascular: Regular rate, Regular Rhythm, Normal S1, Normal S2, No murmurs Abdomen: Soft, Non Tender, distended, unable to assess for hepato-splenomegaly Extremities: No edema, Capillary Refill Less than 3 Seconds Skin: No rashes, No breakdown Musculoskeletal: No Tenderness to Palpation of Joints or Extremities Neurological: Cranial nerves II-XII grossly intact, Motor Exam 5/5 strength throughout, Sensory exam intact to light touch and pain Psych/Mental Status: Flat Assessment & Plan Assessment/Plan (1) Adult failure to thrive: PLAN: Plan 1. Unintentional weight loss with hypercalcemia ? Rule out malignancy she had a CT scan of her abdomen and pelvis in October which showed an ascending colitis may benefit from a CT scan of her chest ?PTH was normal vitamin D is pending ? CA125 is elevated to about 217 and CEA is 5.4, we will proceed with a transvaginal ultrasound as her renal function precludes a CT with contrast at this time ? Continue with IV fluids, her calcium is improving ?She did have an EGD but she did have a colonoscopy which demonstrated some patchy inflammation and congested mucosa which has been biopsied. ? PT/OT evaluation given to chronic deconditioning and weight loss possible placement 2. Nonalcoholic cirrhosis with thrombocytopenic and chronic severe protein calorie malnutrition with a history of portal vein thrombosis ? Appreciate gastroenterology's assistance much of the work-up and evaluation is also being performed to problem 1 ? Paracentesis pending for with lab work ? We will trend her chronic thrombocytopenia ? We will have to consult nutritional services for her protein calorie malnutrition 3. UTI due to E. coli and Klebsiella ?Culture with a pansensitive E. coli and Klebsiella ? We will transition to IV Rocephin to cover both her cirrhosis with ascites and her UTI 4. DM2 ? We will hold her metformin and Actos ? Accu-Cheks ACHS ? Sliding scale insulin ? We will monitor make adjustments as necessary DVT: SCD Charges/Coding Visit Charges Inpatient E&M: 08902 Subs Hosp L2
[2022-11-27] MEDS: Ceftriaxone 1 GM/50 ML BAG IV (10:52)
[2022-11-27 11:00] VITALS: BP 141/75; PULSE 94; RESP 18; TEMP 36.6; O2SAT 93
[2022-11-27 11:56] LABS: Bedside Glucose 155 mg/dL (74-106)
[2022-11-27 12:33] LABS: Phosphorus 1.3 mg/dL (2.5-4.9)
[2022-11-27 14:10] LABS: Vitamin D 1,25-Dihydroxy 75.6 pg/mL (24.8-81.5)
[2022-11-27] MEDS: Potassium Phosphate 30 MM in 0.9% Normal Saline (250mL Bag) 250 ML 42 MM IV (16:29)
[2022-11-27] MEDS: Insulin Lispro 100 UNIT/ML INSULN.PEN SC ×2 (16:35→20:29)
[2022-11-27 16:36] VITALS: BP 144/75; PULSE 103; RESP 16; TEMP 36.8; O2SAT 95
[2022-11-27] MEDS: Acetaminophen 325 MG Tablet 650 MG PO (16:55)
[2022-11-27 16:57] LABS: Bedside Glucose 160 mg/dL (74-106)
[2022-11-27 20:25] VITALS: BP 155/79; PULSE 92; RESP 18; TEMP 36.2; O2SAT 95
[2022-11-27 20:55] LABS: Bedside Glucose 173 mg/dL (74-106)
[2022-11-28] VITALS (7 sets, daily range): BP systolic 136–143; BP diastolic 47–74; PULSE 86–96; RESP 16–18; TEMP 36.6–37.3; O2SAT 93–96
[2022-11-28] MEDS: Sucralfate 1 GM Tablet PO ×3 (06:13→16:29)
[2022-11-28] MEDS: 0.9% Normal Saline (1000mL) 1,000 ML 100 ML IV ×2 (06:20→18:09)
[2022-11-28 06:34] LABS: Bedside Glucose 100 mg/dL (74-106)
[2022-11-28] MEDS: Allopurinol 300 MG Tablet PO (07:49)
[2022-11-28] MEDS: Atorvastatin Calcium 10 MG Tablet PO (07:49)
[2022-11-28] MEDS: Citalopram 10 MG Tablet PO (07:49)
[2022-11-28] MEDS: Pantoprazole Sodium 40 MG Tablet PO ×2 (07:49→20:18)
[2022-11-28] MEDS: Folic Acid 1 MG Tablet PO (07:49)
[2022-11-28 08:24] LABS: Phosphorus 2.4 mg/dL (2.5-4.9)
[2022-11-28 08:26] LABS: AST(SGOT) 24 U/L (15-37); Alanine Aminotransfer ALT/SGPT 20 U/L (13-56); Albumin, Serum 2.4 g/dL (3.2-5.0); Alkaline Phosphatase 72 U/L (45-117); Anion Gap 7 (5-15); BUN 25 mg/dL (7-18); BUN/Creat Ratio 18.9 RATIO (10-20); Calcium,Total 10.3 mg/dL (8.5-10.1); Chloride 114 mmol/L (98-107); Creatinine, Serum 1.32 mg/dL (0.55-1.02); EST Glomerular Filtration Rate 42 mL/min (>60); Est Glom Filt Rate - Afr Amer 51 mL/min (>60); Globulin 2.5 g/dL (2.2-4.2); Glucose 103 mg/dL (74-106); Magnesium 1.5 mg/dL (1.6-2.6); Potassium 3.7 mmol/L (3.5-5.1); Protein, Total 4.9 g/dL (6.4-8.2); Sodium Level 140 mmol/L (136-145)
--- NOTE | 2022-11-28 09:32 | PN.HOSP_ITS ---
Subjective Subjective Doing well, in good spirits. No issues overnight Objective Data Objective Data Vital Signs: Vital Signs Temp Pulse Resp BP Pulse Ox O2 Del Method 98.2 F 88 16 143/74 H 95 Room Air 11/28/22 07:45 11/28/22 07:45 11/28/22 07:45 11/28/22 07:45 11/28/22 07:50 11/28/22 07:50 Oxygen Delivery Method [2] Room Air Oxygen Delivery Method [1 ( Room Air Initial Baseline)] Oxygen Delivery Method Room Air Weight: 131 lb 1 oz Body Mass Index (BMI) 23.2 Intake & Output: Intake and Output for Last 24 Hours 11/27/22 11/28/22 11/29/22 03:59 03:59 03:59 Intake Total 3856.67 / 3856.67 2928.34 / 2928.34 983.33 / 983.33 Balance 3856.67 / 3856.67 2928.34 / 2928.34 983.33 / 983.33 Medical Nutrition Assessment Dietitian: Malnutrition Criteria Met Start: 11/24/22 15:53 Freq: Status: Active Protocol: Document 11/24/22 15:53 AG (Rec: 11/24/22 15:53 [id number]) Nutrition Malnutrition Evidence of Malnutrition Exists Yes Malnutrition (severe): Chronic Evidenced By Suboptimal Energy Intake ( Severe),Weight Loss (Severe) Clinical Problem Chronic Disease or Condition Related Malnutrition Etiology severe, chronic malnutrition r /t GI dysfunction, poor appetite Signs/Symptoms as evidenced by unintentional wt loss of ~69#/34% wt loss x 1 year, estimated PO intake meeting <75% of estimated energy needs > 3 months Status Active Problem Recommendation Dietitian Recommendations/Changes Recommend advance diet as tolerated to regular/sodium restricted; will monitor PO intake as established and adjust diet/add ONS as indicated Lab / Micro Data 11/26/22 06:04 11/28/22 07:40 Labs: Laboratory Results - last 24 hr 11/25/22 06:15: Vit D 1,25-Dihydroxy 75.6 11/27/22 01:25: Phosphorus 1.3 L 11/27/22 10:53: POC Glucose 155 H 11/27/22 16:32: POC Glucose 160 H 11/27/22 20:27: POC Glucose 173 H 11/28/22 06:15: POC Glucose 100 11/28/22 07:40: Sodium 140, Potassium 3.7, Chloride 114 H, Carbon Dioxide 19.0 L , Anion Gap 7, BUN 25 H, Creatinine 1.32 H, Estim Creat Clear Calc 31.40, Est GFR (MDRD) Af Amer 51 L, Est GFR (MDRD) Non-Af 42 L, BUN/Creatinine Ratio 18.9, Glucose 103, Calcium 10.3 H, Phosphorus 2.4 L, Magnesium 1.5 L, Total Bilirubin 1.30 H, AST 24, ALT 20, Alkaline Phosphatase 72, Total Protein 4.9 L, Albumin 2.4 L, Globulin 2.5, Albumin/Globulin Ratio 1.0 Micro: Microbiology 11/23/22 13:58 Urine, Clean Catch Urine Culture - Final Escherichia coli Klebsiella pneumoniae sp pneum#2 11/23/22 10:30 Blood Culture (Wb) - Left Hand Blood Culture - Preliminary No growth in 48 hours. 11/23/22 10:30 Blood Culture (Wb) - Anticubital Right Blood Culture - P reliminary No growth in 48 hours. Radiography Diagnostic Testing: Radiology Impression Pelvic/Transvag US 11/27/22 08:28 IMPRESSION: Moderate amount of ascites. 1 cm mass of the uterine cervix. Nonvisualization ovaries. Electronically Signed: Phoenix Leblanc MD at 20:38 EDT , Physical Exam Narrative General: Alert, Oriented x2, Cooperative, No apparent distress HEENT: Atraumatic, PERRLA, EOMI, Normocephalic Oral: Moist Mucosa Neck: Supple, No JVD Lungs: Diminished, Normal air movement, No rhonchi, No wheeze, No rales Cardiovascular: Regular rate, Regular Rhythm, Normal S1, Normal S2, No murmurs Abdomen: Soft, Non Tender, distended, unable to assess for hepato-splenomegaly Extremities: No edema, Capillary Refill Less than 3 Seconds Skin: No rashes, No breakdown Musculoskeletal: No Tenderness to Palpation of Joints or Extremities Neurological: Motor Exam 5/5 strength throughout, Sensory exam intact to light touch and pain Psych/Mental Status: Normal affect Assessment & Plan Assessment/Plan (1) Adult failure to thrive: PLAN: Plan 1. Unintentional weight loss with hypercalcemia ? Rule out malignancy she had a CT scan of her abdomen and pelvis in October which showed an ascending colitis may benefit from a CT scan of her chest ?PTH was normal vitamin D is normal ? CA125 is elevated to about 217 and CEA is 5.4, transvaginal ultrasound could not observe the ovaries and cytology is negative for any malignant cells. The fact that the transvaginal ultrasound and the pelvic ultrasound could not visualize the ovaries is a good thing indicating there are small size however given the confounding variable with an elevated CA125 would recommend a pelvic MRI in the morning given her renal function ? Continue with IV fluids, her calcium is improving ? She did have a colonoscopy which demonstrated some patchy inflammation and congested mucosa which has been biopsied. ? GI initially did recommend an EGD, if this is going to happen will not happen until tomorrow ? PT/OT evaluation given to chronic deconditioning and weight loss possible placement 2. Nonalcoholic cirrhosis with thrombocytopenic and chronic severe protein calorie malnutrition with a history of portal vein thrombosis ? Appreciate gastroenterology's assistance much of the work-up and evaluation is also being performed to problem 1 ? Paracentesis pending for with lab work ? We will trend her chronic thrombocytopenia ? We will have to consult nutritional services for her protein calorie malnutrition 3. UTI due to E. coli and Klebsiella ?Culture with a pansensitive E. coli and Klebsiella ? We will transition to IV Rocephin to cover both her cirrhosis with ascites and her UTI 4. DM2 ? We will hold her metformin and Actos ? Accu-Cheks ACHS ? Sliding scale insulin ? We will monitor make adjustments as necessary DVT: SCD Charges/Coding Visit Charges Inpatient E&M: 28485 Subs Hosp L2
[2022-11-28] MEDS: Ceftriaxone 1 GM/50 ML BAG IV (09:33)
[2022-11-28] MEDS: Potassium Phosphate 21 MM in 0.9% Normal Saline (250mL Bag) 250 ML 84 MM IV (11:06)
[2022-11-28] MEDS: Magnesium Sulfate 2 GM in Dextrose 5%-Water (100mL Bag) 100 ML IV (11:07)
[2022-11-28 11:27] LABS: Bedside Glucose 134 mg/dL (74-106)
[2022-11-28 20:37] LABS: Bedside Glucose 142 mg/dL (74-106)
[2022-11-28 21:03] LABS: Bedside Glucose 100 mg/dL (74-106)
[2022-11-29 03:15] VITALS: BP 134/83; PULSE 98; RESP 18; TEMP 36; O2SAT 94
[2022-11-29] MEDS: 0.9% Normal Saline (1000mL) 1,000 ML 100 ML IV ×2 (04:22→15:14)
--- NOTE | 2022-11-29 05:55 | MRI_ITS ---
EXAM: MR PELVIS WITHOUT AND WITH INTRAVENOUS CONTRAST CLINICAL INDICATION: Elevated CA125, evaluation of ovaries, abdomen pain TECHNIQUE: Multiplanar and multisequence MR images of the pelvis without and with intravenous contrast. CONTRAST: IV CLARISCAN 15ML COMPARISON: No relevant prior studies available. FINDINGS: APPENDIX: No evidence of acute appendicitis. INTRAPERITONEAL SPACE: Large volume ascites within the lower abdomen. BLADDER: Normal. OVARIES: Unremarkable as visualized. 2. Normal left ovary measuring 16 x 12 mm. Normal right ovary measuring 18 x 14 mm. UTERUS/CERVIX: Uterus measures 6.5 cm in length. Normal endometrial thickness. 6 an 8 mm nabothian cysts. BONES/JOINTS: Normal. SOFT TISSUES: Normal. No pelvic wall hernia. LYMPH NODES: Normal. No enlarged lymph nodes. MRI/Pelvis W/WO Contrast IMPRESSION: 1. Large volume pelvic ascites. 2. Normal ovaries. 3. No uterine mass. Electronically Signed: Aditya Quiroz MD at 16:11 EDT ,
[2022-11-29] MEDS: Sucralfate 1 GM Tablet PO ×3 (06:29→15:59)
[2022-11-29 06:47] LABS: Bedside Glucose 95 mg/dL (74-106)
[2022-11-29 06:49] LABS: Absolute Lymphocyte Count 0.45 X10^3/uL (0.83-4.51); Absolute Neutrophil Count 3.4 X10^3/uL (2.0-7.7); Basophil# 0.02 X10^3/uL; Basophil% 0.5 % (0-1); Eosinophil# 0.32 X10^3/uL; Eosinophils% 7.2 % (0-5); Hematocrit 33.6 % (37-47); Hemoglobin 11.4 g/dL (12.0-15.0); Lymphocyte # 0.45 X10^3/ul (0.83-4.51); Lymphocyte % 10.2 % (19-41); Mean Corp Hgb Conc 33.9 g/dL (32-36); Mean Corpuscular Hgb 36.3 pg (27.0-32.0); Monocyte# 0.22 X10^3/uL; NRBC Flagged by Analyzer 0 % (0-5); Neutrophil # 3.38 X10^3/uL (2.7-7.7); Neutrophil % 76.2 % (47-70); POSITIVE COUNT YES; POSITIVE DIFFERENTIAL YES; Platelet Count 48 K/mm3 (150-450); RBC Distribution Width CV 16.2 % (11.6-14.6); RBC Distribution Width SD 63.8 fl (35.1-43.9); Red Blood Count 3.14 M/mm3 (4.2-5.4); White Blood Count 4.4 K/mm3 (4.4-11.0)
[2022-11-29 06:54] LABS: Differential Indicated SCAN CRITERIA MET
[2022-11-29 07:32] LABS: ALB/GLOB Ratio 0.9 RATIO (0.9-2.4); AST(SGOT) 33 U/L (15-37); Alanine Aminotransfer ALT/SGPT 28 U/L (13-56); Albumin, Serum 2.3 g/dL (3.2-5.0); Alkaline Phosphatase 76 U/L (45-117); Anion Gap 6 (5-15); BUN 20 mg/dL (7-18); BUN/Creat Ratio 19.4 RATIO (10-20); Calcium,Total 9.8 mg/dL (8.5-10.1); Chloride 115 mmol/L (98-107); Creatinine, Serum 1.03 mg/dL (0.55-1.02); EST Glomerular Filtration Rate 56 mL/min (>60); Est Glom Filt Rate - Afr Amer 68 mL/min (>60); Estimated Creatinine Clearance 40.24 ml/min; Globulin 2.5 g/dL (2.2-4.2); Glucose 100 mg/dL (74-106); Potassium 3.6 mmol/L (3.5-5.1); Protein, Total 4.8 g/dL (6.4-8.2); Sodium Level 142 mmol/L (136-145)
[2022-11-29 07:35] LABS: Differential Comment S; Platelet Estimate MKD DEC (ADEQ)
[2022-11-29] MEDS: Citalopram 10 MG Tablet PO (08:37)
[2022-11-29] MEDS: Pantoprazole Sodium 40 MG Tablet PO ×2 (08:38→21:58)
[2022-11-29] MEDS: Atorvastatin Calcium 10 MG Tablet PO (08:38)
[2022-11-29] MEDS: Allopurinol 300 MG Tablet PO (08:38)
[2022-11-29] MEDS: Folic Acid 1 MG Tablet PO (08:38)
[2022-11-29 08:58] LABS: Vitamin B12 1209 pg/mL (211-911)
[2022-11-29 09:57] LABS: Pathologist Comment/Body Fluid Reviewed
--- NOTE | 2022-11-29 09:59 | CASEMGMT ---
MALI received a phone call from Maryana at [facility]. MALI let Maryana know there has been no more mention of Hospice. Also, physician has changed today so SW will have to get back with her on a plan. MALI will have Ila d/c vice president planning send updates. Jessenia ZAVALA
[2022-11-29] MEDS: Ceftriaxone 1 GM/50 ML BAG IV (10:07)
--- NOTE | 2022-11-29 10:33 | CASEMGMT ---
Discharge Planning Updates sent to [facility] via [facility]. Asked that pre-cert be resubmitted. Ila Powell, Discharged Planning Ass.
[2022-11-29 11:00] VITALS: BP 149/78; PULSE 81; RESP 14; TEMP 36.4; O2SAT 96
[2022-11-29 11:38] VITALS: BP 149/78; PULSE 81; RESP 14; TEMP 36.4; O2SAT 96
[2022-11-29 11:59] LABS: Bedside Glucose 147 mg/dL (74-106)
[2022-11-29] MEDS: Glucerna Shake 120 ML LIQUID PO ×2 (13:37→18:03)
[2022-11-29 13:45] LABS: Pathologist Review Reviewed
--- NOTE | 2022-11-29 14:38 | PN_ITS ---
Subjective Subjective Patient seen and examined. She had no complaints this morning. She denied any abdominal pain, nausea, vomiting or any other complaints. Review of systems is otherwise negative. She is for EGD today Objective Data Objective Data Vital Signs: Vital Signs Temp Pulse Resp BP Pulse Ox O2 Del Method 97.5 F L 81 14 149/78 H 96 Room Air 11/29/22 11:38 11/29/22 11:38 11/29/22 11:38 11/29/22 11:38 11/29/22 11:38 11/29/22 11:38 Oxygen Delivery Method [2] Room Air Oxygen Delivery Method [1 ( Room Air Initial Baseline)] Oxygen Delivery Method Room Air Weight: 131 lb 1 oz Body Mass Index (BMI) 23.2 Intake & Output: Intake and Output for Last 24 Hours 11/27/22 11/28/22 11/29/22 23:59 23:59 23:59 Intake Total 3981.67 / 4031.67 2971.00 / 2971.00 1350 / 1350 Output Total 300 / 300 Balance 3981.67 / 4031.67 2971.00 / 2971.00 1050 / 1050 Medical Nutrition Assessment Dietitian: Malnutrition Criteria Met Start: 11/24/22 15:53 Freq: Status: Active Protocol: Document 11/24/22 15:53 AG (Rec: 11/24/22 15:53 AG [id number]) Nutrition Malnutrition Evidence of Malnutrition Exists Yes Malnutrition (severe): Chronic Evidenced By Suboptimal Energy Intake ( Severe),Weight Loss (Severe) Clinical Problem Chronic Disease or Condition Related Malnutrition Etiology severe, chronic malnutrition r /t GI dysfunction, poor appetite Signs/Symptoms as evidenced by unintentional wt loss of ~69#/34% wt loss x 1 year, estimated PO intake meeting <75% of estimated energy needs > 3 months Status Active Problem Recommendation Dietitian Recommendations/Changes Recommend advance diet as tolerated to regular/sodium restricted; will monitor PO intake as established and adjust diet/add ONS as indicated Lab / Micro Data 11/29/22 05:30 11/29/22 05:30 Labs: Laboratory Results - last 24 hr 11/24/22 : Fl Pathologist Comment Reviewed 11/27/22 01:25: Vitamin B12 1209 H 11/28/22 16:26: POC Glucose 100 11/28/22 20:17: POC Glucose 142 H 11/29/22 05:30: WBC 4.4, RBC 3.14 L, Hgb 11.4 L, Hct 33.6 L, MCV 107.0 H, MCH 36.3 H, MCHC 33.9, RDW Std Deviation 63.8 H, RDW Coeff of Codey 16.2 H, Plt Count 48 L*, MPV 11.0, Immature Gran % (Auto) 0.900, Neut % (Auto) 76.2 H, Lymph % (Auto) 10.2 L, [place] % (Auto) 5.0, Eos % (Auto) 7.2 H, Baso % (Auto) 0.5, Abso lute Neuts (auto) 3.4, Absolute Lymphs (auto) 0.45 L, Nucleated RBC % 0, Diff erential Comment S, Diff Path Review Reviewed, Platelet Estimate MKD DEC, Sodium 142, Potassium 3.6, Chloride 115 H, Carbon Dioxide 21.0, Anion Gap 6, BUN 20 H, Creatinine 1.03 H, Estim Creat Clear Calc 40.24, Est GFR (MDRD) Af Amer 68, Est GFR (MDRD) Non-Af 56 L, BUN/Creatinine Ratio 19.4, Glucose 100, Calcium 9.8, Total Bilirubin 1.10 H, AST 33, ALT 28, Alkaline Phosphatase 76, Total Protein 4.8 L, Albumin 2.3 L, Globulin 2.5, Albumin/Globulin Ratio 0.9 11/29/22 06:28: POC Glucose 95 11/29/22 11:36: POC Glucose 147 H Micro: Microbiology 11/23/22 10:30 Blood Culture (Wb) - Left Hand Blood Culture - Final No growth in 5 days. 11/23/22 10:30 Blood Culture (Wb) - Anticubital Right Blood Culture - Final No growth in 5 days. 11/23/22 13:58 Urine, Clean Catch Urine Culture - Final Escherichia coli Klebsiella pneumoniae sp pneum#2 Physical Exam Const alert, oriented x3 and no apparent distress General Appearance: cooperative HEENT head/scalp atraumatic, moist oral mucous membranes and oropharynx normal Eyes PERRL and EOMs intact bilaterally Neck no lymphadenopathy and supple Lymph Lymphatic: no lymphadenopathy noted and no lymphedema noted Resp normal respiratory effort, normal air movement and clear to auscultation bilaterally Cardio regular rate, regular rhythm, S1 normal heart sound and S2 normal heart sound Cardio Narrative: grade 2-3 systolic murmur loudest over the aortic region GI normal to inspection, nondistended, normoactive bowel sounds, soft to palpation and non-tender GI Narrative: abdomen distended, positive fluid thrill. Extremity normal capillary refill and no clubbing, cyanosis or edema Skin General Skin Exam: no breakdown Neuro CN's II-XII intact bilaterally, no focal motor deficits, no sensory deficits noted and deep tendon reflexes 2+ bilaterally Motor Exam: strength 5/5 throughout and general weakness Psych thought process normal, cooperative and affect normal Appearance: appropriate Assessment & Plan Assessment/Plan (1) Cirrhosis of liver with ascites: (2) Cirrhosis: (3) Adult failure to thrive: PLAN: Plan #Unintentional weight loss in the setting of hypercalcemia * calcium is down to normal * CA 125 elevated and CEA also elevated * Transvaginal ultrasound could not detect the ovaries and showed moderate amounts of ascites with 1 cm mass of the uterine cervix. * CT of the abdomen and pelvis done in October showed ascending colitis. * Colonoscopy showed patchy inflammation and congested mucosa which was biopsied. * For EGD today. * Gastroenterology on board. * MRI of the pelvis ordered. * #Cervical mass * Transvaginal ultrasound showed moderate amount of ascites with 1 cm cervical mass. There was nonvisualization of the ovaries. 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 12 paracentesis. * Gastroenterology on board. * #UTI due to E. coli and Klebsiella: On IV Rocephin. #Type 2 diabetes mellitus: On metformin and Actos which are on hold. Insulin sliding scale. Accu-Cheks ACHS. #Hyperlipidemia: on statin #Thrombocytopenia: Platelets of 48 today. This is chronic. Will monitor DVT prophylaxis: SCDs Charges/Coding Visit Charges Inpatient E&M: 84110 Subs Hosp L3
[2022-11-29 16:18] LABS: Bedside Glucose 109 mg/dL (74-106)
[2022-11-29 17:40] VITALS: BP 128/78; PULSE 94; RESP 16; TEMP 37.2; O2SAT 98
--- NOTE | 2022-11-29 18:28 | CON.PCM_ITS ---
Assessment & Plan Assessment/Plan (1) Elevated CA-125: PLAN: The patient had a CA125 level that was ordered and noted to be elevated. CA-125 is non specific and can be elevated for various reasons including benign. She had a pelvic ultrasound completed that showed a small hypoechoic lesion in the cervix. MRI shows a normal uterus and cervix, as well as normal ovaries. The lesion noted on the pelvic ultrasound could represent a nabothian cyst. Discussed pelvic ultrasound and MRI findings with the patient and family at bedside and questions answered. Would not recommend proceeding with any further work-up at this time as an inpatient. Will message my office staff to have patient follow-up with me for a routine breast and pelvic exam. We will consider repeating a [facility] pelvic ultrasound in the office as well for follow-up. Please call oxidation engineer provider with any questions or concerns. HPI Consult Data Date of Consult: 11/29/22 HPI Narrative Reason for Consultation: elevated CA-125, cervical mass on pelvic ultrasound HPI Narrative: GIGI RDZ, is a 72 F who is admitted with hyper calcemia and ascites in the setting of known liver disease. Consult was placed to gynecology given cervical mass on pelvic US. [facility] Medical History (Updated 11/29/22 @ 18:[address] 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) Myocardial infarct Obstructive sleep apnea Pancytopenia Portal hypertensive gastropathy Primary insomnia Secondary esophageal varices without bleeding Thrombocytopenia Home Medications citalopram 10 mg tablet 10 tab PO DAILY DEPRESSION 07/20/19 [History Last Taken 11/23/22] ergocalciferol (vitamin D2) 1,250 mcg (50,000 unit) capsule 50,000 units PO METZ SUPPLEMETNT 07/20/19 [History Last Taken 10/05/20] lorazepam 1 mg tablet 1 mg PO DAILY ANXIETY 07/20/19 [History Last Taken 11/22/22] lovastatin 40 mg tablet 40 mg PO DAILY CHOLESTEROL 07/20/19 [History Last Taken 11/22/22] metformin 1,000 mg tablet 1,000 mg PO BID DM 07/20/19 [History Last Taken 11/23/22] pioglitazone 30 mg tablet 30 mg PO DAILY DM 07/20/19 [History Last Taken 11/23/22] allopurinol 300 mg tablet 300 mg PO DAILY Gout 10/20/22 [History Last Taken 11/23/22] folic acid 1 mg tablet 1 mg PO DAILY supplement 10/20/22 [History Last Taken 11/23/22] furosemide 20 mg tablet 20 mg PO DAILY Water pill 10/20/22 [History Last Taken 11/23/22] pantoprazole 40 mg tablet,delayed release 40 mg PO BID Stomach pill 10/20/22 [History Last Taken 11/23/22] potassium chloride 10 mEq tablet,extended release 10 meq PO DAILY supplement 10/20/22 [History Last Taken 11/23/22] sucralfate 1 gram tablet 1 g PO TID Stomach pill 10/20/22 [History Last Taken 11/23/22] spironolactone 25 mg tablet (Aldactone) 50 mg PO DAILY FLUID 11/23/22 [History Last Taken 11/23/22] Allergy/AdvReac Type Severity Reaction Status Date / Time levofloxacin [From Levaquin] Allergy Intermediate hallunated Verified 11/23/22 14:11 amlodipine [From Norvasc] Allergy Unknown Swelling Verified 11/23/22 14:11 in LE nitrofurantoin Allergy Unknown Hives/Itchi Verified 11/23/22 14:11 [From Macrobid] ng codeine AdvReac Unknown Excessively Verified 11/23/22 14:11 tired Surgical History H/O heart surgery H/O hernia repair History of cholecystectomy Hx of CABG Social History Smoking Status: Former smoker alcohol intake: never Physical Exam Const alert and no apparent distress General Appearance: comfortable Medical Records Data Medical Nutrition Assessment Dietitian: Malnutrition Criteria Met Start: 11/24/22 15:53 Freq: Status: Active Protocol: Document 11/24/22 15:53 AG (Rec: 11/24/22 15:53 AG [id number]) Nutrition Malnutrition Evidence of Malnutrition Exists Yes Malnutrition (severe): Chronic Evidenced By Suboptimal Energy Intake ( Severe),Weight Loss (Severe) Clinical Problem Chronic Disease or Condition Related Malnutrition Etiology severe, chronic malnutrition r /t GI dysfunction, poor appetite Signs/Symptoms as evidenced by unintentional wt loss of ~69#/34% wt loss x 1 year, estimated PO intake meeting <75% of estimated energy needs > 3 months Status Active Problem Recommendation Dietitian Recommendations/Changes Recommend advance diet as tolerated to regular/sodium restricted; will monitor PO intake as established and adjust diet/add ONS as indicated Lab / Micro Data 11/29/22 05:30 11/29/22 05:30 Labs: Laboratory Results - last 24 hr 11/24/22 : Fl Pathologist Comment Reviewed 11/27/22 01:25: Vitamin B12 1209 H 11/28/22 16:26: POC Glucose 100 11/28/22 20:17: POC Glucose 142 H 11/29/22 05:30: WBC 4.4, RBC 3.14 L, Hgb 11.4 L, Hct 33.6 L, MCV 107.0 H, MCH 36.3 H, MCHC 33.9, RDW Std Deviation 63.8 H, RDW Coeff of Codey 16.2 H, Plt Count 48 L*, MPV 11.0, Immature Gran % (Auto) 0.900, Neut % (Auto) 76.2 H, Lymph % (Auto) 10.2 L, [place] % (Auto) 5.0, Eos % (Auto) 7.2 H, Baso % (Auto) 0.5, Absolute Neuts (auto) 3.4, Absolute Lymphs (auto) 0.45 L, Nucleated RBC % 0, Differential Comment S, Diff Path Review Reviewed, Platelet Estimate MKD DEC, Sodium 142, Potassium 3.6, Chloride 115 H, Carbon Dioxide 21.0, Anion Gap 6, BUN 20 H, Creatinine 1.03 H, Estim Creat Clear Calc 40.24, Est GFR (MDRD) Af Amer 68, Est GFR (MDRD) Non-Af 56 L, BUN/Creatinine Ratio 19.4, Glucose 100, Calcium 9.8, Total Bilirubin 1.10 H, AST 33, ALT 28, Alkaline Phosphatase 76, Total Protein 4.8 L, Albumin 2.3 L, Globulin 2.5, Albumin/Globulin Ratio 0.9 11/29/22 06:28: POC Glucose 95 11/29/22 11:36: POC Glucose 147 H 11/29/22 15:57: POC Glucose 109 H Radiology Impression Pelvis MRI 11/29/22 05:55 IMPRESSION: 1. Large volume pelvic ascites. 2. Normal ovaries. 3. No uterine mass. Electronically Signed: Aditya Quiroz MD at 16:11 EDT ,
[2022-11-29 22:07] VITALS: BP 134/74; PULSE 95; RESP 16; TEMP 36.6; O2SAT 93
[2022-11-29 22:28] LABS: Bedside Glucose 116 mg/dL (74-106)
[2022-11-30] VITALS (7 sets, daily range): BP systolic 129–145; BP diastolic 69–76; PULSE 86–97; RESP 16–18; TEMP 36.4–37.1; O2SAT 94–96
[2022-11-30] MEDS: 0.9% Normal Saline (1000mL) 1,000 ML 100 ML IV ×2 (01:17→11:08)
[2022-11-30 06:39] LABS: Bedside Glucose 89 mg/dL (74-106)
[2022-11-30] MEDS: Sucralfate 1 GM Tablet PO ×3 (06:56→15:54)
[2022-11-30] MEDS: Pantoprazole Sodium 40 MG Tablet PO (08:07)
[2022-11-30] MEDS: Glucerna Shake 120 ML LIQUID PO (08:07)
[2022-11-30] MEDS: Folic Acid 1 MG Tablet PO (08:07)
[2022-11-30] MEDS: Allopurinol 300 MG Tablet PO (08:07)
[2022-11-30] MEDS: Citalopram 10 MG Tablet PO (08:07)
[2022-11-30] MEDS: Atorvastatin Calcium 10 MG Tablet PO (08:07)
[2022-11-30 09:33] LABS: Absolute Lymphocyte Count 0.39 X10^3/uL (0.83-4.51); Absolute Neutrophil Count 3.4 X10^3/uL (2.0-7.7); Basophil# 0.03 X10^3/uL; Basophil% 0.7 % (0-1); Hematocrit 34.1 % (37-47); Hemoglobin 11.4 g/dL (12.0-15.0); Lymphocyte # 0.39 X10^3/ul (0.83-4.51); Lymphocyte % 9.1 % (19-41); Mean Corp Hgb Conc 33.4 g/dL (32-36); Mean Corpuscular Hgb 36.4 pg (27.0-32.0); Mean Corpuscular Volume 108.9 fL (81-99); Mean Platelet Vol. 11.4 fl (6.2-12.0); Monocyte# 0.19 X10^3/uL; Monocyte% 4.4 % (0-10); NRBC Flagged by Analyzer 0 % (0-5); Neutrophil # 3.35 X10^3/uL (2.7-7.7); Neutrophil % 78.3 % (47-70); POSITIVE COUNT YES; POSITIVE DIFFERENTIAL YES; RBC Distribution Width SD 64.5 fl (35.1-43.9); Red Blood Count 3.13 M/mm3 (4.2-5.4); White Blood Count 4.3 K/mm3 (4.4-11.0)
[2022-11-30 09:38] LABS: Differential Indicated SCAN CRITERIA MET; Platelet Count 42 K/mm3 (150-450)
[2022-11-30] MEDS: Ceftriaxone 1 GM/50 ML BAG IV (09:42)
--- NOTE | 2022-11-30 10:07 | CASEMGMT ---
Discharge Planning [facility] [place] has received auth. MALI updated. [facility] [place] updated that patient will discharge tomorrow. Ila Powell, Discharge Planning Asst.
[2022-11-30 10:11] LABS: Anisocytosis 1+; Platelet Estimate MKD DEC (ADEQ)
[2022-11-30 10:23] LABS: Anion Gap 5 (5-15); BUN 17 mg/dL (7-18); BUN/Creat Ratio 18.4 RATIO (10-20); Calcium,Total 9.3 mg/dL (8.5-10.1); Chloride 114 mmol/L (98-107); Creatinine, Serum 0.92 mg/dL (0.55-1.02); EST Glomerular Filtration Rate 63 mL/min (>60); Est Glom Filt Rate - Afr Amer 77 mL/min (>60); Estimated Creatinine Clearance 45.05 ml/min; Glucose 96 mg/dL (74-106); Magnesium 1.7 mg/dL (1.6-2.6); Potassium 3.3 mmol/L (3.5-5.1); Sodium Level 139 mmol/L (136-145)
[2022-11-30] MEDS: Metoclopramide 5 MG TABLET PO ×2 (11:08→15:55)
--- NOTE | 2022-11-30 11:12 | US_ITS ---
PROCEDURE: Ultrasound guided paracentesis. DATE OF EXAMINATION: November 30, 2022. INDICATION: Female, 72 years old. Ascites. PHYSICIAN: Jose Curtis M.D. TECHNIQUE: The risks, benefits, and alternatives to the procedure were explained to the patient. The specific risks of bleeding, infection, and damage to bowel were detailed and accepted. Witnessed informed consent was obtained. The abdomen was ultrasonographically surveyed. An appropriate pocket of fluid was identified at the right lower quadrant. The skin were cleaned and prepped in the usual sterile fashion. Using ultrasound guidance, the peritoneal cavity was accessed with a 5-Pashto paracentesis needle/catheter system. The trocar was removed. A total of 4100 ml of sylvester-colored fluid were removed from the peritoneal cavity. The catheter was removed and a sterile dressing was applied. The procedure was well tolerated. US/Paracentesis with US IMPRESSION: Ultrasound guided paracentesis. Electronically Signed: Jose Curtis MD at 15:00 EDT ,
[2022-11-30 11:28] LABS: Bedside Glucose 100 mg/dL (74-106)
[2022-11-30] MEDS: Lidocaine 2% (20 ml mdv) 20 ML Vial INFILT (13:42)
--- NOTE | 2022-11-30 14:37 | TREXTCAR_ITS ---
Diet Diet Order/Speech Therapy: 11/24/22 17:42 Diet: Regular - General Dietary Modifications:: No Added Salt Is pt able to select menu?: No Diet Comments: egd Routine Orders/Code Status Enema Type: Fleetz Enema Frequency: Daily PRN Suppository Frequency: Daily PRN O2 Frequency: PRN Keep PO Greater than or Equal to (%): 90 Wound(s) RUQ: Wound Type: Puncture Left forearm: Wound Type: Laceration Therapies Weight Bearing: Weight bearing as tolerated Physical Therapy: Eval and Treat Occupational Therapy: Eval and Treat Problem/Diagnosis (1) Elevated CA-125: Status: Acute Code(s): R97.1 - Elevated cancer antigen 125 [CA 125] Plan #Unintentional weight loss in the setting of hypercalcemia * calcium is down to normal * CA 125 elevated and CEA also elevated * Transvaginal ultrasound could not detect the ovaries and showed moderate amounts of ascites with 1 cm mass of the uterine cervix. * CT of the abdomen and pelvis done in October showed ascending colitis. * Colonoscopy showed patchy inflammation and congested mucosa which was biopsied. * For EGD today. * Gastroenterology on board. * MRI of the pelvis ordered. * #Cervical mass * Transvaginal ultrasound showed moderate amount of ascites with 1 cm cervical mass. There was nonvisualization of the ovaries. 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 12 paracentesis. * Gastroenterology on board. * #UTI due to E. coli and Klebsiella: On IV Rocephin. #Type 2 diabetes mellitus: On metformin and Actos which are on hold. Insulin sliding scale. Accu-Cheks ACHS. #Hyperlipidemia: on statin #Thrombocytopenia: Platelets of 48 today. This is chronic. Will monitor DVT prophylaxis: SCDs Allergies/Procedures Done in Hospital Allergies levofloxacin [From Levaquin] Allergy (Intermediate, Verified 11/23/22 14:11) hallunated amlodipine [From Norvasc] Allergy (Unknown, Verified 11/23/22 14:11) Swelling in LE nitrofurantoin [From Macrobid] Allergy (Unknown, Verified 11/23/22 14:11) Hives/Itching codeine Adverse Reaction (Unknown, Verified 11/23/22 14:11) Excessively tired Procedures: EGD and Paracentesis Type of Care/Length of Stay Estimated LOS: Convalescent Care Less Than 30 days Type of Care Needed: Intermediate Rehab Potential: Fair Prognosis: Fair Additional Orders/Day of Discharge Day of Discharge: 11/30/22 Dietary and Speech Recommendations Dietitian Recommendations/Changes: Will adjust diet to regular/sodium restricted to manage medical conditions. Will monitor blood sugars and add CCD diet if needed. RD will order 120mL Glucerna 4x daily with medpass to provide supplemental energy. Discharge Plan Admission Admit Date/Time: 11/29/22 13:26 Primary Reason for Your Visit: electrolyte abnormalities Attending Provider: Maria E Hairston Primary Care Provider: Santino Mcneill Consulting Providers: Yaya Sanchez; Chris Mccord; Jocelynn Akhtar Instructions Patient Instructions: Hypercalcemia Dc Discharge Orders/Prescriptions Prescriptions: New potassium chloride 20 mEq tablet extended release 20 meq PO DAILY Qty: 30 2RF Continued citalopram 10 mg tablet 10 tab PO DAILY ergocalciferol (vitamin D2) 1,250 mcg (50,000 unit) capsule 50,000 units PO METZ Patient Comments: TAKE 1 CAPSULE BY MOUTH ONCE A WEEK lorazepam 1 mg tablet 1 mg PO DAILY Patient Comments: PT STATES TAKES AT BEDTIME lovastatin 40 mg tablet 40 mg PO DAILY metformin 1,000 mg tablet 1,000 mg PO BID pioglitazone 30 mg tablet 30 mg PO DAILY furosemide 20 mg tablet 20 mg PO DAILY allopurinol 300 mg tablet 300 mg PO DAILY folic acid 1 mg tablet 1 mg PO DAILY Patient Comments: TAKE 1 TABLET BY MOUTH ONCE DAILY sucralfate 1 gram tablet 1 g PO TID Patient Comments: TAKE 1 TABLET BY MOUTH THREE TIMES DAILY BEFORE MEAL(S) pantoprazole 40 mg tablet,delayed release (DR/EC) 40 mg PO BID Patient Comments: TAKE 1 TABLET BY MOUTH ONCE DAILY IN THE AFTERNOON, TAKE ONE HOUR BEFORE EVENING MEAL spironolactone [Aldactone] 25 mg tablet 50 mg PO DAILY Discontinued potassium chloride 10 mEq tablet extended release 10 meq PO DAILY Referrals / Follow Up: Santino Mcneill MD [Primary Care Provider] - Within 2 Weeks Jocelynn Akhtar DO [Med Staff - Active Staff] - Within 2 Weeks Patrick Hawk DO [Med Staff - Active Staff] - Within 2 Weeks Disposition Disposition (needs filled in before D/C Order can be placed): [facility] Facility
--- NOTE | 2022-11-30 14:40 | DS.PCM_ITS ---
Providers Date of Admission: 11/29/22 Date of Discharge: 11/30/22 Primary Care Physician: Dr. 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 Routine Consulting Provider: Jocelynn Akhtar Reason for Consult: cervical mass, unexplained weight loss EMERGENT Consult: No Notified: Yes Date Notified: 11/29/22 Time Notified: 14:54 Method of Notification: Text Reason For Visit: WEAKNESS, HYPOKALEMIA Diagnosis Discharge Diagnosis (1) Elevated CA-125: Status: Acute Code(s): R97.1 - Elevated cancer antigen 125 [CA 125] Plan #Unintentional weight loss in the setting of hypercalcemia * calcium is down to normal * CA 125 elevated and CEA also elevated * Transvaginal ultrasound could not detect the ovaries and showed moderate amounts of ascites with 1 cm mass of the uterine cervix. * CT of the abdomen and pelvis done in October showed ascending colitis. * Colonoscopy showed patchy inflammation and congested mucosa which was biopsied. * For EGD today. * Gastroenterology on board. * MRI of the pelvis ordered. * #Cervical mass * Transvaginal ultrasound showed moderate amount of ascites with 1 cm cervical mass. There was nonvisualization of the ovaries. 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 12 paracentesis. * Gastroenterology on board. * #UTI due to E. coli and Klebsiella: On IV Rocephin. #Type 2 diabetes mellitus: On metformin and Actos which are on hold. Insulin sliding scale. Accu-Cheks ACHS. #Hyperlipidemia: on statin #Thrombocytopenia: Platelets of 48 today. This is chronic. Will monitor DVT prophylaxis: SCDs Medications at Discharge Home Medications citalopram 10 mg tablet 10 tab PO DAILY DEPRESSION 07/20/19 ergocalciferol (vitamin D2) 1,250 mcg (50,000 unit) capsule 50,000 units PO METZ SUPPLEMETNT 07/20/19 lorazepam 1 mg tablet 1 mg PO DAILY ANXIETY 07/20/19 lovastatin 40 mg tablet 40 mg PO DAILY CHOLESTEROL 07/20/19 metformin 1,000 mg tablet 1,000 mg PO BID DM 07/20/19 pioglitazone 30 mg tablet 30 mg PO DAILY DM 07/20/19 allopurinol 300 mg tablet 300 mg PO DAILY Gout 10/20/22 folic acid 1 mg tablet 1 mg PO DAILY supplement 10/20/22 furosemide 20 mg tablet 20 mg PO DAILY Water pill 10/20/22 pantoprazole 40 mg tablet,delayed release 40 mg PO BID Stomach pill 10/20/22 sucralfate 1 gram tablet 1 g PO TID Stomach pill 10/20/22 spironolactone 25 mg tablet (Aldactone) 50 mg PO DAILY FLUID 11/23/22 metoclopramide HCl 5 mg tablet 5 mg PO TIDAC #90 tabs 11/30/22 potassium chloride 20 mEq tablet,extended release 20 meq PO DAILY #30 tabs 11/30/22 Hospital Course Operations None Procedures Colonoscopy and Paracentesis Summary of Care Provided Minutes Spent on Discharge: 55 Hospital Course: Patient is a 72 y/o female with a PMH as outlined who was dmitted via the ED on 11/23/2022 with a complaint of decreased appetite and weakness as well as weight loss over 2 months prior to admission. She was sent in by her PCP due to the above symptoms and concern for possible afib per EKG, though EKG was subsequently reviewed and showed normal sinus rhythm wiht some PACs and PVCs. On admission, she was hypercalcemic, with calcium level of 12.8. Urinalysis showed 4+ bacteria, and CXR showed cardiomegaly. Cr was also elevated. She was admitted and managed for hypokalemia with potassium fo 2.8, hypercalcemia and UTI. She was started on IV antibiotics and potassium was replaced aggressively. Gastroenterology was consulted in light of the unintentional weight loss. She had had a CT of the abdomen and pelvis in October which showed ascending colitis. She also had a history of nonalcoholic cirrhosis with chronic thrombocytopenia severe protein calorie malnutrition. She had paracentesis x2 in the ED. Urine cultures grew E. coli and Klebsiella which was sensitive to ceftriaxone so this was continued and she completed a 5-day course. She had colonoscopy which showed patchy moderate inflammation at the splenic flexure and at the hepatic flexure secondary to colitis and congested mucosa in the entire examined colon as well as one 5 mm polyp at the splenic flexure which was removed with a cold snare. His Ca1 25 done as well as CEA were elevated. Transvaginal ultrasound could not detect ovaries and showed moderate amount of ascites with 1 cm mass in the uterine cervix. Gynecology was therefore consulted and recommended that she follow-up on outpatient basis and not to have any further work-up done inpatient. She is also to follow-up with swimming pool plasterer helper office for routine breast and pelvic exam. She remained stable and was discharged to SNF on 11/30/2022. She completed a 5-day course of antibiotics and so was not given any oral antibiotics at time of discharge. She was given a prescription for p.o. potassium 20 mEq daily and is follow-up with her primary care doctor, swimming pool plasterer helper and visual effects artist. Patient seen and examined prior to discharge. She had no complaints. She had an uneventful night and review of symptoms otherwise negative. Labs and vitals reviewed. Home medication reviewed and reconciled. Physical Exam Const alert, oriented x3 and no apparent distress Constitutional Narrative: frail General Appearance: cooperative, comfortable and well kempt Orientation / Consciousness: awake, oriented to person, oriented to place and oriented to time HEENT normocephalic, head/scalp atraumatic, hearing grossly normal bilaterally and jacky pharynx normal Mouth: dry mucous membranes Eyes PERRL, EOMs intact bilaterally and conjunctivae normal Neck no lymphadenopathy, supple, no JVD, thyroid normal and no carotid bruits General: trachea midline Lymph Lymphatic: no lymphadenopathy noted and no lymphedema noted Resp normal respiratory effort, normal air movement, no retractions, no use of accessory muscles and clear to auscultation bilaterally Auscultation: Negative for rales, rhonchi or wheezes Cardio regular rate, regular rhythm, S1 normal heart sound, S2 normal heart sound, no murmurs, no rub and no gallops Cardio Narrative: grade 2-3 systolic murmur loudest over the aortic region GI normal to inspection, nondistended, normoactive bowel sounds, soft to palpation and non-tender GI Narrative: abdomen distended, positive fluid thrill. had paracentesis today. Extremity normal to inspection, full ROM, normal capillary refill and no clubbing, cyanosis or edema Skin no rashes or lesions noted General Skin Exam: no breakdown Neuro CN's II-XII intact bilaterally, moves all extremities, no focal motor deficits, no sensory deficits noted and deep tendon reflexes 2+ bilaterally Speech: speech normal Motor Exam: strength 5/5 throughout and general weakness Psych thought process normal, cooperative and affect normal Appearance: appropriate Medical Records Data Medical Nutrition Assessment Dietitian: Malnutrition Criteria Met Start: 11/24/22 15:53 Freq: Status: Active Protocol: Document 11/24/22 15:53 (Rec: 11/24/22 15:53 [id number]) Nutrition Malnutrition Evidence of Malnutrition Exists Yes Malnutrition (severe): Chronic Evidenced By Suboptimal Energy Intake ( Severe),Weight Loss (Severe) Clinical Problem Chronic Disease or Condition Related Malnutrition Etiology severe, chronic malnutrition r /t GI dysfunction, poor appetite Signs/Symptoms as evidenced by unintentional wt loss of ~69#/34% wt loss x 1 year, estimated PO intake meeting <75% of estimated energy needs > 3 months Status Active Problem Recommendation Dietitian Recommendations/Changes Recommend advance diet as tolerated to regular/sodium restricted; will monitor PO intake as established and adjust diet/add ONS as indicated Weight / BMI Weight Weight: 131 lb 1 oz Body Mass Index (BMI) 23.2 ABG / Lab / Microbiology Data 11/30/22 08:50 11/30/22 08:50 Laboratory: Laboratory Results - last 24 hr 11/24/22 : Miscellaneous Cytology SEE PATHOLOGY REPORT 11/29/22 15:57: POC Glucose 109 H 11/29/22 21:45: POC Glucose 116 H 11/30/22 06:21: POC Glucose 89 11/30/22 08:50: WBC 4.3 L, RBC 3.13 L, Hgb 11.4 L, Hct 34.1 L, MCV 108.9 H, MCH 36.4 H, MCHC 33.4, RDW Std Deviation 64.5 H, RDW Coeff of Codey 16.0 H, Plt Count 42 L*, MPV 11.4, Immature Gran % (Auto) 0.500, Neut % (Auto) 78.3 H, Lymph % (Auto) 9.1 L, [place] % (Auto) 4.4, Eos % (Auto) 7.0 H, Baso % (Auto) 0.7, Absolute Neuts (auto) 3.4, Absolute Lymphs (auto) 0.39 L, Nucleated RBC % 0, Diff Path Review May foll, Platelet Estimate MKD DEC, Anisocytosis 1+, Sodium 139, Potassium 3.3 L, Chloride 114 H, Carbon Dioxide 20.0 L, Anion Gap 5, BUN 17, Creatinine 0.92, Estim Creat Clear Calc 45.05, Est GFR (MDRD) Af Amer 77, Est GFR (MDRD) Non-Af 63, BUN/Creatinine Ratio 18.4, Glucose 96, Calcium 9.3, Magnesium 1.7 11/30/22 11:02: POC Glucose 100 Microbiology: Microbiology 11/23/22 10:30 Blood Culture (Wb) - Left Hand Blood Culture - Final No growth in 5 days. 11/23/22 10:30 Blood Culture (Wb) - Anticubital Right Blood Culture - Final No growth in 5 days. 11/23/22 13:58 Urine, Clean Catch Urine Culture - Final Escherichia coli Klebsiella pneumoniae sp pneum#2 Radiography Diagnostic Testing: Radiology Impression Pelvis MRI 11/29/22 05:55 IMPRESSION: 1. Large volume pelvic ascites. 2. Normal ovaries. 3. No uterine mass. Electronically Signed: Aditya Quiroz MD at 16:11 EDT , D/C Instructions Discharge Diet: Low fat / Low cholesterol Discharge Activity: Return to Normal Activity Call your doctor if you observe: Fever of 101 or Higher, Shortness of breath, Dizziness, Swelling in the ankles and Chest pain Meaningful Use Info Meaningful Use Diagnoses (Choose all that apply): None applicable Discharge Plan Admission Admit Date/Time: 11/29/22 13:26 Primary Reason for Your Visit: electrolyte abnormalities Attending Provider: Maria E Hairston Primary Care Provider: Santino Mcneill Consulting Providers: Yaya Sanchez; Chris Mccord; Jocelynn Akhtar Instructions Patient Instructions: Hypercalcemia Dc Discharge Orders/Prescriptions Prescriptions: New potassium chloride 20 mEq tablet extended release 20 meq PO DAILY Qty: 30 2RF metoclopramide HCl 5 mg Tablet 5 mg PO TIDAC Qty: 90 1RF Continued citalopram 10 mg tablet 10 tab PO DAILY ergocalciferol (vitamin D2) 1,250 mcg (50,000 unit) capsule 50,000 units PO METZ Patient Comments: TAKE 1 CAPSULE BY MOUTH ONCE A WEEK lorazepam 1 mg tablet 1 mg PO DAILY Patient Comments: PT STATES TAKES AT BEDTIME lovastatin 40 mg tablet 40 mg PO DAILY metformin 1,000 mg tablet 1,000 mg PO BID pioglitazone 30 mg tablet 30 mg PO DAILY furosemide 20 mg tablet 20 mg PO DAILY allopurinol 300 mg tablet 300 mg PO DAILY folic acid 1 mg tablet 1 mg PO DAILY Patient Comments: TAKE 1 TABLET BY MOUTH ONCE DAILY sucralfate 1 gram tablet 1 g PO TID Patient Comments: TAKE 1 TABLET BY MOUTH THREE TIMES DAILY BEFORE MEAL(S) pantoprazole 40 mg tablet,delayed release (DR/EC) 40 mg PO BID Patient Comments: TAKE 1 TABLET BY MOUTH ONCE DAILY IN THE AFTERNOON, TAKE ONE HOUR BEFORE EVENING MEAL spironolactone [Aldactone] 25 mg tablet 50 mg PO DAILY Discontinued potassium chloride 10 mEq tablet extended release 10 meq PO DAILY Referrals / Follow Up: Santino Mcneill MD [Primary Care Provider] - Within 2 Weeks Patrick Hawk DO [Med Staff - Active Staff] - Within 2 Weeks Jocelynn Akhtar DO [Med Staff - Active Staff] - Within 2 Weeks Disposition Disposition (needs filled in before D/C Order can be placed): Long-Term Facility Charges/Coding Visit Charges Inpatient E&M: 93797 Disch Hosp >30min
[2022-11-30] MEDS: 0.9% Saline Lock 10 ML Syringe IV (15:54)
[2022-11-30] MEDS: Potassium Chloride Oral Tablet 20 MEQ 40 MEQ PO (15:54)
--- NOTE | 2022-11-30 16:12 | CASEMGMT ---
Discharge Planning Discharge orders, signed med list, and discharge time sent to [facility] via [facility]. Patients sister will transport with pickup between 6:30-7p. Ila Powell, Discharge Planning Asst.
--- NOTE | 2022-11-30 16:13 | CASEMGMT ---
Patient will be discharged today. MALI called patient's sister Rossy and let her know. Rossy said she spoke with Dr Kenn and he said he is changing some medications around and it will be a couple of days. MALI told Rossy MALI will check with physician. MALI notified physician and patient will go today. MALI notified patient's sister Rossy. Rossy said she will transport patient. MALI notified RN. MALI also completed a PASRR in [facility] system. Plan: d/c to [facility] under skilled level of care on a PASRR. Patient's sister transported patient via private vehicle. Jessenia Smith TERMITE TECHNICIAN LUCAS
[2022-11-30 16:51] LABS: Bedside Glucose 106 mg/dL (74-106)
[2022-11-30] MEDS: Albumin Human 25% (100 mL) 25 GM/100 ML BAG IV (16:56)
--- NOTE | 2022-11-30 17:40 | NURSING ---
Attempted to call [facility] to give report. No answer, message left at nurses station.
--- NOTE | 2022-11-30 17:54 | NURSING ---
Report called to [facility] [place].
[2022-12-02 09:45] LABS: Pathologist Review Reviewed
== END 2022-11-30 18:50 | disposition skilled nursing facility (03) | DRG 640 ==
LOC: ED 13:29 → PCU 14:12
PROVIDERS: Family Medicine; Hospitalist; Internal Medicine Gastroenterology; Admitting Provider Internal Medicine; Emergency Provider Emergency Medicine; PCP Family Medicine; Visit Provider Student in an Organized Health Care Education/Training Program
PROC: 0DJD8ZZ Inspection of Lower Intestinal Tract, Via Natural or Artificial Opening Endoscopic (ICD-10-PCS; CPT 45378; principal; 2022-11-24 16:05)
DX: E83.52 Hypercalcemia (principal); E43 Unspecified severe protein-calorie malnutrition; R18.8 Other ascites; N39.0 Urinary tract infection, site not specified; D69.6 Thrombocytopenia, unspecified; E88.09 Other disorders of plasma-protein metabolism, not elsewhere classified; R62.7 Adult failure to thrive; K74.60 Unspecified cirrhosis of liver; E11.9 Type 2 diabetes mellitus without complications; I48.0 Paroxysmal atrial fibrillation; I10 Essential (primary) hypertension; F32.A Depression, unspecified; E87.6 Hypokalemia; I25.10 Atherosclerotic heart disease of native coronary artery without angina pectoris; K63.5 Polyp of colon; K52.9 Noninfective gastroenteritis and colitis, unspecified; I44.4 Left anterior fascicular block; E78.2 Mixed hyperlipidemia; E78.5 Hyperlipidemia, unspecified; I25.2 Old myocardial infarction; B96.20 Unspecified Escherichia coli [E. coli] as the cause of diseases classified elsewhere; Z79.84 Long term (current) use of oral hypoglycemic drugs; Z87.891 Personal history of nicotine dependence; B96.1 Klebsiella pneumoniae [K. pneumoniae] as the cause of diseases classified elsewhere; R63.4 Abnormal weight loss; Z79.2 Long term (current) use of antibiotics; I49.3 Ventricular premature depolarization; Z68.23 Body mass index [BMI] 23.0-23.9, adult; R97.1 Elevated cancer antigen 125 [CA 125]; N88.9 Noninflammatory disorder of cervix uteri, unspecified
CPT/HCPCS: 36415; 49083; 71045; 72197; 76830; 76856; 80048; 80053; 81001; 82105; 82140; 82378; 82607; 82652; 82784; 82945; 82962; 83516; 83605; 83615; 83735; 83970; 84100; 84157; 84165; 84484; 85025; 86255; 86301; 86304; 86334; 87040; 87077; 87086; 87088; 87186; 88108; 88305; 88313; 89050; 93005; 97110; 97116; 97162; 97166; 97530; 97535; 97802; 97803; 99285; A9575; J7030; J7040; J7050; P9047; A4216; J2405